=== PATIENT | male | born 1955 | race Caucasian/White ===

== ENCOUNTER 2016-09-18 18:24 | Observation (INO) ==
--- NOTE | 2016-09-18 18:28 | Emergency Department Note ---
Disposition Clinical Impression: Atrial fibrillation with RVR, Diabetes mellitus, Obesity, Renal insufficiency Disposition: Admitted As Inpatient Referrals: NO,PCP [Non-Partnered Physician] - General Adult HPI - General Stated complaint: ANASTACIA, A-Fib Time Seen by Provider: 09/18/16 18:28 - History of Present Illness HPI Narrative: 60-year-old male with a history of diabetes reports to the emergency department complaining of a high heart rate. The patient has had a cough and nasal congestion and a sore throat. The patient went to his primary care physician today for upper respiratory symptoms and was noted to have a high heart rate and was sent to the ED. The patient had an episode of atrial fibrillation in the remote past. He is not anticoagulated but he does take baby aspirin daily. The patient denies any chest pain or shortness of breath. No coughing of blood leg swelling or pain or syncope. No abdominal pain vomiting or diarrhea. There is no history of fever. No choking gasping wheezing or stridor. The patient has no history of malignancy DVT or PE. No history of coronary artery disease. The patient does not take medication for arrhythmia. He has not noticed a high heart rate. He has had no trouble walking and talking hearing seeing or speaking no unilateral arm weakness or numbness no slurred speech or confusion. There is no history of fever headache or rash. No acute back pain or urinary symptoms are noted. - Related Data Allergies Allergy/AdvReac Type Severity Reaction Status Date / Time No Known Allergies Allergy Verified 09/18/16 18:40 All systems ED: reviewed and negative except as stated. Past Medical History - Past Medical History Medical history: Reports: diabetes Physical Exam - General Limitations: no limitations General appearance: alert, in no apparent distress - Head Head exam: atraumatic, normocephalic, normal inspection - Eye Eye exam: Present: normal appearance, PERRL, EOMI. Absent: scleral icterus, conjunctival injection, miosis, mydriasis - ENT ENT exam: normal exam, normal oropharynx, mucous membranes moist, TM's normal bilaterally, normal external ear exam - Neck Neck exam: Present: normal inspection, full ROM, trachea midline - Chest Chest inspection: Present: symmetric chest wall rise. Absent: tenderness - Respiratory Respiratory exam: Present: normal lung sounds bilaterally. Absent: respiratory distress - Cardiovascular Cardiovascular exam: Present: tachycardia, irregular rhythm - Abdominal Exam Abdominal exam: Present: soft, Non-Tender, normal bowel sounds. Absent: tenderness, distention, guarding, rebound, rigidity, pulsatile mass - Extremities Exam Extremities exam: Present: normal inspection, full ROM, normal capillary refill. Absent: tenderness, pedal edema, joint swelling, calf tenderness - Expanded Lower Extremity Exam Lower leg exam: Absent: Homans' sign Neurovascular/Tendon exam: Absent: pulse deficit, motor deficit, sensory deficit , tendon deficit, extremity cold to touch, pallor - Back Exam Back exam: Present: normal inspection, full ROM. Absent: tenderness, CVA tenderness (R), CVA tenderness (L), vertebral tenderness - Neurological Exam Neurological exam: Present: alert, oriented X3, CN II-XII intact. Absent: motor sensory deficit - Psychiatric Psychiatric exam: Present: normal affect, normal mood - Skin Skin exam: Present: warm, dry, intact, normal color. Absent: rash, cyanosis, diaphoresis, erythema, pallor, mottled Course Vital Signs Temperature 98.1 F 09/18/16 18:36 Pulse Rate 122 09/18/16 18:36 Respiratory Rate 16 09/18/16 18:36 Blood Pressure 179/135 09/18/16 18:36 O2 Sat by Pulse Oximetry 95 09/18/16 18:36 Temperature 98.1 F 09/18/16 18:36 Pulse Rate 75 09/18/16 19:50 Respiratory Rate 16 09/18/16 19:50 Blood Pressure 160/85 09/18/16 19:50 O2 Sat by Pulse Oximetry 95 09/18/16 19:50 Oxygen Delivery Oxygen Delivery Room Air Medical Decision Making - [facility] Narrative Medical decision making narrative: Patient apparently has A. fib with RVR, he does not usually have atrial fibrillation, his heart rate was somewhat high on arrival up into the 140s, Cardizem was given which reduced his heart rate to under 100. The patient is elderly, diabetic, has an element of dyspnea, is noted to have renal insufficiency, with a history of remote atrial fibrillation and is currently not anticoagulated. It is unclear when his atrial fibrillation has started. Given his presentation with comorbidities and a very unclear time of onset regarding the atrial fibrillation, I felt it would be appropriate to admit the patient to the hospital. DI have discussed the case with the hospitalist on- call. - Lab Data Lab results reviewed: Yes I reviewed the patient's lab results. Result diagrams: 09/18/16 19:06 09/18/16 19:06 Lab Results 09/18/16 09/18/16 09/18/16 Range/Units 19:06 19:06 19:06 WBC 7.0 (4.3-11.1) K/mcL RBC 4.44 (4.19-5.50) M/mcL Hgb 12.2 L (12.9-16.9) g/dL Hct 38.5 (37.5-50.1) % MCV 86.7 (83.0-100.0) fL MCH 27.5 L (28.0-33.3) pg MCHC 31.7 (31.6-35.5) g/dL RDW 14.2 (11.5-14.5) % Plt Count 243 (140-400) K/mcL MPV 11.3 (9.4-12.4) fL Immature Gran % 0.6 (0-4) % Seg Neutrophils % 51.6 % Lymphocytes % 22.5 % Monocytes % 17.3 % Eosinophils % 7.3 % Basophils % 0.7 % Neutrophils # 3.6 (1.6-8.9) K/mcL Lymphocytes # 1.6 (0.6-4.6) K/mcL Monocytes # 1.2 (0.0-1.3) K/mcL Eosinophils # 0.5 (0.0-0.6) K/mcL Basophils # 0.1 (0.0-0.2) K/mcL PT 11.2 (9.4-12.1) Seconds INR 1.0 APTT 32.0 (26.0-36.0) Seconds Sodium 140 (136-145) mEq/L Potassium 4.3 (3.5-4.5) mEq/L Chloride 106 (98-109) mEq/L Carbon Dioxide 24 (19-29) mEq/L BUN 29 H (8-26) mg/dL Creatinine 1.85 H (0.72-1.25) mg/dL Est GFR ( Amer) 46 L (> 60) Est GFR (Non-Af Amer) 38 L (> 60) BUN/Creatinine Ratio 16 (6-26) Glucose 134 H (70-99) mg/dL Calculated Osmolality 298 (280-300) Lactic Acid (0.5-2.2) mmol/L Calcium 9.0 (8.6-10.8) mg/dL Total Bilirubin 0.6 (0.2-1.2) mg/dL Direct Bilirubin 0.2 (0.0-0.5) mg/dL Indirect Bilirubin 0.4 (0.0-1.2) mg/dL AST 26 (5-34) Units/L ALT 25 (0-55) Units/L Alkaline Phosphatase 58 (38-126) Units/L Troponin I (0-0.03) ng/mL C-Reactive Protein 16 H (Less than 5) mg/L B-Natriuretic Peptide (0-100) pg/mL Serum Total Protein 6.8 (6.0-8.3) g/dL Albumin 3.1 L (3.5-5.0) g/dL Globulin 3.7 H (2.4-3.5) g/dL Albumin/Globulin Ratio 0.8 L (1.1-2.2) 09/18/16 09/18/16 09/18/16 Range/Units 19:06 19:16 19:17 WBC (4.3-11.1) K/mcL RBC (4.19-5.50) M/mcL Hgb (12.9-16.9) g/dL Hct (37.5-50.1) % MCV (83.0-100.0) fL MCH (28.0-33.3) pg MCHC (31.6-35.5) g/dL RDW (11.5-14.5) % Plt Count (140-400) K/mcL MPV (9.4-12.4) fL Immature Gran % (0-4) % Seg Neutrophils % % Lymphocytes % % Monocytes % % Eosinophils % % Basophils % % Neutrophils # (1.6-8.9) K/mcL Lymphocytes # (0.6-4.6) K/mcL Monocytes # (0.0-1.3) K/mcL Eosinophils # (0.0-0.6) K/mcL Basophils # (0.0-0.2) K/mcL PT (9.4-12.1) Seconds INR APTT (26.0-36.0) Seconds Sodium (136-145) mEq/L Potassium (3.5-4.5) mEq/L Chloride (98-109) mEq/L Carbon Dioxide (19-29) mEq/L BUN (8-26) mg/dL Creatinine (0.72-1.25) mg/dL Est GFR ( Amer) (> 60) Est GFR (Non-Af Amer) (> 60) BUN/Creatinine Ratio (6-26) Glucose (70-99) mg/dL Calculated Osmolality (280-300) Lactic Acid 0.9 (0.5-2.2) mmol/L Calcium (8.6-10.8) mg/dL Total Bilirubin (0.2-1.2) mg/dL Direct Bilirubin (0.0-0.5) mg/dL Indirect Bilirubin (0.0-1.2) mg/dL AST (5-34) Units/L ALT (0-55) Units/L Alkaline Phosphatase (38-126) Units/L Troponin I 0.03 (0-0.03) ng/mL C-Reactive Protein (Less than 5) mg/L B-Natriuretic Peptide 160 H (0-100) pg/mL Serum Total Protein (6.0-8.3) g/dL Albumin (3.5-5.0) g/dL Globulin (2.4-3.5) g/dL Albumin/Globulin Ratio (1.1-2.2) - Radiology Data Radiology results reviewed: Yes I reviewed the patient's radiology results.
[2016-09-18 19:26] LABS: Basophils # 0.1 K/mcL (0.0-0.2); Basophils % 0.7 %; Eosinophils # 0.5 K/mcL (0.0-0.6); Eosinophils % 7.3 %; Hematocrit 38.5 % (37.5-50.1); Hemoglobin 12.2 g/dL (12.9-16.9); Immature Granulocytes % 0.6 % (0-4); Lymphocytes # 1.6 K/mcL (0.6-4.6); Lymphocytes % 22.5 %; Mean Corpuscular HGB Conc 31.7 g/dL (31.6-35.5); Mean Corpuscular Hemoglobin 27.5 pg (28.0-33.3); Mean Corpuscular Volume 86.7 fL (83.0-100.0); Mean Platelet Volume 11.3 fL (9.4-12.4); Monocytes # 1.2 K/mcL (0.0-1.3); Monocytes % 17.3 %; Neutrophils # 3.6 K/mcL (1.6-8.9); Platelet Count 243 K/mcL (140-400); Red Blood Count 4.44 M/mcL (4.19-5.50); Red Cell Distribution Width 14.2 % (11.5-14.5); Segmented Neutrophils % 51.6 %
[2016-09-18 19:30] LABS: Prothrombin Time 11.2 Seconds (9.4-12.1)
[2016-09-18 19:39] LABS: Albumin 3.1 g/dL (3.5-5.0); Albumin/Globulin Ratio 0.8 (1.1-2.2); Bilirubin,Direct 0.2 mg/dL (0.0-0.5); Bilirubin,Indirect 0.4 mg/dL (0.0-1.2); Bilirubin,Total 0.6 mg/dL (0.2-1.2); Globulin 3.7 g/dL (2.4-3.5); Potassium 4.3 mEq/L (3.5-4.5); Total Protein 6.8 g/dL (6.0-8.3)
[2016-09-18 21:18] LABS: Thyroid Stimulating Hormone 2.61 mcIU/mL (0.350-4.840)
[2016-09-18] MEDS ORDERED: Naloxone 0.4 MG/ML INJ IVP PRN (23:41)
[2016-09-18] MEDS ORDERED: Nitroglycerin 0.4 MG TAB.SUBL SL PRN (23:41)
[2016-09-18] MEDS ORDERED: Acetaminophen 325 MG TABLET PO PRN (23:41)
[2016-09-18] MEDS ORDERED: D5% in Water 1,000 ML IV PRN (23:41)
[2016-09-18] MEDS ORDERED: *HR* Metoprolol 5 MG/5 ML VIAL IVP PRN (23:41)
[2016-09-18] MEDS ORDERED: Nicotine 21 MG PATCH.TD24 TD PRN (23:41)
[2016-09-18] MEDS ORDERED: *HR* Morphine 2 MG/ML SYRINGE IVP PRN (23:41)
[2016-09-18] MEDS ORDERED: *HR* OxyCODONE Immed Rel 5 MG TABLET PO PRN (23:41)
[2016-09-18] MEDS ORDERED: *HR* Promethazine 25 MG/ML VIAL IVP PRN (23:41)
[2016-09-18] MEDS ORDERED: *HR* Dextrose 50 % in Water (Syg) 50 ML SYRINGE IVP PRN (23:41)
[2016-09-18] MEDS ORDERED: Dextrose Gel 15 GM PO PRN ×2 (23:41)
[2016-09-18] MEDS ORDERED: 0.9 % Sodium Chloride 1,000 ML IVC SCH (23:45)
[2016-09-18] MEDS ORDERED: INSULIN GLARGINE 62 UNIT SQ SCH (23:45)
--- NOTE | 2016-09-18 23:49 | Internal Med History&Physical ---
Date of Encounter: 09/18/16 Time of Encounter: 23:48 Assessment and Plan (1) Atrial fibrillation with RVR Current visit: Yes Status: Acute . Internal Medicine - H&P: HPI Admitted From: Emergency Dept Plans for Post Hospital Care: Home History of present illness: Mr. Osborne is a 60 year old male Past Med Surg Social Fam HX - Past Medical History Medical history: diabetes Psychiatric history: no psych history - Social History Smoking Status: Never smoker Smokeless Tobacco Status: Yes Alcohol use: none Drug use: none - Family History Mother Living Status: Hx Family Cardiac Disorders: Yes Hx Family Endocrine Disorder: Yes Brother Hx Family Cardiac Disorders: Yes Internal Medicine - H&P: Meds Albuterol Sulfate [Ventolin Hfa] 2 puff IH Q4H PRN 09/18/16 [History] Allopurinol [Zyloprim 100 MG] 100 mg PO DAILY 09/18/16 [History] Aspirin Enteric Coated [Aspirin EC] 81 mg PO DAILY 09/18/16 [History] Atorvastatin [Lipitor] 40 mg PO HS 09/18/16 [History] Carvedilol [Coreg] 25 mg PO BID 09/18/16 [History] CloNIDine HCl [CloNIDine HCl] 0.1 mg PO TID 09/18/16 [History] Felodipine [Felodipine ER] 10 mg PO DAILY 09/18/16 [History] Furosemide [Lasix] 40 mg PO BID 09/18/16 [History] Hydralazine HCl 50 mg PO TID 09/18/16 [History] Insulin Glargine [Lantus] 62 unit SQ QPM 09/18/16 [History] Lisinopril [Lisinopril] 40 mg PO DAILY 09/18/16 [History] Metformin [Glucophage] 850 mg PO BID 09/18/16 [History] Montelukast [Singulair] 10 mg PO HS 09/18/16 [History] Allergies No Known Allergies Allergy (Verified 09/18/16 18:40) All Systems PM: A 10-system review of systems was performed and is negative for pertinent findings except as documented above in the HPI. - Constitutional Vitals: Temp Pulse Resp BP Pulse Ox 98.0 F 70 18 180/68 96 09/18/16 22:50 09/18/16 22:50 09/18/16 22:50 09/18/16 22:50 09/18/16 22:50 Internal Med - H&P Results - Labs CBC & Chem 7: 09/18/16 19:06 09/18/16 19:06 Labs: Vital Signs Temp Pulse Resp BP Pulse Ox 09/18/16 22:50 98.0 F 70 18 180/68 96 09/18/16 21:12 98.0 F 70 18 189/92 95 09/18/16 20:57 18 158/96 09/18/16 19:50 75 16 160/85 95 09/18/16 19:06 103 20 169/96 94 L 09/18/16 18:36 98.1 F 122 16 179/135 95 Intake and Output 09/18/16 09/18/16 09/18/16 07:59 15:59 23:59 Other: Weight 169.19 kg Patient Weight 09/18/16 23:59 Weight 169.19 kg Short CBC 09/18/16 Range/Units 19:06 WBC 7.0 (4.3-11.1) K/mcL Hgb 12.2 L (12.9-16.9) g/dL Hct 38.5 (37.5-50.1) % Plt Count 243 (140-400) K/mcL Neutrophils # 3.6 (1.6-8.9) K/mcL BMP 09/18/16 Range/Units 19:06 Sodium 140 (136-145) mEq/L Potassium 4.3 (3.5-4.5) mEq/L Chloride 106 (98-109) mEq/L Carbon Dioxide 24 (19-29) mEq/L BUN 29 H (8-26) mg/dL Creatinine 1.85 H (0.72-1.25) mg/dL Glucose 134 H (70-99) mg/dL Calcium 9.0 (8.6-10.8) mg/dL Cardiac Enzymes 09/18/16 Range/Units 19:06 Troponin I 0.03 (0-0.03) ng/mL Liver Function 09/18/16 Range/Units 19:06 Total Bilirubin 0.6 (0.2-1.2) mg/dL Direct Bilirubin 0.2 (0.0-0.5) mg/dL AST 26 (5-34) Units/L ALT 25 (0-55) Units/L Alkaline Phosphatase 58 (38-126) Units/L Albumin 3.1 L (3.5-5.0) g/dL - Impressions Abnormal lab results Hgb 12.2 g/dL (12.9-16.9) L 09/18/16 19:06 MCH 27.5 pg (28.0-33.3) L 09/18/16 19:06 BUN 29 mg/dL (8-26) H 09/18/16 19:06 Creatinine 1.85 mg/dL (0.72-1.25) H 09/18/16 19:06 Est GFR ( Amer) 46 (> 60) L 09/18/16 19:06 Est GFR (Non-Af Amer) 38 (> 60) L 09/18/16 19:06 Glucose 134 mg/dL (70-99) H 09/18/16 19:06 POC Glucose 125 (58-89) H 09/18/16 21:32 C-Reactive Protein 16 mg/L (Less than 5) H 09/18/16 19:06 B-Natriuretic Peptide 160 pg/mL (0-100) H 09/18/16 19:17 Albumin 3.1 g/dL (3.5-5.0) L 09/18/16 19:06 Globulin 3.7 g/dL (2.4-3.5) H 09/18/16 19:06 Albumin/Globulin Ratio 0.8 (1.1-2.2) L 09/18/16 19:06 Laboratory Results WBC 7.0 K/mcL (4.3-11.1) 09/18/16 19:06 RBC 4.44 M/mcL (4.19-5.50) 09/18/16 19:06 Hgb 12.2 g/dL (12.9-16.9) L 09/18/16 19:06 Hct 38.5 % (37.5-50.1) 09/18/16 19: MCV 86.7 fL (83.0-100.0) 09/18/16 19:06 MCH 27.5 pg (28.0-33.3) L 09/18/16 19:06 MCHC 31.7 g/dL (31.6-35.5) 09/18/16 19:06 RDW 14.2 % (11.5-14.5) 09/18/16 19:06 Plt Count 243 K/mcL (140-400) 09/18/16 19:06 MPV 11.3 fL (9.4-12.4) 09/18/16 19:06 Immature Gran % 0.6 % (0-4) 09/18/16 19:06 Seg Neutrophils % 51.6 % 09/18/16 19:06 Lymphocytes % 22.5 % 09/18/16 19:06 Monocytes % 17.3 % 09/18/16 19:06 Eosinophils % 7.3 % 09/18/16 19:06 Basophils % 0.7 % 09/18/16 19:06 Neutrophils # 3.6 K/mcL (1.6-8.9) 09/18/16 19:06 Lymphocytes # 1.6 K/mcL (0.6-4.6) 09/18/16 19:06 Monocytes # 1.2 K/mcL (0.0-1.3) 09/18/16 19:06 Eosinophils # 0.5 K/mcL (0.0-0.6) 09/18/16 19:06 Basophils # 0.1 K/mcL (0.0-0.2) 09/18/16 19:06 PT 11.2 Seconds (9.4-12.1) 09/18/16 19:06 INR 1.0 09/18/16 19:06 APTT 32.0 Seconds (26.0-36.0) 09/18/16 19:06 Sodium 140 mEq/L (136-145) 09/18/16 19:06 Potassium 4.3 mEq/L (3.5-4.5) 09/18/16 19:06 Chloride 106 mEq/L (98-109) 09/18/16 19:06 Carbon Dioxide 24 mEq/L (19-29) 09/18/16 19:06 BUN 29 mg/dL (8-26) H 09/18/16 19:06 Creatinine 1.85 mg/dL (0.72-1.25) H 09/18/16 19:06 Est GFR ( Amer) 46 (> 60) L 09/18/16 19:06 Est GFR (Non-Af Amer) 38 (> 60) L 09/18/16 19:06 BUN/Creatinine Ratio 16 (6-26) 09/18/16 19:06 Glucose 134 mg/dL (70-99) H 09/18/16 19:06 POC Glucose 125 (58-89) H 09/18/16 21:32 Calculated Osmolality 298 (280-300) 09/18/16 19:06 Lactic Acid 0.9 mmol/L (0.5-2.2) 09/18/16 19:16 Calcium 9.0 mg/dL (8.6-10.8) 09/18/16 19:06 Total Bilirubin 0.6 mg/dL (0.2-1.2) 09/18/16 19:06 Direct Bilirubin 0.2 mg/dL (0.0-0.5) 09/18/16 19:06 Indirect Bilirubin 0.4 mg/dL (0.0-1.2) 09/18/16 19:06 AST 26 Units/L (5-34) 09/18/16 19:06 ALT 25 Units/L (0-55) 09/18/16 19:06 Alkaline Phosphatase 58 Units/L (38-126) 09/18/16 19:06 Troponin I 0.03 ng/mL (0-0.03) 09/18/16 19:06 C-Reactive Protein 16 mg/L (Less than 5) H 09/18/16 19:06 B-Natriuretic Peptide 160 pg/mL (0-100) H 09/18/16 19:17 Serum Total Protein 6.8 g/dL (6.0-8.3) 09/18/16 19:06 Albumin 3.1 g/dL (3.5-5.0) L 09/18/16 19:06 Globulin 3.7 g/dL (2.4-3.5) H 09/18/16 19:06 Albumin/Globulin Ratio 0.8 (1.1-2.2) L 09/18/16 19:06 TSH 2.610 mcIU/mL (0.350-4.840) 09/18/16 19:06 Impressions Chest X-Ray 09/18/16 18:36 IMPRESSION: 1. Minimal prominence of the central pulmonary vasculature. 2. Otherwise, no evidence of acute cardiopulmonary abnormality. D/ / Mono Goins MD / Mono Goins MD Interpreting Provider: Mono Goins MD - Attending Attestation My signature below is to certify that this patient is under my care and that I, or nurse practitioner, or a physician's clinic office assistant working with me, has a face-to -face encounter with this patient. Allergies No Known Allergies Allergy (Verified 09/18/16 18:40) Home Medications Medication Instructions Recorded Confirmed Type Albuterol Sulfate [Ventolin Hfa] 2 puff IH Q4H PRN 09/18/16 09/18/16 History Allopurinol [Zyloprim 100 MG] 100 mg PO DAILY 09/18/16 09/18/16 History Aspirin Enteric Coated [Aspirin EC] 81 mg PO DAILY 09/18/16 09/18/16 History Atorvastatin [Lipitor] 40 mg PO HS 09/18/16 09/18/16 History Carvedilol [Coreg] 25 mg PO BID 09/18/16 09/18/16 History CloNIDine HCl [CloNIDine HCl] 0.1 mg PO TID 09/18/16 09/18/16 History Felodipine [Felodipine ER] 10 mg PO DAILY 09/18/16 09/18/16 History Furosemide [Lasix] 40 mg PO BID 09/18/16 09/18/16 History Hydralazine HCl 50 mg PO TID 09/18/16 09/18/16 History Insulin Glargine [Lantus] 62 unit SQ QPM 09/18/16 09/18/16 History Lisinopril [Lisinopril] 40 mg PO DAILY 09/18/16 09/18/16 History Metformin [Glucophage] 850 mg PO BID 09/18/16 09/18/16 History Montelukast [Singulair] 10 mg PO HS 09/18/16 09/18/16 History I & O 09/15/16 09/16/16 09/17/16 09/18/16 23:59 23:59 23:59 23:59 Weight 169.19 kg Medications Allopurinol (Zyloprim) 100 mg PO DAILY ISAMAR Stop: 03/21/17 09:01 Aspirin (Aspirin Ec) 81 mg PO DAILY ISAMAR Stop: 03/21/17 09:01 Atorvastatin Calcium (Lipitor) 40 mg PO HS [facility] Stop: 03/20/17 23:46 Carvedilol (Coreg) 25 mg PO BID [facility] PRN Reason: Protocol Stop: 03/20/17 23:46 Clonidine HCl (Clonidine Hcl) 0.1 mg PO TID ISAMAR Stop: 03/21/17 09:01 Furosemide (Lasix) 40 mg PO BID ISAMAR Stop: 03/21/17 09:01 Hydralazine HCl (Hydralazine) 50 mg PO TID ISAMAR Stop: 03/20/17 23:46 Lisinopril (Zestril) 40 mg PO DAILY [facility] Stop: 03/21/17 09:01 Montelukast Sodium (Singulair) 10 mg PO HS [facility] Stop: 03/20/17 23:46 Non-Formulary Medication (Insulin Glargine [Lantus]) 62 unit SQ QPM [facility] Stop: 03/20/17 23:46 Pharmacy Profile Note (Patient Taking Own Medication) 0 each PO DAILY [facility] Stop: 03/21/17 09:01 Discontinued Medications Diltiazem HCl (Cardizem) 25 mg IVP ONCE ONE Stop: 09/18/16 18:42 Last Admin: 09/18/16 18:59 Dose: 25 mg Orders 09/18/16 18:35 12 lead ECG assessment [RC] NOW Cardiac monitoring [RC] .ONCE Obtain Old EKG [RC] .ONCE Saline lock [RC] .ONCE Supplemental oxygen titration [RC] .ONCE Physician Instructions: Vital Signs Assessment [RC] PROTOCOL ECG 12 lead ECG [ECG] Stat Mode Of Transportation: Portable Reason For Exam: chest pain Exam Performed At:: [facility] 09/18/16 18:36 XR chest 2V [XR] Stat Mode Of Transportation: Stretcher Reason For Exam: A. fib RVR Exam Performed At:: [facility] 09/18/16 18:41 Diltiazem [Cardizem] 25 mg IVP ONCE ONE 09/18/16 19:05 Rapid Flu [Influenza A/B Antigen] [VIR] Stat Comment: DAMIAN Source: Nasopharyngeal Specimen: Send someone from the department to collect Specimen Description: 09/18/16 19:06 Activated Partial Thrombo Time [COAG] Stat Comment: Specimen: Send someone from the department to collect Basic Metabolic Panel Stat C-Reactive Protein Stat Complete Blood Count [HEME] Stat Comment: Specimen: Send someone from the department to collect Hepatic Panel Stat Comment: Specimen: Send someone from the department to collect Prothrombin Time INR [COAG] Stat Comment: Specimen: Send someone from the department to collect Thyroid Stimulating Hormone Stat Troponin I Stat Comment: Specimen: Send someone from the department to collect 09/18/16 19:16 Lactic Acid ([facility] Only) Stat Comment: Specimen: Send someone from the department to collect 09/18/16 19:17 BNP [B-Type Natriuretic Peptide] Stat Comment: Specimen: Send someone from the department to collect 09/18/16 20:[address] Stat Comment: Reason for Visit: A. fib RVR 09/18/16 20:32 12 lead ECG assessment [RC] NOW EKG [ECG 12 lead ECG] [ECG] Stat Mode Of Transportation: Portable Reason For Exam: AF, Yes #2 Order Doctor: Matt Hernández Exam Performed At:: [facility] 09/18/16 21:32 POC Glucometer Test [POC] Routine 09/18/16 23:41 Cardiac monitoring [RC] .ONCE Continuous pulse oximetry [RC] .ONCE Comment: Glucose, blood poc measurement [RC] ACHS Glucose, blood poc measurement [RC] ACHS Hypoglycemia Treatment Orders [RC] .once Notify provider [RC] once Physician Instructions: Oxygen via nasal cannula Nasal Cannula 2 lpm Comment: Peripheral IV [RC] CONT Vital Signs Assessment [RC] Q4H Consult to Vessel Slag Worker [CONS] Routine Comment: Consult to Nurse Navigator [CONS] Routine Comment: @ 100 MLS/HR [prn Hypoglycemia] D5% in Water [Dextrose 5%] 1,000 ml IV CONT Acetaminophen [Tylenol] 650 mg PO Q6HR PRN Dextrose 50 % in Water (Syg) [Dextrose 50% (Syg)] 25 ml IVP AD PRN Dextrose Gel [Gluctose] 15 gm PO ONCE PRN Dextrose Gel [Gluctose] 30 gm PO ONCE PRN Docusate [Colace] 100 mg PO BID PRN Glucagon, Human Recombinant [GlucaGen] 1 mg IM ONCE PRN Metoprolol [Lopressor] 5 mg IVP Q6HR PRN Morphine [Morphine Sulfate] 2 mg IVP Q4HR PRN Naloxone [Narcan] 0.4 mg IVP Q2MIN PRN Nicotine Patch [Nicoderm] 21 mg TD DAILY PRN Nitroglycerin 0.4 mg SL Q5MIN PRN OxyCODONE Immed Rel [Roxicodone] 5 mg PO Q6HR PRN Promethazine [Phenergan] 12.5 mg IVP Q6HR PRN Resuscitation Status: Active [RES] Routine Resuscitation Status: Full Code Comment: EV echocardiogram Routine Mode Of Transportation: Portable Reason For Exam: ACS Exam Performed At:: [facility] 09/18/16 23:42 Placement to Observation Routine Physician Instructions: Reason for Visit: Difficulty breathing. Palpitations. Is VTE Prophylaxis Indicated?: Yes RT has an order or consult [RC] NOW 09/18/16 23:43 Bed rest w/bathroom privileges [RC] .PRN Cardiac Monitoring Med/Surg [RC] .CONT Telemetry Reason: ACS/CP Continuous pulse oximetry [RC] CONT Comment: Measure intake and output [RC] QSHIFT Measure weight [RC] DAILY Oxygen via nasal cannula Nasal Cannula 2 lpm Comment: Titrate O2 to main O2 sat greater than: 92% 09/18/16 23:45 Troponin I Q6H Specimen: Send someone from the department to collect Comment: 0.9 % Sodium Chloride 1,000 ml IVC 50 mls/hr Atorvastatin [Lipitor] 40 mg PO HS Carvedilol [Coreg] 25 mg PO BID Hydralazine HCl [Hydralazine HCl] 50 mg PO TID How will this medication be supplied?: Pharmacy to Subsitute Insulin Glargine [Lantus] 62 unit SQ QPM How will this medication be supplied?: Pharmacy to Subsitute Insulin LISPRO [HumaLOG] See Protocol SQ HS Montelukast [Singulair] 10 mg PO HS 09/18/16 23:46 12 lead ECG assessment [RC] NOW 09/18/16 Breakfast Diabetic Diet Diet Modifications: 09/19/16 04:00 Activated Partial Thrombo Time [COAG] AM 0400 Specimen: Send someone from the department to collect Comment: B-Type Natriuretic Peptide AM 0400 Specimen: Send someone from the department to collect Comment: Complete Blood Count w/o Diff [HEME] AM 0400 Specimen: Send someone from the department to collect Comment: Comprehensive Metabolic Panel AM 0400 Specimen: Send someone from the department to collect Comment: Hgb A1C AM 0400 Specimen: Send someone from the department to collect Comment: Lipid Panel AM 0400 Specimen: Send someone from the department to collect Comment: Magnesium AM 0400 Specimen: Send someone from the department to collect Comment: Phosphorous AM 0400 Specimen: Send someone from the department to collect Comment: Prothrombin Time INR [COAG] AM 0400 Specimen: Send someone from the department to collect Comment: Thyroid Stimulating Hormone AM 0400 Specimen: Send someone from the department to collect Comment: Urinalysis reflex Microscopic [URIN] AM 0400 Specimen: Send someone from the department to collect Comment: 09/19/16 05:45 Troponin I Q6H Specimen: Send someone from the department to collect Comment: 09/19/16 07:00 ECG 12 lead ECG [ECG] Routine Mode Of Transportation: Portable Reason For Exam: Myocardial Infarction Exam Performed At:: [facility] 09/19/16 07:30 Insulin LISPRO [HumaLOG] See Protocol SQ TIDAC 09/19/16 09:00 Allopurinol [Zyloprim] 100 mg PO DAILY Aspirin Enteric Coated [Aspirin EC] 81 mg PO DAILY CloNIDine HCl 0.1 mg PO TID Felodipine [Felodipine ER] 10 mg PO DAILY How will this medication be supplied?: Pharmacy to Subsitute Furosemide [Lasix] 40 mg PO BID Lisinopril [Lisinopril] 40 mg PO DAILY How will this medication be supplied?: Pharmacy to Subsitute 09/19/16 11:45 Troponin I Q6H Specimen: Send someone from the department to collect Comment: Patient Problems Atrial fibrillation with RVR (Acute) Diabetes mellitus (Acute) Obesity (Acute) Renal insufficiency (Acute) Vital Signs Temp Pulse Resp BP Pulse Ox 09/18/16 22:50 98.0 F 70 18 180/68 96 09/18/16 21:12 98.0 F 70 18 189/92 95 09/18/16 20:57 18 158/96 09/18/16 19:50 75 16 160/85 95 09/18/16 19:06 103 20 169/96 94 L 09/18/16 18:36 98.1 F 122 16 179/135 95 Laboratory Results 09/18/16 09/18/16 09/18/16 Range/Units 19:06 19:06 19:06 WBC 7.0 (4.3-11.1) K/mcL RBC 4.44 (4.19-5.50) M/mcL Hgb 12.2 L (12.9-16.9) g/dL Hct 38.5 (37.5-50.1) % MCV 86.7 (83.0-100.0) fL MCH 27.5 L (28.0-33.3) pg MCHC 31.7 (31.6-35.5) g/dL RDW 14.2 (11.5-14.5) % Plt Count 243 (140-400) K/mcL MPV 11.3 (9.4-12.4) fL Immature Gran % 0.6 (0-4) % Seg Neutrophils % 51.6 % Lymphocytes % 22.5 % Monocytes % 17.3 % Eosinophils % 7.3 % Basophils % 0.7 % Neutrophils # 3.6 (1.6-8.9) K/mcL Lymphocytes # 1.6 (0.6-4.6) K/mcL Monocytes # 1.2 (0.0-1.3) K/mcL Eosinophils # 0.5 (0.0-0.6) K/mcL Basophils # 0.1 (0.0-0.2) K/mcL PT 11.2 (9.4-12.1) Seconds INR 1.0 APTT 32.0 (26.0-36.0) Seconds Sodium 140 (136-145) mEq/L Potassium 4.3 (3.5-4.5) mEq/L Chloride 106 (98-109) mEq/L Carbon Dioxide 24 (19-29) mEq/L BUN 29 H (8-26) mg/dL Creatinine 1.85 H (0.72-1.25) mg/dL Est GFR ( Amer) 46 L (> 60) Est GFR (Non-Af Amer) 38 L (> 60) BUN/Creatinine Ratio 16 (6-26) Glucose 134 H (70-99) mg/dL POC Glucose (58-89) Calculated Osmolality 298 (280-300) Lactic Acid (0.5-2.2) mmol/L Calcium 9.0 (8.6-10.8) mg/dL Total Bilirubin 0.6 (0.2-1.2) mg/dL Direct Bilirubin 0.2 (0.0-0.5) mg/dL Indirect Bilirubin 0.4 (0.0-1.2) mg/dL AST 26 (5-34) Units/L ALT 25 (0-55) Units/L Alkaline Phosphatase 58 (38-126) Units/L Troponin I (0-0.03) ng/mL C-Reactive Protein 16 H (Less than 5) mg/L B-Natriuretic Peptide (0-100) pg/mL Serum Total Protein 6.8 (6.0-8.3) g/dL Albumin 3.1 L (3.5-5.0) g/dL Globulin 3.7 H (2.4-3.5) g/dL Albumin/Globulin Ratio 0.8 L (1.1-2.2) TSH 2.610 (0.350-4.840) mcIU/mL 09/18/16 09/18/16 09/18/16 Range/Units 19:06 19:16 19:17 WBC (4.3-11.1) K/mcL RBC (4.19-5.50) M/mcL Hgb (12.9-16.9) g/dL Hct (37.5-50.1) % MCV (83.0-100.0) fL MCH (28.0-33.3) pg MCHC (31.6-35.5) g/dL RDW (11.5-14.5) % Plt Count (140-400) K/mcL MPV (9.4-12.4) fL Immature Gran % (0-4) % Seg Neutrophils % % Lymphocytes % % Monocytes % % Eosinophils % % Basophils % % Neutrophils # (1.6-8.9) K/mcL Lymphocytes # (0.6-4.6) K/mcL Monocytes # (0.0-1.3) K/mcL Eosinophils # (0.0-0.6) K/mcL Basophils # (0.0-0.2) K/mcL PT (9.4-12.1) Seconds INR APTT (26.0-36.0) Seconds Sodium (136-145) mEq/L Potassium (3.5-4.5) mEq/L Chloride (98-109) mEq/L Carbon Dioxide (19-29) mEq/L BUN (8-26) mg/dL Creatinine (0.72-1.25) mg/dL Est GFR ( Amer) (> 60) Est GFR (Non-Af Amer) (> 60) BUN/Creatinine Ratio (6-26) Glucose (70-99) mg/dL POC Glucose (58-89) Calculated Osmolality (280-300) Lactic Acid 0.9 (0.5-2.2) mmol/L Calcium (8.6-10.8) mg/dL Total Bilirubin (0.2-1.2) mg/dL Direct Bilirubin (0.0-0.5) mg/dL Indirect Bilirubin (0.0-1.2) mg/dL AST (5-34) Units/L ALT (0-55) Units/L Alkaline Phosphatase (38-126) Units/L Troponin I 0.03 (0-0.03) ng/mL C-Reactive Protein (Less than 5) mg/L B-Natriuretic Peptide 160 H (0-100) pg/mL Serum Total Protein (6.0-8.3) g/dL Albumin (3.5-5.0) g/dL Globulin (2.4-3.5) g/dL Albumin/Globulin Ratio (1.1-2.2) TSH (0.350-4.840) mcIU/mL 09/18/ Range/Units 21:32 WBC (4.3-11.1) K/mcL RBC (4.19-5.50) M/mcL Hgb (12.9-16.9) g/dL Hct (37.5-50.1) % MCV (83.0-100.0) fL MCH (28.0-33.3) pg MCHC (31.6-35.5) g/dL RDW (11.5-14.5) % Plt Count (140-400) K/mcL MPV (9.4-12.4) fL Immature Gran % (0-4) % Seg Neutrophils % % Lymphocytes % % Monocytes % % Eosinophils % % Basophils % % Neutrophils # (1.6-8.9) K/mcL Lymphocytes # (0.6-4.6) K/mcL Monocytes # (0.0-1.3) K/mcL Eosinophils # (0.0-0.6) K/mcL Basophils # (0.0-0.2) K/mcL PT (9.4-12.1) Seconds INR APTT (26.0-36.0) Seconds Sodium (136-145) mEq/L Potassium (3.5-4.5) mEq/L Chloride (98-109) mEq/L Carbon Dioxide (19-29) mEq/L BUN (8-26) mg/dL Creatinine (0.72-1.25) mg/dL Est GFR ( Amer) (> 60) Est GFR (Non-Af Amer) (> 60) BUN/Creatinine Ratio (6-26) Glucose (70-99) mg/dL POC Glucose 125 H (58-89) Calculated Osmolality (280-300) Lactic Acid (0.5-2.2) mmol/L Calcium (8.6-10.8) mg/dL Total Bilirubin (0.2-1.2) mg/dL Direct Bilirubin (0.0-0.5) mg/dL Indirect Bilirubin (0.0-1.2) mg/dL AST (5-34) Units/L ALT (0-55) Units/L Alkaline Phosphatase (38-126) Units/L Troponin I (0-0.03) ng/mL C-Reactive Protein (Less than 5) mg/L B-Natriuretic Peptide (0-100) pg/mL Serum Total Protein (6.0-8.3) g/dL Albumin (3.5-5.0) g/dL Globulin (2.4-3.5) g/dL Albumin/Globulin Ratio (1.1-2.2) TSH (0.350-4.840) mcIU/mL Assessments/Treatments 12 lead ECG assessment Start: 09/18/16 18: 35 Freq: NOW Status: Complete Document 09/18/16 18:47 [id number] (Rec: 09/18/16 18:52 [id number]) EKG Time EKG Completed 18:40 EKG performed by Ayaan PIERCE EKG shown to and signed by Dr. Hernández 12 lead ECG assessment Start: 09/18/16 20: 32 Freq: NOW Status: Active Document 09/18/16 20:32 KJC (Rec: 09/18/16 22:14 [id number]) Cardiac monitoring Start: 09/18/16 18: 35 Freq: .ONCE Status: Complete Document 09/18/16 18:47 [id number] (Rec: 09/18/16 18:52 [id number]) Cardiac Monitoring Heart Rate 118 Monitoring Method Telemetry Rhythm Atrial Fibrillation Monitor Number 32 ED Discharge Assessment Start: 09/18/16 18: 40 Freq: Status: Active Document 09/18/16 20:57 [id number] (Rec: 09/18/16 20:58 [id number]) ED Discharge Assessment ED Discharge Disposition Admitted ED Condition on Discharge Improved Med Rec/Patient Pharmacy Completed? Yes Admitted to 3B Bed assigned 54 Transported by maintenance mechanic technician Transported with monitor IV Report given to Nurse Care transferred to (name/credentials) Patricia RN Information relayed patient's care treatments medications given condition recent/anticipated changes Clinical Documentation Summary Provided Yes Discharge Comment Pt in no acute distress on admission to inpatient unit IV Line Removal Patient Tolerance Sterile Dressing Applied Pain Scale 0 Pain Scale Used Standard (1-10) Blood Pressure (mm Hg) 158/96 Heart rate 79 Respiratory Rate (breaths/min) 18 Oxygen Delivery Room Air Oxygen Saturation 97 Critical Care Minutes 0 ED Shortness of Breath Assessment Start: 09/18/16 18: 40 Freq: Status: Complete Document 09/18/16 18:47 [id number] (Rec: 09/18/16 18:52 [id number]) Shortness of Breath Sepsis Infection Criteria Present suspected infection Sepsis SIRS Criteria HR > 90 bpm Sepsis Screen No Definite Risk Sepsis Action Taken no action required Symptoms/Complaint Shortness of Breath Onset x 3 weeks Duration Intermittent Severity Moderate Context History/simular sympoms Known History Diabetes Improves With Rest Worsens With Exertion Associated Symptoms Cough Treatment Prior to Arrival None Chest Pain Intensity (out of 10) 0 Respiratory Depth Normal Effort Normal for Patient Spontaneous Non-Labored Pattern Irregular Anterior Bilateral Breath Sounds Diminished Cough Description Voluntary Non-Productive Frequency Intermittent Level Of Consciousness Awake Alert Appropriate Follows Commands Patient Orientation Person Place Time Name Age Date of Day of Month Day of Week Month Year Time of Day Patient Behavior Appropriate Cooperative Ability to Follow Directions Excellent Impaired Cognition No Skin Temperature Warm Skin Moisture Dry Skin Turgor Elastic Capillary Refill < 3 Seconds Fall Precautions Acute Start: 09/18/16 21: 15 Freq: Q12H Status: Active Document 09/18/16 21:30 MRB (Rec: 09/18/16 21:45 MRB [id number]) [facility] Fall Risk Assessment Tool Age less than60 years age (0 points) Fall History No falls within last 6 months (0 points) Elimination, Bowel, and Urine N/A (0 pts) Medications: Includes [employer]DITIONER/opiates, On 1 high fall risk drug (3 antivulsants, ant-hypertensives, points) diuretics, hypnotics, Patient Care Equipment: Any equipment None present (0 points) that tethers patient (e.g. IV infusions, chest tube, indwelling Mobility N/A (0 points) Cognition N/A (0 points) Total Fall Risk Score 3 Fall Risk Category Low Risk (0-5) Fall Risk Interventions Low Risk Interventions Bed in lowest position Top side rails up x 2 Secure brake on bed Use properly fitting non-skid footwear Call light and frequently needed objects within reach Encourage patients/families to call for assistance when needed Fall education including risk assessment, injury risk and routine/ Inspect environment for safety and communication risk Supervise and assist with toileting/ADLs as needed Family History-Meaningful Use Start: 09/18/16 21: 15 Freq: .Once Status: Active Document 09/18/16 21:30 MRB (Rec: 09/18/16 21:45 [facility] [id number]) Family History-Meaningful Use Brother Hx Family Cardiac Disorders Yes Mother Living Status Hx Family Cardiac Disorders Yes Hx Family Endocrine Disorder Yes IV-Invasive Line Management Start: 09/18/16 21: 15 Freq: Q8H Status: Active Document 09/18/16 21:30 MRB (Rec: 09/18/16 21:45 [facility] [id number]) IV/Invasive Line Assessment Left Antecubital Date of Insertion 09/18/16 Time of Insertion 18:52 Reason for Line Insertion/Rationale for Provide Access for IV Insertion Medication(s) Provide Access for Emergency Gauge (gauge) 18 IV Catheter Type Peripheral IV Site Observation Patent Dressing Applied Window Dressing Dry/Intact Med Rec Tech Start: 09/18/16 20: 56 Freq: Status: Complete Document 09/18/16 20:56 EJD (Rec: 09/18/16 20:56 EJD [id number]) Pharmacy Med Rec Tech Home Medicatons Reconciled? Yes Was this to catch up from previous day No Does patient take 10 or more medications Yes ? Does patient request medication No education Do home meds include Coumadin, Xarelto, No Pradaxa, Eliquis Added Patient Preferred Pharmacy Yes Verified Allergies Yes Would Patient Like to use [facility] No Patient Pharmacy Observation Admission Assessment Start: 09/18/16 21: 15 Freq: .once Status: Active Document 09/18/16 21:30 MRB (Rec: 09/18/16 21:45 MRB [id number]) General Questions Date of Arrival on Unit 09/18/16 Time of Arrival on Unit 21:15 Admitted From Emergency Dept Chief Complaint cold symptoms Onset of Chief Complaint 09/04/16 History Provided By Patient Orientation To Call Light Bed Phone TV Bathroom Smoking Policy Visiting Hours Procedures ID Bracelet On Emergency Contact Name Ileana De Relationship to Patient son Emergency Contact [phone] applied ID band Patient Health Portal Patient was provided information on Yes accessing patient portal Patient Requests Portal Enrollment No Reason No Portal Enrollment Patient Declines Advance Directives Advance Directives No Advance Directives Information Provided Yes Patient Rights Copy of Rights Given and Verbalizes Yes Understanding Tobacco Free [place]: Copy of [facility] Yes Statement Given and Patient Verbalizes Understanding Communication Ability Primary Language Azerbaijani Preferred Language Azerbaijani Ability to Follow Directions Good Communication Tools None Learning Preferences Discussion Hearing Ability Normal Visual Assistive Devices Glasses Pain Assessment Do You Have Any Ongoing (Chronic) Pain No Problems Educated on Pain Scale Yes Past Medical History Medical history diabetes Psychiatric history no psych history Smoking Status Never smoker Smokeless Tobacco Status Yes Alcohol use none Drug use none Occupational status employed Current living situation With Family Activity level Independent ambulation Recent Out of Country Travel Within the No Last 8 Weeks Exposure or Possible Exposure to Illness No During Travel Functional Assessment Eating (Feeding) Ability Independent Bathing Ability Independent Upper Body Dressing Ability Independent Lower Body Dressing Ability Independent Ambulation Ability Independent Toileting Ability Independent Bladder Continent Bowel Continent Psychosocial Over Age 75 and Lives Alone or Over Age No 80 Potential Need for Follow-up Care (ECF, No Home Health, ECT) Developmentally Disabled or History of No 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 Need or No Terminal Implications Responsible for Care of Others No Financial Concerns No Suspected Abuse or Neglect No Suicidal or Homicidal Ideation No Social Service Consult Needed No Obtain Old EKG Start: 09/18/16 18: 35 Freq: .ONCE Status: Complete Document 09/18/16 18:47 [id number] (Rec: 09/18/16 18:52 [id number]) Oxygen administration Start: 09/18/16 21: 15 Freq: Q12H Status: Active Document 09/18/16 21:30 MRB (Rec: 09/18/16 21:45 MRB [id number]) Oxygen Oxygen S/U/Change No Patient Belongings Start: 09/18/16 21: 15 Freq: .ONCE Status: Active Document 09/18/16 21:30 MRB (Rec: 09/18/16 21:45 MRB [id number]) Patient Belongings Belongings With Patient on Admission Yes At Bedside Patient Belongings Baseball Cap Pants Shirt Shoes Patient Rounding Start: 09/18/16 18: 40 Freq: Q30M Status: Active Document 09/18/16 19:06 [id number] (Rec: 09/18/16 19:07 [id number]) Patient Rounding Safety Call Light Within Reach Bed Position Low Bed Brake On Side Rails Up X2 Are the Floors Free From Trip Hazards? Yes Is the Room Free From Clutter? Yes Rounding Completed? Yes Patient Rounding Updated patient/family on Plan of Care Checked for Patient Positioning Checked Patient Pain Level Patient Awake Patient Verbalizes Pain/Symptoms No Improvement Document 09/18/16 19:50 [id number] (Rec: 09/18/16 19:51 [id number]) Patient Rounding Safety Call Light Within Reach Bed Position Low Bed Brake On Side Rails Up X2 Are the Floors Free From Trip Hazards? Yes Is the Room Free From Clutter? Yes Rounding Completed? Yes Patient Rounding Updated patient/family on Plan of Care Checked for Patient Positioning Checked Patient Pain Level Patient Awake Patient Rounding Start: 09/18/16 21: 15 Freq: Q1H Status: Active Document 09/18/16 21:30 MRB (Rec: 09/18/16 21:45 B [id number]) Hourly Rounding Hourly Rounding Checked for Patient Positioning Patient Personal Items Placed Within Reach Checked Patient Pain Level Hourly Rounding Completed Yes Patient Awake Is family present? Yes Safety Call Light Within Reach Bed Position Low Phone Within Reach Bed Brake On Side Rails Up X2 Are the Floors Free From Trip Hazards? Yes Is the Room Free From Clutter? Yes Turn and Postion Bedrest No Turn Q 2HR No Patient Position Sitting on Side of Bed Document 09/18/16 22:23 KJC (Rec: 09/18/16 22:23 [id number]) Hourly Rounding Hourly Rounding Checked for Patient Positioning Patient Personal Items Placed Within Reach Checked Patient Pain Level Hourly Rounding Completed Yes Patient Awake Is family present? Yes Safety Call Light Within Reach Bed Position Low Phone Within Reach Bed Brake On Side Rails Up X2 Are the Floors Free From Trip Hazards? Yes Is the Room Free From Clutter? 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 Date of Insertion 09/18/16 Time of Insertion 18:52 Reason for IV Insertion Provide Access for IV Medication(s) Provide Access for Emergency IV Catheter Type Peripheral IV Gauge (gauge) 18 Site Observation Patent Dressing Applied Window Dressing Dry/Intact Patient Tolerance Tolerated Well Sepsis Screening Start: 09/18/16 21: 15 Freq: Q8H Status: Active Document 09/18/16 21:30 MRB (Rec: 09/18/16 21:45 [id number] Sepsis Screening Sepsis Infection Criteria Present none Sepsis SIRS Criteria none Sepsis Screen No Definite Risk Sepsis Action Taken no action required Skin Risk Assessment Scale Start: 09/18/16 21: 15 Freq: Q12H Status: Active Document 09/18/16 21:30 MRB (Rec: 09/18/16 21:45 [id number]) Skin Risk Assessment Scale Moisture Risk Rarely Moist Sensory Perception No Impairment Activity Risk Walks Frequently Mobility Risk No Limitations Nutrition Risk Adequate Friction & Shear Risk No Apparent Problem Skin Risk Total Score (points) 22 System Review Start: 09/18/16 21: 15 Freq: Q8H Status: Active Document 09/18/16 22:14 KJC (Rec: 09/18/16 22:[address] [id number] Pain Assessment Pain Present Reports No Pain Neurological Assessment Eye Opening Spontaneous Motor Obeys Commands Verbal Oriented Coma Scale Total 15 Neurologic Status Alert Patient Orientation Person Place Time Arousable To Name Speech Pattern Normal rate Normal rhythm Normal tone Appropriate Clear Coherent Patient Behavior Appropriate Cooperative Mood Description Calm Relaxed Painter Sign Maintenance Strength Equal Push/Pull Equal Numbness/Tingling Yes: ble Facial Symmetry Symmetrical Cardiovascular Assessment Signs and Symptoms None Heart Sounds S1 & S2 Pulse Rhythm Irregular Right Radial 2+ Left Radial 2+ Right Dorsalis Pedis 1+ Left Dorsalis Pedis 1+ Right Ankle Type Non-Pitting Has Confirmed Diagnosis of DVT, PE or No VTE Mechanical Prophylaxis No Respiratory Assessment Respiratory Symptoms Productive Cough Effort Normal for Patient Spontaneous Non-Labored All Lung Ruano Diminished Expiratory Wheezing Oxygen Delivery Method Room Air Cough Description Voluntary Productive Sputum Amount Small Color Yellow Consistency Thick Respiratory Comment: Sputum reported by pt, not observed by RN Gastrointestinal Assessment Abdomen Description Soft Non-Tender Round 3 or more loose stools, in less than 24 No hours Nausea/Vomiting Presence None All Four Quadrants Active Genitourinary Assessment Genitourinary Symptoms None Bladder Pattern Normal Comment: Did not observe urine at this time. Integumentary Assessment Fingernail Condition Clubbed Nail Bed Appearance Pale Temperature Warm Moisture Dry Turgor Normal Color Normal All Pressure Points Assessed Yes Evidence of Incision/Wounds/Breakdown No Mucous membranes moist, pink and intact Yes Integumentary Comment: Partial upper dentures Musculoskeletal Assessment Musculoskeletal Symptoms None Teaching Record Start: 09/18/16 21: 15 Freq: Q12H Status: Active Document 09/18/16 21:30 MRB (Rec: 09/18/16 21:45 MRB [id number]) Teaching Record: General Education Topics Medications Hospital Environment Diet Response Verbalize understanding Methods Discussion Recipient Patient Triage Start: 09/18/16 18: 36 Freq: Status: Active Document 09/18/16 18:36 [id number] (Rec: 09/18/16 18:40 [id number]) Triage Chief Complaint triage ED Shortness of Breath/Dyspnea Patient Stated Complaint SOB ADAMS 2 Onset (ago) week(s) Description of Symptoms Pt states SOB x 3 weeks on exertion. States he made an appt with his PCP and discovered he had afib yet again and was sent here to ED. Pt states he had afib x 3 years ago and went back to normal sinus rhythm on his own .. Pt denies any complaints at this time. Denies SOB, CP, Palpititations or any further complaints. Pt appears in no distress. States with exertion becomes very SOB. General Appearance alert in no apparent distress Work Related Injury? No Mode of arrival wheelchair Source patient family Limitations no limitations Ebola Risk: Travel/Contact With Anyone No From Affected Area/s Temperature (97.6 F-99.6 F) 98.1 F Temperature Source Oral Pulse Rate (beats/min) 122 Respiratory Rate (breaths/min) 16 Blood Pressure (mm Hg) 179/135 O2 Sat by Pulse Oximetry (95-100 %) 95 Oxygen Delivery Room Air Height 1.85 m Weight 169.19 kg Weight Measurement Method Stated by Patient Pain Scale 0 Pain Scale Used Standard (1-10) Medical history atrial fibrillation diabetes hypertension Male surgical history orthopedic, other Psychiatric history no psych history Smoking Status Never smoker Smokeless Tobacco Status Yes Alcohol Use none Drug Use none Patient resides with/at Spouse Safety Concerns Feels Safe At This Time Do you currently feel hopless, have No thoughts of self harm, or thoughts of harming others History of fall in last 14 days? No Coma Scale Eye Opening Spontaneous Coma Scale Motor Response Obeys Commands Coma Scale Verbal Response Oriented Coma Scale Total 15 Vital Signs Assessment Start: 09/18/16 18: 35 Freq: PROTOCOL Status: Active Document 09/18/16 19:06 [id number] (Rec: 09/18/16 19:07 [id number]) ED Vital Signs Pain Reported No Pain Reported Blood Pressure (mm Hg) 169/96 Source Automatic Cuff Pulse Rate (beats/min) 103 Rhythm Irregular Respiratory Rate (breaths/min) 20 Depth Normal Effort Normal for Patient Spontaneous Non-Labored Pattern Regular Pulse Oximetry (95-100 %) 94 Oxygen Delivery Room Air Document 09/18/16 19:50 [id number] (Rec: 09/18/16 19:51 [id number]) ED Vital Signs Pain Reported No Pain Reported Blood Pressure (mm Hg) 160/85 Source Automatic Cuff Pulse Rate (beats/min) 75 Respiratory Rate (breaths/min) 16 Depth Normal Effort Normal for Patient Spontaneous Non-Labored Pattern Regular Pulse Oximetry (95-100 %) 95 Oxygen Delivery Room Air Document 09/18/16 21:12 [id number] (Rec: 09/18/16 21:18 [id number]) Vital Signs with MEWS Temperature (97.6 F-99.6 F) 98.0 F Temperature Source Oral Pulse Rate (beats/min) 70 Respiratory Rate (breaths/min) 18 Pulse Oximetry (95-100 %) 95 Oxygen Delivery Room Air Blood Pressure (mm Hg) 189/92 Blood Pressure Location Left Arm Source Automatic Cuff Position Supine Neuro Status *recalled from last Alert documentation MEWS Score 1 Vital Signs Assessment Start: 09/18/16 21: 15 Freq: Q4H Status: Active Document 09/18/16 22:50 [id number] (Rec: 09/18/16 22:51 [id number]) Vital Signs with MEWS Temperature (97.6 F-99.6 F) 98.0 F Temperature Source Oral Pulse Rate (beats/min) 70 Respiratory Rate (breaths/min) 18 Pulse Oximetry (95-100 %) 96 Oxygen Delivery Room Air Blood Pressure (mm Hg) 180/68 Blood Pressure Location Left Arm Source Automatic Cuff Position Supine Neuro Status *recalled from last Alert documentation MEWS Score 1 Wound Assessment Start: 09/18/16 21: 15 Freq: Q8H Status: Active Document 09/18/16 21:30 MRB (Rec: 09/18/16 21:45 MRB [id number]) Drains Tube/Drain Discontinued No Discharge Information ED Provider: Matt Hernández Status: Departed Time Seen by Provider: 09/18/16 18:28 Condition: Triaged At: 09/18/16 18:36 Emergency Discharge Date/Time: 09/18/16 21:04 Emergency Discharge Disposition: Admitted As Inpatient Clinical Impression Atrial fibrillation with RVR Diabetes mellitus Obesity Renal insufficiency Emergency Discharge Comment: Admit Intervention Last Done ED Shortness of Breath Assessment 09/18/16 18:47 Query Result Sepsis Infection Criteria Present suspected infection Sepsis SIRS Criteria HR > 90 bpm Sepsis Screen No Definite Risk Sepsis Action Taken no action required Shortness Of Breath Symptoms/Complaint Shortness of Breath Shortness Of Breath Onset x 3 weeks Shortness Of Breath Duration Intermittent Shortness Of Breath Severity Moderate Shortness Of Breath Context History/simular sympoms Shortness Of Breath Known History Diabetes Shortness Of Breath Improves With Rest Shortness Of Breath Worsens With Exertion Shortness Of Breath Associated Symptoms Cough Shortness Of Breath Treatments Prior to None Arrival Chest Pain Intensity 0 Respiratory Depth Normal Respiratory Effort Normal for Patient Spontaneous Non-Labored Respiratory Pattern Irregular Anterior Bilateral -Breath Sounds Diminished Cough Description Voluntary Non-Productive Cough Frequency Intermittent Level Of Consciousness Awake Alert Appropriate Follows Commands Patient Orientation Person Place Time Name Age Date of Day of Month Day of Week Month Year Time of Day Patient Behavior Appropriate Cooperative Ability to Follow Directions Excellent Impaired Cognition No Skin Temperature Warm Skin Moisture Dry Skin Turgor Elastic Capillary Refill < 3 Seconds ED Discharge Assessment 09/18/16 20:57 Query Result ED Discharge Disposition Admitted ED Condition on Discharge Improved Med Rec/Patient Phamracy completed? Yes ED Admit to 3B Bed assigned 54 Transported by maintenance mechanic technician Transported with monitor IV Report given to Nurse Care transferred to Patricia MTZ Information relayed patient's care treatments medications given condition recent/anticipated change Clinical Documentation Summary Provided Yes ED Discharge Comment Pt in no acute distress on admission to inpatient unit IV Line Removal Patient Tolerance Sterile Dressing Applied Severity scale (1-10) 0 Pain Scale Used Standard (1-10) Blood Pressure 158/96 Heart rate 79 Respiratory Rate 18 Oxygen Delivery Room Air Pulse Oximetry Reading 97 Critical Care Minutes 0 Observation Discharge Date/Time: Observation Discharge Disposition: Observation Discharge Comment: Instructions: Stand-Alone Forms: ED Satisfaction Letter Prescriptions: Visit Report - Forms: - Referrals: Radiology Results Chest X-Ray 09/18/16 18:36
[2016-09-18] MEDS ORDERED: *HR* Enoxaparin 80 MG/0.8 ML SYRINGE SQ STA (23:50)
[2016-09-19] MEDS: hydrALAZINE 25 MG TABLET PO SCH ×4 (00:58→21:52)
[2016-09-19] MEDS: Insulin LISPRO 300 UNITS/3 ML VIAL SQ SCH ×5 (00:59→21:53)
[2016-09-19 04:51] LABS: INR 1.1; Prothrombin Time 11.9 Seconds (9.4-12.1)
[2016-09-19 04:52] LABS: Activated Partial Thrombo Time 29.8 Seconds (26.0-36.0)
[2016-09-19 05:47] LABS: Hemoglobin 11.2 g/dL (12.9-16.9); Mean Corpuscular HGB Conc 31.1 g/dL (31.6-35.5); Mean Corpuscular Hemoglobin 27.7 pg (28.0-33.3); Mean Corpuscular Volume 88.9 fL (83.0-100.0); Mean Platelet Volume 11.8 fL (9.4-12.4); Platelet Count 227 K/mcL (140-400); Red Blood Count 4.05 M/mcL (4.19-5.50); Red Cell Distribution Width 14.2 % (11.5-14.5)
[2016-09-19 05:57] LABS: Albumin 2.7 g/dL (3.5-5.0); Albumin/Globulin Ratio 0.8 (1.1-2.2); Bilirubin,Total 0.6 mg/dL (0.2-1.2); Calcium 8.2 mg/dL (8.6-10.8); Globulin 3.2 g/dL (2.4-3.5); Magnesium 1.3 mg/dL (1.6-2.6); Phosphorous 3.7 mg/dL (2.3-4.7); Potassium 4.2 mEq/L (3.5-4.5); Total Protein 5.9 g/dL (6.0-8.3)
[2016-09-19 06:09] LABS: Thyroid Stimulating Hormone 2.781 mcIU/mL (0.350-4.840)
[2016-09-19 06:19] LABS: Hemoglobin A1C 6.8 %
[2016-09-19] MEDS ORDERED: Magnesium Sulfate 2 GM in D5% in Water 100 ML IVPB ONE (08:00)
[2016-09-19] MEDS: (Felodipine [Felodipine Er] 10 MG) PO SCH (08:03)
[2016-09-19] MEDS: cloNIDine HCl 0.1 MG TABLET PO SCH ×3 (08:03→21:52)
[2016-09-19] MEDS: Furosemide 40 MG TABLET PO SCH (08:03)
[2016-09-19] MEDS: Lisinopril 20 MG TABLET PO SCH (08:03)
[2016-09-19] MEDS: Aspirin Enteric Coated 81 MG Tablet PO SCH (08:03)
--- NOTE | 2016-09-19 08:08 | Internal Med History&Physical ---
Date of Encounter: 09/19/16 Time of Encounter: 23:30 Assessment and Plan (1) Atrial fibrillation with RVR Status: Acute . (2) SIRS (systemic inflammatory response syndrome) Status: Acute . (3) Acute exacerbation of chronic obstructive pulmonary disease (COPD) Status: Acute . (4) Type 2 diabetes mellitus Status: Chronic . 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 (6) Morbid obesity with BMI of 45.0-49.9, adult Status: Chronic . (7) Hypertensive urgency Status: Acute . (8) Acute kidney injury superimposed on CKD Status: Acute . (9) Elevated brain natriuretic peptide (BNP) level Status: Acute . (10) Acute diastolic CHF (congestive heart failure), NYHA class 2 Status: Acute . (11) Acute respiratory failure with hypoxia Status: Acute . (12) Paroxysmal a-fib Status: Chronic . (13) Abnormal resting ECG findings Status: Acute . Internal Medicine - H&P: HPI Chief complaint: Difficulty breathing. Admitted From: Emergency Dept Plans for Post Hospital Care: Home History of present illness: Mr. Osborne is a 60 year old male patient is admitted with complaints of difficulty in breathing with associated findings of atrial fibrillation with variable rate. 3 day history of a cough with feeling of chest congestion or shortness of those present at rest but aggravated with activity. 2. Subjective feeling of high heart rate with this. His primary care physician to evaluate the upper respiratory symptoms and was noted to be in atrial fibrillation. He has experienced this in his remote past. He has not been anticoagulated. He does take a daily baby aspirin. He denied any events beyond his upper or lower respiratory complaints prior to this presentation of symptoms. Her weight was 122 in the ED. This responded to intravenous Cardizem administration. Initial laboratory demonstrated mild hypochromic anemia, AK I/CK D stage III , mild hypoalbuminemia, mild hyperglycemia. Troponin 0.03 with BNP 160. Lactic acid 0.9. EKG demonstrated no acute ischemic changes. Pattern however was suggestive of COPD decreased voltage in frontal and precordial leads. Systemic inflammatory response syndrome criteria met at time of admission. Workup and treatments will progress comprehensively. Past Med Surg Social Fam HX - Past Medical History Source: old records reviewed Medical history: arthritis, asthma, atrial fibrillation, diabetes, hyperlipidemia, hypertension, osteoporosis (Charcot foot.), renal disease (CKD. Proteinuria/DM nephropathy), other (gout;hyperuricemia.) Psychiatric history: no psych history - Past Surgical History Surgical History: non-contributory, other - Social History Smoking Status: Never smoker Smokeless Tobacco Status: Yes Alcohol use: none Drug use: none Occupational status: employed Current living situation: With Family Activity Level: Independent ambulation, Mostly sedentary Recent Out of Country Travel Within the Last 8 Weeks: No Exposure or Possible Exposure to Illness During Travel: No - Family History Mother Living Status: Hx Family Cardiac Disorders: Yes Hx Family Endocrine Disorder: Yes Brother Hx Family Cardiac Disorders: Yes Internal Medicine - H&P: Meds Albuterol Sulfate [Ventolin Hfa] 2 puff IH Q4H PRN 09/18/16 [History] Allopurinol [Zyloprim 100 MG] 100 mg PO DAILY 09/18/16 [History] Aspirin Enteric Coated [Aspirin EC] 81 mg PO DAILY 09/18/16 [History] Atorvastatin [Lipitor] 40 mg PO HS 09/18/16 [History] Carvedilol [Coreg] 25 mg PO BID 09/18/16 [History] CloNIDine HCl 0.1 mg PO TID 09/18/16 [History] Felodipine [Felodipine ER] 10 mg PO DAILY 09/18/16 [History] Furosemide [Lasix] 40 mg PO BID 09/18/16 [History] Hydralazine HCl 50 mg PO TID 09/18/16 [History] Insulin Glargine [Lantus] 62 unit SQ QPM 09/18/16 [History] Lisinopril 40 mg PO DAILY 09/18/16 [History] Montelukast [Singulair] 10 mg PO HS 09/18/16 [History] Apixaban [Eliquis] 2.5 mg PO BID #60 tablet 09/19/16 [Rx] Apixaban [Eliquis] 2.5 mg PO BID tablet 09/21/16 [Rx] Azithromycin [Zithromax] 500 mg PO DAILY #2 tablet 09/21/16 [Rx] Diltiazem CD (24hr) [Cardizem CD] 120 mg PO DAILY #30 cap.er.24h 09/21/16 [Rx] Docusate [Colace] 100 mg PO BID PRN #60 capsule 09/21/16 [Rx] Metformin [Glucophage] 500 mg PO BID #60 tab 09/21/16 [Rx] Allergies No Known Allergies Allergy (Verified 09/18/16 18:40) All Systems PM: A 10-system review of systems was performed and is negative for pertinent findings except as documented above in the HPI. - Constitutional Constitutional: as per HPI, malaise, weakness, no chills, no fever(s), no night sweats - EENT Eyes: as per HPI, no change in vision, no discharge, no pain, no photophobia Ears: no ear discharge, no ear pain, no tinnitus Nose, mouth and throat: as per HPI, nasal congestion, post-nasal drip, sinus pressure, no dysphagia, no nasal discharge, no neck pain, no sore throat - Cardiovascular Cardiovascular ROS IM: as per HPI, dyspnea, irregular heart rhythm, lightheadedness, palpitations, other, no chest pain, no diaphoresis, no syncope - Respiratory Respiratory: as per HPI, cough, dyspnea, dyspnea on exertion, wheezing, chest congestion, no hemoptysis, no excessive phlegm production - Gastrointestinal Gastrointestinal: as per HPI, no abdominal pain, no diarrhea, no hematemesis, no hematochezia, no melena, no nausea, no vomiting - Genitourinary Genitourinary ROS male: as per HPI - Musculoskeletal Musculoskeletal ROS IM: as per HPI, no numbness, no tingling - Integumentary Integumentary IM: as per HPI, no rash, no unusual bruising - Neurological Neurological ROS: as per HPI, no confusion, no convulsions, no focal weakness, no numbness, no tingling, no tremor(s) - Psychiatric Psychiatric: as per HPI - Endocrine Endocrine IM: as per HPI - Hematologic/Lymphatic Hematologic/Lymphatic: as per HPI, no easy bruising - Allergic/Immunologic Allergic/Immunologic: as per HPI - Constitutional Vitals: Temp Pulse Resp BP Pulse Ox 97.8 F 71 18 179/91 94 L 09/19/16 07:34 09/19/16 07:34 09/19/16 07:34 09/19/16 07:34 09/19/16 07:34 General appearance: Present: cooperative, mild distress, A&O X 3, morbidly obese , answers questions appropriately - Head Head exam: Present: atraumatic, normocephalic - Eye Eye exam: Present: EOMI, PERRL, conjuntiva pink, sclera anicteric Pupils: Present: normal accommodation, PERRL - ENT ENT exam: Present: mucous membranes moist, normal oropharynx - Neck Neck exam general surgery: Present: full ROM, supple, trachea midline. Absent: lymphadenopathy - Respiratory Respiratory exam: Present: accessory muscle use, chest wall tenderness, decreased breath sounds, rales, wheezes. Absent: rhonchi - Cardiovascular Cardiovascular exam: Present: irregular rhythm, +S1, +S2, tachycardia. Absent: diastolic murmur, gallop, rubs, systolic murmur - GI/Abdominal GI/Abdominal exam: Present: normal bowel sounds, soft, no peritoneal signs. Absent: distended, tenderness - Extremities Exam Extremities exam: Present: full ROM, warm, radial pulses palpable and symetrical. Absent: calf tenderness, cyanotic, pedal edema - Neurological Exam Neurological exam: Present: alert, altered, CN II-XII intact, oriented X3, no focal deficits. Absent: pronater drift, facial droop, speech deficit - Psychiatric Psychiatric exam: Present: normal affect, normal mood - Skin Skin exam: Present: dry, intact, warm Internal Med - H&P Results - Labs CBC & Chem 7: 09/21/16 04:25 09/21/16 04:25 Labs: Short CBC 09/19/16 Range/Units 01:05 WBC 6.4 (4.3-11.1) K/mcL Hgb 11.2 L (12.9-16.9) g/dL Hct 36.0 L (37.5-50.1) % Plt Count 227 (140-400) K/mcL BMP 09/19/16 01:05 Sodium 138 Potassium 4.2 Chloride 104 Carbon Dioxide 27 BUN 29 H Creatinine 1.98 H Glucose 144 H Calcium 8.2 L Cardiac Enzymes 09/19/16 09/19/16 Range/Units 01:05 05:08 Troponin I 0.02 0.02 (0-0.03) ng/mL Liver Function 09/19/16 Range/Units 01:05 Total Bilirubin 0.6 (0.2-1.2) mg/dL AST 24 (5-34) Units/L ALT 21 (0-55) Units/L Alkaline Phosphatase 51 (38-126) Units/L Albumin 2.7 L (3.5-5.0) g/dL Vital Signs Temp Pulse Resp BP Pulse Ox 09/19/16 07:34 97.8 F 71 18 179/91 94 L 09/18/16 22:50 98.0 F 70 18 180/68 96 09/18/16 21:12 98.0 F 70 18 189/92 95 09/18/16 20:57 18 158/96 09/18/16 19:50 75 16 160/85 95 09/18/16 19:06 103 20 169/96 94 L 09/18/16 18:36 98.1 F 122 16 179/135 95 Intake and Output 09/18/16 09/19/16 09/19/16 23:59 07:59 15:59 Other: Weight 169.19 kg Blood Glucose* 164 Allergies Allergy/AdvReac Type Severity Reaction Status Date / Time No Known Allergies Allergy Verified 09/18/16 18:40 - Impressions Abnormal lab results RBC 4.05 M/mcL (4.19-5.50) L 09/19/16 01:05 Hgb 11.2 g/dL (12.9-16.9) L 09/19/16 01:05 Hct 36.0 % (37.5-50.1) L 09/19/16 01:05 MCH 27.7 pg (28.0-33.3) L 09/19/16 01:05 MCHC 31.1 g/dL (31.6-35.5) L 09/19/16 01:05 BUN 29 mg/dL (8-26) H 09/19/16 01:05 Creatinine 1.98 mg/dL (0.72-1.25) H 09/19/16 01:05 Est GFR ( Amer) 42 (> 60) L 09/19/16 01:05 Est GFR (Non-Af Amer) 35 (> 60) L 09/19/16 01:05 Glucose 144 mg/dL (70-99) H 09/19/16 01:05 POC Glucose 164 (58-89) H 09/19/16 07:34 Hemoglobin A1c 6.8 % (-5.6) H 09/19/16 01:05 Calcium 8.2 mg/dL (8.6-10.8) L 09/19/16 01:05 Magnesium 1.3 mg/dL (1.6-2.6) L 09/19/16 01:05 C-Reactive Protein 16 mg/L (Less than 5) H 09/18/16 19:06 B-Natriuretic Peptide 236 pg/mL (0-100) H 09/19/16 03:41 Serum Total Protein 5.9 g/dL (6.0-8.3) L 09/19/16 01:05 Albumin 2.7 g/dL (3.5-5.0) L 09/19/16 01:05 Albumin/Globulin Ratio 0.8 (1.1-2.2) L 09/19/16 01:05 HDL Cholesterol 27 mg/dL (40-59) L 09/19/16 01:05 Cholesterol/HDL Ratio 5.0 (0-4.9) H 09/19/16 01:05 Laboratory Results WBC 6.4 K/mcL (4.3-11.1) 09/19/16 01:05 RBC 4.05 M/mcL (4.19-5.50) L 09/19/16 01:05 Hgb 11.2 g/dL (12.9-16.9) L 09/19/16 01:05 Hct 36.0 % (37.5-50.1) L 09/19/16 01:05 MCV 88.9 fL (83.0-100.0) 09/19/16 01:05 MCH 27.7 pg (28.0-33.3) L 09/19/16 01:05 MCHC 31.1 g/dL (31.6-35.5) L 09/19/16 01:05 RDW 14.2 % (11.5-14.5) 09/19/16 01:05 Plt Count 227 K/mcL (140-400) 09/19/16 01:05 MPV 11.8 fL (9.4-12.4) 09/19/16 01:05 Immature Gran % 0.6 % (0-4) 09/18/16 19:06 Seg Neutrophils % 51.6 % 09/18/16 19:06 Lymphocytes % 22.5 % 09/18/16 19:06 Monocytes % 17.3 % 09/18/16 19:06 Eosinophils % 7.3 % 09/18/16 19:06 Basophils % 0.7 % 09/18/16 19:06 Neutrophils # 3.6 K/mcL (1.6-8.9) 09/18/16 19:06 Lymphocytes # 1.6 K/mcL (0.6-4.6) 09/18/16 19:06 Monocytes # 1.2 K/mcL (0.0-1.3) 09/18/16 19:06 Eosinophils # 0.5 K/mcL (0.0-0.6) 09/18/16 19:06 Basophils # 0.1 K/mcL (0.0-0.2) 09/18/16 19:06 PT 11.9 Seconds (9.4-12.1) 09/19/16 01:05 INR 1.1 09/19/16 01:05 APTT 29.8 Seconds (26.0-36.0) 09/19/16 01:05 Sodium 138 mEq/L (136-145) 09/19/16 01:05 Potassium 4.2 mEq/L (3.5-4.5) 09/19/16 01:05 Chloride 104 mEq/L (98-109) 09/19/16 01:05 Carbon Dioxide 27 mEq/L (19-29) 09/19/16 01:05 BUN 29 mg/dL (8-26) H 09/19/16 01:05 Creatinine 1.98 mg/dL (0.72-1.25) H 09/19/16 01:05 Est GFR ( Amer) 42 (> 60) L 09/19/16 01:05 Est GFR (Non-Af Amer) 35 (> 60) L 09/19/16 01:05 BUN/Creatinine Ratio 15 (6-26) 09/19/16 01:05 Glucose 144 mg/dL (70-99) H 09/19/16 01:05 POC Glucose 164 (58-89) H 09/19/16 07:34 Est Mean Plasma Glucose 148 mg/dl 09/19/16 01:05 Hemoglobin A1c 6.8 % (-5.6) H 09/19/16 01:05 Calculated Osmolality 294 (280-300) 09/19/16 01:05 Lactic Acid 0.9 mmol/L (0.5-2.2) 09/18/16 19:16 Calcium 8.2 mg/dL (8.6-10.8) L 09/19/16 01:05 Phosphorus 3.7 mg/dL (2.3-4.7) 09/19/16 01:05 Magnesium 1.3 mg/dL (1.6-2.6) L 09/19/16 01:05 Total Bilirubin 0.6 mg/dL (0.2-1.2) 09/19/16 01:05 Direct Bilirubin 0.2 mg/dL (0.0-0.5) 09/18/16 19:06 Indirect Bilirubin 0.4 mg/dL (0.0-1.2) 09/18/16 19:06 AST 24 Units/L (5-34) 09/19/16 01:05 ALT 21 Units/L (0-55) 09/19/16 01:05 Alkaline Phosphatase 51 Units/L (38-126) 09/19/16 01:05 Troponin I 0.02 ng/mL (0-0.03) 09/19/16 05:08 C-Reactive Protein 16 mg/L (Less than 5) H 09/18/16 19:06 B-Natriuretic Peptide 236 pg/mL (0-100) H 09/19/16 03:41 Serum Total Protein 5.9 g/dL (6.0-8.3) L 09/19/16 01:05 Albumin 2.7 g/dL (3.5-5.0) L 09/19/16 01:05 Globulin 3.2 g/dL (2.4-3.5) 09/19/16 01:05 Albumin/Globulin Ratio 0.8 (1.1-2.2) L 09/19/16 01:05 Triglycerides 129 mg/dL (< 150) 09/19/16 01:05 Cholesterol 136 mg/dL (< 200) 09/19/16 01:05 LDL Cholesterol, Calc 83 mg/dL (0-99) 09/19/16 01:05 VLDL Cholesterol, Calc 26 mg/dL (< 31) 09/19/16 01:05 HDL Cholesterol 27 mg/dL (40-59) L 09/19/16 01:05 Cholesterol/HDL Ratio 5.0 (0-4.9) H 09/19/16 01:05 TSH 2.781 mcIU/mL (0.350-4.840) 09/19/16 01:05 Impressions Chest X-Ray 09/18/16 18:36 IMPRESSION: 1. Minimal prominence of the central pulmonary vasculature. 2. Otherwise, no evidence of acute cardiopulmonary abnormality. D/ / Mono Goins MD / Mono Goins MD Interpreting Provider: Mono Goins MD - Attending Attestation My signature below is to certify that this patient is under my care and that I, or nurse practitioner, or a physician's assistant county engineer working with me, has a face-to -face encounter with this patient. Allergies No Known Allergies Allergy (Verified 09/18/16 18:40) Home Medications Medication Instructions Recorded Confirmed Type Albuterol Sulfate [Ventolin Hfa] 2 puff IH Q4H PRN 09/18/16 09/18/16 History Allopurinol [Zyloprim 100 MG] 100 mg PO DAILY 09/18/16 09/18/16 History Aspirin Enteric Coated [Aspirin EC] 81 mg PO DAILY 09/18/16 09/18/16 History Atorvastatin [Lipitor] 40 mg PO HS 09/18/16 09/18/16 History Carvedilol [Coreg] 25 mg PO BID 09/18/16 09/18/16 History CloNIDine HCl [CloNIDine HCl] 0.1 mg PO TID 09/18/16 09/18/16 History Felodipine [Felodipine ER] 10 mg PO DAILY 09/18/16 09/18/16 History Furosemide [Lasix] 40 mg PO BID 09/18/16 09/18/16 History Hydralazine HCl 50 mg PO TID 09/18/16 09/18/16 History Insulin Glargine [Lantus] 62 unit SQ QPM 09/18/16 09/18/16 History Lisinopril [Lisinopril] 40 mg PO DAILY 09/18/16 09/18/16 History Metformin [Glucophage] 850 mg PO BID 09/18/16 09/18/16 History Montelukast [Singulair] 10 mg PO HS 09/18/16 09/18/16 History I & O 09/16/16 09/17/16 09/18/16 09/19/16 23:59 23:59 23:59 23:59 Weight 169.19 kg Other: Blood Glucose* 164 Medications Acetaminophen (Tylenol) 650 mg PO Q6HR PRN PRN Reason: Mild Pain (1-3) Stop: 03/20/17 23:42 Allopurinol (Zyloprim) 100 mg PO DAILY [facility] Stop: 03/21/17 09:01 Last Admin: 09/19/16 08:03 Dose: 100 mg Aspirin (Aspirin Ec) 81 mg PO DAILY [facility] Stop: 03/21/17 09:01 Last Admin: 09/19/16 08:03 Dose: 81 mg Atorvastatin Calcium (Lipitor) 40 mg PO HS [facility] Stop: 03/20/17 23:46 Last Admin: 09/19/16 00:59 Dose: 40 mg Carvedilol (Coreg) 50 mg PO BID [facility] PRN Reason: Protocol Stop: 03/21/17 08:10 Clonidine HCl (Clonidine Hcl) 0.1 mg PO TID [facility] Stop: 03/21/17 09:01 Last Admin: 09/19/16 08:03 Dose: 0.1 mg Dextrose/Water (Dextrose 50% (Syg)) 25 ml IVP AD PRN PRN Reason: Hypoglycemia Stop: 03/20/17 23:42 Docusate Sodium (Colace) 100 mg PO BID PRN PRN Reason: Constipation Stop: 03/20/17 23:42 Furosemide (Lasix) 40 mg PO BID [facility] Stop: 03/21/17 09:01 Last Admin: 09/19/16 08:03 Dose: 40 mg Glucagon (Glucagen) 1 mg IM ONCE PRN PRN Reason: Hypoglycemia Stop: 03/20/17 23:42 Glucose (Gluctose) 15 gm PO ONCE PRN PRN Reason: Hypoglycemia Stop: 03/20/17 23:42 Glucose (Gluctose) 30 gm PO ONCE PRN PRN Reason: Hypoglycemia Stop: 03/20/17 23:42 Hydralazine HCl (Hydralazine) 50 mg PO TID [facility] Stop: 03/20/17 23:46 Last Admin: 09/19/16 08:03 Dose: 50 mg Sodium Chloride (0.9 % Sodium Chloride) 1,000 mls @ 50 mls/hr IVC .Q20H [facility] Stop: 03/20/17 23:46 Last Admin: 09/19/16 00:58 Dose: 50 mls/hr Dextrose (Dextrose 5%) 1,000 mls @ 100 mls/hr IV CONT PRN PRN Reason: HYPOGLYCEMIA Stop: 03/20/17 23:42 Magnesium Sulfate 2 gm/ (Dextrose) 104 mls @ 104 mls/hr IVPB ONCE ONE Stop: 09/19/16 08:59 Insulin Detemir (Levemir) 62 unit SQ QPM [facility] Stop: 03/21/17 18:01 Insulin Human Lispro (Humalog) 0 units SQ HS [facility] PRN Reason: Protocol Stop: 03/20/17 23:46 Last Admin: 09/19/16 00:59 Dose: Insulin Human Lispro (Humalog) 0 units SQ TIDAC [facility] PRN Reason: Protocol Stop: 03/21/17 07:31 Lisinopril (Zestril) 40 mg PO DAILY [facility] Stop: 03/21/17 09:01 Last Admin: 09/19/16 08:03 Dose: 40 mg Metoprolol Tartrate (Lopressor) 5 mg IVP Q6HR PRN PRN Reason: SEE COMMENTS Stop: 03/20/17 23:42 Montelukast Sodium (Singulair) 10 mg PO HS [facility] Stop: 03/20/17 23:46 Last Admin: 09/19/16 00:58 Dose: 10 mg Morphine Sulfate (Morphine Sulfate) 2 mg IVP Q4HR PRN PRN Reason: Severe Pain (7-10) Stop: 03/20/17 23:42 Naloxone HCl (Narcan) 0.4 mg IVP Q2MIN PRN PRN Reason: Opioid Reversal Stop: 03/20/17 23:42 Nicotine (Nicoderm) 21 mg TD DAILY PRN; Protocol PRN Reason: Nicotine Cravings Stop: 03/20/17 23:46 Nitroglycerin (Nitroglycerin) 0.4 mg SL Q5MIN PRN PRN Reason: Chest Pain Stop: 03/20/17 23:42 Oxycodone HCl (Roxicodone) 5 mg PO Q6HR PRN PRN Reason: Moderate Pain (4-6) Stop: 03/20/17 23:42 Pharmacy Profile Note (Patient Taking Own Medication) 0 each PO DAILY [facility] Stop: 03/21/17 09:01 Last Admin: 09/19/16 08:03 Dose: Not Given Non-Admin Reason: Home Med Not Available Promethazine HCl (Phenergan) 12.5 mg IVP Q6HR PRN PRN Reason: Nausea And Vomiting Stop: 03/20/17 23:42 Discontinued Medications Carvedilol (Coreg) 25 mg PO BID [facility] PRN Reason: Protocol Stop: 03/20/17 23:46 Last Admin: 09/19/16 08:03 Dose: 25 mg Diltiazem HCl (Cardizem) 25 mg IVP ONCE ONE Stop: 09/18/16 18:42 Last Admin: 09/18/16 18:59 Dose: 25 mg Enoxaparin Sodium (Lovenox) 160 mg 1 mg/kg (170 mg) SQ NOW STA PRN Reason: Protocol Stop: 09/18/16 23:51 Last Admin: 09/19/16 00:59 Dose: 160 mg Non-Formulary Medication (Insulin Glargine [Lantus]) 62 unit SQ QPM [facility] Stop: 03/20/17 23:46 Last Admin: 09/19/16 01:42 Dose: Orders 09/18/16 18:35 12 lead ECG assessment [RC] NOW Cardiac monitoring [RC] .ONCE Obtain Old EKG [RC] .ONCE Saline lock [RC] .ONCE Supplemental oxygen titration [RC] .ONCE Physician Instructions: Vital Signs Assessment [RC] PROTOCOL ECG 12 lead ECG [ECG] Stat Mode Of Transportation: Portable Reason For Exam: chest pain Exam Performed At:: [facility] 09/18/16 18:36 XR chest 2V [XR] Stat Mode Of Transportation: Stretcher Reason For Exam: A. fib RVR Exam Performed At:: [facility] 09/18/16 18:41 Diltiazem [Cardizem] 25 mg IVP ONCE ONE 09/18/16 19:05 Rapid Flu [Influenza A/B Antigen] [VIR] Stat Comment: DAMIAN Source: Nasopharyngeal Specimen: Send someone from the department to collect Specimen Description: 09/18/16 19:06 Activated Partial Thrombo Time [COAG] Stat Comment: Specimen: Send someone from the department to collect Basic Metabolic Panel Stat C-Reactive Protein Stat Complete Blood Count [HEME] Stat Comment: Specimen: Send someone from the department to collect Hepatic Panel Stat Comment: Specimen: Send someone from the department to collect Prothrombin Time INR [COAG] Stat Comment: Specimen: Send someone from the department to collect Thyroid Stimulating Hormone Stat Troponin I Stat Comment: Specimen: Send someone from the department to collect 09/18/16 19:16 Lactic Acid ([facility] Only) Stat Comment: Specimen: Send someone from the department to collect 09/18/16 19:17 BNP [B-Type Natriuretic Peptide] Stat Comment: Specimen: Send someone from the department to collect 09/18/16 20:[address] Stat Comment: Reason for Visit: A. fib RVR 09/18/16 20:32 12 lead ECG assessment [RC] NOW EKG [ECG 12 lead ECG] [ECG] Stat Mode Of Transportation: Portable Reason For Exam: AF, Yes #2 Order Doctor: Matt Hernández Exam Performed At:: [facility] 09/18/16 21:32 POC Glucometer Test [POC] Routine 09/18/16 23:41 Cardiac monitoring [RC] .ONCE Continuous pulse oximetry [RC] .ONCE Comment: Glucose, blood poc measurement [RC] ACHS Glucose, blood poc measurement [RC] ACHS Hypoglycemia Treatment Orders [RC] .once Notify provider [RC] once Physician Instructions: Oxygen via nasal cannula Nasal Cannula 2 lpm Comment: Peripheral IV [RC] CONT Vital Signs Assessment [RC] Q4H Consult to Hyperbaric Welder Diver [CONS] Routine Comment: Consult to Nurse Navigator [CONS] Routine Comment: Acetaminophen [Tylenol] 650 mg PO Q6HR PRN D5% in Water [Dextrose 5%] 1,000 ml IV CONT Dextrose 50 % in Water (Syg) [Dextrose 50% (Syg)] 25 ml IVP AD PRN Dextrose Gel [Gluctose] 15 gm PO ONCE PRN Dextrose Gel [Gluctose] 30 gm PO ONCE PRN Docusate [Colace] 100 mg PO BID PRN Glucagon, Human Recombinant [GlucaGen] 1 mg IM ONCE PRN Metoprolol [Lopressor] 5 mg IVP Q6HR PRN Morphine [Morphine Sulfate] 2 mg IVP Q4HR PRN Naloxone [Narcan] 0.4 mg IVP Q2MIN PRN Nicotine Patch [Nicoderm] 21 mg TD DAILY PRN Nitroglycerin 0.4 mg SL Q5MIN PRN OxyCODONE Immed Rel [Roxicodone] 5 mg PO Q6HR PRN Promethazine [Phenergan] 12.5 mg IVP Q6HR PRN Resuscitation Status: Active [RES] Routine Comment: Resuscitation Status: Full Code EV echocardiogram Routine Mode Of Transportation: Portable Reason For Exam: ACS Exam Performed At:: [facility] 09/18/16 23:42 Placement to Observation Routine Physician Instructions: Reason for Visit: Difficulty breathing. Palpitations. Is VTE Prophylaxis Indicated?: Yes RT has an order or consult [RC] NOW 09/18/16 23:43 Bed rest w/bathroom privileges [RC] .PRN Cardiac Monitoring Med/Surg [RC] .CONT Telemetry Reason: ACS/CP Continuous pulse oximetry [RC] CONT Comment: Measure intake and output [RC] QSHIFT Measure weight [RC] DAILY Oxygen via nasal cannula Nasal Cannula 2 lpm Comment: Titrate O2 to main O2 sat greater than: 92% 09/18/16 23:45 Troponin I Q6H Comment: Specimen: Send someone from the department to collect 0.9 % Sodium Chloride 1,000 ml IVC 50 mls/hr Atorvastatin [Lipitor] 40 mg PO HS Carvedilol [Coreg] 25 mg PO BID HydrALAZINE 50 mg PO TID How will this medication be supplied?: Pharmacy to Subsitute Insulin Glargine [Lantus] 62 unit SQ QPM How will this medication be supplied?: Pharmacy to Subsitute Insulin LISPRO [HumaLOG] See Protocol SQ HS Montelukast [Singulair] 10 mg PO HS 09/18/16 23:46 12 lead ECG assessment [RC] NOW 09/18/16 23:50 Enoxaparin [Lovenox] 160 mg SQ NOW STA Lovenox Clinical Warning Displayed: Yes 09/18/16 Breakfast Diabetic Diet Diet Modifications: 09/19/16 01:05 Activated Partial Thrombo Time [COAG] AM 0400 Comment: Specimen: Send someone from the department to collect Complete Blood Count w/o Diff [HEME] AM 0400 Comment: Specimen: Send someone from the department to collect Comprehensive Metabolic Panel AM 0400 Comment: Specimen: Send someone from the department to collect Hgb A1C AM 0400 Comment: Specimen: Send someone from the department to collect Lipid Panel AM 0400 Comment: Specimen: Send someone from the department to collect Magnesium AM 0400 Comment: Specimen: Send someone from the department to collect Phosphorous AM 0400 Comment: Specimen: Send someone from the department to collect Prothrombin Time INR [COAG] AM 0400 Comment: Specimen: Send someone from the department to collect Thyroid Stimulating Hormone AM 0400 Comment: Specimen: Send someone from the department to collect 09/19/16 03:41 B-Type Natriuretic Peptide AM 0400 Comment: Specimen: Send someone from the department to collect 09/19/16 04:00 Urinalysis reflex Microscopic [URIN] AM 0400 Comment: Specimen: Send someone from the department to collect 09/19/16 05:08 Troponin I Q6H Comment: Specimen: Send someone from the department to collect 09/19/16 07:00 ECG 12 lead ECG [ECG] Routine Mode Of Transportation: Portable Reason For Exam: Myocardial Infarction Exam Performed At:: [facility] 09/19/16 07:30 Insulin LISPRO [HumaLOG] See Protocol SQ TIDAC 09/19/16 07:34 POC Glucometer Test [POC] Routine 09/19/16 08:00 Ionized Calcium Routine Specimen: Send someone from the department to collect Comment: Magnesium Sulfate 2 gm D5% in Water [Dextrose 5%] 100 ml IVPB ONCE 09/19/16 08:03 Creatinine,Urine [UCHEM] Stat Comment: Specimen: Pre-Collection Label UA [Urinalysis Dipstick Only] [URIN] Stat Comment: Specimen: Pre-Collection Label Urea Nitrogen,Urine [UCHEM] Stat Comment: Specimen: Pre-Collection Label 09/19/16 08:04 Retroperitoneal Ultrasound - Complete [US retroperitoneal comp] [US] Stat Comment: Mode Of Transportation: Wheelchair Reason For Exam: YAEL Order Doctor: Adalid Rockwell Exam Performed At:: [facility] Uric Acid Stat Comment: Specimen: Send someone from the department to collect 09/19/16 08:06 Consult to Case Management [CONS] Routine Comment: SCOTTY Boland coverage 09/19/16 08:09 Carvedilol [Coreg] 50 mg PO BID 09/19/16 09:00 Allopurinol [Zyloprim] 100 mg PO DAILY Aspirin Enteric Coated [Aspirin EC] 81 mg PO DAILY CloNIDine HCl 0.1 mg PO TID Furosemide [Lasix] 40 mg PO BID Lisinopril [Zestril] 40 mg PO DAILY How will this medication be supplied?: Pharmacy to Subsitute Patient Taking Own Medication 0 each PO DAILY How will this medication be supplied?: Pharmacy to Subsitute 09/19/16 11:00 Troponin I Q6H Comment: Specimen: Send someone from the department to collect 09/19/16 18:00 Insulin DETEMIR [Levemir] 62 unit SQ QPM Patient Problems (Last Updated 09/19/16 @ 08:11 by Valentin Silva MD) Atrial fibrillation with RVR (Acute) Diabetes mellitus (Acute) Obesity (Acute) Renal insufficiency (Acute) Acute diastolic CHF (congestive heart failure), NYHA class 2 (Acute) Acute exacerbation of chronic obstructive pulmonary disease (COPD) (Acute) Acute kidney injury superimposed on CKD (Acute) Acute respiratory failure with hypoxia (Acute) Elevated brain natriuretic peptide (BNP) level (Acute) Hypertensive urgency (Acute) SIRS (systemic inflammatory response syndrome) (Acute) URI with cough and congestion (Acute) Morbid obesity with BMI of 45.0-49.9, adult (Chronic) Type 2 diabetes mellitus (Chronic) Vital Signs Temp Pulse Resp BP Pulse Ox 09/19/16 07:34 97.8 F 71 18 179/91 94 L 09/18/16 22:50 98.0 F 70 18 180/68 96 09/18/16 21:12 98.0 F 70 18 189/92 95 09/18/16 20:57 18 158/96 09/18/16 19:50 75 16 160/85 95 09/18/16 19:06 103 20 169/96 94 L 09/18/16 18:36 98.1 F 122 16 179/135 95 Laboratory Results 09/18/16 09/18/16 09/18/16 Range/Units 19:06 19:06 19:06 WBC 7.0 (4.3-11.1) K/mcL RBC 4.44 (4.19-5.50) M/mcL Hgb 12.2 L (12.9-16.9) g/dL Hct 38.5 (37.5-50.1) % MCV 86.7 (83.0-100.0) fL MCH 27.5 L (28.0-33.3) pg MCHC 31.7 (31.6-35.5) g/dL RDW 14.2 (11.5-14.5) % Plt Count 243 (140-400) K/mcL MPV 11.3 (9.4-12.4) fL Immature Gran % 0.6 (0-4) % Seg Neutrophils % 51.6 % Lymphocytes % 22.5 % Monocytes % 17.3 % Eosinophils % 7.3 % Basophils % 0.7 % Neutrophils # 3.6 (1.6-8.9) K/mcL Lymphocytes # 1.6 (0.6-4.6) K/mcL Monocytes # 1.2 (0.0-1.3) K/mcL Eosinophils # 0.5 (0.0-0.6) K/mcL Basophils # 0.1 (0.0-0.2) K/mcL PT 11.2 (9.4-12.1) Seconds INR 1.0 APTT 32.0 (26.0-36.0) Seconds Sodium 140 (136-145) mEq/L Potassium 4.3 (3.5-4.5) mEq/L Chloride 106 (98-109) mEq/L Carbon Dioxide 24 (19-29) mEq/L BUN 29 H (8-26) mg/dL Creatinine 1.85 H (0.72-1.25) mg/dL Est GFR ( Amer) 46 L (> 60) Est GFR (Non-Af Amer) 38 L (> 60) BUN/Creatinine Ratio 16 (6-26) Glucose 134 H (70-99) mg/dL POC Glucose (58-89) Est Mean Plasma Glucose mg/dl Hemoglobin A1c ( - 5.6) % Calculated Osmolality 298 (280-300) Lactic Acid (0.5-2.2) mmol/L Calcium 9.0 (8.6-10.8) mg/dL Phosphorus (2.3-4.7) mg/dL Magnesium (1.6-2.6) mg/dL Total Bilirubin 0.6 (0.2-1.2) mg/dL Direct Bilirubin 0.2 (0.0-0.5) mg/dL Indirect Bilirubin 0.4 (0.0-1.2) mg/dL AST 26 (5-34) Units/L ALT 25 (0-55) Units/L Alkaline Phosphatase 58 (38-126) Units/L Troponin I (0-0.03) ng/mL C-Reactive Protein 16 H (Less than 5) mg/L B-Natriuretic Peptide (0-100) pg/mL Serum Total Protein 6.8 (6.0-8.3) g/dL Albumin 3.1 L (3.5-5.0) g/dL Globulin 3.7 H (2.4-3.5) g/dL Albumin/Globulin Ratio 0.8 L (1.1-2.2) Triglycerides (< 150) mg/dL Cholesterol (< 200) mg/dL LDL Cholesterol, Calc (0-99) mg/dL VLDL Cholesterol, Calc (< 31) mg/dL HDL Cholesterol (40-59) mg/dL Cholesterol/HDL Ratio (0-4.9) TSH 2.610 (0.350-4.840) mcIU/mL 09/18/16 09/18/16 09/18/16 Range/Units 19:06 19:16 19:17 WBC (4.3-11.1) K/mcL RBC (4.19-5.50) M/mcL Hgb (12.9-16.9) g/dL Hct (37.5-50.1) % MCV (83.0-100.0) fL MCH (28.0-33.3) pg MCHC (31.6-35.5) g/dL RDW (11.5-14.5) % Plt Count (140-400) K/mcL MPV (9.4-12.4) fL Immature Gran % (0-4) % Seg Neutrophils % % Lymphocytes % % Monocytes % % Eosinophils % % Basophils % % Neutrophils # (1.6-8.9) K/mcL Lymphocytes # (0.6-4.6) K/mcL Monocytes # (0.0-1.3) K/mcL Eosinophils # (0.0-0.6) K/mcL Basophils # (0.0-0.2) K/mcL PT (9.4-12.1) Seconds INR APTT (26.0-36.0) Seconds Sodium (136-145) mEq/L Potassium (3.5-4.5) mEq/L Chloride (98-109) mEq/L Carbon Dioxide (19-29) mEq/L BUN (8-26) mg/dL Creatinine (0.72-1.25) mg/dL Est GFR ( Amer) (> 60) Est GFR (Non-Af Amer) (> 60) BUN/Creatinine Ratio (6-26) Glucose (70-99) mg/dL POC Glucose (58-89) Est Mean Plasma Glucose mg/dl Hemoglobin A1c ( - 5.6) % Calculated Osmolality (280-300) Lactic Acid 0.9 (0.5-2.2) mmol/L Calcium (8.6-10.8) mg/dL Phosphorus (2.3-4.7) mg/dL Magnesium (1.6-2.6) mg/dL Total Bilirubin (0.2-1.2) mg/dL Direct Bilirubin (0.0-0.5) mg/dL Indirect Bilirubin (0.0-1.2) mg/dL AST (5-34) Units/L ALT (0-55) Units/L Alkaline Phosphatase (38-126) Units/L Troponin I 0.03 (0-0.03) ng/mL C-Reactive Protein (Less than 5) mg/L B-Natriuretic Peptide 160 H (0-100) pg/mL Serum Total Protein (6.0-8.3) g/dL Albumin (3.5-5.0) g/dL Globulin (2.4-3.5) g/dL Albumin/Globulin Ratio (1.1-2.2) Triglycerides (< 150) mg/dL Cholesterol (< 200) mg/dL LDL Cholesterol, Calc (0-99) mg/dL VLDL Cholesterol, Calc (< 31) mg/dL HDL Cholesterol (40-59) mg/dL Cholesterol/HDL Ratio (0-4.9) TSH (0.350-4.840) mcIU/mL 09/18/16 09/19/16 09/19/16 Range/Units 21:32 01:05 01:05 WBC 6.4 (4.3-11.1) K/mcL RBC 4.05 L (4.19-5.50) M/mcL Hgb 11.2 L (12.9-16.9) g/dL Hct 36.0 L (37.5-50.1) % MCV 88.9 (83.0-100.0) fL MCH 27.7 L (28.0-33.3) pg MCHC 31.1 L (31.6-35.5) g/dL RDW 14.2 (11.5-14.5) % Plt Count 227 (140-400) K/mcL MPV 11.8 (9.4-12.4) fL Immature Gran % (0-4) % Seg Neutrophils % % Lymphocytes % % Monocytes % % Eosinophils % % Basophils % % Neutrophils # (1.6-8.9) K/mcL Lymphocytes # (0.6-4.6) K/mcL Monocytes # (0.0-1.3) K/mcL Eosinophils # (0.0-0.6) K/mcL Basophils # (0.0-0.2) K/mcL PT (9.4-12.1) Seconds INR APTT (26.0-36.0) Seconds Sodium (136-145) mEq/L Potassium (3.5-4.5) mEq/L Chloride (98-109) mEq/L Carbon Dioxide (19-29) mEq/L BUN (8-26) mg/dL Creatinine (0.72-1.25) mg/dL Est GFR ( Amer) (> 60) Est GFR (Non-Af Amer) (> 60) BUN/Creatinine Ratio (6-26) Glucose (70-99) mg/dL POC Glucose 125 H (58-89) Est Mean Plasma Glucose mg/dl Hemoglobin A1c ( - 5.6) % Calculated Osmolality (280-300) Lactic Acid (0.5-2.2) mmol/L Calcium (8.6-10.8) mg/dL Phosphorus (2.3-4.7) mg/dL Magnesium (1.6-2.6) mg/dL Total Bilirubin (0.2-1.2) mg/dL Direct Bilirubin (0.0-0.5) mg/dL Indirect Bilirubin (0.0-1.2) mg/dL AST (5-34) Units/L ALT (0-55) Units/L Alkaline Phosphatase (38-126) Units/L Troponin I 0.02 (0-0.03) ng/mL C-Reactive Protein (Less than 5) mg/L B-Natriuretic Peptide (0-100) pg/mL Serum Total Protein (6.0-8.3) g/dL Albumin (3.5-5.0) g/dL Globulin (2.4-3.5) g/dL Albumin/Globulin Ratio (1.1-2.2) Triglycerides (< 150) mg/dL Cholesterol (< 200) mg/dL LDL Cholesterol, Calc (0-99) mg/dL VLDL Cholesterol, Calc (< 31) mg/dL HDL Cholesterol (40-59) mg/dL Cholesterol/HDL Ratio (0-4.9) TSH (0.350-4.840) mcIU/mL 09/19/16 09/19/16 09/19/16 Range/Units 01:05 01:05 01:05 WBC (4.3-11.1) K/mcL RBC (4.19-5.50) M/mcL Hgb (12.9-16.9) g/dL Hct (37.5-50.1) % MCV (83.0-100.0) fL MCH (28.0-33.3) pg MCHC (31.6-35.5) g/dL RDW (11.5-14.5) % Plt Count (140-400) K/mcL MPV (9.4-12.4) fL Immature Gran % (0-4) % Seg Neutrophils % % Lymphocytes % % Monocytes % % Eosinophils % % Basophils % % Neutrophils # (1.6-8.9) K/mcL Lymphocytes # (0.6-4.6) K/mcL Monocytes # (0.0-1.3) K/mcL Eosinophils # (0.0-0.6) K/mcL Basophils # (0.0-0.2) K/mcL PT 11.9 (9.4-12.1) Seconds INR 1.1 APTT 29.8 (26.0-36.0) Seconds Sodium 138 (136-145) mEq/L Potassium 4.2 (3.5-4.5) mEq/L Chloride 104 (98-109) mEq/L Carbon Dioxide 27 (19-29) mEq/L BUN 29 H (8-26) mg/dL Creatinine 1.98 H (0.72-1.25) mg/dL Est GFR ( Amer) 42 L (> 60) Est GFR (Non-Af Amer) 35 L (> 60) BUN/Creatinine Ratio 15 (6-26) Glucose 144 H (70-99) mg/dL POC Glucose (58-89) Est Mean Plasma Glucose 148 mg/dl Hemoglobin A1c 6.8 H ( - 5.6) % Calculated Osmolality 294 (280-300) Lactic Acid (0.5-2.2) mmol/L Calcium 8.2 L (8.6-10.8) mg/dL Phosphorus 3.7 (2.3-4.7) mg/dL Magnesium 1.3 L (1.6-2.6) mg/dL Total Bilirubin 0.6 (0.2-1.2) mg/dL Direct Bilirubin (0.0-0.5) mg/dL Indirect Bilirubin (0.0-1.2) mg/dL AST 24 (5-34) Units/L ALT 21 (0-55) Units/L Alkaline Phosphatase 51 (38-126) Units/L Troponin I (0-0.03) ng/mL C-Reactive Protein (Less than 5) mg/L B-Natriuretic Peptide (0-100) pg/mL Serum Total Protein 5.9 L (6.0-8.3) g/dL Albumin 2.7 L (3.5-5.0) g/dL Globulin 3.2 (2.4-3.5) g/dL Albumin/Globulin Ratio 0.8 L (1.1-2.2) Triglycerides 129 (< 150) mg/dL Cholesterol 136 (< 200) mg/dL LDL Cholesterol, Calc 83 (0-99) mg/dL VLDL Cholesterol, Calc 26 (< 31) mg/dL HDL Cholesterol 27 L (40-59) mg/dL Cholesterol/HDL Ratio 5.0 H (0-4.9) TSH 2.781 (0.350-4.840) mcIU/mL 09/19/16 09/19/16 09/19/16 Range/Units 03:41 05:08 07:34 WBC (4.3-11.1) K/mcL RBC (4.19-5.50) M/mcL Hgb (12.9-16.9) g/dL Hct (37.5-50.1) % MCV (83.0-100.0) fL MCH (28.0-33.3) pg MCHC (31.6-35.5) g/dL RDW (11.5-14.5) % Plt Count (140-400) K/mcL MPV (9.4-12.4) fL Immature Gran % (0-4) % Seg Neutrophils % % Lymphocytes % % Monocytes % % Eosinophils % % Basophils % % Neutrophils # (1.6-8.9) K/mcL Lymphocytes # (0.6-4.6) K/mcL Monocytes # (0.0-1.3) K/mcL Eosinophils # (0.0-0.6) K/mcL Basophils # (0.0-0.2) K/mcL PT (9.4-12.1) Seconds INR APTT (26.0-36.0) Seconds Sodium (136-145) mEq/L Potassium (3.5-4.5) mEq/L Chloride (98-109) mEq/L Carbon Dioxide (19-29) mEq/L BUN (8-26) mg/dL Creatinine (0.72-1.25) mg/dL Est GFR ( Amer) (> 60) Est GFR (Non-Af Amer) (> 60) BUN/Creatinine Ratio (6-26) Glucose (70-99) mg/dL POC Glucose 164 H (58-89) Est Mean Plasma Glucose mg/dl Hemoglobin A1c ( - 5.6) % Calculated Osmolality (280-300) Lactic Acid (0.5-2.2) mmol/L Calcium (8.6-10.8) mg/dL Phosphorus (2.3-4.7) mg/dL Magnesium (1.6-2.6) mg/dL Total Bilirubin (0.2-1.2) mg/dL Direct Bilirubin (0.0-0.5) mg/dL Indirect Bilirubin (0.0-1.2) mg/dL AST (5-34) Units/L ALT (0-55) Units/L Alkaline Phosphatase (38-126) Units/L Troponin I 0.02 (0-0.03) ng/mL C-Reactive Protein (Less than 5) mg/L B-Natriuretic Peptide 236 H (0-100) pg/mL Serum Total Protein (6.0-8.3) g/dL Albumin (3.5-5.0) g/dL Globulin (2.4-3.5) g/dL Albumin/Globulin Ratio (1.1-2.2) Triglycerides (< 150) mg/dL Cholesterol (< 200) mg/dL LDL Cholesterol, Calc (0-99) mg/dL VLDL Cholesterol, Calc (< 31) mg/dL HDL Cholesterol (40-59) mg/dL Cholesterol/HDL Ratio (0-4.9) TSH (0.350-4.840) mcIU/mL Assessments/Treatments 12 lead ECG assessment Start: 09/18/16 18: 35 Freq: NOW Status: Complete Document 09/18/16 18:47 [id number] (Rec: 09/18/16 18:52 [id number]) EKG Time EKG Completed 18:40 EKG performed by Ayaan PIERCE EKG shown to and signed by Dr. Hernández 12 lead ECG assessment Start: 09/18/16 20: 32 Freq: NOW Status: Active Document 09/18/16 20:32 KJC (Rec: 09/18/16 22:14 KJC [id number]) 12 lead ECG assessment Start: 09/18/16 23: 46 Freq: NOW Status: Active Document 09/18/16 23:46 KJC (Rec: 09/19/16 01:49 KJC [id number]) Cardiac Monitoring Med/Surg Start: 09/18/16 23: 43 Freq: .CONT Status: Active Document 09/19/16 00:35 KJC (Rec: 09/19/16 00:35 KJC [id number]) Alarms/Limits Heart Rate 71 EKG Method Telemetry Rhythm Sinus Rhythm PA Interval 0.23 QRS Interval 0.08 QT Interval 0.31 Document 09/19/16 07:43 [id number] (Rec: 09/19/16 07:45 [id number]) Cardiac Monitoring Monitor Number [id number] Strip placed in Chart Yes History Reviewed Yes Memory Cleared No Alarms/Limits Heart Rate 76 EKG Method Telemetry Rhythm Sinus Rhythm PA Interval 0.24 QRS Interval 0.09 QT Interval 0.36 Cardiac monitoring Start: 09/18/16 18: 35 Freq: .ONCE Status: Complete Document 09/18/16 18:47 [id number] (Rec: 09/18/16 18:52 [id number]) Cardiac Monitoring Heart Rate 118 Monitoring Method Telemetry Rhythm Atrial Fibrillation Monitor Number 32 ED Discharge Assessment Start: 09/18/16 18: 40 Freq: Status: Active Document 09/18/16 20:57 [id number] (Rec: 09/18/16 20:58 [id number]) ED Discharge Assessment ED Discharge Disposition Admitted ED Condition on Discharge Improved Med Rec/Patient Pharmacy Completed? Yes Admitted to 3B Bed assigned 54 Transported by restoration technician Transported with monitor IV Report given to Nurse Care transferred to (name/credentials) Patricia RN Information relayed patient's care treatments medications given condition recent/anticipated changes Clinical Documentation Summary Provided Yes Discharge Comment Pt in no acute distress on admission to inpatient unit IV Line Removal Patient Tolerance Sterile Dressing Applied Pain Scale 0 Pain Scale Used Standard (1-10) Blood Pressure 158/96 Heart rate 79 Respiratory Rate 18 Oxygen Delivery Room Air Oxygen Saturation 97 Critical Care Minutes 0 ED Shortness of Breath Assessment Start: 09/18/16 18: 40 Freq: Status: Complete Document 09/18/16 18:47 [id number] (Rec: 09/18/16 18:52 [id number]) Shortness of Breath Sepsis Infection Criteria Present suspected infection Sepsis SIRS Criteria HR > 90 bpm Sepsis Screen No Definite Risk Sepsis Action Taken no action required Symptoms/Complaint Shortness of Breath Onset x 3 weeks Duration Intermittent Severity Moderate Context History/simular sympoms Known History Diabetes Improves With Rest Worsens With Exertion Associated Symptoms Cough Treatment Prior to Arrival None Chest Pain Intensity (out of 10) 0 Respiratory Depth Normal Effort Normal for Patient Spontaneous Non-Labored Pattern Irregular Anterior Bilateral Breath Sounds Diminished Cough Description Voluntary Non-Productive Frequency Intermittent Level Of Consciousness Awake Alert Appropriate Follows Commands Patient Orientation Person Place Time Name Age Date of Day of Month Day of Week Month Year Time of Day Patient Behavior Appropriate Cooperative Ability to Follow Directions Excellent Impaired Cognition No Skin Temperature Warm Skin Moisture Dry Skin Turgor Elastic Capillary Refill < 3 Seconds Fall Precautions Acute Start: 09/18/16 21: 15 Freq: Q12H Status: Active Document 09/18/16 21:30 MRB (Rec: 09/18/16 21:45 MRB [id number]) [facility] Fall Risk Assessment Tool Age less than60 years age (0 points) Fall History No falls within last 6 months (0 points) Elimination, Bowel, and Urine N/A (0 pts) 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 IV infusions, chest tube, indwelling Mobility N/A (0 points) Cognition N/A (0 points) Total Fall Risk Score 3 Fall Risk Category Low Risk (0-5) Fall Risk Interventions Low Risk Interventions Bed in lowest position Top side rails up x 2 Secure brake on bed Use properly fitting non-skid footwear Call light and frequently needed objects within reach Encourage patients/families to call for assistance when needed Fall education including risk assessment, injury risk and routine/ Inspect environment for safety and communication risk Supervise and assist with toileting/ADLs as needed Document 09/19/16 07:15 [id number] (Rec: 09/19/16 07:37 [id number]) [facility] Fall Risk Assessment Tool Age less than60 years age (0 points) Fall History No falls within last 6 months (0 points) Elimination, Bowel, and Urine N/A (0 pts) 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 IV infusions, chest tube, indwelling Mobility N/A (0 points) Cognition N/A (0 points) Total Fall Risk Score 3 Fall Risk Category Low Risk (0-5) Fall Risk Interventions Low Risk Interventions Bed in lowest position Top side rails up x 2 Secure brake on bed Use properly fitting non-skid footwear Call light and frequently needed objects within reach Encourage patients/families to call for assistance when needed Fall education including risk assessment, injury risk and routine/ Inspect environment for safety and communication risk Supervise and assist with toileting/ADLs as needed Family History-Meaningful Use Start: 09/18/16 21: 15 Freq: .Once Status: Active Document 09/18/16 21:30 MRB (Rec: 09/18/16 21:45 MRB [id number]) Family History-Meaningful Use Brother Hx Family Cardiac Disorders Yes Mother Living Status Hx Family Cardiac Disorders Yes Hx Family Endocrine Disorder Yes Glucose, blood point of care measurement Start: 09/18/16 23: 41 Freq: ACHS Status: Active Document 09/19/16 07:34 ARM (Rec: 09/19/16 07:35 ARM [id number]) Blood Glucose Assessment Blood Glucose* 164 Hypoglycemia Symptoms None Hyperglycemia Symptoms None Action Taken RN notified IV-Invasive Line Management Start: 09/18/16 21: 15 Freq: Q8H Status: Active Document 09/18/16 21:30 MRB (Rec: 09/18/16 21:45 MRB [id number]) IV/Invasive Line Assessment Left Antecubital Date of Insertion 09/18/16 Time of Insertion 18:52 Reason for Line Insertion/Rationale for Provide Access for IV Insertion Medication(s) Provide Access for Emergency Gauge (gauge) 18 IV Catheter Type Peripheral IV Site Observation Patent Dressing Applied Window Dressing Dry/Intact Document 09/19/16 04:00 KJC (Rec: 09/19/16 05:46 KJC [id number]) IV/Invasive Line Assessment Left Antecubital Reason for Line Insertion/Rationale for Provide Access for IV Insertion Medication(s) Provide Access for Emergency Gauge (gauge) 18 IV Catheter Type Peripheral IV Site Observation Patent Dressing Applied Window Dressing Dry/Intact Document 09/19/16 07:15 [id number] (Rec: 09/19/16 07:37 [id number]) IV/Invasive Line Assessment Left Antecubital Date of Insertion 09/18/16 Reason for Line Insertion/Rationale for Provide Access for IV Insertion Medication(s) Provide Access for Emergency Gauge (gauge) 18 IV Catheter Type Peripheral IV Site Observation Patent Dressing Applied Window Dressing Dry/Intact Line Care Saline Flush Med Rec Tech Start: 09/18/16 20: 56 Freq: Status: Complete Document 09/18/16 20:56 EJD (Rec: 09/18/16 20:56 EJD [id number]) Pharmacy Med Rec Tech Home Medicatons Reconciled? Yes Was this to catch up from previous day No Does patient take 10 or more medications Yes ? Does patient request medication No education Do home meds include Coumadin, Xarelto, No Pradaxa, Eliquis Added Patient Preferred Pharmacy Yes Verified Allergies Yes Would Patient Like to use [facility] No Patient Pharmacy Notify provider Start: 09/18/16 23: 41 Freq: once Status: Active Document 09/19/16 00:34 KJC (Rec: 09/19/16 00:35 KJC [id number]) Observation Admission Assessment Start: 09/18/16 21: 15 Freq: .once Status: Active Document 09/18/16 21:30 MRB (Rec: 09/18/16 21:45 MRB [id number]) General Questions Date of Arrival on Unit 09/18/16 Time of Arrival on Unit 21:15 Admitted From Emergency Dept Chief Complaint cold symptoms Onset of Chief Complaint 09/04/16 History Provided By Patient Orientation To Call Light Bed Phone TV Bathroom Smoking Policy Visiting Hours Procedures ID Bracelet On Emergency Contact Name Ileana De Relationship to Patient son Emergency Contact [phone] applied ID band Patient Health Portal Patient was provided information on Yes accessing patient portal Patient Requests Portal Enrollment No Reason No Portal Enrollment Patient Declines Advance Directives Advance Directives No Advance Directives Information Provided Yes Patient Rights Copy of Rights Given and Verbalizes Yes Understanding Tobacco Free [place]: Copy of [facility] Yes Statement Given and Patient Verbalizes Understanding Communication Ability Primary Language Hungarian Preferred Language Hungarian Ability to Follow Directions Good Communication Tools None Learning Preferences Discussion Hearing Ability Normal Visual Assistive Devices Glasses Pain Assessment Do You Have Any Ongoing (Chronic) Pain No Problems Educated on Pain Scale Yes Past Medical History Medical history diabetes Psychiatric history no psych history Smoking Status Never smoker Smokeless Tobacco Status Yes Alcohol use none Drug use none Occupational status employed Current living situation With Family Activity level Independent ambulation Recent Out of Country Travel Within the No Last 8 Weeks Exposure or Possible Exposure to Illness No During Travel Functional Assessment Eating (Feeding) Ability Independent Bathing Ability Independent Upper Body Dressing Ability Independent Lower Body Dressing Ability Independent Ambulation Ability Independent Toileting Ability Independent Bladder Continent Bowel Continent Psychosocial Over Age 75 and Lives Alone or Over Age No 80 Potential Need for Follow-up Care (ECF, No Home Health, ECT) Developmentally Disabled or History of No Mental Health Problems Diagnosis with Senior Living Need or No Terminal Implications Responsible for Care of Others No Financial Concerns No Suspected Abuse or Neglect No Suicidal or Homicidal Ideation No Social Service Consult Needed No Obtain Old EKG Start: 09/18/16 18: 35 Freq: .ONCE Status: Complete Document 09/18/16 18:47 [id number] (Rec: 09/18/16 18:52 [id number]) Oxygen administration Start: 09/18/16 21: 15 Freq: Q12H Status: Active Document 09/18/16 21:30 MRB (Rec: 09/18/16 21:45 MRB [id number]) Oxygen Oxygen S/U/Change No Document 09/19/16 07:15 [id number] (Rec: 09/19/16 07:37 [id number]) Oxygen Oxygen Delivery Method Room Air Patient Belongings Start: 09/18/16 21: 15 Freq: .ONCE Status: Active Document 09/18/16 21:30 MRB (Rec: 09/18/16 21:45 MRB [id number]) Patient Belongings Belongings With Patient on Admission Yes At Bedside Patient Belongings Baseball Cap Pants Shirt Shoes Patient Rounding Start: 09/18/16 18: 40 Freq: Q30M Status: Active Document 09/18/16 19:06 [id number] (Rec: 09/18/16 19:07 [id number]) Patient Rounding Safety Call Light Within Reach Bed Position Low Bed Brake On Side Rails Up X2 Are the Floors Free From Trip Hazards? Yes Is the Room Free From Clutter? Yes Rounding Completed? Yes Patient Rounding Updated patient/family on Plan of Care Checked for Patient Positioning Checked Patient Pain Level Patient Awake Patient Verbalizes Pain/Symptoms No Improvement Document 09/18/16 19:50 [id number] (Rec: 09/18/16 19:51 [id number]) Patient Rounding Safety Call Light Within Reach Bed Position Low Bed Brake On Side Rails Up X2 Are the Floors Free From Trip Hazards? Yes Is the Room Free From Clutter? Yes Rounding Completed? Yes Patient Rounding Updated patient/family on Plan of Care Checked for Patient Positioning Checked Patient Pain Level Patient Awake Patient Rounding Start: 09/18/16 21: 15 Freq: Q1H Status: Active Document 09/18/16 21:30 MRB (Rec: 09/18/16 21:45 MRB [id number]) Hourly Rounding Hourly Rounding Checked for Patient Positioning Patient Personal Items Placed Within Reach Checked Patient Pain Level Hourly Rounding Completed Yes Patient Awake Is family present? Yes Safety Call Light Within Reach Bed Position Low Phone Within Reach Bed Brake On Side Rails Up X2 Are the Floors Free From Trip Hazards? Yes Is the Room Free From Clutter? Yes Turn and Postion Bedrest No Turn Q 2HR No Patient Position Sitting on Side of Bed Document 09/18/16 22:23 KJC (Rec: 09/18/16 22:23 [id number]) Hourly Rounding Hourly Rounding Checked for Patient Positioning Patient Personal Items Placed Within Reach Checked Patient Pain Level Hourly Rounding Completed Yes Patient Awake Is family present? Yes Safety Call Light Within Reach Bed Position Low Phone Within Reach Bed Brake On Side Rails Up X2 Are the Floors Free From Trip Hazards? Yes Is the Room Free From Clutter? Yes Turn and Postion Bedrest No Turn Q 2HR No Patient Position Sitting on Side of Bed Document 09/19/16 00:34 KJC (Rec: 09/19/16 00:35 KJC [id number]) Hourly Rounding Hourly Rounding Checked for Patient Positioning Patient Personal Items Placed Within Reach Hourly Rounding Completed Yes Patient Resting With Eyes Closed Is family present? Yes Safety Call Light Within Reach Bed Position Low Phone Within Reach Bed Brake On Side Rails Up X2 Are the Floors Free From Trip Hazards? Yes Is the Room Free From Clutter? Yes Turn and Postion Bedrest No Turn Q 2HR No Document 09/19/16 01:34 KJC (Rec: 09/19/16 01:34 [id number]) Hourly Rounding Hourly Rounding Checked for Patient Positioning Patient Personal Items Placed Within Reach Hourly Rounding Completed Yes Patient Resting With Eyes Closed Is family present? Yes Safety Call Light Within Reach Bed Position Low Phone Within Reach Bed Brake On Side Rails Up X2 Are the Floors Free From Trip Hazards? Yes Is the Room Free From Clutter? Yes Turn and Postion Bedrest No Turn Q 2HR No Document 09/19/16 05:44 KJC (Rec: 09/19/16 05:44 [id number]) Hourly Rounding Hourly Rounding Checked for Patient Positioning Patient Personal Items Placed Within Reach Hourly Rounding Completed Yes Patient Resting With Eyes Closed Is family present? Yes Safety Call Light Within Reach Bed Position Low Phone Within Reach Bed Brake On Side Rails Up X2 Are the Floors Free From Trip Hazards? Yes Is the Room Free From Clutter? Yes Turn and Postion Bedrest No Turn Q 2HR No Document 09/19/16 06:29 ARM (Rec: 09/19/16 06:29 ARM [id number]) Hourly Rounding Hourly Rounding Checked for Patient Positioning Patient Personal Items Placed Within Reach Hourly Rounding Completed Yes Patient Resting With Eyes Closed Is family present? Yes Safety Call Light Within Reach Bed Position Low Phone Within Reach Bed Brake On Side Rails Up X2 Are the Floors Free From Trip Hazards? Yes Is the Room Free From Clutter? Yes Document 09/19/16 07:15 [id number] (Rec: 09/19/16 07:37 [id number]) Hourly Rounding Hourly Rounding Checked for Patient Positioning Patient Personal Items Placed Within Reach Hourly Rounding Completed Yes Patient Awake Is family present? No Equipment in Use Specialty Bed Safety Call Light Within Reach Bed Position Low Fall Precautions Phone Within Reach Side Rails Up X2 Are the Floors Free From Trip Hazards? Yes Is the Room Free From Clutter? Yes Turn and Postion Bedrest No Turn Q 2HR No Patient Position Sitting up in Bed Document 09/19/16 07:34 ARM (Rec: 09/19/16 07:35 ARM [id number]) Hourly Rounding Hourly Rounding Checked for Patient Positioning Patient Personal Items Placed Within Reach Hourly Rounding Completed Yes Patient Resting With Eyes Closed Is family present? Yes Comment patient wanting to discharge him Safety Call Light Within Reach Bed Position Low Phone Within Reach Bed Brake On Side Rails Up X2 Are the Floors Free From Trip Hazards? Yes Is the Room Free From Clutter? Yes Peripheral venous cannula mgmt/flush Start: 09/18/16 23: 41 Freq: CONT Status: Active Document 09/19/16 00:34 KJC (Rec: 09/19/16 00:35 KJC [id number]) RT Continuous Pulse Oximetry Start: 09/18/16 18: 40 Freq: Status: Complete Document 09/18/16 18:47 [id number] (Rec: 09/18/16 18:52 [id number]) RT Continuous Pulse Oximetry Start: 09/18/16 23: 43 Freq: CONT Status: Active Document 09/19/16 00:34 KJC (Rec: 09/19/16 00:35 KJC [id number]) Pulse Oximetry Oxygen Delivery Method Room Air RT has an order or consult Start: 09/18/16 23: 42 Freq: NOW Status: Active Document 09/19/16 00:34 KJC (Rec: 09/19/16 00:35 KJC [id number]) Saline lock insertion/management Start: 09/18/16 18: 35 Freq: .ONCE Status: Complete Document 09/18/16 18:47 [id number] (Rec: 09/18/16 18:52 [id number]) IV Insertion/Site Assessment IV Attempt 1 Successful Successful Blood drawn and sent to Lab No Left Antecubital IV Established 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 No Date of Insertion 09/18/16 Time of Insertion 18:52 Reason for IV Insertion Provide Access for IV Medication(s) Provide Access for Emergency IV Catheter Type Peripheral IV Gauge (gauge) 18 Site Observation Patent Dressing Applied Window Dressing Dry/Intact Patient Tolerance Tolerated Well Sepsis Screening Start: 09/18/16 21: 15 Freq: Q8H Status: Active Document 09/18/16 21:30 MRB (Rec: 09/18/16 21:45 MRB [id number]) Sepsis Screening Sepsis Infection Criteria Present none Sepsis SIRS Criteria none Sepsis Screen No Definite Risk Sepsis Action Taken no action required Document 09/19/16 04:00 KJC (Rec: 09/19/16 05:46 KJC [id number]) Sepsis Screening Sepsis Infection Criteria Present none Sepsis SIRS Criteria none Sepsis Screen No Definite Risk Sepsis Action Taken no action required Skin Risk Assessment Scale Start: 09/18/16 21: 15 Freq: Q12H Status: Active Document 09/18/16 21:30 MRB (Rec: 09/18/16 21:45 MRB [id number]) Skin Risk Assessment Scale Moisture Risk Rarely Moist Sensory Perception No Impairment Activity Risk Walks Frequently Mobility Risk No Limitations Nutrition Risk Adequate Friction & Shear Risk No Apparent Problem Skin Risk Total Score (points) 22 Document 09/19/16 07:15 [id number] (Rec: 09/19/16 07:37 [id number]) Skin Risk Assessment Scale Moisture Risk Occasionally Moist Sensory Perception Slightly Limited Activity Risk Walks Occasionally Mobility Risk Slightly Limited Nutrition Risk Adequate Friction & Shear Risk No Apparent Problem Skin Risk Total Score (points) 18 System Review Start: 09/18/16 21: 15 Freq: Q8H Status: Active Document 09/18/16 22:14 KJC (Rec: 09/18/16 22:22 [facility] [id number]) Pain Assessment Pain Present Reports No Pain Neurological Assessment Eye Opening Spontaneous Motor Obeys Commands Verbal Oriented Coma Scale Total 15 Neurologic Status Alert Patient Orientation Person Place Time Arousable To Name Speech Pattern Normal rate Normal rhythm Normal tone Appropriate Clear Coherent Patient Behavior Appropriate Cooperative Mood Description Calm Relaxed Medical Scientific Officer Strength Equal Push/Pull Equal Numbness/Tingling Yes: ble Facial Symmetry Symmetrical Cardiovascular Assessment Signs and Symptoms None Heart Sounds S1 & S2 Pulse Rhythm Irregular Right Radial 2+ Left Radial 2+ Right Dorsalis Pedis 1+ Left Dorsalis Pedis 1+ Right Ankle Type Non-Pitting Has Confirmed Diagnosis of DVT, PE or No VTE Mechanical Prophylaxis No Respiratory Assessment Respiratory Symptoms Productive Cough Effort Normal for Patient Spontaneous Non-Labored All Lung Ruano Diminished Expiratory Wheezing Oxygen Delivery Method Room Air Cough Description Voluntary Productive Sputum Amount Small Color Yellow Consistency Thick Respiratory Comment: Sputum reported by pt, not observed by RN Gastrointestinal Assessment Abdomen Description Soft Non-Tender Round 3 or more loose stools, in less than 24 No hours Nausea/Vomiting Presence None All Four Quadrants Active Genitourinary Assessment Genitourinary Symptoms None Bladder Pattern Normal Comment: Did not observe urine at this time. Integumentary Assessment Fingernail Condition Clubbed Nail Bed Appearance Pale Temperature Warm Moisture Dry Turgor Normal Color Normal All Pressure Points Assessed Yes Evidence of Incision/Wounds/Breakdown No Mucous membranes moist, pink and intact Yes Integumentary Comment: Partial upper dentures Musculoskeletal Assessment Musculoskeletal Symptoms None Document 09/19/16 01:00 [facility] (Rec: 09/19/16 05:47 [facility] [id number]) Pain Assessment Pain Present Reports No Pain Neurological Assessment Eye Opening Spontaneous Motor Obeys Commands Verbal Oriented Coma Scale Total 15 Neurologic Status Alert Patient Orientation Person Place Time Arousable To Name Speech Pattern Normal rate Normal rhythm Normal tone Appropriate Clear Coherent Patient Behavior Appropriate Cooperative Mood Description Calm Relaxed Medical Scientific Officer Strength Equal Push/Pull Equal Numbness/Tingling Yes: ble Facial Symmetry Symmetrical Cardiovascular Assessment Signs and Symptoms None Heart Sounds S1 & S2 Pulse Rhythm Irregular Capillary Refill < 3 Seconds Right Radial 2+ Left Radial 2+ Right Dorsalis Pedis 1+ Left Dorsalis Pedis 1+ Right Ankle Type Non-Pitting Has Confirmed Diagnosis of DVT, PE or No VTE Mechanical Prophylaxis No Cardiac Monitoring Heart Rate 71 Monitoring Method Telemetry Rhythm Sinus Rhythm PA Interval 0.23 QRS Interval 0.08 QT Interval 0.31 Monitor Number 32 Respiratory Assessment Respiratory Symptoms Productive Cough Effort Normal for Patient Spontaneous Non-Labored Depth Normal Respiratory Pattern Regular All Lung Ruano Diminished Expiratory Wheezing Oxygen Delivery Method Room Air Cough Description Voluntary Productive Cough Frequency Intermittent Sputum Amount Small Color Yellow Consistency Thick Respiratory Comment: Sputum reported by pt, not observed by RN Gastrointestinal Assessment Abdomen Description Soft Non-Tender Round 3 or more loose stools, in less than 24 No hours Nausea/Vomiting Presence None All Four Quadrants Active Genitourinary Assessment Genitourinary Symptoms None Bladder Pattern Normal Comment: Did not observe urine at this time. Integumentary Assessment Fingernail Condition Clubbed Nail Bed Appearance Pale Temperature Warm Moisture Dry Turgor Normal Color Normal All Pressure Points Assessed Yes Evidence of Incision/Wounds/Breakdown No Mucous membranes moist, pink and intact Yes Integumentary Comment: Partial upper dentures Musculoskeletal Assessment Musculoskeletal Symptoms None Teaching Record Start: 09/18/16 21: 15 Freq: Q12H Status: Active Document 09/18/16 21:30 MRB (Rec: 09/18/16 21:45 MRB [id number]) Teaching Record: General Education Topics Medications Hospital Environment Diet Response Verbalize understanding Methods Discussion Recipient Patient Triage Start: 09/18/16 18: 36 Freq: Status: Active Document 09/18/16 18:36 [id number] (Rec: 09/18/16 18:40 [id number]) Triage Chief Complaint triage ED Shortness of Breath/Dyspnea Patient Stated Complaint SOB ADAMS 2 Onset (ago) week(s) Description of Symptoms Pt states SOB x 3 weeks on exertion. States he made an appt with his PCP and discovered he had afib yet again and was sent here to ED. Pt states he had afib x 3 years ago and went back to normal sinus rhythm on his own .. Pt denies any complaints at this time. Denies SOB, CP, Palpititations or any further complaints. Pt appears in no distress. States with exertion becomes very SOB. General Appearance alert in no apparent distress Work Related Injury? No Mode of arrival wheelchair Source patient family Limitations no limitations Ebola Risk: Travel/Contact With Anyone No From Affected Area/s Temperature (97.6 F-99.6 F) 98.1 F Temperature Source Oral Pulse Rate 122 Respiratory Rate 16 Blood Pressure 179/135 O2 Sat by Pulse Oximetry (95-100) 95 Oxygen Delivery Room Air Height 1.85 m Weight 169.19 kg Weight Measurement Method Stated by Patient Pain Scale 0 Pain Scale Used Standard (1-10) Medical history atrial fibrillation diabetes hypertension Male surgical history orthopedic, other Psychiatric history no psych history Smoking Status Never smoker Smokeless Tobacco Status Yes Alcohol Use none Drug Use none Patient resides with/at Spouse Safety Concerns Feels Safe At This Time Do you currently feel hopless, have No thoughts of self harm, or thoughts of harming others History of fall in last 14 days? No Coma Scale Eye Opening Spontaneous Coma Scale Motor Response Obeys Commands Coma Scale Verbal Response Oriented Coma Scale Total 15 Vital Signs Assessment Start: 09/18/16 18: 35 Freq: PROTOCOL Status: Active Document 09/18/16 19:06 [id number] (Rec: 09/18/16 19:07 [id number]) ED Vital Signs Pain Reported No Pain Reported Blood Pressure 169/96 Source Automatic Cuff Pulse Rate 103 Rhythm Irregular Respiratory Rate 20 Depth Normal Effort Normal for Patient Spontaneous Non-Labored Pattern Regular Pulse Oximetry (95-100) 94 L Oxygen Delivery Room Air Document 09/18/16 19:50 [id number] (Rec: 09/18/16 19:51 [id number]) ED Vital Signs Pain Reported No Pain Reported Blood Pressure 160/85 Source Automatic Cuff Pulse Rate 75 Respiratory Rate 16 Depth Normal Effort Normal for Patient Spontaneous Non-Labored Pattern Regular Pulse Oximetry (95-100) 95 Oxygen Delivery Room Air Document 09/18/16 21:12 [id number] (Rec: 09/18/16 21:18 [id number]) Vital Signs with MEWS Temperature (97.6 F-99.6 F) 98.0 F Temperature Source Oral Pulse Rate 70 Respiratory Rate 18 Pulse Oximetry (95-100) 95 Oxygen Delivery Room Air Blood Pressure 189/92 Blood Pressure Location Left Arm Source Automatic Cuff Position Supine Neuro Status *recalled from last Alert documentation MEWS Score 1 Vital Signs Assessment Start: 09/18/16 21: 15 Freq: Q4H Status: Active Document 09/18/16 22:50 [id number] (Rec: 09/18/16 22:51 [id number]) Vital Signs with MEWS Temperature (97.6 F-99.6 F) 98.0 F Temperature Source Oral Pulse Rate 70 Respiratory Rate 18 Pulse Oximetry (95-100) 96 Oxygen Delivery Room Air Blood Pressure 180/68 Blood Pressure Location Left Arm Source Automatic Cuff Position Supine Neuro Status *recalled from last Alert documentation MEWS Score 1 Vital Signs Assessment Start: 09/18/16 23: 41 Freq: Q4H Status: Active Document 09/19/16 07:34 ARM (Rec: 09/19/16 07:35 ARM [id number]) Vital Signs with MEWS Temperature (97.6 F-99.6 F) 97.8 F Temperature Source Oral Pulse Rate 71 Respiratory Rate 18 Pulse Oximetry (95-100) 94 L Oxygen Delivery Room Air Blood Pressure 179/91 Blood Pressure Location Left Arm Source Automatic Cuff Position HOB Elevated Neuro Status *recalled from last Alert documentation MEWS Score 1 Discharge Information ED Provider: Matt Hernández Status: Departed Time Seen by Provider: 09/18/16 18:28 Condition: Triaged At: 09/18/16 18:36 Emergency Discharge Date/Time: 09/18/16 21:04 Emergency Discharge Disposition: Admitted As Inpatient Clinical Impression Atrial fibrillation with RVR Diabetes mellitus Obesity Renal insufficiency Emergency Discharge Comment: Admit Intervention Last Done ED Shortness of Breath Assessment 09/18/16 18:47 Query Result Sepsis Infection Criteria Present suspected infection Sepsis SIRS Criteria HR > 90 bpm Sepsis Screen No Definite Risk Sepsis Action Taken no action required Shortness Of Breath Symptoms/Complaint Shortness of Breath Shortness Of Breath Onset x 3 weeks Shortness Of Breath Duration Intermittent Shortness Of Breath Severity Moderate Shortness Of Breath Context History/simular sympoms Shortness Of Breath Known History Diabetes Shortness Of Breath Improves With Rest Shortness Of Breath Worsens With Exertion Shortness Of Breath Associated Symptoms Cough Shortness Of Breath Treatments Prior to None Arrival Chest Pain Intensity 0 Respiratory Depth Normal Respiratory Effort Normal for Patient Spontaneous Non-Labored Respiratory Pattern Irregular Anterior Bilateral -Breath Sounds Diminished Cough Description Voluntary Non-Productive Cough Frequency Intermittent Level Of Consciousness Awake Alert Appropriate Follows Commands Patient Orientation Person Place Time Name Age Date of Day of Month Day of Week Month Year Time of Day Patient Behavior Appropriate Cooperative Ability to Follow Directions Excellent Impaired Cognition No Skin Temperature Warm Skin Moisture Dry Skin Turgor Elastic Capillary Refill < 3 Seconds ED Discharge Assessment 09/18/16 20:57 Query Result ED Discharge Disposition Admitted ED Condition on Discharge Improved Med Rec/Patient Phamracy completed? Yes ED Admit to 3B Bed assigned 54 Transported by restoration technician Transported with monitor IV Report given to Nurse Care transferred to Patricia RN Information relayed patient's care treatments medications given condition recent/anticipated change Clinical Documentation Summary Provided Yes ED Discharge Comment Pt in no acute distress on admission to inpatient unit IV Line Removal Patient Tolerance Sterile Dressing Applied Severity scale (1-10) 0 Pain Scale Used Standard (1-10) Blood Pressure 158/96 Heart rate 79 Respiratory Rate 18 Oxygen Delivery Room Air Pulse Oximetry Reading 97 Critical Care Minutes 0 Observation Discharge Date/Time: Observation Discharge Disposition: Observation Discharge Comment: Instructions: Stand-Alone Forms: ED Satisfaction Letter Prescriptions: Visit Report - Forms: - Referrals: Radiology Results Chest X-Ray 09/18/16 18:36
[2016-09-19] MEDS ORDERED: Albuterol 2.5 MG/3 ML NEBULIZER IH PRN (08:28)
[2016-09-19] MEDS ORDERED: Benzonatate 100 MG CAPSULE PO PRN (08:31)
--- NOTE | 2016-09-19 08:56 | Internal Med Progress Note ---
Date of Encounter: 09/19/16 Time of Encounter: 08:56 - Assessment and plan (1) CHF (congestive heart failure) Current Visit: Yes Status: Acute Assessment and plan: Follow ECHO Hold Lasix for now due to YAEL on CKD with possible pre-renal component BNP is only slightly elevated EKG is Afib wirh RVR Troponin is negative Mild CHFE is possibly due to the Afib with RVR Continue home meds Follow ECHO Qualifiers: Congestive heart failure type: diastolic Congestive heart failure chronicity: acute on chronic Qualified Code(s): I50.33 - Acute on chronic diastolic (congestive) heart failure (2) Acute exacerbation of chronic obstructive pulmonary disease (COPD) Current Visit: Yes Status: Acute Assessment and plan: Continue duonebs Continue Cef/Azithro Follow respiratory panel work up Will de-escalate anibiotics prn COntinue O2 supplement prn (3) Acute kidney injury superimposed on CKD Current Visit: Yes Status: Acute Assessment and plan: Baseline unknown But proteinuria and FeUrea suggests patient may have CKD at baseline Follow renal USS Attempt to contact PCP for baseline Cr (4) Acute respiratory failure with hypoxia Current Visit: Yes Status: Acute Assessment and plan: seems to have resolved patient was not requiring oxygen at my time of eval he does not use oxygen at home Continue to monitor (5) Atrial fibrillation with RVR Current Visit: Yes Status: Acute Assessment and plan: His HR has improved with Cardiezem IV push patient meets criteria for anticoagulation Follow ECHO Discussion with patient indicates he prefers NOAs patient already received 160mg Lovenox stat on admission at 2350pm Will start on Xarelto after confirmation by [employer]IVER Continue Coreg 5 bid Add diltiazem 30 q8hr HTN is uncontrolled, continue to titrate meds to achieve control Continue telemetry (6) Hypertensive urgency Current Visit: Yes Status: Acute Assessment and plan: As above (7) Type 2 diabetes mellitus Current Visit: Yes Status: Chronic Assessment and plan: Controlled A1C 6.8 Possibly complicated by CKD ADA diet Monitor FS Sliding scale ACHS for now Qualifiers: Diabetes mellitus complication status: with unspecified complications Diabetes mellitus snf insulin use: unspecified 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 Qualified Code(s): E11.8 - Type 2 diabetes mellitus with unspecified complications (8) Morbid obesity with BMI of 45.0-49.9, adult Current Visit: Yes Status: Chronic - Subjective Interval history: 55 Y/O M with PMH of Paroxysmal Afib not on anticoagulation, Morbid Obesity, DM , COPD, CHFpEF admitted to observation for acute hypoxic respiratory failure secondary to afib with RVR, probable YAEL, CHF exacerbation and COPDE He had respiratory symptoms as well and was started on empiric antibiotics for suspected pneumonia patient is seen at bedside, dressed up and ready to go home He reports that he feels significantly better and denies new complains Work up so far revealed mild normocytic anemia, coagulation panel is WNL, Chem with BUN/Cr 29/1.98, baseline unknown, UA with proteinuria, A1C 6.8, LFT WBL, troponin negative X2, Elevated uric acid, FeUra is 37.4%, with intrinsic renal disease , TSH is WNL CXR with mild prominence of pulmonary vasculature and no other abnormality - Constitutional Vitals: Temp Pulse Resp BP Pulse Ox 97.8 F 71 18 179/91 94 L 09/19/16 07:34 09/19/16 07:34 09/19/16 07:34 09/19/16 07:34 09/19/16 07:34 General appearance: Present: cooperative, A&O X 3, morbidly obese, pleasant, no acute distress, answers questions appropriately - Head Head exam: Present: atraumatic, normocephalic - Eye Eye exam: Present: PERRL, conjuntiva pink, sclera anicteric Pupils: Present: PERRL - Neck Neck exam general surgery: Present: supple, trachea midline. Absent: lymphadenopathy - Respiratory Respiratory exam: Present: CTAB. Absent: accessory muscle use, rales, rhonchi, wheezes - Cardiovascular Cardiovascular exam: Present: RRR, +S1, +S2. Absent: diastolic murmur, gallop, rubs, systolic murmur - GI/Abdominal GI/Abdominal exam: Present: normal bowel sounds, soft, no peritoneal signs. Absent: distended, tenderness - Extremities Exam Extremities exam: Present: warm, radial pulses palpable and symetrical. Absent : calf tenderness, cyanotic, pedal edema - Neurological Exam Neurological exam: Present: CN II-XII intact, oriented X3, no focal deficits. Absent: pronater drift, facial droop, speech deficit - Skin Skin exam: Present: dry, intact Internal Medicine: Result - Labs CBC & Chem 7: 09/19/16 01:05 09/19/16 01:05 Labs: Short CBC 09/19/16 Range/Units 01:05 WBC 6.4 (4.3-11.1) K/mcL Hgb 11.2 L (12.9-16.9) g/dL Hct 36.0 L (37.5-50.1) % Plt Count 227 (140-400) K/mcL BMP 09/19/16 01:05 Sodium 138 Potassium 4.2 Chloride 104 Carbon Dioxide 27 BUN 29 H Creatinine 1.98 H Glucose 144 H Calcium 8.2 L Cardiac Enzymes 09/19/16 09/19/16 Range/Units 01:05 05:08 Troponin I 0.02 0.02 (0-0.03) ng/mL Liver Function 09/19/16 Range/Units 01:05 Total Bilirubin 0.6 (0.2-1.2) mg/dL AST 24 (5-34) Units/L ALT 21 (0-55) Units/L Alkaline Phosphatase 51 (38-126) Units/L Albumin 2.7 L (3.5-5.0) g/dL - ABG Interpretation ABG results: PT/INR, D-dimer PT 11.9 Seconds (9.4-12.1) 09/19/16 01:05 Consult Discharge Plan - Plan Referrals: Natalio Amaya MD [Primary Care Provider] -
[2016-09-19] MEDS ORDERED: Azithromycin 500 MG in D5% in Water 250 ML IVPB SCH (09:00)
[2016-09-19 09:03] LABS: VBG HCO3 27.2 mEq/L (21-27); VBG PH 7.37 pH Units (7.32-7.42)
[2016-09-19] MEDS: Ipratropium/Albuterol Neb 3 ML IH SCH ×3 (10:03→22:41)
[2016-09-19 11:00] LABS: Bilirubin,Urine Negative (Negative); Blood,Urine Negative (Negative); Clarity,Urine Clear (Clear); Color,Urine Yellow (Yellow); Glucose,Urine (UA) Normal (Normal); Ketones,Urine Negative (Negative); Leukocyte Esterase,Urine Negative (Negative); Nitrite,Urine Negative (Negative); PH,Urine 6.5 pH Units (5.0-8.0); Protein,Urine >=300 mg/dL (Neg-Trace); Specific Gravity,Urine 1.015 (1.010-1.025); Urobilinogen,Urine Normal (Normal)
[2016-09-19 12:19] LABS: Creatinine,Urine 38 mg/dL
[2016-09-19 12:43] LABS: Adenovirus Not Detected (Not Detect); Bordetella Pertussis Not Detected (Not Detect); Chlamydophila pneumoniae Not Detected (Not Detect); Coronavirus 229E ***DETECTED*** (Not Detect); Coronavirus HKU1 Not Detected (Not Detect); Coronavirus NL63 Not Detected (Not Detect); Coronavirus OC43 Not Detected (Not Detect); Human Metapneumovirus Not Detected (Not Detect); Human Rhinovirus/Enterovirus Not Detected (Not Detect); Influenza A Subtype 2009 H1 Not Detected (Not Detect); Influenza A Untypeable Not Detected (Not Detect); Influenza B Not Detected (Not Detect); Mycoplasma pneumoniae Not Detected (Not Detect); Parainfluenza Virus 1 Not Detected (Not Detect); Parainfluenza Virus 2 Not Detected (Not Detect); Parainfluenza Virus 3 Not Detected (Not Detect); Parainfluenza Virus 4 Not Detected (Not Detect); Respiratory Syncytial Virus Not Detected (Not Detect)
--- NOTE | 2016-09-19 13:03 | Electrocardiograph Report ---
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
--- NOTE | 2016-09-19 14:17 | Electrocardiograph Report ---
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
--- NOTE | 2016-09-19 15:09 | ECHO - Doppler Report ---
Echocardiogram Name: Minh Osborne Date of Study: 09/19/2016 Date: 1955 Ht: 73.0 in Medical Record#: [id number] Age: 60 Wt: 373.0 lb Gender: Male BSA: 2.8 Order #: [id number] Location: [facility] Room #: 3B54 Reading Physician: Emma Lawson DO Silverware Supervisor: Abdirashid Benz RN Ordering Physician: Valentin Silva MD Primary Physician: Natalio Amaya MD Indications: Acute Coronary Syndrome Impressions: LVEF 55%. Normal left ventricular size and systolic function. Mild concentric hypertrophy of the left ventricle. There is evidence of moderate diastolic dysfunction of the left ventricle. Normal right ventricular size and function. Mild mitral regurgitation. Mild pulmonic regurgitation. No pulmonary hypertension. Left Ventricular Wall Motion: Rest Echo Findings All wall segments showed normal motion. Findings: Study Quality * Technically adequate exam. ECG Findings * Normal sinus rhythm. Left Ventricle * LVEF 55%. * Moderate left ventricular diastolic dysfunction. * Mild concentric left ventricular hypertrophy. Left Atrium * Normal left atrial size. Aortic Valve * No aortic regurgitation. * Aortic valve not well visualized. * No aortic stenosis. Mitral Valve * Normal mitral valve structure. * No mitral stenosis. * Mild mitral regurgitation. Tricuspid Valve * No tricuspid regurgitation. * Estimated RA pressure is 3 mmHg. * Estimated RVSP is 10 mmHg. * No pulmonary hypertension. * Normal tricuspid valve structure. Pulmonic Valve * Pulmonic valve is not well visualized. * No pulmonic stenosis. * Mild pulmonic regurgitation. Pulmonary Artery * Normal visualized portions of the main pulmonary artery. Right Ventricle * Normal right ventricular structure and function. Right Atrium * Normal right atrial size. Interatrial Septum * No evidence of PFO by color Doppler. Pericardium * There is no pericardial effusion present. IVC * Normal IVC dimensions and inspiratory collapse. Aorta * Normally sized aortic root. History Hypertension Diabetes Hypercholesteremia Family History of CAD 12/20/2012 a Previous Echo was performed. Measurements: BP: 184/ 94 2D Normal Values IVSd: 1.30 cm 0.6 - 1.0 cm LVIDd: 5.40 cm 3.7 - 5.6 cm LVPWd: 1.30 cm 0.6 - 1.1 cm LVIDs: 3.40 cm 1.5 - 3.6 cm LA: 4.70 cm 2.0 - 4.0cm %FS: 37.00 cm >25 % LVOT Diam: 2.00 cm LA volume: 79 Mitral Valve Peak E:1.43 m/sec Peak A:1.02 m/sec E/A Ratio:1.4 Peak E' Lat Cb:8.68 cm/s Peak E' Med Cb:7.21 cm/s E/E' Lat Ratio:16.5 E/E' Med Ratio:19.8 Tricuspid Valve TV Regurg Peak Grad: 7.00mmHg TV Regurg Peak Cb: 1.30m/sec Updated by Emma Lawson on 09/19/2016 3:02:47 PM electronically signed on 09/19/2016 3:03:29 PM with status of Final Wall Motion Mark: 1=Normal, 2=Hypokinesis, 3=Akinesis, 4=Dyskinesis, 5=Aneurysmal, 6=Hyperkinetic, X=Not Visualized (Blank)=Missing
[2016-09-19] MEDS: Insulin DETEMIR 100 UNIT/ML X5UNITS SQ SCH (17:56)
[2016-09-19] MEDS ORDERED: *HR* Heparin 5,000 UNIT/ML VIAL SQ SCH (18:00)
[2016-09-20 03:37] LABS: Protein/Creatinine Ratio,Urine 1.93 mg/mg (0-0.20)
[2016-09-20] MEDS: Ipratropium/Albuterol Neb 3 ML IH SCH ×2 (03:59→10:11)
[2016-09-20 05:14] LABS: Basophils # 0.1 K/mcL (0.0-0.2); Basophils % 0.7 %; Eosinophils # 0.5 K/mcL (0.0-0.6); Eosinophils % 7.6 %; Hemoglobin 11.8 g/dL (12.9-16.9); Immature Granulocytes % 0.3 % (0-4); Lymphocytes # 1.9 K/mcL (0.6-4.6); Lymphocytes % 27.3 %; Mean Corpuscular HGB Conc 31.9 g/dL (31.6-35.5); Mean Corpuscular Hemoglobin 27.9 pg (28.0-33.3); Mean Corpuscular Volume 87.5 fL (83.0-100.0); Mean Platelet Volume 11.6 fL (9.4-12.4); Monocytes # 0.9 K/mcL (0.0-1.3); Monocytes % 13.2 %; Neutrophils # 3.5 K/mcL (1.6-8.9); Platelet Count 240 K/mcL (140-400); Red Blood Count 4.23 M/mcL (4.19-5.50); Red Cell Distribution Width 14.2 % (11.5-14.5); Segmented Neutrophils % 50.9 %
[2016-09-20 05:30] LABS: Calcium 8.6 mg/dL (8.6-10.8)
[2016-09-20] MEDS ORDERED: Ringers Solution, Lactated 500 ML IVC ONE (07:49)
[2016-09-20] MEDS: Insulin LISPRO 300 UNITS/3 ML VIAL SQ SCH ×4 (07:52→23:59)
[2016-09-20] MEDS: hydrALAZINE 25 MG TABLET PO SCH ×3 (08:01→21:07)
[2016-09-20] MEDS: Azithromycin 250 MG TABLET PO SCH (08:01)
[2016-09-20] MEDS: Aspirin Enteric Coated 81 MG Tablet PO SCH (08:01)
[2016-09-20] MEDS: Lisinopril 20 MG TABLET PO SCH (08:01)
[2016-09-20] MEDS: cloNIDine HCl 0.1 MG TABLET PO SCH ×3 (08:02→21:07)
[2016-09-20] MEDS: APIXABAN 5 MG TABLET PO SCH ×2 (08:02→21:07)
[2016-09-20] MEDS: (Felodipine [Felodipine Er] 10 MG) PO SCH (08:13)
[2016-09-20] MEDS ORDERED: Ipratropium/Albuterol Neb 3 ML IH PRN (10:18)
--- NOTE | 2016-09-20 10:42 | Internal Med Progress Note ---
Date of Encounter: 09/20/16 Time of Encounter: 09:30 - Assessment and plan (1) CHF (congestive heart failure) Current Visit: Yes Status: Acute Assessment and plan: ECHO report noted-LVEF 55%, Normal LV size and function, Mild LVH, moderate LVDD , normal RV size and function, mild MR, Mild DE, No Pulm HTN, no WMA Will resume lasix at home dose prior to discharge BNP is only slightly elevated EKG is Afib with RVR Troponin is negative Mild CHFE is possibly due to the Afib with RVR Continue home meds Qualifiers: Congestive heart failure type: diastolic Congestive heart failure chronicity: acute on chronic Qualified Code(s): I50.33 - Acute on chronic diastolic (congestive) heart failure (2) Acute exacerbation of chronic obstructive pulmonary disease (COPD) Current Visit: Yes Status: Acute Assessment and plan: Resp panel unremarkable save for Coronavirus, Sputum culture negative D/C Ceftriaxone, Continue po azithromycin (3) Acute kidney injury superimposed on CKD Current Visit: Yes Status: Acute Assessment and plan: ECW review shows he has a history of CKD,-Patient denies knowledge of this, his PCP is Dr. Amaya His Creatinine /GFR in December and January 2013 were 1.66, GFR 43, and 1.57 GR 46 respectively, evidence that he had at least Stage III CKD at that time. I will consult renal for out-patient follow up for this patient Creatinine is improving to baseline Renal USS noted, no obstructive uropathy (4) Acute respiratory failure with hypoxia Current Visit: Yes Status: Resolved Assessment and plan: seems to have resolved saturating 95-96% on room air (5) Atrial fibrillation with RVR Current Visit: Yes Status: Acute Assessment and plan: His HR has improved with Cardiezem IV push patient meets criteria for anticoagulation ECHO noted Continue Coreg and diltiazem Insurance needs pre-authorization for [employer], paperwork will be completed Continue other management (6) Hypertensive urgency Current Visit: Yes Status: Acute Assessment and plan: As above (7) Type 2 diabetes mellitus Current Visit: Yes Status: Chronic Assessment and plan: Controlled A1C 6.8 Possibly complicated by CKD ADA diet Monitor FS Sliding scale ACHS for now Qualifiers: Diabetes mellitus complication status: with unspecified complications Diabetes mellitus assistant terminal manager insulin use: unspecified assistant terminal manager insulin use status Qualified Code(s): E11.8 - Type 2 diabetes mellitus with unspecified complications (8) Morbid obesity with BMI of 45.0-49.9, adult Current Visit: Yes Status: Chronic Assessment and plan: Lifestyle changes encouraged - Subjective Interval history: 55 Y/O M with PMH of Paroxysmal Afib not on anticoagulation, Morbid Obesity, DM , COPD, CHFpEF admitted to observation for acute hypoxic respiratory failure secondary to afib with RVR, probable YAEL, CHF exacerbation and COPDE He had respiratory symptoms as well and was started on empiric antibiotics for suspected pneumonia Work up on admission revealed mild normocytic anemia, coagulation panel is WNL, Chem with BUN/Cr 29/1.98, baseline unknown, UA with proteinuria, A1C 6.8, LFT WBL, troponin negative X2, Elevated uric acid, FeUra is 37.4%, with intrinsic renal disease , TSH is WNL CXR with mild prominence of pulmonary vasculature and no other abnormality he is seen at bedside, with no new complains His UO has improved, and his YAEL improved slightly today ECW review shows he has a history of CKD,-Patient denies knowledge of this, his PCP is Dr. mAaya His Creatinine /GFR in December and January 2013 were 1.66, GFR 43, and 1.57 GR 46 respectively, evidence that he had at least Stage III CKD at that time. I will consult renal for out-patient follow up for this patient I anticipate an early discharge tomorrow if his creatinine remains stable or is close to baseline. - Constitutional Vitals: Temp Pulse Resp BP Pulse Ox 98.1 F 80 17 137/76 94 L 09/20/16 09:41 09/20/16 09:41 09/20/16 09:41 09/20/16 09:41 09/20/16 09:41 General appearance: Present: cooperative, A&O X 3, morbidly obese, pleasant, no acute distress, answers questions appropriately - Head Head exam: Present: atraumatic, normocephalic - Eye Eye exam: Present: PERRL, conjuntiva pink, sclera anicteric - Neck Neck exam general surgery: Present: supple, trachea midline. Absent: lymphadenopathy - Respiratory Respiratory exam: Present: CTAB. Absent: accessory muscle use, rales, rhonchi, wheezes - Cardiovascular Cardiovascular exam: Present: RRR, +S1, +S2. Absent: diastolic murmur, gallop, rubs, systolic murmur - GI/Abdominal GI/Abdominal exam: Present: normal bowel sounds, soft, no peritoneal signs. Absent: distended, tenderness - Extremities Exam Extremities exam: Present: pedal edema (Trace edema), warm, radial pulses palpable and symetrical. Absent: calf tenderness, cyanotic - Neurological Exam Neurological exam: Present: CN II-XII intact, oriented X3, no focal deficits. Absent: pronater drift, facial droop, speech deficit - Skin Skin exam: Present: dry, intact Internal Medicine: Result - Labs CBC & Chem 7: 09/20/16 04:16 09/20/16 04:16 Labs: Short CBC 09/20/16 Range/Units 04:16 WBC 6.9 (4.3-11.1) K/mcL Hgb 11.8 L (12.9-16.9) g/dL Hct 37.0 L (37.5-50.1) % Plt Count 240 (140-400) K/mcL Neutrophils # 3.5 (1.6-8.9) K/mcL BMP 09/20/16 04:16 Sodium 138 Potassium 4.0 Chloride 104 Carbon Dioxide 25 BUN 28 H Creatinine 1.76 H Glucose 105 H Calcium 8.6 Cardiac Enzymes 09/19/16 Range/Units 12:18 Troponin I 0.02 (0-0.03) ng/mL Urine 09/19/16 Range/Units 10:30 Urine Color Yellow (Yellow) Urine Clarity Clear (Clear) Urine pH 6.5 (5.0-8.0) pH Units Ur Specific [place] 1.015 (1.010-1.025) Urine Protein >=300 H (Neg-Trace) mg/dL Urine Glucose (UA) Normal (Normal) mg/dL - ABG Interpretation ABG results: PT/INR, D-dimer PT 11.9 Seconds (9.4-12.1) 09/19/16 01:05 - Impressions Impressions Retroperitoneum Ultrasound 09/19/16 16:00 IMPRESSION: No hydronephrosis is identified. Simple right renal cyst is noted. D/ / Arthur Warner MD / Arthur Warner MD Interpreting Provider: Arthur Warner MD - VTE Documentation of Mechanical Device: Graduated compression elastic hosiery Consult Discharge Plan - Plan Referrals: Natalio Amaya MD [Primary Care Provider] - Prescriptions: Apixaban [Eliquis] 2.5 mg PO BID #60 tablet
--- NOTE | 2016-09-20 16:44 | Electrocardiograph Report ---
[place] [id number] Test Date: 2016-09-20 Pat Name: Minh Osborne Department: 113 Room: 3B54 Gender: M Electrical Assistant: : 1955 Requested By: Valentin Silva Order Number: [id number] Reading MD: Carmen Bunch Measurements Intervals [place] Rate: 64 P: 11 MI: 169 QRS: -39 QRSD: 101 T: 7 QT: 385 QTc: 394 Interpretive Statements SINUS RHYTHM MARKED LEFT AXIS DEVIATION PATTERN CONSISTENT WITH PULMONARY DISEASE Electronically Signed On 09-20-2016 16:42:48 EDT by Carmen Bunch
[2016-09-20] MEDS: Insulin DETEMIR 100 UNIT/ML X5UNITS SQ SCH (17:14)
[2016-09-21 05:01] LABS: Basophils % 0.5 %; Eosinophils # 0.4 K/mcL (0.0-0.6); Eosinophils % 7.2 %; Hematocrit 36.1 % (37.5-50.1); Immature Granulocytes % 0.3 % (0-4); Lymphocytes # 1.8 K/mcL (0.6-4.6); Lymphocytes % 28.5 %; Mean Corpuscular HGB Conc 30.5 g/dL (31.6-35.5); Mean Corpuscular Hemoglobin 26.9 pg (28.0-33.3); Mean Corpuscular Volume 88.3 fL (83.0-100.0); Mean Platelet Volume 11.3 fL (9.4-12.4); Monocytes # 0.7 K/mcL (0.0-1.3); Monocytes % 11.9 %; Neutrophils # 3.2 K/mcL (1.6-8.9); Platelet Count 208 K/mcL (140-400); Red Blood Count 4.09 M/mcL (4.19-5.50); Red Cell Distribution Width 14.1 % (11.5-14.5); Segmented Neutrophils % 51.6 %
[2016-09-21 05:19] LABS: Calcium 8.2 mg/dL (8.6-10.8); Potassium 3.9 mEq/L (3.5-4.5)
[2016-09-21] MEDS ORDERED: Diltiazem CD (24hr) 120 MG CAPSULE PO SCH (09:00)
--- NOTE | 2016-09-21 09:27 | Discharge Summary ---
Date of Encounter: 09/21/16 Time of Encounter: 09:27 - Discharge Diagnosis (1) CHF (congestive heart failure) Priority: Primary Status: Acute Qualifiers: Congestive heart failure type: diastolic Congestive heart failure chronicity: acute on chronic Qualified Code(s): I50.33 - Acute on chronic diastolic (congestive) heart failure (2) Acute exacerbation of chronic obstructive pulmonary disease (COPD) Priority: Primary Status: Acute (3) Acute kidney injury superimposed on CKD Priority: Primary Status: Resolved (4) Acute respiratory failure with hypoxia Priority: Primary Status: Resolved (5) Atrial fibrillation with RVR Priority: Primary Status: Acute (6) Hypertensive urgency Priority: Primary Status: Acute (7) Type 2 diabetes mellitus Priority: Secondary Status: Chronic Qualifiers: Diabetes mellitus complication status: with unspecified complications Diabetes mellitus terminologist insulin use: unspecified care home insulin use status Qualified Code(s): E11.8 - Type 2 diabetes mellitus with unspecified complications (8) Morbid obesity with BMI of 45.0-49.9, adult Priority: Secondary Status: Chronic - Discharge Medications Prescriptions: Apixaban [Eliquis] 2.5 mg PO BID #60 tablet Azithromycin [Zithromax] 500 mg PO DAILY #2 tablet Diltiazem CD (24hr) [Cardizem CD] 120 mg PO DAILY #30 cap.er.24h Docusate [Colace] 100 mg PO BID PRN #60 capsule PRN Reason: Constipation Home Medications: Albuterol Sulfate [Ventolin Hfa] 2 puff IH Q4H PRN 09/18/16 [History] Allopurinol [Zyloprim 100 MG] 100 mg PO DAILY 09/18/16 [History] Aspirin Enteric Coated [Aspirin EC] 81 mg PO DAILY 09/18/16 [History] Atorvastatin [Lipitor] 40 mg PO HS 09/18/16 [History] Carvedilol [Coreg] 25 mg PO BID 09/18/16 [History] CloNIDine HCl 0.1 mg PO TID 09/18/16 [History] Felodipine [Felodipine ER] 10 mg PO DAILY 09/18/16 [History] Furosemide [Lasix] 40 mg PO BID 09/18/16 [History] Hydralazine HCl 50 mg PO TID 09/18/16 [History] Insulin Glargine [Lantus] 62 unit SQ QPM 09/18/16 [History] Lisinopril 40 mg PO DAILY 09/18/16 [History] Metformin [Glucophage] 850 mg PO BID 09/18/16 [History] Montelukast [Singulair] 10 mg PO HS 09/18/16 [History] Apixaban [Eliquis] 2.5 mg PO BID #60 tablet 09/19/16 [Rx] Apixaban [Eliquis] 2.5 mg PO BID tablet 09/21/16 [Rx] Azithromycin [Zithromax] 500 mg PO DAILY #2 tablet 09/21/16 [Rx] Diltiazem CD (24hr) [Cardizem CD] 120 mg PO DAILY #30 cap.er.24h 09/21/16 [Rx] Docusate [Colace] 100 mg PO BID PRN #60 capsule 09/21/16 [Rx] Allergies/Adverse Reactions: Allergies No Known Allergies Allergy (Verified 09/18/16 18:40) Procedures/tests Complete & Pending: Procedures Performed prior 72 hours Category Date Time Status Retroperitoneal Ultrasound - Complete [US Exams 09/19/16 16:00 Completed retroperitoneal comp] [US] Stat ECG 12 lead ECG [ECG] Routine Y 09/19/16 07:00 Completed EV echocardiogram Routine Y 09/19/16 23:41 Completed Date of admission: 09/18/16 20:46 Primary care physician: Natlaio Amaya MD Consults: 09/18/16 23:41 Consult to [place] [CONS] Routine Comment: Consult to Nurse Navigator [CONS] Routine Comment: 09/19/16 08:06 Consult to Case Management [CONS] Routine Comment: SCOTTY Kya coverage 09/19/16 11:50 Consult to [employer] [CONS] Routine Reason for SW Consult: possible medication prior auth 09/20/16 12:12 Consult to Nephrology [CONS] Routine Consulting Provider: Kidney Nicky/ANABEL/RAKESH/KEI Reason for Consult: Patient with CKD III, wants to etablish relationship with nephrology in-patient Call Completed: No Discharging clinician: Adalid Rockwell Anticipated date of discharge: 09/21/16 - Patient Status Disposition: Home, Self-Care Condition: Good - Discharge Instructions Instructions: Heart Failure (DC), Atrial Fibrillation (DC), Diabetes Mellitus Type 2 in Adults (DC), Chronic Obstructive Pulmonary Disease (DC), Chronic Hypertension (DC) Follow Up With: Natalio Amaya MD [Primary Care Provider] - 09/27/16 9:00 am Forms: ED Satisfaction Letter - Diet and Activity Activity: resume usual activities as tolerated Diet: diabetic diet, low fat, low cholesterol, low salt diet Interval History: see below Hospital course: Mr. Osborne is a 60 year old male with PMH of Paroxysmal Afib not on anticoagulation, Morbid Obesity, DM, COPD, CHFpEF admitted to observation for acute hypoxic respiratory failure secondary to afib with RVR, probable YAEL, CHF exacerbation and COPDE He had respiratory symptoms as well and was started on empiric antibiotics for suspected pneumonia Work up on admission revealed mild normocytic anemia, coagulation panel is WNL, Chem with BUN/Cr 29/1.98, baseline unknown, UA with proteinuria, A1C 6.8, LFT WBL, troponin negative X2, Elevated uric acid, FeUra is 37.4%, with intrinsic renal disease , TSH is WNL CXR with mild prominence of pulmonary vasculature and no other abnormality ECHO report noted-LVEF 55%, Normal LV size and function, Mild LVH, moderate LVDD , normal RV size and function, mild MR, Mild [place], No Pulm HTN, no WMA BNP is only slightly elevated EKG is Afib with RVR. Renal USS noted, no obstructive uropathy Troponin is negative ECW review shows he has a history of CKD,-Patient denies knowledge of this, his PCP is Dr. Amaya. His Creatinine /GFR in December and January 2013 were 1.66, GFR 43, and 1.57 GR 46 respectively, evidence that he had at least Stage III CKD at that time. A1C 6.8 Seen at bedside today, ambulatory, denies new complains CHFpEF: Mild exacrbation with IV diuresis, possibly secondary to Afib. Continue lasix at home at half dose. Follow up renal function with PCP BP and HR hs been controlled and his creatinine is almost back to baseline. Cardizem was added to his home regimen for Afib, well tolerated. He has been started on Eliquis for anticoagulation as well, pre-authorization was done online, patient may receive drug coupon for first fill prior to discharge Renal team was consulted due to patient's history of CKD III, patient will follow up with them as outpatient Sputum culture and respiratory panel was negative, patient will be discharged on po Azithromycin for bronchitis, he is a non-smoker but his smokes. DM is well controlled, continue metformin , due to CKD,will decrease t 500mg bid, Follow up with PCP for A1C and monitoring of dm Other chronic conditions are stable - Time Spent with Patient Total time spent providing and/or coordinating discharge services: Less than 30 minutes - Constitutional Vitals: Temp Pulse Resp BP Pulse Ox 97.5 F L 63 16 183/91 94 L 09/21/16 07:26 09/21/16 07:26 09/21/16 07:26 09/21/16 07:26 09/21/16 07:26 General appearance: Present: cooperative, A&O X 3, morbidly obese, pleasant, no acute distress, answers questions appropriately - Head Head exam: Present: atraumatic, normocephalic - Eye Eye exam: Present: PERRL, conjuntiva pink, sclera anicteric Pupils: Present: PERRL - Neck Neck exam general surgery: Present: supple, trachea midline. Absent: lymphadenopathy - Respiratory Respiratory exam: Present: CTAB. Absent: accessory muscle use, rales, rhonchi, wheezes - Cardiovascular Cardiovascular exam: Present: RRR, +S1, +S2. Absent: diastolic murmur, gallop, rubs, systolic murmur - GI/Abdominal GI/Abdominal exam: Present: normal bowel sounds, soft, no peritoneal signs. Absent: distended, tenderness - Extremities Exam Extremities exam: Present: pedal edema (bilateral dependent pedal edema), warm, radial pulses palpable and symetrical. Absent: calf tenderness, cyanotic - Neurological Exam Neurological exam: Present: alert, CN II-XII intact, normal gait, oriented X3, no focal deficits. Absent: pronater drift, facial droop, speech deficit - Skin Skin exam: Present: dry, intact - VTE Documentation of Mechanical Device: Graduated compression elastic hosiery
[2016-09-21] MEDS: Insulin LISPRO 300 UNITS/3 ML VIAL SQ SCH (09:30)
[2016-09-21] MEDS: Furosemide 40 MG TABLET PO SCH (09:36)
[2016-09-21] MEDS: cloNIDine HCl 0.1 MG TABLET PO SCH (09:36)
[2016-09-21] MEDS: hydrALAZINE 25 MG TABLET PO SCH (09:36)
[2016-09-21] MEDS: Aspirin Enteric Coated 81 MG Tablet PO SCH (09:36)
[2016-09-21] MEDS: APIXABAN 5 MG TABLET PO SCH (09:36)
[2016-09-21] MEDS: Azithromycin 250 MG TABLET PO SCH (09:36)
[2016-09-21] MEDS: Lisinopril 20 MG TABLET PO SCH (09:36)
[2016-09-21] MEDS: (Felodipine [Felodipine Er] 10 MG) PO SCH (09:37)
[2016-09-21 11:35] VITALS: BP 161/82
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
--- NOTE | 2016-10-19 01:21 | Internal Med History&Physical ---
Date of Encounter: 09/18/16 (Late entry:10/19/16) Time of Encounter: 23:30 (03:00) Assessment and Plan (1) Atrial fibrillation with RVR Status: Acute . (2) SIRS (systemic inflammatory response syndrome) Status: Acute . (3) Acute exacerbation of chronic obstructive pulmonary disease (COPD) Status: Acute . (4) Type 2 diabetes mellitus Status: Chronic . 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 (6) Morbid obesity with BMI of 45.0-49.9, adult Status: Chronic . (7) Hypertensive urgency Status: Acute . (8) Acute kidney injury superimposed on CKD Status: Acute . (9) Elevated brain natriuretic peptide (BNP) level Status: Acute . (10) Acute diastolic CHF (congestive heart failure), NYHA class 2 Status: Acute . (11) Acute respiratory failure with hypoxia Status: Acute . (12) Paroxysmal a-fib Status: Chronic . (13) Abnormal resting ECG findings Status: Acute . Internal Medicine - H&P: HPI Chief complaint: Difficulty breathing. Admitted From: Emergency Dept Plans for Post Hospital Care: Home History of present illness: Mr. Osborne is a 61 year old male with significant medical problems including paroxysmal atrial fibrillation (not currently on chronic anticoagulation) diabetes mellitus, hypertension, dyslipidemia, osteo-arthritis, osteoporosis ( Charcot foot deformity) diabetic nephropathy with proteinuria/CK D stage III, gouty arthropathy/hyperuricemia, morbid obesity with generalized deconditioning , nonsmoker. The patient was admitted to [facility] via the emergency department when he presented with complaints of difficulty in breathing with associated findings of atrial fibrillation with variable rate. History of a cough and feeling of chest congestion and shortness of breath at rest but it aggravated with activity. Objective sensation/feelings of increased heart rate experienced and previous episodes. Primary care physician evaluated the patient upper respiratory symptoms and during examination noted that the patient to be in atrial fibrillation. He has experienced episodes of acute atrial fibrillation with irregular rates in his remote past. Has not been anticoagulated. He does take a daily baby aspirin. He denied any events beyond this upper or lower respiratory complaints prior to this presentation of symptoms. Rate on telemetry/ECG in the ED was 122 irregularly irregular. Patient responded to intravenous Cardizem administration. Initial laboratories demonstrated mild hypochromic anemia YAEL/CKD stage III, mild hypoalbuminemia, mild hyperglycemia. Troponin 0.03 with BNP 160. Lactic acid 0.9. EKG demonstrated no acute ischemic changes. Pattern however was suggestive of COPD with decreased voltage in frontal and precordial leads. Systemic inflammatory response syndrome criteria met at time of admission. The patient is at risk for acute clinical decline and morbidity. Workup and treatment will progress comprehensively. The patient was visited and interviewed and examined. Cumulative laboratory and radiographic database was reviewed and considered. Consultative opinions will be sought as clinical circumstances justify. Initial consultative opinion has been requested of cardiology. Plan of care has been discussed. Questions addressed. Hospital course will be dependent upon clinical findings, treatment response and potential consultative interventions. Given the patient's presenting concerns, past medical history, clinical findings and symptoms, he is admitted at this time and close evaluation and disposition. Orders were written as per the computerized physician ordering system. Condition is serious. Prognosis is guarded. CODE STATUS is full. Past Med Surg Social Fam HX - Past Medical History Source: old records reviewed Medical history: arthritis, asthma, atrial fibrillation, coronary artery disease , CVA, diabetes, hyperlipidemia, hypertension, myocardial infarction, osteoporosis (Charcot foot.), renal disease (CKD. Proteinuria/DM nephropathy), other (gout;hyperuricemia.) Psychiatric history: no psych history - Past Surgical History Surgical History: non-contributory, other - Social History Smoking Status: Never smoker Smokeless Tobacco Status: Yes Alcohol use: none Drug use: none - Family History Mother Living Status: Hx Family Cardiac Disorders: Yes Hx Family Endocrine Disorder: Yes Brother Hx Family Cardiac Disorders: Yes Internal Medicine - H&P: Meds Albuterol Sulfate [Ventolin Hfa] 2 puff IH Q4H PRN 09/18/16 [History] Allopurinol [Zyloprim 100 MG] 100 mg PO DAILY 09/18/16 [History] Aspirin Enteric Coated [Aspirin EC] 81 mg PO DAILY 09/18/16 [History] Atorvastatin [Lipitor] 40 mg PO HS 09/18/16 [History] Carvedilol [Coreg] 25 mg PO BID 09/18/16 [History] CloNIDine HCl 0.1 mg PO TID 09/18/16 [History] Felodipine [Felodipine ER] 10 mg PO DAILY 09/18/16 [History] Furosemide [Lasix] 40 mg PO BID 09/18/16 [History] Hydralazine HCl 50 mg PO TID 09/18/16 [History] Insulin Glargine [Lantus] 62 unit SQ QPM 09/18/16 [History] Lisinopril 40 mg PO DAILY 09/18/16 [History] Montelukast [Singulair] 10 mg PO HS 09/18/16 [History] Apixaban [Eliquis] 2.5 mg PO BID #60 tablet 09/19/16 [Rx] Apixaban [Eliquis] 2.5 mg PO BID tablet 09/21/16 [Rx] Azithromycin [Zithromax] 500 mg PO DAILY #2 tablet 09/21/16 [Rx] Diltiazem CD (24hr) [Cardizem CD] 120 mg PO DAILY #30 cap.er.24h 09/21/16 [Rx] Docusate [Colace] 100 mg PO BID PRN #60 capsule 09/21/16 [Rx] Metformin [Glucophage] 500 mg PO BID #60 tab 09/21/16 [Rx] Allergies No Known Allergies Allergy (Verified 09/18/16 18:40) All Systems PM: A 10-system review of systems was performed and is negative for pertinent findings except as documented above in the HPI. - Constitutional Constitutional: as per HPI, chills, fatigue, fever(s), malaise, other, no night sweats, no weight gain - EENT Eyes: as per HPI, no change in vision, no discharge, no pain, no photophobia Ears: as per HPI, no ear discharge, no ear pain, no tinnitus Nose, mouth and throat: as per HPI, nasal congestion, other, no dysphagia, no nasal discharge, no neck pain, no sore throat - Cardiovascular Cardiovascular ROS IM: as per HPI, dyspnea, dyspnea on exertion, no chest pain, no diaphoresis, no lightheadedness, no palpitations, no syncope - Respiratory Respiratory: as per HPI, cough, dyspnea, dyspnea on exertion, chest congestion, excessive phlegm production, change in phlegm color, other, no hemoptysis, no wheezing - Gastrointestinal Gastrointestinal: no abdominal pain, no diarrhea, no hematemesis, no hematochezia, no melena, no nausea, no vomiting - Genitourinary Genitourinary ROS male: as per HPI - Musculoskeletal Musculoskeletal ROS IM: as per HPI, no numbness, no tingling - Integumentary Integumentary IM: as per HPI, no rash, no unusual bruising - Neurological Neurological ROS: as per HPI, other, no confusion, no convulsions, no focal weakness, no numbness, no tingling, no tremor(s) - Psychiatric Psychiatric: as per HPI - Endocrine Endocrine IM: as per HPI - Hematologic/Lymphatic Hematologic/Lymphatic: as per HPI, no easy bruising - Allergic/Immunologic Allergic/Immunologic: as per HPI - Constitutional Vitals: Temp Pulse Resp BP Pulse Ox 97.7 F 65 16 161/82 93 L 09/21/16 11:34 09/21/16 11:34 09/21/16 11:34 09/21/16 11:34 09/21/16 11:34 General appearance: Present: cooperative, mild distress, A&O X 3, morbidly obese , answers questions appropriately - Head Head exam: Present: atraumatic, normal inspection, normocephalic - Eye Eye exam: Present: EOMI, PERRL, conjuntiva pink, sclera anicteric Pupils: Present: normal accommodation, PERRL - ENT ENT exam: Present: mucous membranes moist, normal oropharynx - Neck Neck exam general surgery: Present: full ROM, supple, trachea midline. Absent: lymphadenopathy - Respiratory Respiratory exam: Present: chest wall tenderness, decreased breath sounds, prolonged expiratory phase, rhonchi, tachypnea. Absent: accessory muscle use, CTAB, rales, stridor, wheezes - Cardiovascular Cardiovascular exam: Present: distant heart sounds, irregular rhythm, +S1, +S2, tachycardia. Absent: diastolic murmur, gallop, rubs, systolic murmur - GI/Abdominal GI/Abdominal exam: Present: normal bowel sounds, soft, no peritoneal signs. Absent: distended, tenderness - Extremities Exam Extremities exam: Present: full ROM, warm, radial pulses palpable and symetrical. Absent: calf tenderness, cyanotic, pedal edema - Neurological Exam Neurological exam: Present: alert, CN II-XII intact, oriented X3, no focal deficits. Absent: pronater drift, facial droop, speech deficit - Psychiatric Psychiatric exam: Present: normal affect, normal mood - Skin Skin exam: Present: dry, intact, warm. Absent: petechiae, rash, urticaria, vesicles Internal Med - H&P Results - Labs CBC & Chem 7: 09/21/16 04:25 09/21/16 04:25 - ABG Interpretation ABG results: 09/19/16 08:46 VBG pH 7.37 VBG pCO2 47 VBG pO2 66 H VBG HCO3 27.2 H - Impressions ITS Impressions Retroperitoneum Ultrasound 09/19/16 16:00 IMPRESSION: No hydronephrosis is identified. Simple right renal cyst is noted. D/ / Arthur Warner MD / Arthur Warner MD Interpreting Provider: Arthur Warner MD - VTE Documentation of Mechanical Device: Graduated compression elastic hosiery
== END 2016-09-21 12:19 | disposition home or self-care (01) ==
LOC: EMEROO 18:24 → 3BNU 18:24 → SUATTDRO 20:46 → 3BNU 21:04
PROVIDERS: ADMIT Internal Medicine; ATTEND Internal Medicine

== ENCOUNTER 2018-12-02 17:45 | Inpatient (IN) ==
[2018-12-02] MEDS ORDERED: Aspirin 325 MG TABLET PO ONE (18:05)
[2018-12-02] MEDS ORDERED: 0.9 % Sodium Chloride 1,000 ML IVC ONE (18:05)
[2018-12-02 18:31] LABS: Basophils % 0.3 %; Hematocrit 28.7 % (37.5-50.1); Hemoglobin 9.2 g/dL (12.9-16.9); Immature Granulocytes % 1.2 % (0-4); Mean Corpuscular HGB Conc 32.1 g/dL (31.6-35.5); Mean Corpuscular Hemoglobin 26.6 pg (28.0-33.3); Mean Corpuscular Volume 82.9 fL (83.0-100.0); Mean Platelet Volume 11.1 fL (9.4-12.4); Monocytes # 1.8 K/mcL (0.0-1.3); Monocytes % 12.5 %; Neutrophils # 11.2 K/mcL (1.6-8.9); Platelet Count 217 K/mcL (140-400); Red Blood Count 3.46 M/mcL (4.19-5.50); Red Cell Distribution Width 14.7 % (11.5-14.5); White Blood Count 14.1 K/mcL (4.3-11.1)
[2018-12-02 18:38] LABS: INR 1.5; Prothrombin Time 16.5 Seconds (9.4-12.1)
[2018-12-02 18:52] LABS: Calcium 8.6 mg/dL (8.6-10.3); Potassium 4.8 mEq/L (3.5-5.1)
[2018-12-02 19:01] LABS: Troponin I 0.04 ng/mL (< 0.04)
[2018-12-02 19:09] LABS: Thyroid Stimulating Hormone 1.225 mcIU/mL (0.340-5.600)
[2018-12-02] MEDS ORDERED: *HR* Heparin 5,000 UNIT/ML VIAL IVP PRN ×2 (19:53)
[2018-12-02] MEDS ORDERED: *HR* Heparin 5,000 UNIT/ML VIAL IVP ONE (19:53)
[2018-12-02 19:56] LABS: Bilirubin,Urine Negative (Negative); Blood,Urine Negative (Negative); Clarity,Urine Cloudy (Clear); Color,Urine Yellow (Yellow); Glucose,Urine (UA) Normal (Normal); Ketones,Urine Trace mg/dL (Negative); Leukocyte Esterase,Urine Negative (Negative); Nitrite,Urine Negative (Negative); PH,Urine 5.5 pH Units (5.0-8.0); Protein,Urine >=300 mg/dL (Neg-Trace); Specific Gravity,Urine 1.024 (1.010-1.025); Urobilinogen,Urine Normal (Normal)
[2018-12-02 20:01] LABS: Bacteria,Urine None Seen per hpf (None-Few); Hyaline Casts,Urine None Seen per lpf (None-Few); RBC,Urine 0-3 per hpf (0-3); Squamous Epithelial Cell,Urine Many per lpf (None-Few)
--- NOTE | 2018-12-02 20:01 | Emergency Department Note ---
Disposition Clinical Impression: Atrial fibrillation with RVR Anemia Qualifiers: Anemia type: unspecified type Qualified Code(s): D64.9 - Anemia, unspecified Acute renal failure (ARF) Qualifiers: Acute renal failure type: unspecified Qualified Code(s): N17.9 - Acute kidney failure, unspecified Disposition: Admitted As Inpatient Condition: Serious Time of Disposition: 19:30 General Adult HPI - General Chief complaint: ED Arrhythmia/Palpitations Stated complaint: rapid heart rate Time Seen by Provider: 12/02/18 17:46 Source: patient, EMS Limitations: no limitations Nursing Notes Reviewed: Yes Vital Signs Reviewed: Yes - History of Present Illness HPI Narrative: 63-year-old male presents emergency Department with concerns of rapid heart rate, weakness, fatigue. Patient states he is had worsening symptoms of the past 3-4 days. Patient has a history of atrial fibrillation the past however he is not currently on anticoagulation. Patient denies nausea, vomiting, diarrhea. He denies hematochezia or melena. No other changes in medications. Patient has a rapid heart rate 160s during the initial evaluation. He states he has had swelling of the bilateral lower extremities with past 3-4 days. He denies previous history of DVT or PE. No previous history of GI bleeding. Denies fever, chills, nausea, vomiting. Pain Scale: 0 - Related Data Home Medications Medication Instructions Recorded Confirmed Albuterol Sulfate [Ventolin Hfa] 2 puff IH Q4H PRN 09/18/16 12/02/18 Allopurinol [Zyloprim 100 MG] 100 mg PO DAILY 09/18/16 12/02/18 Aspirin Enteric Coated [Aspirin EC] 81 mg PO DAILY 09/18/16 12/02/18 Atorvastatin [Lipitor] 40 mg PO HS 09/18/16 12/02/18 Carvedilol [Coreg] 25 mg PO BID 09/18/16 12/02/18 Felodipine [Felodipine ER] 5 mg PO DAILY 09/18/16 12/02/18 Furosemide [Lasix] 40 mg PO DAILY 09/18/16 12/02/18 Montelukast [Singulair] 10 mg PO HS 09/18/16 12/02/18 Beclomethasone Dipropionate [QVAR 1 puff IH BID 12/02/18 12/02/18 80 mcg REDIHALER] Diltiazem CD (24hr) [Cardizem CD] 180 mg PO DAILY 12/02/18 12/02/18 Docusate [Colace] 100 mg PO DAILY 12/02/18 12/02/18 Insulin Glargine,Hum.rec.anlog 10 unit SQ DAILY 12/02/18 12/02/18 [Basaglar Kwikpen U-100] Previous Rx's Medication Instructions Recorded metFORMIN [Glucophage] 500 mg PO BID #60 tab 09/21/16 Allergies Allergy/AdvReac Type Severity Reaction Status Date / Time No Known Allergies Allergy Verified 09/18/16 18:40 All systems ED: reviewed and negative except as stated. Review of Systems: As Per HPI Past Medical History - Past Medical History Attestation: Yes The following information was validated with the patient. Source: patient Medical history: Reports: arthritis, asthma, atrial fibrillation, coronary artery disease, CVA, diabetes, hyperlipidemia, hypertension, myocardial infarction, osteoporosis, renal disease, other Surgical history: Reports: non-contributory, other Psychiatric history: Reports: no psych history - Social History Smoking Status: Never smoker Smokeless Tobacco Status: Yes Alcohol use: Reports: none Drug use: Reports: none Physical Exam General: Alert and in no acute distress Skin: Warm, dry, intact. Pale Head: Normocephalic and atraumatic Neck: Supple, trachea midline and no tenderness Cardiovascular: Irregularly irregular tachycardic rhythm and Respiratory: CTAB, no wheezing, cough, or respiratory distress Musculoskeletal: Normal strength, no tenderness, swelling or deformity GI: Soft, nontender, nondistended. Bowel sounds present Neuro: A&O to person, place, time and situation. No focal deficits noted on exam Psychiatric: cooperative and appropriate mood and affect. Rectal exam performed with female nurse present shows soft green stool that was guaiac-negative. - General Limitations: no limitations General appearance: alert, in no apparent distress Course Vital Signs Temperature 98.9 F 12/02/18 17:52 Pulse Rate 143 12/02/18 17:52 Respiratory Rate 20 12/02/18 17:52 Blood Pressure 133/81 12/02/18 17:52 O2 Sat by Pulse Oximetry 95 12/02/18 17:52 Temperature 99.7 F H 12/02/18 21:32 Pulse Rate 95 12/02/18 21:32 Respiratory Rate 17 12/02/18 21:32 Blood Pressure 153/77 12/02/18 21:32 O2 Sat by Pulse Oximetry 96 12/02/18 21:32 Oxygen Delivery Oxygen Delivery Room Air Medical Decision Making - MDM Narrative Medical decision making narrative: Rectal exam was negative for occult blood. Patient was given diltiazem in the emergency department with improvement of his heart rate. Bili admitted to hospitalist for further care and evaluation. Heparin started in the emergency department. - Medical Records Medical records reviewed: Yes I reviewed the patient's medical records. - Lab Data Lab results reviewed: Yes I reviewed the patient's lab results. Result diagrams: 12/02/18 18:19 12/02/18 18:19 Lab Results 12/02/18 12/02/18 12/02/18 Range/Units 18:19 18:19 18:19 WBC 14.1 H (4.3-11.1) K/mcL RBC 3.46 L (4.19-5.50) M/mcL Hgb 9.2 L (12.9-16.9) g/dL Hct 28.7 L (37.5-50.1) % MCV 82.9 L (83.0-100.0) fL MCH 26.6 L (28.0-33.3) pg MCHC 32.1 (31.6-35.5) g/dL RDW 14.7 H (11.5-14.5) % Plt Count 217 (140-400) K/mcL MPV 11.1 (9.4-12.4) fL Immature Gran % 1.2 (0-4) % Seg Neutrophils % 79.0 % Lymphocytes % 7.0 % Monocytes % 12.5 % Eosinophils % 0.0 % Basophils % 0.3 % Neutrophils # 11.2 H (1.6-8.9) K/mcL Lymphocytes # 1.0 (0.6-4.6) K/mcL Monocytes # 1.8 H (0.0-1.3) K/mcL Eosinophils # 0.0 (0.0-0.6) K/mcL Basophils # 0.0 (0.0-0.2) K/mcL PT 16.5 H (9.4-12.1) Seconds INR 1.5 APTT 34.0 (26.0-36.0) Seconds Heparin Anti-Xa, Unfract 0.01 L (0.30-0.70) IU/mL Sodium 133 L (136-145) mEq/L Potassium 4.8 (3.5-5.1) mEq/L Chloride 100 (98-107) mEq/L Carbon Dioxide 24 (23-29) mEq/L BUN 37 H (8-23) mg/dL Creatinine 2.49 H (0.70-1.30) mg/dL Est GFR ( Amer) 32 L (> 60) Est GFR (Non-Af Amer) 26 L (> 60) BUN/Creatinine Ratio 15 (6-26) Glucose 251 H (70-105) mg/dL Calculated Osmolality 293 (280-300) Calcium 8.6 (8.6-10.3) mg/dL Total Bilirubin 1.3 H (0.3-1.0) mg/dL Direct Bilirubin 0.5 H (0.0-0.2) mg/dL Indirect Bilirubin 0.8 (0.0-1.2) mg/dL AST 15 (13-39) Units/L ALT 16 (7-52) Units/L Alkaline Phosphatase 50 (34-104) Units/L Troponin I 0.04 H* (< 0.04) ng/mL Serum Total Protein 6.5 (6.4-8.9) g/dL Albumin 3.3 L (3.5-5.7) g/dL Globulin 3.2 (2.4-3.5) g/dL Albumin/Globulin Ratio 1.0 L (1.1-2.2) TSH 1.225 (0.340-5.600) mcIU/mL Urine Color (Yellow) Urine Clarity (Clear) Urine pH (5.0-8.0) pH Units Ur Specific [place] (1.010-1.025) Urine Protein (Neg-Trace) mg/dL Urine Glucose (UA) (Normal) mg/dL Urine Ketones (Negative) mg/dL Urine Blood (Negative) Urine Nitrite (Negative) Urine Bilirubin (Negative) Urine Urobilinogen (Normal) mg/dL Ur Leukocyte Esterase (Negative) Urine Microscopic RBC (0-3) per hpf Urine Microscopic WBC (0-3) per hpf Ur Squamous Epith Cells (None-Few) per lpf Urine Bacteria (None-Few) per hpf Hyaline Casts (None-Few) per lpf Ur Culture Indicated? (NO) Stool Occult Bld Scrn (Negative) 12/02/18 12/02/18 Range/Units 19:20 19:42 WBC (4.3-11.1) K/mcL RBC (4.19-5.50) M/mcL Hgb (12.9-16.9) g/dL Hct (37.5-50.1) % MCV (83.0-100.0) fL MCH (28.0-33.3) pg MCHC (31.6-35.5) g/dL RDW (11.5-14.5) % Plt Count (140-400) K/mcL MPV (9.4-12.4) fL Immature Gran % (0-4) % Seg Neutrophils % % Lymphocytes % % Monocytes % % Eosinophils % % Basophils % % Neutrophils # (1.6-8.9) K/mcL Lymphocytes # (0.6-4.6) K/mcL Monocytes # (0.0-1.3) K/mcL Eosinophils # (0.0-0.6) K/mcL Basophils # (0.0-0.2) K/mcL PT (9.4-12.1) Seconds INR APTT (26.0-36.0) Seconds Heparin Anti-Xa, Unfract (0.30-0.70) IU/mL Sodium (136-145) mEq/L Potassium (3.5-5.1) mEq/L Chloride (98-107) mEq/L Carbon Dioxide (23-29) mEq/L BUN (8-23) mg/dL Creatinine (0.70-1.30) mg/dL Est GFR ( Amer) (> 60) Est GFR (Non-Af Amer) (> 60) BUN/Creatinine Ratio (6-26) Glucose (70-105) mg/dL Calculated Osmolality (280-300) Calcium (8.6-10.3) mg/dL Total Bilirubin (0.3-1.0) mg/dL Direct Bilirubin (0.0-0.2) mg/dL Indirect Bilirubin (0.0-1.2) mg/dL AST (13-39) Units/L ALT (7-52) Units/L Alkaline Phosphatase (34-104) Units/L Troponin I (< 0.04) ng/mL Serum Total Protein (6.4-8.9) g/dL Albumin (3.5-5.7) g/dL Globulin (2.4-3.5) g/dL Albumin/Globulin Ratio (1.1-2.2) TSH (0.340-5.600) mcIU/mL Urine Color Yellow (Yellow) Urine Clarity Cloudy A (Clear) Urine pH 5.5 (5.0-8.0) pH Units Ur Specific [place] 1.024 (1.010-1.025) Urine Protein >=300 H (Neg-Trace) mg/dL Urine Glucose (UA) Normal (Normal) mg/dL Urine Ketones Trace H (Negative) mg/dL Urine Blood Negative (Negative) Urine Nitrite Negative (Negative) Urine Bilirubin Negative (Negative) Urine Urobilinogen Normal (Normal) mg/dL Ur Leukocyte Esterase Negative (Negative) Urine Microscopic RBC 0-3 (0-3) per hpf Urine Microscopic WBC 3-5 H (0-3) per hpf Ur Squamous Epith Cells Many H (None-Few) per lpf Urine Bacteria None Seen (None-Few) per hpf Hyaline Casts None Seen (None-Few) per lpf Ur Culture Indicated? NO (NO) Stool Occult Bld Scrn Negative (Negative) - Radiology Data Radiology results reviewed: Yes I reviewed the patient's radiology results. - EKG Data EKG #1 EKG attestation: Yes I reviewed and interpreted this EKG. EKG results narrative: Atrial fibrillation with a rate of 143 without evidence of STEMI.
[2018-12-02 20:07] LABS: Albumin 3.3 g/dL (3.5-5.7); Bilirubin,Direct 0.5 mg/dL (0.0-0.2); Bilirubin,Indirect 0.8 mg/dL (0.0-1.2); Bilirubin,Total 1.3 mg/dL (0.3-1.0); Globulin 3.2 g/dL (2.4-3.5); Total Protein 6.5 g/dL (6.4-8.9)
[2018-12-02 20:14] LABS: Heparin anti-factor XA UFH 0.01 IU/mL (0.30-0.70)
[2018-12-02] MEDS ORDERED: *HR* Metoprolol 5 MG/5 ML VIAL IVP ONE (20:26)
[2018-12-02] MEDS: Heparin 25,000 UNIT/250 ML D5W 25,000 UNIT/250 ML IV.SOLN IVC SCH (20:43)
[2018-12-02] MEDS ORDERED: Dextrose Gel 15 GM/37.5 ML TUBE PO PRN ×2 (21:28)
[2018-12-02] MEDS ORDERED: traMADol 50 MG TABLET PO PRN (21:28)
[2018-12-02] MEDS ORDERED: Naloxone 0.4 MG/ML INJ IVP PRN (21:28)
[2018-12-02] MEDS ORDERED: *HR* Dextrose 50 % in Water (Syg) 50 ML SYRINGE IVP PRN (21:28)
[2018-12-02] MEDS ORDERED: D5% in Water 1,000 ML IVC PRN (21:28)
[2018-12-02] MEDS ORDERED: Perflutren Lipid Microsphere 1.3 ML in 0.9 % Sodium Chloride 8.7 ML IVP ONE (22:15)
[2018-12-02] MEDS: Insulin LISPRO 300 UNITS/3 ML VIAL SQ SCH (22:22)
--- NOTE | 2018-12-02 23:22 | Internal Med History&Physical ---
Date of Encounter: 12/02/18 Time of Encounter: 20:10 Internal Medicine - H&P: HPI Chief complaint: fast heart rate Admitted From: Emergency Dept Plans for Post Hospital Care: Home History of present illness: Mr. Osborne is a 63 year old male who presents with complaints of racing heartbeat, palpitations, weakness, and fatigue. He was seeing his PCP today who noted heart rate up to 180s. He was referred to the ER. In the ER, patient was treated for atrial fibrillation with rapid ventricular response and continues to be mildly tachycardic. He has history of paroxysmal atrial fibrillation, but he does not take any chronic anticoagulation. He was admitted to the hospitalist service for ongoing treatment of his atrial fibrillation. Upon my assessment of the patient, he denies any chest pain, shortness of juliocesar th, diaphoresis, syncope, or near-syncope. He feels weak and tired. He does have mild palpitations. He denies any prior history of heart disease other than the paroxysmal atrial fibrillation. He had been on Eliquis in the past but he's been off this medication for quite some time. He denies any prior DVT or PE. Past Med Surg Social Fam HX - Past Medical History Attestation: Yes The following information was validated with the patient. Source: patient, old records reviewed Medical history: arthritis, asthma, atrial fibrillation, coronary artery disease, diabetes, hyperlipidemia, hypertension, myocardial infarction, osteoporosis, renal disease, other Psychiatric history: no psych history - Past Surgical History Surgical History: no surgical history, other (local wound care to feet for old foot ulcers) - Social History Smoking Status: Never smoker Smokeless Tobacco Status: Yes Alcohol use: none Drug use: none Current living situation: Home - Independent Activity Level: Independent ambulation Recent Out of Country Travel Within the Last 8 Weeks: No - Family History Mother Living Status: Hx Family Cardiac Disorders: Yes Hx Family Endocrine Disorder: Yes Brother Hx Family Cardiac Disorders: Yes Internal Medicine - H&P: Meds Albuterol Sulfate [Ventolin Hfa] 2 puff IH Q4H PRN 09/18/16 [History] Allopurinol [Zyloprim 100 MG] 100 mg PO DAILY 09/18/16 [History] Aspirin Enteric Coated [Aspirin EC] 81 mg PO DAILY 09/18/16 [History] Atorvastatin [Lipitor] 40 mg PO HS 09/18/16 [History] Carvedilol [Coreg] 25 mg PO BID 09/18/16 [History] Felodipine [Felodipine ER] 5 mg PO DAILY 09/18/16 [History] Furosemide [Lasix] 40 mg PO DAILY 09/18/16 [History] Montelukast [Singulair] 10 mg PO HS 09/18/16 [History] metFORMIN [Glucophage] 500 mg PO BID #60 tab 09/21/16 [Rx] Beclomethasone Dipropionate [QVAR 80 mcg REDIHALER] 1 puff IH BID 12/02/18 [History] Diltiazem CD (24hr) [Cardizem CD] 180 mg PO DAILY 12/02/18 [History] Docusate [Colace] 100 mg PO DAILY 12/02/18 [History] Insulin Glargine,Hum.rec.anlog [Basaglar Kwikpen U-100] 10 unit SQ DAILY 12/02/18 [History] Allergy/AdvReac Type Severity Reaction Status Date / Time No Known Allergies Allergy Verified 09/18/16 18:40 - Constitutional Constitutional: fatigue, weakness, no chills, no fever(s), no night sweats - EENT Eyes: no blurry vision, no change in vision Ears: no ear pain, no tinnitus Nose, mouth and throat: no nasal congestion, no sinus pressure, no sore throat - Cardiovascular Cardiovascular ROS IM: irregular heart rhythm, palpitations, no chest pain, no dyspnea, no dyspnea on exertion, no lightheadedness, no orthopnea, no paroxysmal nocturnal dyspnea, no syncope - Respiratory Respiratory: no cough, no dyspnea, no hemoptysis, no dyspnea on exertion, no chest congestion - Gastrointestinal Gastrointestinal: nausea, no abdominal pain, no diarrhea, no hematemesis, no hematochezia, no melena, no vomiting - Genitourinary Genitourinary ROS male: no difficulty urinating, no dysuria, no flank pain, no hematuria - Musculoskeletal Musculoskeletal ROS IM: arthralgias, no back pain - Integumentary Integumentary IM: erythema (sunburn on legs), no rash, no jaundice - Neurological Neurological ROS: no dizziness, no focal weakness, no frequent falls, no headache(s) - Psychiatric Psychiatric: no anxiety, no depression - Endocrine Endocrine IM: no cold intolerance, no heat intolerance, no polydipsia, no polyphagia, no polyuria - Allergic/Immunologic Allergic/Immunologic: no GI upset with certain foods - Constitutional Vitals: Temp Pulse Resp BP Pulse Ox 99.7 F H 95 17 153/77 96 12/02/18 21:32 12/02/18 21:32 12/02/18 21:32 12/02/18 21:32 12/02/18 21:32 General appearance: Present: cooperative, A&O X 3, pleasant, no acute distress, answers questions appropriately Exam: see below - Head Head exam: Present: atraumatic, normal inspection - Eye Eye exam: Present: EOMI, PERRL. Absent: scleral icterus Pupils: Present: normal accommodation - ENT ENT exam: Present: mucous membranes dry, normal exam, normal oropharynx - Neck Neck exam general surgery: Present: full ROM, supple, trachea midline. Absent: tenderness, nuchal rigidity, thyromegaly - Respiratory Respiratory exam: Present: CTAB. Absent: chest wall tenderness, rales, respiratory distress, rhonchi, wheezes - Cardiovascular Cardiovascular exam: Present: distant heart sounds, irregular rhythm, +S1, +S2, tachycardia (HR 110's). Absent: diastolic murmur, rubs, systolic murmur - GI/Abdominal GI/Abdominal exam: Present: normal bowel sounds, soft. Absent: guarding, hepatomegaly, mass, rebound, splenomegaly, tenderness - Extremities Exam Extremities exam: Present: full ROM, normal capillary refill, pedal edema (1- 2+), warm, radial pulses palpable and symmetrical. Absent: calf tenderness - Back Exam Back exam: Absent: CVA tenderness (L), CVA tenderness (R) - Neurological Exam Neurological exam: Present: alert, CN II-XII intact, oriented X3, no focal deficits, strengths equal and symetr throughout Additional comments: decreased sensation in feet -- chronic/neuropathy - Psychiatric Psychiatric exam: Present: normal affect, normal mood - Skin Skin exam: Present: dry, erythema (pretibial sunburn bilaterally), warm Internal Med - H&P Results - Labs CBC & Chem 7: 12/02/18 18:19 12/02/18 18:19 Labs: Short CBC 12/02/18 Range/Units 18:19 WBC 14.1 H (4.3-11.1) K/mcL Hgb 9.2 L (12.9-16.9) g/dL Hct 28.7 L (37.5-50.1) % Plt Count 217 (140-400) K/mcL Neutrophils # 11.2 H (1.6-8.9) K/mcL BMP 12/02/18 18:19 Sodium 133 L Potassium 4.8 Chloride 100 Carbon Dioxide 24 BUN 37 H Creatinine 2.49 H Glucose 251 H Calcium 8.6 Cardiac Enzymes 12/02/18 Range/Units 18:19 Troponin I 0.04 H* (< 0.04) ng/mL Liver Function 12/02/18 Range/Units 18:19 Total Bilirubin 1.3 H (0.3-1.0) mg/dL Direct Bilirubin 0.5 H (0.0-0.2) mg/dL AST 15 (13-39) Units/L ALT 16 (7-52) Units/L Alkaline Phosphatase 50 (34-104) Units/L Albumin 3.3 L (3.5-5.7) g/dL Urine 12/02/18 Range/Units 19:42 Urine Color Yellow (Yellow) Urine Clarity Cloudy A (Clear) Urine pH 5.5 (5.0-8.0) pH Units Ur Specific [place] 1.024 (1.010-1.025) Urine Protein >=300 H (Neg-Trace) mg/dL Urine Glucose (UA) Normal (Normal) mg/dL - EKG Data -: EKG Interpreted by Myself - EKG Data Prior EKG available for review: no EKG comments: 12/02/18 23:27 atrial fib/RVR - Impressions ITS Impressions Chest X-Ray 12/02/18 18:05 IMPRESSION: No acute cardiopulmonary process. D/ / Hi Jay MD / Hi Jay MD Interpreting Provider: Hi Jay MD - Diagnostic Studies Chest x-ray Status: image reviewed by me (negative) - Assessment and Plan (1) Atrial fibrillation with RVR Current Visit: Yes Status: Acute Assessment and plan: 1. Cardizem gtt initiated in ER -- titrate and wean as noted in parameters. 2. Patient has not take his home meds the last 2 days due to some nausea and vomiting. 3. Resume home meds as appropriate and wean Cardizem gtt for heart rate control. 4. Monitor on telemetry and correct electrolytes as necessary. 5. Trend troponins. 6. Order ECHO. Last ECHO report reviewed from 2017. 7. Heparin gtt for anti-coagulation; need to discuss with cardiology and patient and transition to oral anti-coagulation upon discharge. (2) IDDM (insulin dependent diabetes mellitus) Current Visit: Yes Status: Chronic Assessment and plan: 1. Hold Metformin. 2. Schedule basal SQ insulin and order SSI. 3. Monitor glucose and adjust as necessary. (3) Acute on chronic kidney failure Current Visit: Yes Status: Acute Assessment and plan: 1. Monitor renal function. 2. Order renal ultrasound. 3. Consult nephrology. Qualifiers: Acute renal failure type: unspecified Chronic kidney disease stage: stage 3 (moderate) Qualified Code(s): N17.9 - Acute kidney failure, unspecified; N18.3 - Chronic kidney disease, stage 3 (moderate) (4) Hypertension Current Visit: Yes Status: Chronic Assessment and plan: 1. On Cardizem drip. 2. Resume home meds as appropriate and wean off Cardizem drip as above. 3. Monitor BP and adjust as necessary. Qualifiers: Hypertension type: essential hypertension Qualified Code(s): I10 - Essential (primary) hypertension (5) DVT prophylaxis Current Visit: Yes Status: Acute Assessment and plan: 1. Heparin gtt as above.
[2018-12-03 05:15] LABS: Basophils % 0.2 %; Eosinophils % 0.1 %; Hematocrit 28.6 % (37.5-50.1); Hemoglobin 8.9 g/dL (12.9-16.9); Immature Granulocytes % 1.5 % (0-4); Lymphocytes # 1.7 K/mcL (0.6-4.6); Mean Corpuscular HGB Conc 31.1 g/dL (31.6-35.5); Mean Corpuscular Volume 83.6 fL (83.0-100.0); Mean Platelet Volume 11.5 fL (9.4-12.4); Monocytes # 1.1 K/mcL (0.0-1.3); Monocytes % 7.3 %; Neutrophils # 12.4 K/mcL (1.6-8.9); Platelet Count 233 K/mcL (140-400); Red Blood Count 3.42 M/mcL (4.19-5.50); Red Cell Distribution Width 14.6 % (11.5-14.5); Segmented Neutrophils % 79.9 %; White Blood Count 15.6 K/mcL (4.3-11.1)
[2018-12-03 05:35] LABS: Albumin 3.2 g/dL (3.5-5.7); Bilirubin,Total 1.1 mg/dL (0.3-1.0); Calcium 8.3 mg/dL (8.6-10.3); Chol/HDL Ratio 3.5 (0-4.9); Globulin 3.2 g/dL (2.4-3.5); Magnesium 1.2 mg/dL (1.6-2.6); Potassium 4.9 mEq/L (3.5-5.1); Total Protein 6.4 g/dL (6.4-8.9)
[2018-12-03] MEDS ORDERED: Furosemide 40 MG TABLET PO SCH (06:30)
[2018-12-03] MEDS: MOMETASONE FUROATE 100 mcg Inhaler IH SCH ×2 (07:24→22:26)
[2018-12-03] MEDS: Aspirin Enteric Coated 81 MG Tablet PO SCH (08:31)
[2018-12-03] MEDS: Insulin LISPRO 300 UNITS/3 ML VIAL SQ SCH ×4 (08:32→21:57)
[2018-12-03] MEDS: Insulin DETEMIR 100 UNIT/ML X5UNITS SQ SCH (08:32)
--- NOTE | 2018-12-03 08:56 | Internal Med Progress Note ---
Hospitalist Progress Note - Encounter Date of Encounter: 12/03/18 Time of Encounter: 08:55 - Subjective Interval History: Patient seen and examined this morning at bedside. No acute overnight events. Patient denies any chest pain difficulty breathing abdominal pain nausea vomiting or diarrhea. Had the sunburn on both lower extremity. Mentions lower extremity swelling has worsened after sunburn. - Exam Vitals: Temp Pulse Resp BP Pulse Ox 97.9 F 89 20 148/94 91 12/03/18 07:49 12/03/18 07:49 12/03/18 07:49 12/03/18 07:49 12/03/18 07:49 Exam: Exam General: In no acute distress. morbid obesity Respiratory exam: CTAB. no accessory muscle use, rales, rhonchi, wheezes Cardiovascular exam: RRR, +S1, +S2. no murmur, gallop, rubs. GI/Abdominal exam: Non-tender, Non-distended, normal bowel sounds, soft, no peritoneal signs. Extremities exam: 2+ pedal edema, no calf tenderness Neurological exam: CN II-XII intact, AO X3, no focal deficits. Skin exam: mild redness on b/l LE. Rt leg wound on sole without redness or discharge or pain. - Assessment and Plan (1) Atrial fibrillation with RVR Current Visit: Yes Status: Acute (2) Hypertension Current Visit: Yes Status: Chronic (3) IDDM (insulin dependent diabetes mellitus) Current Visit: Yes Status: Chronic (4) Acute on chronic kidney failure Current Visit: Yes Status: Acute (5) DVT prophylaxis Current Visit: Yes Status: Acute - Summary of Assessment and Plan Summary of Assessment and Plan: Assessment Acute Afib with RVR YAEL on CKD DVT prophylaxis Leukocytosis Leg wound elevated troponin Chronic CAD Afib HTN HLD CKD 3 DM Plan - rate controlled with cardizem drip. Started on PO cardize, and coreg. drip b eing titrated down and then to be stopped. On heparin drip. Will need AC on dc. Las low Hb. Hb to be monitored on heparin. recommended outpatient sress test. - Has fever. Possible cellulitis however did mention having sun bun which is possible as no warmth or pain noted and demarcated borders. However does have Rt foot wound with possiblity of osteomyelitis. Blood cultures collect by cardio. UA and CXR unremarkable. Obtain Prolactin, Lactic acid. Will start clindamycin and zosyn for GP an GN negative coverage. Will do wound culture. Wound grew enterobacer and staph aureus in jun 2018. Will consult wound care. Obatin CT Foot to evaluate for osteomyelitis - YAEL on CKD possible from CHF. did get 1 L bolus. Did get lasix this morning. Hold for now. Does have b/l pedal edema. Obtain urine sodium, creat and ureat. pending renal US. nephrology consulted. - c/s SSI and accuchecks. - Time Spent with Patient Total time spent is greater than 50% in coordination of care (as documented) at patient's floor/unit and/or counseling patient: Internal Medicine: Result - Labs CBC & Chem 7: 12/03/18 04:39 12/03/18 04:39 Labs: Short CBC 12/02/18 12/03/18 Range/Units 18:19 04:39 WBC 14.1 H 15.6 H (4.3-11.1) K/mcL Hgb 9.2 L 8.9 L (12.9-16.9) g/dL Hct 28.7 L 28.6 L (37.5-50.1) % Plt Count 217 233 (140-400) K/mcL Neutrophils # 11.2 H 12.4 H (1.6-8.9) K/mcL BMP 12/02/18 12/03/18 18:19 04:39 Sodium 133 L 132 L Potassium 4.8 4.9 Chloride 100 100 Carbon Dioxide 24 21 L BUN 37 H 39 H Creatinine 2.49 H 2.53 H Glucose 251 H 246 H Calcium 8.6 8.3 L Cardiac Enzymes 12/02/18 12/03/18 12/03/18 Range/Units 18:19 04:39 07:53 Troponin I 0.04 H* 0.04 H* 0.04 H* (< 0.04) ng/mL Liver Function 12/02/18 12/03/18 Range/Units 18:19 04:39 Total Bilirubin 1.3 H 1.1 H (0.3-1.0) mg/dL Direct Bilirubin 0.5 H (0.0-0.2) mg/dL AST 15 15 (13-39) Units/L ALT 16 16 (7-52) Units/L Alkaline Phosphatase 50 52 (34-104) Units/L Albumin 3.3 L 3.2 L (3.5-5.7) g/dL Urine 12/02/18 Range/Units 19:42 Urine Color Yellow (Yellow) Urine Clarity Cloudy A (Clear) Urine pH 5.5 (5.0-8.0) pH Units Ur Specific [place] 1.024 (1.010-1.025) Urine Protein >=300 H (Neg-Trace) mg/dL Urine Glucose (UA) Normal (Normal) mg/dL - ABG Interpretation ABG results: PT/INR, D-dimer PT 16.5 Seconds (9.4-12.1) H 12/02/18 18:19 - Impressions Impressions Chest X-Ray 12/02/18 18:05 IMPRESSION: No acute cardiopulmonary process. D/ / Hi Jay MD / Hi Jay MD Interpreting Provider: Hi Jay MD Echocardiogram 12/02/18 21:28 Impressions: LVEF 60%. Mild concentric left ventricular hypertrophy. Indeterminate diastolic function. Normal right ventricular structure and function. Mild mitral regurgitation. No evidence of pulmonary hypertension. Left Ventricular Wall Motion: Rest Echo Findings All wall segments showed normal motion. Findings: Study Quality * Technically sub-optimal due to body habitus. ECG Findings * Atrial fibrillation with BBB. * Sinus rhythm Left Ventricle * LVEF 60%. * Normal LV chamber size. * Mild concentric left ventricular hypertrophy. * Indeterminate diastolic function. * Definity echo contrast was used. * There is no LV thrombus. Right Ventricle * Normal right ventricular structure and function. Left Atrium * Normal left atrial size. Right Atrium * Normal right atrial size. Aortic Valve * Aortic valve not well visualized. * No aortic regurgitation. * No aortic stenosis. Mitral Valve * Normal mitral valve structure. * Mild mitral regurgitation. * No mitral stenosis. Tricuspid Valve * Normal tricuspid valve structure. * Trace tricuspid regurgitation. * No tricuspid stenosis. * No evidence of pulmonary hypertension. Pulmonic Valve * Trace pulmonic regurgitation. Aorta * Normally sized aortic root. Pericardium * The pericardium appears normal. IVC * The IVC is dilated. Pulmonary Artery * Pulmonary artery not well visualized. Consult Discharge Plan - Plan Referrals: Natalio Amaya MD [Primary Care Provider] - _ (2) Hypertension Qualifiers: Hypertension type: essential hypertension Qualified Code(s): I10 - Essential (primary) hypertension (4) Acute on chronic kidney failure Qualifiers: Acute renal failure type: unspecified Chronic kidney disease stage: stage 3 (moderate) Qualified Code(s): N17.9 - Acute kidney failure, unspecified; N18.3 - Chronic kidney disease, stage 3 (moderate)
[2018-12-03] MEDS ORDERED: Diltiazem CD (24hr) 180 MG CAPSULE PO SCH (09:00)
--- NOTE | 2018-12-03 09:22 | Electrocardiograph Report ---
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
[2018-12-03] MEDS: Heparin 25,000 UNIT/250 ML D5W 25,000 UNIT/250 ML IV.SOLN IVC SCH (09:46)
--- NOTE | 2018-12-03 10:29 | Cardiology Consult Note ---
Date of Encounter: 12/03/18 Time of Encounter: 10:28 Assessment and Plan (1) Atrial fibrillation with RVR Current Visit: Yes Status: Acute Documented hx of PAF. Sent to ED by PCP for A-Fib RVR HR 180s. Reports palpitations, weakness, and fatigue. He states he was on Eliquis in the past, but unsure why he stopped taking it. TTE 12/02/18: LVEF 60%. Mild cLVH. Indeterminate diastolic function. Normal RV structure and function. Mild MR. No evidence of phtn. Currently on cardizem gtt at 12.5mg/hr, on PO Cardizem CD 180mg daily and Coreg 25mg BID. Will transition off gtt and increase PO Cardizem CD to 360mg daily. 12 hr tele AVG HR 96. [id number] 2 (HTN, DM). High CVA risk. On heparin gtt. Would recommend fdc AC. HGB this AM 8.9, was 9.2 on admission and 11.3 06/2018. Will monitor H&H another 24 hours on heparin gtt to see if pt can tolerate AC. (2) Acute on chronic kidney failure Current Visit: Yes Status: Acute Creatinine 2.53. Historically baseline creatinine was 1.76-1.98. Management per primary team. Consider nephrology consult if no improvement. Qualifiers: Acute renal failure type: unspecified Chronic kidney disease stage: stage 3 (moderate) Qualified Code(s): N17.9 - Acute kidney failure, unspecified; N18.3 - Chronic kidney disease, stage 3 (moderate) (3) Elevated troponin Current Visit: Yes Status: Acute Troponin 0.04 x 2 in setting of A-Fib RVR, YAEL on CKD, Leukocytosis. Demand ischemia, nondiagnostic for ACS. Denies chest pain. Consider outpt stress test given A-Fib and CAD risk factors. Discussion w patient/family: The assessment and plan as outlined above was discussed with the patient and/or family members who expressed understanding and agreement. All questions were answered. Thank you for involving us in the care of your patient. Please call with any questions. I will discuss all the above with Dr. Maloney and make changes as necessary. History of Present Illness Consult date: 12/03/18 Consult reason: A-Fib RVR Chief complaint: palpitations, weakness History of present illness: Mr. Osborne is a 63 year old male with PMH HTN, DM, PAF who presents with complaints of palpitations, weakness, and fatigue. He was seeing his PCP yesterd jimmy who noted heart rate up to 180s. He was referred to the ER. In the ER, patient was in A-Fib RVR. He reports PAF hx, states he was on Eliquis in the past, but unsure why he stopped taking it. Troponins 0.04 x 2. Cardiology consulted for further recs. He denies chest pain or dyspnea. Reports worsening BLE edema that he associates with sunburn. CV testing: TTE 12/02/18: LVEF 60%. Mild cLVH. Indeterminate diastolic function. Normal RV structure and function. Mild MR. No evidence of phtn. Past Med Surg Social Fam HX - Past Medical History Medical history: arthritis, asthma, atrial fibrillation, coronary artery disease, diabetes, hyperlipidemia, hypertension, myocardial infarction, osteoporosis, renal disease, other Psychiatric history: no psych history - Past Surgical History Surgical History: no surgical history, other (local wound care to feet for old f oot ulcers) - Social History Smoking Status: Never smoker Smokeless Tobacco Status: Yes Alcohol use: none Drug use: none - Family History Mother Living Status: Hx Family Cardiac Disorders: Yes Hx Family Endocrine Disorder: Yes Brother Hx Family Cardiac Disorders: Yes Medications and Allergies Albuterol Sulfate [Ventolin Hfa] 2 puff IH Q4H PRN 09/18/16 [History] Allopurinol [Zyloprim 100 MG] 100 mg PO DAILY 09/18/16 [History] Aspirin Enteric Coated [Aspirin EC] 81 mg PO DAILY 09/18/16 [History] Atorvastatin [Lipitor] 40 mg PO HS 09/18/16 [History] Carvedilol [Coreg] 25 mg PO BID 09/18/16 [History] Felodipine [Felodipine ER] 5 mg PO DAILY 09/18/16 [History] Furosemide [Lasix] 40 mg PO DAILY 09/18/16 [History] Montelukast [Singulair] 10 mg PO HS 09/18/16 [History] metFORMIN [Glucophage] 500 mg PO BID #60 tab 09/21/16 [Rx] Beclomethasone Dipropionate [QVAR 80 mcg REDIHALER] 1 puff IH BID 12/02/18 [History] Diltiazem CD (24hr) [Cardizem CD] 180 mg PO DAILY 12/02/18 [History] Docusate [Colace] 100 mg PO DAILY 12/02/18 [History] Insulin Glargine,Hum.rec.anlog [Basaglar Germánikpen U-100] 10 unit SQ DAILY 12/02/18 [History] Allergy/AdvReac Type Severity Reaction Status Date / Time No Known Allergies Allergy Verified 09/18/16 18:40 All Systems Review: The remainder of the systems were reviewed and are negative - Constitutional Constitutional: fatigue, weakness - Cardiovascular Cardiovascular: as per HPI, leg edema, palpitations, rapid heart rate Physical Examination Vital Signs, Last 4 Hours Temp Pulse Resp BP Pulse Ox 12/03/18 07:49 97.9 F 89 20 148/94 91 12/03/18 07:24 16 97 Vital Signs Temp Pulse Resp BP Pulse Ox 12/03/18 07:49 97.9 F 89 20 148/94 91 12/03/18 07:24 16 97 12/03/18 05:03 100.2 F H 93 18 147/78 95 12/03/18 01:37 99.4 F 86 18 151/82 93 12/02/18 21:32 99.7 F H 95 17 153/77 96 12/02/18 21:12 18 128/80 12/02/18 20:30 105 136/71 97 12/02/18 19:13 119 140/75 98 12/02/18 18:16 143 118/84 99 12/02/18 17:52 98.9 F 143 20 133/81 95 Intake and Output 12/02/18 12/03/18 12/03/18 23:59 07:59 15:59 Intake Total 1016.7 / 1016.7 186.5 / 650.0 463.5 / 650.0 Balance 1016.7 / 1016.7 186.5 / 650.0 463.5 / 650.0 Intake: IV Fluids 1016.7 / 1016.7 186.5 / 290.0 103.5 / 290.0 0.9 % Sodium Chloride 1,000 ML 1000 / 1000 @ 999 mls/hr IVC .Q1H1M ONE Rx# :[id number] Cardizem 50 MG In 0.9 % Sodium 16.7 / 16.7 0 / 40 40 / 40 Chloride 40 ML @ 5 MG/HR 5 mls/ hr IVC .Q10H ISAMAR Rx#:[id number] Heparin 25,000 UNIT/250 ML D5W 186.5 / 250.0 63.5 / 250.0 25,000 unit In 250 ml @ 14 UNIT /KG/HR 20.683 mls/hr IVC . Q12H6M ISAMAR Rx#:[id number] Oral 360 / 360 Other: Meal Breakfast Percent of Meal Consumed 30% # Voids 1 Weight 146.4 kg Blood Glucose* 226 235 General: Conversant, No Apparent Distress HEENT: Atraumatic, Normocephaly, Mucus Membranes Moist Neck: Normal carotid pulses Cardiac: Other (irregularly irregular) Lungs: Normal Breath Sounds, No Wheeze, Rales, Rhonchi Neuro: Alert and responsive, No focal deficits noted Abdomen: Soft, Non-Tender Skin: No rashes noted on visualized skin Musculoskeletal: No Chest Wall Tenderness Extremities: Other (significant BLE edema/redness noted) Results 12/03/18 04:39 12/03/18 04:39 Lab Results 12/02/18 12/02/18 12/02/18 18:19 18:19 18:19 WBC 14.1 H Hgb 9.2 L Hct 28.7 L Plt Count 217 INR 1.5 APTT 34.0 Sodium 133 L Potassium 4.8 Chloride 100 Carbon Dioxide 24 BUN 37 H Creatinine 2.49 H Glucose 251 H Calcium 8.6 Magnesium Total Bilirubin 1.3 H AST 15 ALT 16 Alkaline Phosphatase 50 Troponin I 0.04 H* TSH 1.225 12/03/18 12/03/18 12/03/18 04:39 04:39 04:39 WBC 15.6 H Hgb 8.9 L Hct 28.6 L Plt Count 233 INR APTT Sodium 132 L Potassium 4.9 Chloride 100 Carbon Dioxide 21 L BUN 39 H Creatinine 2.53 H Glucose 246 H Calcium 8.3 L Magnesium 1.2 L Total Bilirubin 1.1 H AST 15 ALT 16 Alkaline Phosphatase 52 Troponin I 0.04 H* TSH 12/03/18 07:53 WBC Hgb Hct Plt Count INR APTT Sodium Potassium Chloride Carbon Dioxide BUN Creatinine Glucose Calcium Magnesium Total Bilirubin AST ALT Alkaline Phosphatase Troponin I 0.04 H* TSH Short CBC 12/03/18 12/02/18 Range/Units 04:39 18:19 WBC 15.6 H 14.1 H (4.3-11.1) K/mcL Hgb 8.9 L 9.2 L (12.9-16.9) g/dL Hct 28.6 L 28.7 L (37.5-50.1) % Plt Count 233 217 (140-400) K/mcL Neutrophils # 12.4 H 11.2 H (1.6-8.9) K/mcL BMP 12/03/18 12/02/18 Range/Units 04:39 18:19 Sodium 132 L 133 L (136-145) mEq/L Potassium 4.9 4.8 (3.5-5.1) mEq/L Chloride 100 100 (98-107) mEq/L Carbon Dioxide 21 L 24 (23-29) mEq/L BUN 39 H 37 H (8-23) mg/dL Creatinine 2.53 H 2.49 H (0.70-1.30) mg/dL Glucose 246 H 251 H (70-105) mg/dL Calcium 8.3 L 8.6 (8.6-10.3) mg/dL Cardiac Enzymes 12/03/18 12/03/18 12/02/18 Range/Units 07:53 04:39 18:19 Troponin I 0.04 H* 0.04 H* 0.04 H* (< 0.04) ng/mL Liver Function 12/03/18 12/02/18 Range/Units 04:39 18:19 Total Bilirubin 1.1 H 1.3 H (0.3-1.0) mg/dL Direct Bilirubin 0.5 H (0.0-0.2) mg/dL AST 15 15 (13-39) Units/L ALT 16 16 (7-52) Units/L Alkaline Phosphatase 52 50 (34-104) Units/L Albumin 3.2 L 3.3 L (3.5-5.7) g/dL Urine 12/02/18 Range/Units 19:42 Urine Color Yellow (Yellow) Urine Clarity Cloudy A (Clear) Urine pH 5.5 (5.0-8.0) pH Units Ur Specific [place] 1.024 (1.010-1.025) Urine Protein >=300 H (Neg-Trace) mg/dL Urine Glucose (UA) Normal (Normal) mg/dL Impressions Chest X-Ray 12/02/18 18:05 IMPRESSION: No acute cardiopulmonary process. D/ / Hi Jay MD / Hi Jay MD Interpreting Provider: Hi Jay MD Echocardiogram 12/02/18 21:28 Impressions: LVEF 60%. Mild concentric left ventricular hypertrophy. Indeterminate diastolic function. Normal right ventricular structure and function. Mild mitral regurgitation. No evidence of pulmonary hypertension. Left Ventricular Wall Motion: Rest Echo Findings All wall segments showed normal motion. Findings: Study Quality * Technically sub-optimal due to body habitus. ECG Findings * Atrial fibrillation with BBB. * Sinus rhythm Left Ventricle * LVEF 60%. * Normal LV chamber size. * Mild concentric left ventricular hypertrophy. * Indeterminate diastolic function. * Definity echo contrast was used. * There is no LV thrombus. Right Ventricle * Normal right ventricular structure and function. Left Atrium * Normal left atrial size. Right Atrium * Normal right atrial size. Aortic Valve * Aortic valve not well visualized. * No aortic regurgitation. * No aortic stenosis. Mitral Valve * Normal mitral valve structure. * Mild mitral regurgitation. * No mitral stenosis. Tricuspid Valve * Normal tricuspid valve structure. * Trace tricuspid regurgitation. * No tricuspid stenosis. * No evidence of pulmonary hypertension. Pulmonic Valve * Trace pulmonic regurgitation. Aorta * Normally sized aortic root. Pericardium * The pericardium appears normal. IVC * The IVC is dilated. Pulmonary Artery * Pulmonary artery not well visualized. Active Medications Acetaminophen (Tylenol) 650 mg PO Q6HR PRN PRN Reason: Mild Pain/Fever Stop: 06/03/19 21:29 Albuterol Sulfate (Albuterol Inhaler) 2 puff IH Q4H PRN PRN Reason: Shortness Of Breath Stop: 06/03/19 21:38 Allopurinol (Zyloprim) 100 mg PO DAILY [facility] Stop: 06/04/19 09:01 Last Admin: 12/03/18 08:31 Dose: 100 mg Documented by: Aspirin (Aspirin Ec) 81 mg PO DAILY [facility] Stop: 06/04/19 09:01 Last Admin: 12/03/18 08:31 Dose: 81 mg Documented by: Atorvastatin Calcium (Lipitor) 40 mg PO HS [facility] Stop: 06/04/19 21:01 Carvedilol (Coreg) 25 mg PO BIDWM [facility]; Protocol Stop: 06/04/19 08:01 Last Admin: 12/03/18 08:31 Dose: 25 mg Documented by: Dextrose/Water (Dextrose 50% (Syg)) 25 ml IVP AD PRN PRN Reason: Hypoglycemia Stop: 06/03/19 21:29 Diltiazem HCl (Cardizem Cd) 180 mg PO DAILY [facility] Stop: 06/04/19 09:01 Last Admin: 12/03/18 08:31 Dose: 180 mg Documented by: Docusate Sodium (Colace) 100 mg PO DAILY [facility]; Protocol Stop: 06/04/19 09:01 Last Admin: 12/03/18 08:31 Dose: 100 mg Documented by: Furosemide (Lasix) 40 mg PO 0630 [facility] Stop: 06/04/19 06:31 Last Admin: 12/03/18 05:38 Dose: 40 mg Documented by: Glucagon (Glucagen) 1 mg IM ONCE PRN PRN Reason: Hypoglycemia Stop: 06/03/19 21:29 Glucose (Gluctose) 15 gm PO ONCE PRN PRN Reason: Hypoglycemia Stop: 06/03/19 21:29 Glucose (Gluctose) 30 gm PO ONCE PRN PRN Reason: Hypoglycemia Stop: 06/03/19 21:29 Heparin Sodium (Porcine) (Heparin) 9,000 unit IVP Q6HR PRN PRN Reason: SEE COMMENTS Stop: 06/03/19 19:54 Heparin Sodium (Porcine) (Heparin) 4,500 unit IVP Q6H PRN PRN Reason: SEE COMMENTS Stop: 06/03/19 19:54 Diltiazem HCl 50 mg/ Sodium (Chloride) 50 mls @ 5 mls/hr IVC .Q10H ISAMAR Stop: 06/03/19 18:16 Last Infusion: 12/03/18 10:23 Dose: 7.5 mg/hr, 7.5 mls/hr Documented by: Heparin Sodium/Dextrose (Heparin 25,000 Unit/250 Ml D5w) 25,000 unit in 250 mls @ 20.683 mls/hr IVC .Q12H6M [facility]AMAR; Protocol Stop: 06/03/19 20:01 Last Admin: 12/03/18 09:46 Dose: 14.01 unit/kg/hr, 20.7 mls/hr Documented by: Dextrose (Dextrose 5%) 1,000 mls @ 100 mls/hr IVC .Q10H PRN PRN Reason: HYPOGLYCEMIA Stop: 06/03/19 21:29 Insulin Detemir (Levemir) 10 unit SQ DAILY [facility] Stop: 06/04/19 09:01 Last Admin: 12/03/18 08:32 Dose: 10 unit Documented by: Insulin Human Lispro (Humalog) 0 units SQ HS [facility]; Protocol Stop: 06/03/19 21:46 Last Admin: 12/02/18 22:22 Dose: 3 units Documented by: Insulin Human Lispro (Humalog) 0 units SQ TIDAC [facility]; Protocol Stop: 06/04/19 07:31 Last Admin: 12/03/18 08:32 Dose: 8 units Documented by: Mometasone Furoate (Asmanex Hfa) 1 puff IH BIDR [facility] Stop: 06/04/19 10:01 Last Admin: 12/03/18 07:24 Dose: 1 puff Documented by: Montelukast Sodium (Singulair) 10 mg PO HS [facility] Stop: 06/04/19 21:01 Naloxone HCl (Narcan) 0.4 mg IVP Q2MPRN PRN PRN Reason: SEE COMMENTS Stop: 06/03/19 21:29 Tramadol HCl (Ultram) 50 mg PO Q6HR PRN PRN Reason: Moderate Pain Stop: 06/03/19 21:29 - Imaging and Cardiology Echo: report reviewed - EKG Interpretation EKG results cardiology: other (12 hr tele AVG HR 96, A-Fib) Consult Discharge Plan - Plan Referrals: Natalio Amaya MD [Primary Care Provider] -
[2018-12-03] MEDS ORDERED: Diltiazem CD (24hr) 180 MG CAPSULE PO ONE (11:49)
--- NOTE | 2018-12-03 12:29 | Electrocardiograph Report ---
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
[2018-12-03] MEDS: Acetaminophen 325 MG TABLET PO PRN (12:46)
--- NOTE | 2018-12-03 16:48 | Nephrology Consult Note ---
<Surendra Tang - Last Filed: 12/03/18 17:37> Date of Encounter: 12/03/18 Time of Encounter: 14:30 Assessment and Plan (1) Acute on chronic kidney failure Current Visit: Yes Status: Acute YAEL on CKD stage III in the setting of diuretic use and sepsis. Patient says that he has been able to produce urine. Retroperitoneal u/s shows no evidence of obstruction or hydronephrosis. Baseline GFR of 40 with a GFR of 26 on presentation. Baseline creatinine of 1.76 with a creatinine of 2.49 on presentation. Current creatinine slightly increased to 2.53. Patient not of IVF due to LE edema. - Continue to hold diuretics. - Avoid nephrotoxins. - Urine sodium, creatinine, eosinophil, and CPK labs ordered. - Diabetic and renal diet. - Strict I's and O's. - Daily weight measurements. Qualifiers: Acute renal failure type: unspecified Chronic kidney disease stage: stage 3 (moderate) Qualified Code(s): N17.9 - Acute kidney failure, unspecified; N18.3 - Chronic kidney disease, stage 3 (moderate) (2) CKD (chronic kidney disease), stage III Current Visit: No Status: Chronic (3) Atrial fibrillation with RVR Current Visit: Yes Status: Acute Rate controlled with cardizem drip. Started on PO cardizem, and coreg. drip being titrated down and then to be stopped. On heparin drip. - Management per primary team. (4) Diabetes mellitus Current Visit: No Status: Acute On basal insulin and SS. Qualifiers: Diabetes mellitus type: type 2 Diabetes mellitus nursing home insulin use: with nursing home use Chronic kidney disease stage: stage 3 (moderate) Qualifie d Code(s): E11.22 - Type 2 diabetes mellitus with diabetic chronic kidney disease (5) Wound of right lower extremity Current Visit: Yes Status: Acute Possible cellulitis however did mention having sun bun which is possible as no warmth or pain noted and demarcated borders. However does have Rt foot wound with possiblity of osteomyelitis. Blood cultures collect by cardio. UA and CXR unremarkable. Obtain Prolactin, Lactic acid. On clindamycin and zosyn for GP an GN negative coverage. Obtained wound culture. Wound grew enterobacer and staph aureus in jun 2018. Wound care consulted. Obatin CT Foot to evaluate for osteomyelitis. - Blood culture pending. - Wound culture pending. - Procalcitonin elevated. - No CT scan evidence of abscess or osteomyelitis involving the right foot at this time. - Management per primary team. Qualifiers: Encounter type: initial encounter Qualified Code(s): S81.801A - Unspecified open wound, right lower leg, initial encounter (9) Hypertension Current Visit: Yes Status: Chronic BP controlled. On carvedilol. - Management per primary team. Qualifiers: Hypertension type: essential hypertension Qualified Code(s): I10 - Essential (primary) hypertension History of Present Illness - Reason for Consult Consult date: 12/03/18 Acute Kidney Injury, Chronic Kidney Disease - History of Present Illness Patient is a 63 YO M with a PMH of atrial fibrillation, CAD, T2DM, HTN, CO and stage III CKD that presented for tachycardia and palpitations on 12/02/18. Patient was at his PCP's office, where it was found that he was tachycardic in the 180s. He was then brought into the ER where he was diagnosed with H or fibrillation with rapid ventricular rate. Of note patient is not on any chronic anticoagulation at home. During his hospital course, patient was noted to have a wound of the RLE concerning for cellulitis/osteomyelitis. He was started on vancomycin and zosyn. In addition, patient started developing worsening renal function. He normally takes 40 mg of lasix daily for peripheral edema, however this was held once his renal function started declining. Patient follows n ephrology in the outpatient with Dr. Prado. When seen today, patient denied any chest pain or SOB. He admitted to swelling in his LE, which has been worse than baseline. He denies any cough. Denies any abdominal pain. Denies nausea or vomiting. Denies diarrhea. Past Med Surg Social Fam HX - Past Medical History Medical history: arthritis, asthma, atrial fibrillation, coronary artery disease, diabetes, hyperlipidemia, hypertension, myocardial infarction, osteoporosis, renal disease, other Psychiatric history: no psych history - Past Surgical History Surgical History: no surgical history, other (local wound care to feet for old foot ulcers) - Social History Smoking Status: Never smoker Smokeless Tobacco Status: Yes Alcohol use: none Drug use: none - Family History Mother Living Status: Hx Family Cardiac Disorders: Yes Hx Family Endocrine Disorder: Yes Brother Hx Family Cardiac Disorders: Yes Medications and Allergies Albuterol Sulfate [Ventolin Hfa] 2 puff IH Q4H PRN 09/18/16 [History] Allopurinol [Zyloprim 100 MG] 100 mg PO DAILY 09/18/16 [History] Aspirin Enteric Coated [Aspirin EC] 81 mg PO DAILY 09/18/16 [History] Atorvastatin [Lipitor] 40 mg PO HS 09/18/16 [History] Carvedilol [Coreg] 25 mg PO BID 09/18/16 [History] Felodipine [Felodipine ER] 5 mg PO DAILY 09/18/16 [History] Furosemide [Lasix] 40 mg PO DAILY PRN 09/18/16 [History] Montelukast [Singulair] 10 mg PO HS PRN 09/18/16 [History] Beclomethasone Dipropionate [QVAR 80 mcg REDIHALER] 1 puff IH BID 12/02/18 [History] Docusate [Colace] 100 mg PO DAILY PRN 12/02/18 [History] Insulin Glargine,Hum.rec.anlog [Basaglar Kwikpen U-100] 10 unit SQ DAILY 12/02/18 [History] Cetirizine HCl [24Hour Allergy] 10 mg PO DAILY 12/03/18 [History] Diltiazem HCl [Diltiazem ER] 180 mg PO DAILY 12/03/18 [History] Liraglutide [Victoza 2-Jerson] 1.2 mg SQ DAILY 12/03/18 [History] Lisinopril [Zestril] 20 mg PO DAILY 12/03/18 [History] Metformin HCl 850 mg PO BID 12/03/18 [History] ceFAZolin [Ancef] 2,000 mg IV Q8H 35 Days #210 vial 12/09/18 [Rx] Allergy/AdvReac Type Severity Reaction Status Date / Time No Known Allergies Allergy Verified 12/03/18 23:20 Review of Systems Constitutional: no fever(s) Cardiovascular: leg edema, no chest pain, no dyspnea, no palpitations Respiratory: no cough, no dyspnea Gastrointestinal: no abdominal pain, no change in bowel habits, no loose stools, no nausea, no vomiting Exam - Vital Signs Vital signs: Initial Vital Signs Temp Pulse Resp BP Pulse Ox 98.9 F 143 20 133/81 95 12/02/18 17:52 12/02/18 17:52 12/02/18 17:52 12/02/18 17:52 12/02/18 17:52 Vital Signs - Last 8 Hours Temp Pulse Resp BP 12/03/18 14:20 100.8 F H 12/03/18 12:48 102.7 F H 12/03/18 11:23 84 17 115/70 Intake and Output 12/03/18 12/03/18 12/03/18 07:59 15:59 23:59 Intake Total 186.5 / 1030.0 843.5 / 1030.0 Balance 186.5 / 1030.0 843.5 / 1030.0 Intake: IV Fluids 186.5 / 310.0 123.5 / 310.0 Cardizem 50 MG In 0.9 % Sodium 0 / 50 50 / 50 Chloride 40 ML @ 5 MG/HR 5 mls/ hr IVC .Q10H ISAMAR Rx#:[id number] Heparin 25,000 UNIT/250 ML D5W 186.5 / 260.0 73.5 / 260.0 25,000 unit In 250 ml @ 14 UNIT /KG/HR 20.683 mls/hr IVC . Q12H6M ISAMAR Rx#:[id number] Oral 720 / 720 Other: Meal Lunch Percent of Meal Consumed 10% # Voids 1 Blood Glucose* 235 248 - General Appearance General appearance: appears started age, obese Neck: no JVD Respiratory: clear Cardiology: no murmurs, no rub, regular rate, irregular rhythm, normal S1, normal S2 Gastrointestinal: normoactive bowel sounds, no tenderness, no guarding, no organomegaly, no masses Neurologic: alert and oriented x3, strength 5/5 Musculoskeletal: erythema (Tibial region b/l), no cyanosis, no clubbing Psychiatric: mood/affect appropriate, cooperative Results - Lab Results 12/03/18 04:39 12/03/18 04:39 Most recent lab results 12/03/18 04:39 Calcium 8.3 L Magnesium 1.2 L Consult Discharge Plan - Plan Instructions: Heart Failure (DC), Atrial Fibrillation (DC), Acute Respiratory Distress Syndrome (DC), Acute Kidney Injury (DC), Cellulitis (DC), Diabetes Mellitus Type 2 in Adults (DC), Chronic Obstructive Pulmonary Disease (DC), Sepsis (DC), Chronic Hypertension (DC), Hypertensive Crisis (DC), Anemia (GEN) Referrals: Natalio Amaya MD [Primary Care Provider] - Shayna Dean CNP [Advanced Practice Nurse] - 12/24/18 3:00 pm Prescriptions: ceFAZolin [Ancef] 2,000 mg IV Q8H 35 Days #210 vial <Nata Ricci - Last Filed: 12/10/18 21:37> Date of Encounter: 12/03/18 Assessment and Plan (1) Atrial fibrillation with RVR Current Visit: Yes Status: Resolved (2) Proteinuria Current Visit: No Status: Chronic Qualifiers: Proteinuria type: persistent Qualified Code(s): R80.1 - Persistent proteinuria, unspecified (3) CKD (chronic kidney disease), stage III Current Visit: No Status: Chronic (4) Anemia Current Visit: Yes Status: Acute Qualifiers: Anemia type: unspecified type Qualified Code(s): D64.9 - Anemia, unspecified (5) Acute on chronic kidney failure Current Visit: Yes Status: Resolved Qualifiers: Acute renal failure type: unspecified Chronic kidney disease stage: stage 3 (moderate) Qualified Code(s): N17.9 - Acute kidney failure, unspecified; N18.3 - Chronic kidney disease, stage 3 (moderate) (6) Hyponatremia Current Visit: Yes Status: Acute (7) Osteomyelitis of right foot Current Visit: Yes Status: Acute Qualifiers: Osteomyelitis type: subacute Qualified Code(s): M86.271 - Subacute osteomyelitis, right ankle and foot (8) Hyperkalemia Current Visit: Yes Status: Acute Exam - Vital Signs Vital signs: Initial Vital Signs Temp Pulse Resp BP Pulse Ox 98.9 F 143 20 133/81 95 12/02/18 17:52 12/02/18 17:52 12/02/18 17:52 12/02/18 17:52 12/02/18 17:52 Vital Signs - Last 8 Hours Temp Pulse Resp BP Pulse Ox 12/10/18 19:54 14 90 12/10/18 17:01 98.6 F 94 16 156/95 90 Intake and Output 12/10/18 12/10/18 12/10/18 07:59 15:59 23:59 Intake Total 100 / 685 465 / 685 120 / 685 Output Total 300 / 625 325 / 625 Balance -200 / 60 465 / 60 -205 / 60 Intake: IV Fluids 100 / 325 225 / 325 0.9 % Sodium Chloride 500 ML @ 125 / 125 150 mls/hr IVC .Q3H20M ONE Rx#: [id number] Ancef 2,000 MG In 0.9 % Sodium 100 / 200 100 / 200 Chloride 100 ML @ 200 mls/hr IVPB Q8HR ISAMAR Rx#:[id number] Oral 0 / 360 240 / 360 120 / 360 Output: Urine 300 / 625 325 / 625 Wound Drainage 0 / 0 Right Foot 0 / 0 Other: Meal Lunch Dinner Percent of Meal Consumed 100% 40% Weight 143.9 kg 143.789 kg Blood Glucose* 228 323 Patient Weight 12/10/18 23:59 Weight 143.789 kg Results - Lab Results 12/10/18 00:58 12/10/18 00:58 - Attending Attestation I examined this patient and my medical decision-making was reviewed with the Resident Physician. I agree with the documented findings, disposition and treatment plan as described except to the extent set forth below. In brief: 63 y o male with PMH of DM, HTN, CAD, Afib and stage [address] Prado outpatient admitted after being found with palpitation with HR in the 180 at pcp's office and was diagnosed with Afib with RVR. Stay complicated with RLE cellulitis/osteomyelitis treated with vanco/zosyn and ultimately developing YAEL with GFR down to 26 from 40 while on diuretics. On exam: NAD, lungs CTA bilat, heart S1S2, irregular, abd soft NT Ext: +LE edema b ilat, RLE with erythema. Will initiate YAEL workup. Agree with holding diuretics and other potential nephrotoxins. Careful use of vanco in this setting needed. Po fluids encouraged.
[2018-12-03] MEDS: Piperacillin/Tazobactam 3.375 GM in 0.9 % Sodium Chloride Mini Bag 100 ML IVPB SCH (17:16)
[2018-12-03] MEDS: Clindamycin 600 MG/50 ML 600 MG/50 ML IV.SOLN IVPB SCH (17:22)
[2018-12-04] MEDS: Piperacillin/Tazobactam 3.375 GM in 0.9 % Sodium Chloride Mini Bag 100 ML IVPB SCH ×2 (01:09→08:54)
[2018-12-04] MEDS: Heparin 25,000 UNIT/250 ML D5W 25,000 UNIT/250 ML IV.SOLN IVC SCH (01:10)
[2018-12-04] MEDS: Clindamycin 600 MG/50 ML 600 MG/50 ML IV.SOLN IVPB SCH ×2 (01:10→08:54)
[2018-12-04 01:31] LABS: Enterococcus by PCR Not Detected (Not Detect); Staphylococcus by PCR DETECTED (Not Detect); mecA Methicillin-Resist Gene Not Detected (Not Detect)
[2018-12-04 01:32] LABS: Acinetobacter baumannii by PCR Not Detected (Not Detect); Candida albicans by PCR Not Detected (Not Detect); Candida glabrata by PCR Not Detected (Not Detect); Candida krusei by PCR Not Detected (Not Detect); Candida parapsilosis by PCR Not Detected (Not Detect); Candida tropicalis by PCR Not Detected (Not Detect); Enterobacter cloacae Cmplx PCR Not Detected (Not Detect); Enterobacteriaceae by PCR Not Detected (Not Detect); Escherichia coli by PCR Not Detected (Not Detect); Klebsiella oxytoca by PCR Not Detected (Not Detect); Klebsiella pneumoniae by PCR Not Detected (Not Detect); Proteus by PCR Not Detected (Not Detect); Pseudomonas aeruginosa by PCR Not Detected (Not Detect); Serratia marcescens by PCR Not Detected (Not Detect); Staphylococcus aureus by PCR DETECTED (Not Detect); Streptococcus agalactiae(B)PCR Not Detected (Not Detect); Streptococcus by PCR Not Detected (Not Detect); Streptococcus pneumoniae PCR Not Detected (Not Detect); Streptococcus pyogenes (A) PCR Not Detected (Not Detect)
[2018-12-04] MEDS ORDERED: 0.9 % Sodium Chloride 500 ML IVC ONE (02:18)
[2018-12-04] MEDS ORDERED: 0.9 % Sodium Chloride 500 ML ONE (02:20)
[2018-12-04 03:26] LABS: Basophils % 0.2 %; Hematocrit 24.3 % (37.5-50.1); Hemoglobin 7.4 g/dL (12.9-16.9); Immature Granulocytes % 1.3 % (0-4); Lymphocytes # 1.5 K/mcL (0.6-4.6); Lymphocytes % 9.4 %; Mean Corpuscular HGB Conc 30.5 g/dL (31.6-35.5); Mean Corpuscular Hemoglobin 25.6 pg (28.0-33.3); Mean Corpuscular Volume 84.1 fL (83.0-100.0); Mean Platelet Volume 11.3 fL (9.4-12.4); Monocytes # 1.7 K/mcL (0.0-1.3); Neutrophils # 12.2 K/mcL (1.6-8.9); Nucleated Red Blood Cells 0.1 /100 WBC (0); Platelet Count 227 K/mcL (140-400); Red Blood Count 2.89 M/mcL (4.19-5.50); Red Cell Distribution Width 14.7 % (11.5-14.5); Segmented Neutrophils % 78.1 %; White Blood Count 15.6 K/mcL (4.3-11.1)
[2018-12-04 03:44] LABS: BUN/Creatinine Ratio 12 (6-26); Blood Urea Nitrogen 53 mg/dL (8-23); Calcium 8.3 mg/dL (8.6-10.3); Carbon Dioxide 20 mEq/L (23-29); Chloride 96 mEq/L (98-107); Glucose 264 mg/dL (70-105); Osmolality,Calculated 288 (280-300); Potassium 5.2 mEq/L (3.5-5.1); Sodium 127 mEq/L (136-145); eGFR For African Americans 17 (> 60); eGFR For Non-African Americans 14 (> 60)
--- NOTE | 2018-12-04 06:25 | Event Note ---
Date of Encounter: 12/04/18 Time of Encounter: 06:00 Patients hemoglobin dropped form 9.2 on admission to 7.4 this morning. Patient has been running hypotensive through the evening even after a 500ml bolus, patient has become pale, reports dizziness and weakness. Stool hemocult ordered repeat H&H ordered 2 units RBC ordered and on hold pending new H&H Concerns for acute blood loss anemia NPO
[2018-12-04] MEDS: MOMETASONE FUROATE 100 mcg Inhaler IH SCH ×2 (07:43→22:11)
[2018-12-04 07:51] LABS: Hematocrit 24.9 % (37.5-50.1); Hemoglobin 7.8 g/dL (12.9-16.9)
[2018-12-04] MEDS: Aspirin Enteric Coated 81 MG Tablet PO SCH (08:52)
[2018-12-04] MEDS: Insulin LISPRO 300 UNITS/3 ML VIAL SQ SCH ×4 (08:54→22:31)
[2018-12-04] MEDS ORDERED: Diltiazem CD (24hr) 180 MG CAPSULE PO SCH (09:00)
[2018-12-04] MEDS ORDERED: *HR* Propofol 200 MG/20 ML VIAL IVP ONE (09:19)
[2018-12-04] MEDS ORDERED: Lidocaine -MPF 2% 2 ML VIAL ONE (09:19)
[2018-12-04] MEDS ORDERED: *HR* PHENYLEPHRINE 1,000 MCG/10 ML SYRINGE IVP ONE (09:19)
--- NOTE | 2018-12-04 09:48 | Anesthesia Evaluation PreOp ---
Date of Encounter: 12/04/18 Time of Encounter: 09:45 - Past History Planned Operation: EGD Cardiac History: CA, HTN, Hyperlipidemia, Arrhythmia (hx PAF, came in with AF with RVR), Other (CAD) Pulmonary History: Asthma [employer]UCATION [employer]OR History: Denies Any Significant HX Other Medical History: Renal (hx of renal ds, nonspecific), Diabetes Type II, Other (obese) Anesthesia History: Past Anesthesia (denies PSH) Alcohol Use: none Drug use: none Medications and Allergies Albuterol Sulfate [Ventolin Hfa] 2 puff IH Q4H PRN 09/18/16 [History] Allopurinol [Zyloprim 100 MG] 100 mg PO DAILY 09/18/16 [History] Aspirin Enteric Coated [Aspirin EC] 81 mg PO DAILY 09/18/16 [History] Atorvastatin [Lipitor] 40 mg PO HS 09/18/16 [History] Carvedilol [Coreg] 25 mg PO BID 09/18/16 [History] Felodipine [Felodipine ER] 5 mg PO DAILY 09/18/16 [History] Furosemide [Lasix] 40 mg PO DAILY PRN 09/18/16 [History] Montelukast [Singulair] 10 mg PO HS PRN 09/18/16 [History] Beclomethasone Dipropionate [QVAR 80 mcg REDIHALER] 1 puff IH BID 12/02/18 [History] Docusate [Colace] 100 mg PO DAILY PRN 12/02/18 [History] Insulin Glargine,Hum.rec.anlog [Basaglar Kwikpen U-100] 10 unit SQ DAILY 12/02/18 [History] Cetirizine HCl [24Hour Allergy] 10 mg PO DAILY 12/03/18 [History] Diltiazem HCl [Diltiazem ER] 180 mg PO DAILY 12/03/18 [History] Liraglutide [Victoza 2-Jerson] 1.2 mg SQ DAILY 12/03/18 [History] Lisinopril [Zestril] 20 mg PO DAILY 12/03/18 [History] Metformin HCl 850 mg PO BID 12/03/18 [History] Allergy/AdvReac Type Severity Reaction Status Date / Time No Known Allergies Allergy Verified 12/03/18 23:20 - Meds/Allergy Pre-op Review Medications Reviewed: Yes Allergies Reviewed: Yes Beta Blockers on Current Med List: Yes (Coreg) If Beta Blockers taken, Date/Time (Last Dose taken): 5-30 @ 1728 Anesthesia Results - Labs 12/04/18 07:11 12/04/18 03:07 - Imaging EKG: report reviewed (ATRIAL FIBRILLATION PATTERN CONSISTENT WITH PULMONARY DISEASE LEFT ANTERIOR FASCICULAR BLOCK) Additional studies: Echo: EF 60% Anesthesia Exam Selected Entries 12/04/18 07:55 Temperature 98.4 F Pulse Rate 76 Respiratory Rate 18 Blood Pressure 93/60 O2 Sat by Pulse Oximetry 95 Oxygen Delivery Method Room Air Weight: 147kg BMI 43 - HEENT Pupil (Motor): EOMI Mallampati: III Teeth: Missing Denture Type: Upper: Partial Oral Opening: Greater than 3 - [employer]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
--- NOTE | 2018-12-04 10:29 | Anesthesia Evaluation Post Op ---
Date of Encounter: 12/04/18 Time of Encounter: 10:28 - Vital Signs Vital Signs: 80/43, HR 76, SpO2 98%, RR 16 - Lungs Lungs: Clear Ascult./Percussion - Airway Airway: Non-obstructed - Cardiovascular Irregular Rate, Baseline Rhythm - Mental Status Mental Status: Alert & Oriented, Answers Appropriately - Pain Pain Scale: 0 Pain Scale used: Numeric (1 - 10) - Nausea Vomiting Nausea Vomiting: Not Present - Hydration Hydration: NPO, Has not voided - Discharge PostOp Status: Transfer Patient to floor
--- NOTE | 2018-12-04 10:31 | Internal Med Progress Note ---
Hospitalist Progress Note - Encounter Date of Encounter: 12/04/18 Time of Encounter: 10:31 - Subjective Interval History: Patient seen and examined this morning at bedside. Overnight events noted. Patient denies any chest pain or difficulty breathing. Denies any fevers chills nausea vomiting or diarrhea. Afebrile overnight. His heart rate did reach to 50s at some point in night and blood pressure was low. Patient had about 500 mL of bolus as he appeared pale and had drop in his hemoglobin. - Exam Vitals: Temp Pulse Resp BP Pulse Ox 98.4 F 82 18 95/54 96 12/04/18 07:55 12/04/18 10:09 12/04/18 10:09 12/04/18 10:09 12/04/18 10:09 Exam: Exam General: In no acute distress. morbid obesity. Slightly pale in appearance Respiratory exam: no accessory muscle use. crackles at base Cardiovascular exam: RRR, +S1, +S2. no murmur, gallop, rubs. GI/Abdominal exam: Non-tender, Non-distended, normal bowel sounds, soft, no peritoneal signs. Extremities exam: 2+ pedal edema, no calf tenderness Neurological exam: CN II-XII intact, AO X3, no focal deficits. Skin exam: mild redness on b/l LE on rodriguez with clear demarcation. Rt leg wound on sole without redness or discharge or pain. Lt foot with mild rednness and warmth. 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 Likely from sepsis however got 180 mg of cardizem 2 doses after drip was stopped. Also Hb drop to 7.4 on heparin drip. - Stop heparin drip. Will consult GI to evaluate for UGI bleed given negative stool occult. Will transfuse if BP remains low. - MRI with osteomyelitis and Blood culture with GPC. Will repeat Blood culture. Will consult podiatry and ID. UA and CXR unremarkable. normal Lactic acid. c/w clindamycin and zosyn for now. May switch to vancomycin if patient is started on dialysis. f/u wound culture. Wound grew enterobacer and staph aureus in jun 2018. - YAEL on CKD. Fid get 1 L bolus and 500 overnight. Signs of fluid overload, hyponatremia and hypokalemia. lasix stopped yesterday. Renal US unremarkable. Will insert bullock. nephrology consulted. may need dialysis. - Keep NPO. will give levemir only 10 units. Monitor q6h. - Time Spent with Patient Total time spent is greater than 50% in coordination of care (as documented) at patient's floor/unit and/or counseling patient: Internal Medicine: Result - Labs CBC & Chem 7: 12/04/18 07:11 12/04/18 03:07 Labs: Short CBC 12/04/18 12/04/18 Range/Units 03:07 07:11 WBC 15.6 H (4.3-11.1) K/mcL Hgb 7.4 L D 7.8 L (12.9-16.9) g/dL Hct 24.3 L 24.9 L (37.5-50.1) % Plt Count 227 (140-400) K/mcL Neutrophils # 12.2 H (1.6-8.9) K/mcL BMP 12/04/18 03:07 Sodium 127 L Potassium 5.2 H Chloride 96 L Carbon Dioxide 20 L BUN 53 H Creatinine 4.38 H Glucose 264 H Calcium 8.3 L - ABG Interpretation ABG results: PT/INR, D-dimer PT 16.5 Seconds (9.4-12.1) H 12/02/18 18:19 - Impressions Impressions Retroperitoneum Ultrasound 12/02/18 22:45 IMPRESSION: 1. Unremarkable ultrasound of the kidneys. No hydronephrosis. 2. The urinary bladder was not filled during the exam, but otherwise appears unremarkable. D/ / Anton Lam MD / Anton Lam MD Interpreting Provider: Anton Lam MD Foot CT 12/03/18 13:29 IMPRESSION: 1. Soft tissue ulcer seen plantar to the right cuboid with surrounding cellulitis. 2. No CT scan evidence of abscess or osteomyelitis involving the right foot at this time. MRI is more sensitive and specific for detection of abscess and osteomyelitis if clinically warranted. 3. Neuropathic disease with partial right midfoot collapse as described above. D/ / Matt Loera MD / Matt Loera MD Interpreting Provider: Matt Loera MD Foot MRI 12/03/18 17:05 IMPRESSION: 1. Ulceration along the plantar foot at the level of the cuboid with very mild marrow signal changes along the plantar most aspect of the cuboid adjacent to the ulceration which are most suggestive of very early changes of osteomyelitis. 2. Findings consistent with neuropathic midfoot. 3. Diffuse subcutaneous edema. Correlate for cellulitis. No organized drainable subcutaneous collection identified. D/ / Luke Barron MD / Luke Barron MD Interpreting Provider: Luke Barron MD Consult Discharge Plan - Plan Referrals: Natalio Amaya MD [Primary Care Provider] - (2) Hypertension Qualifiers: Qualified Code(s): I10 - Essential (primary) hypertension (4) Acute on chronic kidney failure Qualifiers: Qualified Code(s): N17.9 - Acute kidney failure, unspecified; N18.3 - Chronic kidney disease, stage 3 (moderate)
--- NOTE | 2018-12-04 11:39 | Cardiology Progress Note ---
Date of Encounter: 12/04/18 Time of Encounter: 11:37 Assessment and Plan (1) Atrial fibrillation with RVR Current Visit: Yes Status: Acute Documented hx of PAF. Sent to ED by PCP for A-Fib RVR HR 180s. Reports palpitations, weakness, and fatigue. Since yesterday, found to have positive blood cultures for staph. Suspect RVR secondary to infectious cause. He states he was on Eliquis in the past, but unsure why he stopped taking it. TTE 12/02/18: LVEF 60%. Mild cLVH. Indeterminate diastolic function. Normal RV structure and function. Mild MR. No evidence of phtn. Home meds included Cardizem CD 180mg daily and Coreg 25mg BID. Yesterday, increased PO Cardizem CD to 360mg daily and titrated off gtt . 12 hr tele AVG HR 76. Pt became hypotensive overnight--BP 80s-90s systolic. AV albert blockers currently on hold. Still rate controlled. Will monitor closely and add back slowly once BP will tolerate. [id number] 2 (HTN, DM). High CVA risk. Trialed on heparin gtt. HGB dropped to 7.4 this AM. Heparin gtt stopped. GI was consulted, plan for scopes today. Currently not a candidate for AC. Would recommend 81mg ASA daily if okay with GI. Continue to follwo. (2) Acute on chronic kidney failure Current Visit: Yes Status: Acute Creatinine 2.53 yesterday, 4.38 today. Nephrology following. Qualifiers: Acute renal failure type: unspecified Chronic kidney disease stage: stage 3 (moderate) Qualified Code(s): N17.9 - Acute kidney failure, unspecified; N18.3 - Chronic kidney disease, stage 3 (moderate) (3) Elevated troponin Current Visit: Yes Status: Acute Troponin 0.04 x 2 in setting of A-Fib RVR, YAEL on CKD, Bacteremia. Demand ischemia, nondiagnostic for ACS. Denies chest pain. Consider outpt stress test given A-Fib and CAD risk factors. Discussion w patient/family: The assessment and plan as outlined above was discussed with the patient and/or family members who expressed understanding and agreement. All questions were answered. Thank you for involving us in the care of your patient. Please call with any questions. I will discuss all the above with Dr. Maloney and make changes as necessary. Subjective Principal diagnosis: A-Fib RVR Interval history: No acute complaints this AM. HGB dropped to 7.4 this AM. Bacteremic, cultures positive for staph. Hypotensive overnight and now with YAEL--creatinine 4.38. Objective Vital Signs, Last 4 Hours Temp Pulse Resp BP Pulse Ox 12/04/18 11:05 82 16 91/62 98 12/04/18 10:09 82 18 95/54 96 12/04/18 07:55 98.4 F 76 18 93/60 95 12/04/18 07:43 16 97 Vital Signs Temp Pulse Resp BP Pulse Ox 12/04/18 11:05 82 16 91/62 98 12/04/18 10:09 82 18 95/54 96 12/04/18 07:55 98.4 F 76 18 93/60 95 12/04/18 07:43 16 97 12/04/18 04:31 99.0 F 66 16 97/57 96 12/04/18 00:39 98.0 F 67 22 80/54 95 12/03/18 22:27 18 94 12/03/18 20:58 94 12/03/18 20:23 99.2 F 68 20 90/46 94 12/03/18 16:55 65 20 112/72 95 12/03/18 14:20 100.8 F H 12/03/18 12:48 102.7 F H Intake and Output 12/03/18 12/04/18 12/04/18 23:59 07:59 15:59 Intake Total 870 / 1900.0 210 / 332.2 122.2 / 332.2 Balance 870 / 1900.0 210 / 332.2 122.2 / 332.2 Intake: IV Fluids 390 / 700.0 210 / 332.2 122.2 / 332.2 Heparin 25,000 UNIT/250 ML D5W 240 / 500.0 60 / 182.2 122.2 / 182.2 25,000 unit In 250 ml @ 14 UNIT /KG/HR 20.683 mls/hr IVC . Q12H6M [facility] Rx#:[id number] Cleocin Premix 600 MG/50 ML 600 50 / 50 50 / 50 mg In 50 ml @ 50 mls/hr IVPB Q8HR [facility] Rx#:[id number] Zosyn 3.375 GM In 0.9 % Sodium 100 / 100 100 / 100 Chloride (Mini-Bag +) 100 ML @ 25 mls/hr IVPB Q8HR [facility] Rx#: [id number] Oral 480 / 1200 0 / 0 Other: Meal Dinner Percent of Meal Consumed 10% # Voids 0 0 Weight 147.1 kg Blood Glucose* 209 255 Patient Weight 12/04/18 23:59 Weight 147.1 kg General: Conversant, No Apparent Distress HEENT: Atraumatic, Normocephaly, Mucus Membranes Moist Neck: No JVD, Normal carotid pulses Cardiac: Other (irregularly irregular) Lungs: Normal Breath Sounds, No Wheeze, Rales, Rhonchi Neuro: Alert and responsive, No focal deficits noted Abdomen: Soft, Non-Tender Skin: No rashes noted on visualized skin Musculoskeletal: No Chest Wall Tenderness Extremities: Other (BLE edema noted) Results 12/04/18 07:11 12/04/18 03:07 Lab Results 12/04/18 12/04/18 12/04/18 03:07 03:07 07:11 WBC 15.6 H Hgb 7.4 L D 7.8 L Hct 24.3 L 24.9 L Plt Count 227 Sodium 127 L Potassium 5.2 H Chloride 96 L Carbon Dioxide 20 L BUN 53 H Creatinine 4.38 H Glucose 264 H Calcium 8.3 L Short CBC 12/04/18 12/04/18 Range/Units 07:11 03:07 WBC 15.6 H (4.3-11.1) K/mcL Hgb 7.8 L 7.4 L D (12.9-16.9) g/dL Hct 24.9 L 24.3 L (37.5-50.1) % Plt Count 227 (140-400) K/mcL Neutrophils # 12.2 H (1.6-8.9) K/mcL BMP 12/04/18 Range/Units 03:07 Sodium 127 L (136-145) mEq/L Potassium 5.2 H (3.5-5.1) mEq/L Chloride 96 L (98-107) mEq/L Carbon Dioxide 20 L (23-29) mEq/L BUN 53 H (8-23) mg/dL Creatinine 4.38 H (0.70-1.30) mg/dL Glucose 264 H (70-105) mg/dL Calcium 8.3 L (8.6-10.3) mg/dL Impressions Retroperitoneum Ultrasound 12/02/18 22:45 IMPRESSION: 1. Unremarkable ultrasound of the kidneys. No hydronephrosis. 2. The urinary bladder was not filled during the exam, but otherwise appears unremarkable. D/ / Anton Lam MD / Anton Lam MD Interpreting Provider: Anton Lam MD Foot CT 12/03/18 13:29 IMPRESSION: 1. Soft tissue ulcer seen plantar to the right cuboid with surrounding cellulitis. 2. No CT scan evidence of abscess or osteomyelitis involving the right foot at this time. MRI is more sensitive and specific for detection of abscess and osteomyelitis if clinically warranted. 3. Neuropathic disease with partial right midfoot collapse as described above. D/ / Matt Loera MD / Matt Loera MD Interpreting Provider: Matt Loera MD Foot MRI 12/03/18 17:05 IMPRESSION: 1. Ulceration along the plantar foot at the level of the cuboid with very mild marrow signal changes along the plantar most aspect of the cuboid adjacent to the ulceration which are most suggestive of very early changes of osteomyelitis. 2. Findings consistent with neuropathic midfoot. 3. Diffuse subcutaneous edema. Correlate for cellulitis. No organized drainable subcutaneous collection identified. D/ / Luke Barron MD / Luke Barron MD Interpreting Provider: Luke Barron MD Active Medications Acetaminophen (Tylenol) 650 mg PO Q6HR PRN PRN Reason: Mild Pain/Fever Stop: 06/03/19 21:29 Last Admin: 12/03/18 12:46 Dose: 650 mg Documented by: Albuterol Sulfate (Albuterol Inhaler) 2 puff IH Q4H PRN PRN Reason: Shortness Of Breath Stop: 06/03/19 21:38 Allopurinol (Zyloprim) 100 mg PO DAILY [facility] Stop: 06/04/19 09:01 Last Admin: 12/04/18 08:54 Dose: 100 mg Documented by: Aspirin (Aspirin Ec) 81 mg PO DAILY [facility] Stop: 06/04/19 09:01 Last Admin: 12/04/18 08:52 Dose: Not Given Documented by: Atorvastatin Calcium (Lipitor) 40 mg PO HS [facility] Stop: 06/04/19 21:01 Last Admin: 12/03/18 21:57 Dose: 40 mg Documented by: Carvedilol (Coreg) 25 mg PO BIDWM [facility]; Protocol Stop: 06/04/19 08:01 Last Admin: 12/04/18 08:51 Dose: Not Given Documented by: Dextrose/Water (Dextrose 50% (Syg)) 25 ml IVP AD PRN PRN Reason: Hypoglycemia Stop: 06/03/19 21:29 Diltiazem HCl (Cardizem Cd) 360 mg PO DAILY [facility] Stop: 06/05/19 09:01 Last Admin: 12/04/18 08:52 Dose: Not Given Documented by: Docusate Sodium (Colace) 100 mg PO DAILY [facility]; Protocol Stop: 06/04/19 09:01 Last Admin: 12/04/18 08:35 Dose: Not Given Documented by: Glucagon (Glucagen) 1 mg IM ONCE PRN PRN Reason: Hypoglycemia Stop: 06/03/19 21:29 Glucose (Gluctose) 15 gm PO ONCE PRN PRN Reason: Hypoglycemia Stop: 06/03/19 21:29 Glucose (Gluctose) 30 gm PO ONCE PRN PRN Reason: Hypoglycemia Stop: 06/03/19 21:29 Dextrose (Dextrose 5%) 1,000 mls @ 100 mls/hr IVC .Q10H PRN PRN Reason: HYPOGLYCEMIA Stop: 06/03/19 21:29 Clindamycin Phosphate/Dextrose (Cleocin Premix 600 Mg/50 Ml) 600 mg in 50 mls @ 50 mls/hr IVPB Q8HR [facility] Stop: 06/04/19 16:01 Last Admin: 12/04/18 08:54 Dose: 50 mls/hr Documented by: Piperacillin Sod/Tazobactam (Sod 3.375 gm/ Sodium Chloride) 100 mls @ 25 mls/hr IVPB Q12H [facility] Stop: 06/05/19 21:01 Insulin Detemir (Levemir) 10 unit SQ DAILY [facility] Stop: 06/04/19 09:01 Last Admin: 12/03/18 08:32 Dose: 10 unit Documented by: Insulin Human Lispro (Humalog) 0 units SQ HS [facility]; Protocol Stop: 06/03/19 21:46 Last Admin: 12/03/18 21:57 Dose: 2 units Documented by: Insulin Human Lispro (Humalog) 0 units SQ TIDAC [facility]; Protocol Stop: 06/04/19 07:31 Last Admin: 12/04/18 08:54 Dose: Not Given Documented by: Mometasone Furoate (Asmanex Hfa) 1 puff IH BIDR [facility] Stop: 06/04/19 10:01 Last Admin: 12/04/18 07:43 Dose: 1 puff Documented by: Montelukast Sodium (Singulair) 10 mg PO HS [facility] Stop: 06/04/19 21:01 Last Admin: 12/03/18 21:57 Dose: 10 mg Documented by: Naloxone HCl (Narcan) 0.4 mg IVP Q2MPRN PRN PRN Reason: SEE COMMENTS Stop: 06/03/19 21:29 Tramadol HCl (Ultram) 50 mg PO Q6HR PRN PRN Reason: Moderate Pain Stop: 06/03/19 21:29 - Imaging and Cardiology Echo: report reviewed - EKG Interpretation EKG results cardiology: other (12 hr tele AVG HR 67, A-Fib) Consult Discharge Plan - Plan Referrals: Natalio Amaya MD [Primary Care Provider] -
[2018-12-04 11:44] LABS: C-Reactive Protein > 300 mg/L (Less than 10)
[2018-12-04] MEDS ORDERED: 0.9 % Sodium Chloride 250 ML IVC PRN (11:46)
[2018-12-04] MEDS ORDERED: Albumin 25% 25gram/100mL 25 GM/100 ML IV.SOLN IVPB PRN (11:46)
[2018-12-04] MEDS ORDERED: 0.9 % Sodium Chloride 1,000 ML PRIME SCH (12:00)
--- NOTE | 2018-12-04 12:09 | Gastroenterology Consult Note ---
<Monae Muñoz - Last Filed: 12/04/18 12:04> Date of Encounter: 12/04/18 Time of Encounter: 10:00 - Assessment and plan (1) Anemia Current Visit: Yes Status: Acute Assessment and plan: Will proceed with EGd today, will need colonoscopy once SIRS resolves, can be done as an outpatient if no active bleeding. Monitor H&H, transfuse as needed. Qualifiers: Anemia type: unspecified type Qualified Code(s): D64.9 - Anemia, unspecified (2) Atrial fibrillation with RVR Current Visit: Yes Status: Acute Assessment and plan: HR currently controlled. Heparin on hold for anemia. (3) SIRS (systemic inflammatory response syndrome) Current Visit: No Status: Acute Assessment and plan: Cultures are pending, influenza swab negative. Pt has been started on antibiotics and iVF. - Time Spent With Patient Total time spent is greater than 50% in coordination of care (as documented) at patient's floor/unit and/or counseling patient: GI History of Present Illness - Data of Consult Patient: new to practice Consult date: 12/04/18 Requesting Physician: Daniel Jay MD - Consult Narrative Reason for consult: anemia History of present illness: Mr. Osborne is a 63 year old male who presents with complaints of racing heartbeat, palpitations, weakness, and fatigue. He was seeing his PCP today who noted heart rate up to 180s. He was referred to the ER. In the ER, patient was treated for atrial fibrillation with rapid ventricular response and continues to be mildly tachycardic. He has history of paroxysmal atrial fibrillation, but he does not take any chronic anticoagulation. He denies any chest pain, shortness of breath, diaphoresis, syncope, or near-syncope. He feels weak and tired. He does have mild palpitations. He denies any prior history of heart disease other than the paroxysmal atrial fibrillation. He had been on Eliquis in the past but he's been off this medication for quite some time. He denies any prior DVT or PE. Pt denies any diarrhea, melena or hematochezia. He reports nausea and vomiting for the past few days every time he tried to eat anything. His son states he had nausea and vomiting last week, felt better for a couple days then started vomiting again. His is currently in ICU with influenza and pneumonia per the son's reports. Pt was started on heparin and his Hgb dropped from 9.2 yesterday to 7.4 this morning. procedures: denies nsaids: none anticoagulants: denies Past Med Surg Social Fam HX - Past Medical History Medical history: arthritis, asthma, atrial fibrillation, coronary artery disease, diabetes, hyperlipidemia, hypertension, myocardial infarction, osteoporosis, renal disease, other Psychiatric history: no psych history - Past Surgical History Surgical History: no surgical history, other (local wound care to feet for old foot ulcers) - Social History Smoking Status: Never smoker Smokeless Tobacco Status: Yes Alcohol use: none Drug use: none - Family History Mother Living Status: Hx Family Cardiac Disorders: Yes Hx Family Endocrine Disorder: Yes Brother Hx Family Cardiac Disorders: Yes Review of Systems: GI: as per [place] [facility]: fever and chills EYES: denies yellow discoloration ENT: denies pain with swallowing or difficulty swallowing CARDIO: see HPI RESP: Shortness of breath with exertion : denies change in color of urine NEURO: weakness HEME: Denies any bruising MS: denies joint pain, joint swelling or back pain. DERM: denies rash or itching PSYCH: Denies history of anxiety or depression - Constitutional Vitals: Temp Pulse Resp BP Pulse Ox 98.4 F 82 16 91/62 98 12/04/18 07:55 12/04/18 11:05 12/04/18 11:05 12/04/18 11:05 12/04/18 11:05 Exam: CONSTITUTIONAL:alert, no acute distress.HEAD:normocephalic.EYES:no jaundice.NECK:no obvious swelling.HEART:irregular rate and rhythm, no murmurs.LUNGS:bilateral poor air entry.ABDOMEN:non distended, soft, non tender, no masses palpable, no organomegaly.RECTAL EXAM:Deferred.EXTR EMITIES:no clubbing, cyanosis, 2+ BLE edema and redness noted to bilateral lower legs consistent with pts reports of sunburnSKIN:no stigmata of chronic liver disease.NEUROLOGIC:no obvious focal defect. Results - Labs CBC & Chem 7: 12/04/18 07:11 12/04/18 03:07 Labs: Last Result 12/04/18 12/04/18 03:07 07:02 Calcium 8.3 L C-Reactive Protein > 300 H Stool Occult Blood Negative Entire Visit 12/03/18 12/04/18 12/04/18 11:24 03:07 07:11 Hgb 7.4 L D 7.8 L Hct 24.3 L 24.9 L E. coli (PCR) Not Detected - ABG ABG results: PT/INR, D-dimer PT 16.5 Seconds (9.4-12.1) H 12/02/18 18:19 - Impressions Impressions Retroperitoneum Ultrasound 12/02/18 22:45 IMPRESSION: 1. Unremarkable ultrasound of the kidneys. No hydronephrosis. 2. The urinary bladder was not filled during the exam, but otherwise appears unremarkable. D/ / Anton Lam MD / Anton Lam MD Interpreting Provider: Anton Lam MD Foot CT 12/03/18 13:29 IMPRESSION: 1. Soft tissue ulcer seen plantar to the right cuboid with surrounding cellulitis. 2. No CT scan evidence of abscess or osteomyelitis involving the right foot at this time. MRI is more sensitive and specific for detection of abscess and osteomyelitis if clinically warranted. 3. Neuropathic disease with partial right midfoot collapse as described above. D/ / Matt Loera MD / Matt Loera MD Interpreting Provider: Matt Loera MD Foot MRI 12/03/18 17:05 IMPRESSION: 1. Ulceration along the plantar foot at the level of the cuboid with very mild marrow signal changes along the plantar most aspect of the cuboid adjacent to the ulceration which are most suggestive of very early changes of osteomyelitis. 2. Findings consistent with neuropathic midfoot. 3. Diffuse subcutaneous edema. Correlate for cellulitis. No organized drainable subcutaneous collection identified. D/ / Luke Barron MD / Luke Barron MD Interpreting Provider: Luke Barron MD Consult Discharge Plan - Plan Referrals: Natalio Amaya MD [Primary Care Provider] - <Ananth Adkins - Last Filed: 12/04/18 14:12> Date of Encounter: 12/04/18 - Time Spent With Patient Total time spent is greater than 50% in coordination of care (as documented) at patient's floor/unit and/or counseling patient: GI History of Present Illness - Data of Consult Requesting Physician: Daniel Jay MD - Consult Narrative History of present illness: Mr. Osborne is a 63 year old male - Constitutional Vitals: Temp Pulse Resp BP Pulse Ox 98.2 F 87 16 95/66 96 12/04/18 12:00 12/04/18 12:00 12/04/18 12:00 12/04/18 12:00 12/04/18 12:00 Results - Labs CBC & Chem 7: 12/04/18 07:11 12/04/18 03:07 Labs: Last Result 12/04/18 12/04/18 12/04/18 03:07 07:02 07:11 ESR >= 130 H Calcium 8.3 L C-Reactive Protein > 300 H Stool Occult Blood Negative Entire Visit 12/04/18 12/04/18 03:07 07:11 Hgb 7.4 L D 7.8 L Hct 24.3 L 24.9 L - ABG ABG results: PT/INR, D-dimer PT 16.5 Seconds (9.4-12.1) H 12/02/18 18:19 - Impressions Impressions Retroperitoneum Ultrasound 12/02/18 22:45 IMPRESSION: 1. Unremarkable ultrasound of the kidneys. No hydronephrosis. 2. The urinary bladder was not filled during the exam, but otherwise appears unremarkable. D/ / Anton Lam MD / Anton Lam MD Interpreting Provider: Anton Lam MD Foot CT 12/03/18 13:29 IMPRESSION: 1. Soft tissue ulcer seen plantar to the right cuboid with surrounding cellulitis. 2. No CT scan evidence of abscess or osteomyelitis involving the right foot at this time. MRI is more sensitive and specific for detection of abscess and osteomyelitis if clinically warranted. 3. Neuropathic disease with partial right midfoot collapse as described above. D/ / Matt Loera MD / Matt Loera MD Interpreting Provider: Matt Loera MD Foot MRI 12/03/18 17:05 IMPRESSION: 1. Ulceration along the plantar foot at the level of the cuboid with very mild marrow signal changes along the plantar most aspect of the cuboid adjacent to the ulceration which are most suggestive of very early changes of osteomyelitis. 2. Findings consistent with neuropathic midfoot. 3. Diffuse subcutaneous edema. Correlate for cellulitis. No organized drainable subcutaneous collection identified. D/ / Luke Barron MD / Luke Barron MD Interpreting Provider: Luke Barron MD - Attending Attestation I have personally performed a face to face evaluation on this patient. I have reviewed and agree with the care plan. History and Exam by me shows: Patient seen denies any blood in the stool on examination: Abdomen is benign. Assessment: Patient with multiple medical problem now with hypertension and drop in hemoglobin with concern for a GI bleed. Recommendation: EGD today
--- NOTE | 2018-12-04 12:23 | Podiatry Consult Note ---
Date of Encounter: 12/04/18 Time of Encounter: 11:00 Assessment and Plan (1) Chronic midfoot ulcer with fat layer exposed Current visit: Yes Status: Acute Snow stage II chronic diabetic foot ulceration of the right midfoot PLAN: Assessed at bedside Wound appears benign in appearance with minimal surrounding edema, erythema or warmth however due to clinical signs of sepsis with a WBC 15.6 and temp 99.0 as well as hypotension and tachycardia and the fact that we are unable to locate any other sources of infection we will perform debridement and biopsy of the right foot wound. Last wound cultures were obtained 07/06/19 and isolated Enterobacter aerogenes and SA and was treated with bactrim. MRI indicates possible early osteomyelitis of the right cuboid bone We will plan for formal I&D this evening at 5pm with with debridement of devitalized tissue and bone biopsy. DIscussed with patient and consent obtained. Wound flushed with saline Painted with betadine Dry 4x4 and kerlix bulk dressing applied Change if saturated Also discussed surgical plan with and regarding surgical procedure- patient is scheduled for line placement and initiation of HD this afternoon- there is need to take patient for debridement this afternoon which will conflict with HD which is scheduled. Johan ok to hold dialysis until AM and continue with I&D this afternoon. MAC will be used. Reports patient is stable and able to have surgery prior to dialysis. Discussed plan with SMITH Taylor who is nurse of patient. States patient will also receive blood this afternoon prior to surgery. Recommend ID consult Foot CT 12/03/18 13:29 IMPRESSION: 1. Soft tissue ulcer seen plantar to the right cuboid with surrounding cellulitis. 2. No CT scan evidence of abscess or osteomyelitis involving the right foot at this time. MRI is more sensitive and specific for detection of abscess and osteomyelitis if clinically warranted. 3. Neuropathic disease with partial right midfoot collapse as described above. D/ / Matt Loera MD / Matt Loera MD Interpreting Provider: Matt Loera MD Foot MRI 12/03/18 17:05 IMPRESSION: 1. Ulceration along the plantar foot at the level of the cuboid with very mild marrow signal changes along the plantar most aspect of the cuboid adjacent to the ulceration which are most suggestive of very early changes of osteomyelitis. 2. Findings consistent with neuropathic midfoot. 3. Diffuse subcutaneous edema. Correlate for cellulitis. No organized drainable subcutaneous collection identified. D/ / Luke Barron MD / Luke Barron MD Interpreting Provider: Luke Barron MD (2) Cellulitis Current visit: Yes Status: Acute Noted edema, erythema and warmth of the dorsal aspect of the left foot concerning for cellulitis Inspected entire foot and LLE, unable to locate any ulcerations, abrasions or open area Will obtain xray imagining at this time to further examine Qualifiers: Site of cellulitis: extremity Site of cellulitis of extremity: lower extremity Laterality: left Qualified Code(s): L03.116 - Cellulitis of left lower limb (3) Type 2 diabetes mellitus Current visit: No Status: Chronic Tight glucose control to promote healing and prevent further complications 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 Osborne is a 63 year old male with PMH of diabetes mellitus with neuropathy, CKD stage III, arthritis, asthma, atrial fibrillation, coronary artery disease, hyperlipidemia, hypertension, myocardial infarction, osteoporosis. Patient was brought to [place] ED with complaints of racing heartbeat, palpitations, weakness, and fatigue. Patient was admitted for evaluation. Patient stated that he started to feel ill early last week having 2 days of vomiting but then states he felt better and figured he had a virus. patient states he continued to feel worse every day and decided to come to the ED. Podiatry has been consulted regarding a left foot ulceration with concerns of osteomyelitis and sepsis resulting from wound. This is a chronic non healing ulceration which has been ongoing since 06/23. On initial presentation wound isolated enterobacter aerogenes and SA and was treated with bactrim. Patient was last seen in clinic on 11/27 and wound was benign in appearance and without clinical signs of infection. Patient denies any pain at this time. patient was admitted and started on IV anitbiotics. Stable at this time. Past Med Surg Social Fam HX - Past Medical History Medical history: arthritis, asthma, atrial fibrillation, coronary artery disease, diabetes, hyperlipidemia, hypertension, myocardial infarction, osteoporosis, renal disease, other Psychiatric history: no psych history - Past Surgical History Surgical History: no surgical history, other (local wound care to feet for old foot ulcers) - Social History Smoking Status: Never smoker Smokeless Tobacco Status: Yes Alcohol use: none Drug use: none - Family History Mother Living Status: Hx Family Cardiac Disorders: Yes Hx Family Endocrine Disorder: Yes Brother Hx Family Cardiac Disorders: Yes Medications and Allergies Albuterol Sulfate [Ventolin Hfa] 2 puff IH Q4H PRN 09/18/16 [History] Allopurinol [Zyloprim 100 MG] 100 mg PO DAILY 09/18/16 [History] Aspirin Enteric Coated [Aspirin EC] 81 mg PO DAILY 09/18/16 [History] Atorvastatin [Lipitor] 40 mg PO HS 09/18/16 [History] Carvedilol [Coreg] 25 mg PO BID 09/18/16 [History] Felodipine [Felodipine ER] 5 mg PO DAILY 09/18/16 [History] Furosemide [Lasix] 40 mg PO DAILY PRN 09/18/16 [History] Montelukast [Singulair] 10 mg PO HS PRN 09/18/16 [History] Beclomethasone Dipropionate [QVAR 80 mcg REDIHALER] 1 puff IH BID 12/02/18 [History] Docusate [Colace] 100 mg PO DAILY PRN 12/02/18 [History] Insulin Glargine,Hum.rec.anlog [Basaglar Kwikpen U-100] 10 unit SQ DAILY 12/02/18 [History] Cetirizine HCl [24Hour Allergy] 10 mg PO DAILY 12/03/18 [History] Diltiazem HCl [Diltiazem ER] 180 mg PO DAILY 12/03/18 [History] Liraglutide [Victoza 2-Jerson] 1.2 mg SQ DAILY 12/03/18 [History] Lisinopril [Zestril] 20 mg PO DAILY 12/03/18 [History] Metformin HCl 850 mg PO BID 12/03/18 [History] Allergy/AdvReac Type Severity Reaction Status Date / Time No Known Allergies Allergy Verified 12/03/18 23:20 All Systems Reviewed: The remainder of the systems were reviewed and are negative Physical Exam - Constitutional Vitals: Temp Pulse Resp BP Pulse Ox 98.2 F 87 16 95/66 96 12/04/18 12:00 12/04/18 12:00 12/04/18 12:00 12/04/18 12:00 12/04/18 12:00 Exam: Wound Exam: right plantar midfoot 0.8 cm L x 0.8 cm W x 0.4 cm with a new onset of bullous lesion to the lateral aspect connecting to the wound. 0.4cmx0.2cm L esion has ruptured and no drainage noted within. No probe to bone. No noted tunneling or sinus tracts Debridement: Vascular Pedal Pulses are palpable DP & PT, Skin warm from toes to tibia, There is no pallor on elevation., No rubor on dependency., CFT to all digits,immediate, Patient has edema, 1/4 bilaterally patient wears compression hose to control his edema successfully.. Neurologic: Patient has absent epicritic sensation with SWMF 5.07., There is evidence of loss of protective sensation., The patient does complain of dysethesias and parethesias.. Musculoskeletal: Charcot arthropathy Eichholz class III midfoot right side only. Otherwise he is now adequate range of motion of the ankle subtalar joints bilaterally as well as metatarsal phalangeal joints but restricted by the amount of arthritic process that is present due to age and diabetes. Patient exhibits a grade 4 adult acquired flatfoot deformity secondary to midfoot collapse from the Charcot arthropathy.. Integument: Ulceration plantar right midfoot the cuboid measures 0.8 x 0.8 x 0.4 cm deep no undermining sinus tract or tunneling is cellulitis no lymphangitis odor purulence necrosis or fluctuance. There is a moderate amount of surrounding maceration of wound directly related to moisture held by alleevyn dressing. We appreciate 90% granulation tissue 10% fibrin tissue to wound base Results - Labs Result Diagrams: 12/04/18 07:11 12/04/18 03:07 Labs: Abnormal lab results WBC 15.6 K/mcL (4.3-11.1) H 12/04/18 03:07 RBC 2.89 M/mcL (4.19-5.50) L 12/04/18 03:07 Hgb 7.8 g/dL (12.9-16.9) L 12/04/18 07:11 Hct 24.9 % (37.5-50.1) L 12/04/18 07:11 MCV 82.9 fL (83.0-100.0) L 12/02/18 18:19 MCH 25.6 pg (28.0-33.3) L 12/04/18 03:07 MCHC 30.5 g/dL (31.6-35.5) L 12/04/18 03:07 RDW 14.7 % (11.5-14.5) H 12/04/18 03:07 12.2 K/mcL (1.6-8.9) H 12/04/18 03:07 1.7 K/mcL (0.0-1.3) H 12/04/18 03:07 Nucleated RBCs/100 WBC 0.1 /100 WBC (0) H 12/04/18 03:07 PT 16.5 Seconds (9.4-12.1) H 12/02/18 18:19 Heparin Anti-Xa, Unfract 0.01 IU/mL (0.30-0.70) L 12/02/18 18:19 Sodium 127 mEq/L (136-145) L 12/04/18 03:07 Potassium 5.2 mEq/L (3.5-5.1) H 12/04/18 03:07 Chloride 96 mEq/L (98-107) L 12/04/18 03:07 Carbon Dioxide 20 mEq/L (23-29) L 12/04/18 03:07 BUN 53 mg/dL (8-23) H 12/04/18 03:07 4.38 mg/dL (0.70-1.30) H 12/04/18 03:07 Est GFR ( Amer) 17 (> 60) L 12/04/18 03:07 Est GFR (Non-Af Amer) 14 (> 60) L 12/04/18 03:07 Glucose 264 mg/dL (70-105) H 12/04/18 03:07 POC Glucose 255 mg/dL (70-99) H 12/04/18 08:00 Calcium 8.3 mg/dL (8.6-10.3) L 12/04/18 03:07 Magnesium 1.2 mg/dL (1.6-2.6) L 12/03/18 04:39 1.1 mg/dL (0.3-1.0) H 12/03/18 04:39 0.5 mg/dL (0.0-0.2) H 12/02/18 18:19 0.04 ng/mL (< 0.04) H* 12/03/18 07:53 > 300 mg/L (Less than 10) H 12/04/18 03:07 3.2 g/dL (3.5-5.7) L 12/03/18 04:39 1.0 (1.1-2.2) L 12/03/18 04:39 25 mg/dL (40-59) L 12/03/18 04:39 3.61 ng/mL (0.00-0.15) H 12/03/18 09:02 Cloudy (Clear) A 12/02/18 19:42 >=300 mg/dL (Neg-Trace) H 12/02/18 19:42 Trace mg/dL (Negative) H 12/02/18 19:42 3-5 per hpf (0-3) H 12/02/18 19:42 Ur Squamous Epith Cells Many per lpf (None-Few) H 12/02/18 19:42 Staphylococcus sp PCR DETECTED (Not Detect) A 12/03/18 11:24 Staph aureus (PCR) DETECTED (Not Detect) A 12/03/18 11:24 Crossmatch See Detail 12/04/18 07:11 H & H 12/04/18 12/04/18 Range/Units 03:07 07:11 Hgb 7.4 L D 7.8 L (12.9-16.9) g/dL Hct 24.3 L 24.9 L (37.5-50.1) % All other labs normal. Consult Discharge Plan - Plan Referrals: Natalio Amaya MD [Primary Care Provider] -
[2018-12-04] MEDS ORDERED: 0.9 % Sodium Chloride 250 ML ONE (12:54)
[2018-12-04] MEDS: Insulin DETEMIR 100 UNIT/ML X5UNITS SQ SCH (12:56)
[2018-12-04] MEDS ORDERED: Heparin 1,000 UNITS/500 mL 500 ML ONE (13:33)
--- NOTE | 2018-12-04 13:35 | Nephrology Progress Note ---
Date of Encounter: 12/04/18 Time of Encounter: 08:40 - Assessment and Plan (1) Acute on chronic kidney failure Current Visit: Yes Status: Acute YAEL on CKD stage III in the setting of diuretic use, sepsism and antibiotics. Has not been able to produce urine since yesterday morning. Retroperitoneal u/s shows no evidence of obstruction or hydronephrosis. Baseline GFR of 40 with a GFR of 26 on presentation. Baseline creatinine of 1.76 with a creatinine of 2.49 on presentation. Current creatinine has significantly increased from 2.53 up to 4.38. His GFR has decreased from 26 down to 14. Patient had hypotensive event overnight and in the AM. SBP had dropped to 80's. Was given 500 ml bolus and responded well with SBP in 90's. No hyperkalemia and mild acidosis, however given his rapid rise in creatinine and fluid overload status, we will proceed with a temp dialysis treatment. - Will be starting temp dialysis. - Continue to hold diuretics. - Avoid nephrotoxins. - Diabetic and renal diet. - Strict I's and O's. - Daily weight measurements. Qualifiers: Acute renal failure type: unspecified Chronic kidney disease stage: stage 3 (moderate) Qualified Code(s): N17.9 - Acute kidney failure, unspecified; N18.3 - Chronic kidney disease, stage 3 (moderate) (2) CKD (chronic kidney disease), stage III Current Visit: No Status: Chronic (3) Atrial fibrillation with RVR Current Visit: Yes Status: Acute Coreg and diltiazem on hold due to hypotension. - Management per primary team. (4) Diabetes mellitus Current Visit: No Status: Acute On levemir and SS. - Management per primary. Qualifiers: Diabetes mellitus type: type 2 Diabetes mellitus senior care insulin use: with senior care use Chronic kidney disease stage: stage 3 (moderate) Qualified Code(s): E11.22 - Type 2 diabetes mellitus with diabetic chronic kidney disease; N18.3 - Chronic kidney disease, stage 3 (moderate); Z79.4 - nursing home (current) use of insulin (5) Wound of right lower extremity Current Visit: Yes Status: Acute MRI with osteomyelitis and Blood culture with GPC. Repeat Blood culture pending. Consult podiatry and ID. UA and CXR unremarkable. normal Lactic acid. On clindamycin and zosyn for now. Wound grew enterobacer and staph aureus in jun 2018. - Management per primary. Qualifiers: Encounter type: initial encounter Qualified Code(s): S81.801A - Unspecified open wound, right lower leg, initial encounter (6) Hyponatremia Current Visit: Yes Status: Acute Na of 127 (yesterday at 132). Due to volume overload from bolus NS, 1 U RBC, and edema. - Patient to be undergoing dialysis. - Continue to monitor. (7) Anemia Current Visit: Yes Status: Acute Hgb dropped from 8.9 down to 7.8. Was given 1 U RBC. GI was consulted. Hemeoccult was negative. EGD was negative for bleed. Qualifiers: Anemia type: unspecified type Qualified Code(s): D64.9 - Anemia, unspecified (8) Hypotension Current Visit: Yes Status: Acute Qualifiers: Hypotension type: unspecified hypotension type Qualified Code(s): I95.9 - Hypotension, unspecified Subjective Principal diagnosis: A-Fib RVR Interval history: When seen this morning, patient denied any chest pain or SOB. He denied any nausea or vomiting. Denied abdominal pain. Denied fever. He admits to that he as not urinated since yesterday morning. Admits to decreased appetite. Objective - Vital Signs Vital signs: Vital Signs Temp Pulse Resp BP Pulse Ox 12/04/18 12:00 98.2 F 87 16 95/66 96 12/04/18 11:05 82 16 91/62 98 12/04/18 10:09 82 18 95/54 96 12/04/18 07:55 98.4 F 76 18 93/60 95 12/04/18 07:43 16 97 12/04/18 04:31 99.0 F 66 16 97/57 96 12/04/18 00:39 98.0 F 67 22 80/54 95 12/03/18 22:27 18 94 12/03/18 20:58 94 12/03/18 20:23 99.2 F 68 20 90/46 94 12/03/18 16:55 65 20 112/72 95 12/03/18 14:20 100.8 F H Intake and Output 12/03/18 12/04/18 12/04/18 23:59 07:59 15:59 Intake Total 870 / 1900.0 210 / 332.2 122.2 / 332.2 Balance 870 / 1900.0 210 / 332.2 122.2 / 332.2 Intake: IV Fluids 390 / 700.0 210 / 332.2 122.2 / 332.2 Heparin 25,000 UNIT/250 ML D5W 240 / 500.0 60 / 182.2 122.2 / 182.2 25,000 unit In 250 ml @ 14 UNIT /KG/HR 20.683 mls/hr IVC . Q12H6M ISAMAR Rx#:[id number] Cleocin Premix 600 MG/50 ML 600 50 / 50 50 / 50 mg In 50 ml @ 50 mls/hr IVPB Q8HR ISAMAR Rx#:[id number] Zosyn 3.375 GM In 0.9 % Sodium 100 / 100 100 / 100 Chloride (Mini-Bag +) 100 ML @ 25 mls/hr IVPB Q8HR ISAMAR Rx#: [id number] Oral 480 / 1200 0 / 0 Other: Meal Dinner Percent of Meal Consumed 10% # Voids 0 0 Weight 147.1 kg Blood Glucose* 209 255 263 Patient Weight 12/04/18 23:59 Weight 147.1 kg - General Appearance General appearance: Present: appears started age, obese Neck: Present: no JVD Respiratory: Present: clear Cardiology: Present: no murmurs, no rub, no gallops, edema (+2 pedal edema b/l. Pulses intact and symmetrical. ), regular rate, regular rhythm, normal S1, normal S2 Gastrointestinal: Present: normoactive bowel sounds, no tenderness, no guarding, no masses Integumentary: Present: warm and dry, erythema (Located over lower tibial region b/l. No tenderness to palpation. ) Additional Comments: Skin lesion 0.5 cm sized on RLE tibial region. No signs of active bleeding, pus, or drainage. Neurologic: Present: no focal deficit, alert and oriented x3, strength 5/5 Musculoskeletal: Present: no deformities, no cyanosis, no clubbing Psychiatric: Present: mood/affect appropriate, cooperative - Lab 12/04/18 07:11 12/04/18 03:07 Most recent lab results 12/04/18 03:07 Calcium 8.3 L Consult Discharge Plan - Plan Referrals: Natalio Amaya MD [Primary Care Provider] -
[2018-12-04 14:20] LABS: Hepatitis B Surface Antibody < 3.10 mIU/mL
[2018-12-04 14:31] LABS: Hepatitis B Surface Antigen Nonreactive (Nonreactive)
[2018-12-04] MEDS ORDERED: *HR* Heparin 5,000 UNIT/ML VIAL ONE (15:08)
--- NOTE | 2018-12-04 16:26 | Infectious Disease Consult ---
Infectious Disease-Consult - Encounter Date/Time Date of Encounter: 12/04/18 Time of Encounter: 16:10 - Data of Consult Patient: new to practice Reason for consult: "osteomyelitis, GPC bacteremia" Consult date: 12/04/18 Requesting Physician: Daniel Jay MD Primary Care Provider: Natalio Amaya MD - [facility] HPI: Patient is a 63-year-old gentleman who presented to [place] on 12/02/2018 for palpitations weakness and fatigue. We are consulted on 12/04/2018 for bacteremia with gram-positive cocci, osteomyelitis and antibiotic recommendations. Patient is 61-year-old gentleman with past medical history mentioned below including diabetes mellitus type 2 insulin-dependent for about 20 years. He is currently on 60 units of Lantus. Patient tells me that his A1c is above 6.5. Patient also has history of coronary artery disease but normal in the past, atrial fibrillation, hyperlipidemia hypertension and chronic kidney disease presented to the emergency department with fast heart rate and palpitations fatigue and weakness. On further questioning patient tells me that about a week ago he had fevers and chills that lasted a couple days and then it resolved. Patient denies any URI symptoms no headache no sinus pressure no sore throat. Patient denies any cough or sputum production. No nausea no vomiting no diarrhea no constipation no urinary symptoms. Patient denies any joint effusion or rash. On further questioning patient denies having any hardware in his body. Since admission, patient's MAXIMUM TEMPERATURE 102.7 Fahrenheit, patient has been tachycardic with a heart rate as high as 143, no tachypnea. Presenting labs revealed a WBC of 14.1 with neutrophilic predominance no bands. Initial BUN/creatinine was 37/2.49 and has creeped up to 53/4.38 today. ESR/CRP <130/300. A urinalysis was done and came back negative. Left cultures 2 out of 2 sets positive for gram-positive cocci and PCR picked up staph species staph aureus with negative MecA gene. Patient had an MRI of the right foot which reveals an ulceration along the plantar foot at the level of the cuboid with very mild marrow signal changes along the plantar aspect of the cuboid adjacent to the ulceration suggestive of very early changes of osteomyelitis. Patient was evaluated by podiatry and apparently is going for I&D later today. Patient has been on clindamycin and Zosyn. Currently patient laying in bed. Just came back from interventional radiology. Dialysis catheter placed in the right neck. She is about to start getting hemodialysis. - ROS Review of Systems: 10 point review of systems done, negative other for what is mentioned in history of present illness - Results CBC & Chem 7: 12/04/18 07:11 12/04/18 03:07 - Exam Vitals: Temp Pulse Resp BP Pulse Ox 98.2 F 87 16 95/66 96 12/04/18 12:00 12/04/18 12:00 12/04/18 12:00 12/04/18 12:00 12/04/18 12:00 Exam: GENERAL: Laying in bed, appears comfortable. HEAD: Normocephalic atraumatic EYES: PERRLA, EOMI, no conjunctival hemorrhage, sclera anicteric ENT: Mucous membranes moist, no oral thrush. Poor dentition NECK: Supple. No meningeal signs. No masses. Dialysis catheter right neck LUNGS: Chest expanding symmetrically. Lungs sounds audible both lung padilla. No wheezing, no rhonchi CV: RRR, S1S2, ABDOMEN: Soft, nontender, nondistended. Bowel sounds audible BACK: No CVA tenderness. Normal inspection. No tenderness over the spine EXTREMITY: ild redness on b/l LE on rodriguez with clear demarcation. Rt leg wound on sole without redness or discharge or pain. Lt foot with mild rednness and warmth. SKIN: Normal color. No rash. No endocarditis stigmata NEURO: Awake alert oriented 3. No obvious focal deficit PSYCH: Calm and appropriate. No agitation. Albuterol Sulfate [Ventolin Hfa] 2 puff IH Q4H PRN 09/18/16 [History] Allopurinol [Zyloprim 100 MG] 100 mg PO DAILY 09/18/16 [History] Aspirin Enteric Coated [Aspirin EC] 81 mg PO DAILY 09/18/16 [History] Atorvastatin [Lipitor] 40 mg PO HS 09/18/16 [History] Carvedilol [Coreg] 25 mg PO BID 09/18/16 [History] Felodipine [Felodipine ER] 5 mg PO DAILY 09/18/16 [History] Furosemide [Lasix] 40 mg PO DAILY PRN 09/18/16 [History] Montelukast [Singulair] 10 mg PO HS PRN 09/18/16 [History] Beclomethasone Dipropionate [QVAR 80 mcg REDIHALER] 1 puff IH BID 12/02/18 [History] Docusate [Colace] 100 mg PO DAILY PRN 12/02/18 [History] Insulin Glargine,Hum.rec.anlog [Basaglar Kwikpen U-100] 10 unit SQ DAILY 12/02/18 [History] Cetirizine HCl [24Hour Allergy] 10 mg PO DAILY 12/03/18 [History] Diltiazem HCl [Diltiazem ER] 180 mg PO DAILY 12/03/18 [History] Liraglutide [Victoza 2-Jerson] 1.2 mg SQ DAILY 12/03/18 [History] Lisinopril [Zestril] 20 mg PO DAILY 12/03/18 [History] Metformin HCl 850 mg PO BID 12/03/18 [History] Allergy/AdvReac Type Severity Reaction Status Date / Time No Known Allergies Allergy Verified 12/03/18 23:20 - Assessment and Plan (1) Sepsis Current Visit: Yes Status: Acute Patient with fever and leukocytosis and tachycardia Secondary to MSSA bacteremia and osteomyelitis of the right foot Qualifiers: Sepsis type: sepsis due to unspecified organism Qualified Code(s): A41.9 - Sepsis, unspecified organism SNOMED Code(s): 10301297 (2) MSSA bacteremia Current Visit: Yes Status: Acute 2/2 sets positive 12/03/2018 Source likely right foot infection No endocarditis stigmata on physical exam Patient has no hardware or signs of septic emboli Currently patient is on Zosyn and clindamycin Please see below for recommendation SNOMED Code(s): 976130335 (3) Osteomyelitis of right foot Current Visit: Yes Status: Acute Wound present since late 2017 Previous cultures of the wound 07/06/2018 were positive for pansensitive Enterobacter aerogenes and MSSA Repeat for cultures 12/03/2018 positive for gram-positive cocci final ID and susceptibility pending MRI concerning for osteomyelitis ESR and CRP >130 and 300 respectively on admission Patient going for I&D later today Appreciate podiatry input Please see below for recommendations Qualifiers: Osteomyelitis type: unspecified type Qualified Code(s): M86.9 - Osteomyelitis, unspecified SNOMED Code(s): 1904530005116734 (4) IDDM (insulin dependent diabetes mellitus) Current Visit: Yes Status: Chronic SNOMED Code(s): 66928169 (5) Acute on chronic kidney failure Current Visit: Yes Status: Acute Patient currently on dialysis. 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 Current Visit: Yes Status: Acute podiatry and wound care following SNOMED Code(s): 237043308 (7) Anemia Current Visit: Yes Status: Acute Qualifiers: Anemia type: unspecified type Qualified Code(s): D64.9 - Anemia, unspecified SNOMED Code(s): 801286231 - Recommendations Recommendations: Repeat blood cultures 2 to make sure the Bactrim resolved in about 48 hours Patient will need TTE to rule out endocarditis DC Zosyn DC clindamycin Start cefazolin dose adjust based on the creatinine clearance Start levofloxacin dose adjust based on creatinine clearance Await repeat cultures Monitor labs and for drug toxicity Adequate glucose control Duration of treatment depends on the clinical picture Past Med Surg Social Fam HX - Past Medical History Medical history: arthritis, asthma, atrial fibrillation, coronary artery disease, diabetes, hyperlipidemia, hypertension, myocardial infarction, ost eoporosis, renal disease, other Psychiatric history: no psych history - Past Surgical History Surgical History: no surgical history, other (local wound care to feet for old foot ulcers) - Social History Smoking Status: Never smoker Smokeless Tobacco Status: Yes Alcohol use: none Drug use: none - Family History Mother Living Status: Hx Family Cardiac Disorders: Yes Hx Family Endocrine Disorder: Yes Brother Hx Family Cardiac Disorders: Yes Consult Discharge Plan - Plan Referrals: Natalio Amaya MD [Primary Care Provider] -
[2018-12-04] MEDS ORDERED: ceFAZolin 1,000 MG in Water for inj. (sterile) 20 ML 10 ML IVP SCH (17:00)
[2018-12-04] MEDS ORDERED: Levofloxacin 750 MG/150 ML 750 MG/150 ML BAG IVPB ONE (18:00)
[2018-12-04] MEDS ORDERED: Vancomycin 1,000 MG VIAL ONE (18:21)
--- NOTE | 2018-12-04 18:55 | Anesthesia Progress Note ---
Date of Encounter: 12/04/18 Time of Encounter: 18:56 Anes Supervising Prov Stmt: Pre-Anesthesia Evaluation - Past History Planned Operation: RIGHT FOOT I&D Cardiac History: ID, HTN, Hyperlipidemia, Arrhythmia (hx PAF, came in with AF with RVR), Other (CAD, EF 60%) Pulmonary History: Asthma MUTUEL CLERK History: Denies Any Significant HX Other Medical History: Renal (ARF on CKD, started HD this afternoon), Diabetes Type II, Other (Obesity, BMI 43, Hyponatremia, Anemia - post 1 u PRBC with HD) Anesthesia History: None Alcohol Use: none Drug use: none Medications and Allergies Allergy/AdvReac Type Severity Reaction Status Date / Time No Known Allergies Allergy Verified 12/03/18 23:20 - Meds/Allergy Pre-op Review Medications Reviewed: Yes Allergies Reviewed: Yes Beta Blockers on Current Med List: No - on hold sec hypotension Anesthesia Results - Labs Laboratory Tests 12/04/18 12/04/18 03:07 03:07 Hgb 7.4 L D Sodium 127 L Potassium 5.2 H Creatinine 4.38 H Calcium 8.3 L Anesthesia Exam Vital Signs/O2 Sat/Glucose, Most Recent Temp Pulse Resp BP Pulse Ox 98.8 F 94 18 130/68 96 12/04/18 17:13 12/04/18 17:13 12/04/18 17:13 12/04/18 17:13 12/04/18 12:00 Blood Glucose* 263 Weight: 147kg BMI 43 - HEENT Mallampati: III Teeth: Poor dentition, Missing Denture Type: Upper: Partial Oral Opening: Greater than 3 - Cardiac Rhythm: Irregular - Pulmonary Breath Sounds: bilateral Clear Anesthesia Assess/Plan ASA Score: 3 Anesthetic Plan: MAC Monitoring Plan: Standard Monitors Recovery Plan: PACU (Phase 2 if appropriate)
[2018-12-04] MEDS ORDERED: Propofol 500 MG/50 ML INFUS..BTL ONE (19:06)
--- NOTE | 2018-12-04 19:45 | Orthopedic Operative Note ---
Date of procedure: 12/04/18 Pre-op diagnosis: right foot wound infection, osteomyelitis, exostosis, sepsis, bacteremia Post-op diagnosis: same Procedure: 12/04/18 19:36 1. Incision and drainage below fascia right foot 2. Excision partial tarsal bone cuboid right foot with bone culture Implants: None Complications: None Anesthesia: MAC, local Surgeon: Dany Ceron Was there an accountant assistant present: No Estimated blood loss (cc): 5 Tourniquet Time (Minutes): 0 Specimen: Bone right cuboid to micro Condition: stable Disposition: floor Procedure in Detail: 12/04/18 19:37 INDICATIONS AND CONSENT Minh Osborne is a 63-year-old male who initially presented with a chronic right plantar foot ulcer. He was admitted to the hospital with concern for sepsis and bacteremia with the foot as the suspected source. MRI showed evidence of an ulcer with osseous changes suspicious of osteomyelitis of the cuboid. There was an osseous prominence at the bone plantarly which was contributing the non-he aling ulcer. Given the concern for systemic infection, incision and drainage was warranted. We discussed the above procedures in detail. This included a discussion on the indications, contraindications, and possible complications including but not limited to: infection, non-healing wound, pain, swelling, bleeding, blood clots, heart complications, nerve injury, tendon injury, vascular injury, loss of limb, loss of life, and need for further surgery. We also reviewed the expected post operative course, including a discussion on the partial-weightbearing status after this procedure. He related understanding of our discussion regarding this surgery. All questions were answered to his satisfaction, and a proper written informed consent was obtained, signed, and placed in the chart. No guarantees were given, stated or implied, as to the outcome of this procedure. PROCEDURE IN DETAIL The patient was seen in the pre-operative holding area by Anesthesia, where he was consented for MAC with local nerve block. The patient was then brought back to the operative suite and transferred to the operating room table in the supine position. A sign-in was performed. MAC was then initiated per Anesthesia protocol. A [place] Time-Out was performed, and all parties in the room agreed. The right foot was then scrubbed, prepped, and draped in the normal sterile technique. A total of 5 mL of 1% lidocaine plain and 5 mL of 0.5% Marcaine plain was injected to the right midfoot. A 15 blade and rongeur were used to sharply debride all nonviable soft tissues at the right foot ulcer down to the level of cuboid. No purulence was encountered. The cuboid appeared hard and viable. The plantar exostosis was excised using a rongeur and rasp. A bone culture was taken from the cuboid and sent to micro. Post debridement wound measurement was 2.5 cm x 2.5 cm x 1.5 cm. The wound was then irrigated with 3L of normal saline infused with 1g Vancomycin powder. The wound was then packed with betadine soaked kerlix and dressed with kerlix roll, ABD, and BHARAT wrap. Capillary refill time of the toes on the left foot was also noted to be brisk at this time. A sign out was performed. The patient tolerated anesthesia and the procedure well, and was transferred to PAC-U with vital signs stable and vascular status intact to the right lower extremity. Needle and sponge counts were correct X 2 at the end of the case. Dr. Dany Ceron was present, scrubbed, and participated in all vital aspects of the procedure. After a brief stay in PAC-U, the patient will be admitted back to the floor for continued monitoring. We will plan for repeat incision and drainage as needed or application of wound VAC once bleeding is controlled from the wound bed. Patient will likely need course of IV antibiotics based on culture sensitivities from bone specimen.
[2018-12-04] MEDS ORDERED: Piperacillin/Tazobactam 3.375 GM in 0.9 % Sodium Chloride Mini Bag 100 ML IVPB SCH (21:00)
[2018-12-04] MEDS: Acetaminophen 325 MG TABLET PO PRN (21:13)
[2018-12-05] MEDS ORDERED: traMADol 50 MG TABLET PO PRN (00:18)
[2018-12-05] MEDS ORDERED: 0.9 % Sodium Chloride 250 ML IVC PRN ×2 (00:18→07:22)
[2018-12-05] MEDS ORDERED: Albumin 25% 25gram/100mL 25 GM/100 ML IV.SOLN IVPB PRN (00:18)
[2018-12-05] MEDS ORDERED: Dextrose Gel 15 GM/37.5 ML TUBE PO PRN ×2 (00:18)
[2018-12-05] MEDS ORDERED: Acetaminophen 325 MG TABLET PO PRN (00:18)
[2018-12-05] MEDS ORDERED: 0.9 % Sodium Chloride 1,000 ML PRIME SCH (00:18)
[2018-12-05] MEDS ORDERED: Naloxone 0.4 MG/ML INJ IVP PRN (00:18)
[2018-12-05] MEDS ORDERED: D5% in Water 1,000 ML IVC PRN (00:18)
[2018-12-05] MEDS ORDERED: *HR* Dextrose 50 % in Water (Syg) 50 ML SYRINGE IVP PRN (00:18)
[2018-12-05 05:18] LABS: Basophils % 0.2 %; Eosinophils # 0.1 K/mcL (0.0-0.6); Eosinophils % 0.5 %; Hematocrit 25.1 % (37.5-50.1); Immature Granulocytes % 0.7 % (0-4); Lymphocytes # 1.1 K/mcL (0.6-4.6); Lymphocytes % 8.2 %; Mean Corpuscular HGB Conc 31.9 g/dL (31.6-35.5); Mean Corpuscular Hemoglobin 26.1 pg (28.0-33.3); Mean Corpuscular Volume 81.8 fL (83.0-100.0); Mean Platelet Volume 11.5 fL (9.4-12.4); Monocytes # 1.4 K/mcL (0.0-1.3); Monocytes % 10.5 %; Neutrophils # 10.7 K/mcL (1.6-8.9); Platelet Count 276 K/mcL (140-400); Red Blood Count 3.07 M/mcL (4.19-5.50); Red Cell Distribution Width 14.6 % (11.5-14.5); Segmented Neutrophils % 79.9 %; White Blood Count 13.3 K/mcL (4.3-11.1)
[2018-12-05 05:36] LABS: Albumin 2.8 g/dL (3.5-5.7); Magnesium 1.7 mg/dL (1.6-2.6); Phosphorous 4.9 mg/dL (2.7-4.5)
[2018-12-05 05:38] LABS: Calcium 8.2 mg/dL (8.6-10.3); Potassium 3.7 mEq/L (3.5-5.1)
[2018-12-05 06:56] LABS: Sodium, Urine 40.1 mEq/L
[2018-12-05] MEDS: Insulin LISPRO 300 UNITS/3 ML VIAL SQ SCH ×4 (08:11→20:52)
--- NOTE | 2018-12-05 08:55 | Podiatry Progress Note ---
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 Patient progressing well on POD 1. WBC improved. Hemoglobin stable. Will plan for dressing change tomorrow AM and will determine timeline of wound vac application at that time. Rest and elevation or limb recommended. Heel touch for transfers in surgical shoe recommended. (2) Osteomyelitis of right foot Current Visit: Yes Status: Acute 1. Bone culture sent from OR yesterday from cuboid bone. Will follow up on culture results and patient will likely need IV antibiotics if any growth. Qualifiers: Osteomyelitis type: unspecified type Qualified Code(s): M86.9 - Osteo myelitis, unspecified Subjective Principal diagnosis: s/p right foot I&D Interval history: Patient seen in dialysis today. He is progressing well. He denies pain. Dressing is c/d/i. Bone cultures and repeat blood cultures pending. WBC improved today. Objective - Vital Signs Vital Signs: Vital Signs Temp Pulse Resp BP Pulse Ox 12/05/18 07:58 98.7 F 109 20 134/73 95 12/05/18 04:40 98 F 98 14 96/76 94 12/05/18 00:39 98.7 F 86 12 92/60 91 12/04/18 22:30 100 106/68 12/04/18 22:14 14 94 12/04/18 22:02 98.7 F 111/74 12/04/18 21:05 100.7 F H 96 18 128/74 94 12/04/18 20:05 99.4 F 94 18 128/105 95 12/04/18 18:15 98.8 F 18 149/80 12/04/18 18:00 141/71 12/04/18 17:45 129/82 12/04/18 17:30 123/68 12/04/18 17:15 130/68 12/04/18 17:13 98.8 F 94 18 130/68 12/04/18 17:00 131/78 12/04/18 16:58 98.5 F 89 16 131/78 12/04/18 16:45 137/82 12/04/18 16:43 98.7 F 96 16 137/82 12/04/18 16:30 142/80 12/04/18 16:15 133/77 12/04/18 16:00 98.6 F 18 138/81 12/04/18 12:00 98.2 F 87 16 95/66 96 12/04/18 11:05 82 16 91/62 98 12/04/18 10:09 82 18 95/54 96 Intake and Output 12/04/18 12/05/18 12/05/18 23:59 07:59 15:59 Intake Total 1230 / 1562.2 872 / 872 Output Total 1555 / 1555 200 / 200 Balance -325 / 7.2 672 / 672 Intake: IV Fluids 160 / 492.2 752 / 752 0.9 % Sodium Chloride 500 ML @ 500 / 500 999 mls/hr IVC .Q31M ONE Rx#: [id number] Ancef 1,000 MG In Water for inj . (sterile) 10 ML @ 200 mls/hr IVP DAILY [facility] Rx#:[id number] Cleocin Premix 600 MG/50 ML 600 50 / 50 mg In 50 ml @ 50 mls/hr IVPB Q8HR [facility] Rx#:[id number] Levaquin Premix 750mg/150 mL 150 / 150 750 mg In 150 ml @ 100 mls/hr IVPB ONCE [facility] Rx#:[id number] Magnesium Sulfate 1 GM In 0.9 % 102 / 102 Sodium Chloride 100 ML @ 100 mls/hr IVPB ONCE ONE Rx#: [id number] Zosyn 3.375 GM In 0.9 % Sodium 100 / 100 Chloride (Mini-Bag +) 100 ML @ 25 mls/hr IVPB Q8HR [facility] Rx#: [id number] Oral 120 / 120 120 / 120 Blood Product 350 / 350 Rbcs Leuko Poor As-1 Unit 350 / 350 [id number] Intake, Rinseback and Flushes 600 / 600 Output: Urine 100 / 100 200 / 200 Total Dialysis (HD) Output 1450 / 1450 Estimated Blood Loss 5 / 5 Other: Stool Size Small Stool Consistency soft # Voids 1 # Bowel Movements 1 Weight 146.8 kg Blood Glucose* 206 233 Hemodialysis Net Fluid Removed 1000 (mL) Patient Weight 12/05/18 23:59 Weight 146.8 kg - Exam Exam: Alert, oriented, no acute distress. Vascular: Capillary refill brisk to digits of right foot. Dermatology: Dressing c/d/i right foot. No strikethrough. No streaking erythema. Musculoskeletal: no pain with manual compression of calf. Able to actively move all toes on right. Neuro: Sensations intact to light touch at digits. - Lab Result Diagrams: 12/05/18 04:30 12/05/18 04:30 Labs: Abnormal lab results WBC 13.3 K/mcL (4.3-11.1) H 12/05/18 04:30 RBC 3.07 M/mcL (4.19-5.50) L 12/05/18 04:30 Hgb 8.0 g/dL (12.9-16.9) L 12/05/18 04:30 Hct 25.1 % (37.5-50.1) L 12/05/18 04:30 MCV 81.8 fL (83.0-100.0) L 12/05/18 04:30 MCH 26.1 pg (28.0-33.3) L 12/05/18 04:30 MCHC 30.5 g/dL (31.6-35.5) L 12/04/18 03:07 RDW 14.6 % (11.5-14.5) H 12/05/18 04:30 10.7 K/mcL (1.6-8.9) H 12/05/18 04:30 1.4 K/mcL (0.0-1.3) H 12/05/18 04:30 Nucleated RBCs/100 WBC 0.1 /100 WBC (0) H 12/04/18 03:07 ESR >= 130 mm/hr (0-10) H 12/04/18 07:11 PT 16.5 Seconds (9.4-12.1) H 12/02/18 18:19 Heparin Anti-Xa, Unfract 0.01 IU/mL (0.30-0.70) L 12/02/18 18:19 Sodium 133 mEq/L (136-145) L 12/05/18 04:30 Potassium 5.2 mEq/L (3.5-5.1) H 12/04/18 03:07 Chloride 97 mEq/L (98-107) L 12/05/18 04:30 Carbon Dioxide 20 mEq/L (23-29) L 12/04/18 03:07 BUN 47 mg/dL (8-23) H 12/05/18 04:30 3.30 mg/dL (0.70-1.30) H 12/05/18 04:30 Est GFR ( Amer) 23 (> 60) L 12/05/18 04:30 Est GFR (Non-Af Amer) 19 (> 60) L 12/05/18 04:30 Glucose 194 mg/dL (70-105) H 12/05/18 04:30 POC Glucose 206 mg/dL (70-99) H 12/04/18 21:22 Calcium 8.2 mg/dL (8.6-10.3) L 12/05/18 04:30 Phosphorus 4.9 mg/dL (2.7-4.5) H 12/05/18 04:30 Magnesium 1.2 mg/dL (1.6-2.6) L 12/03/18 04:39 1.1 mg/dL (0.3-1.0) H 12/03/18 04:39 0.5 mg/dL (0.0-0.2) H 12/02/18 18:19 0.04 ng/mL (< 0.04) H* 12/03/18 07:53 > 300 mg/L (Less than 10) H 12/04/18 03:07 2.8 g/dL (3.5-5.7) L 12/05/18 04:30 1.0 (1.1-2.2) L 12/03/18 04:39 25 mg/dL (40-59) L 12/03/18 04:39 3.61 ng/mL (0.00-0.15) H 12/03/18 09:02 Cloudy (Clear) A 12/02/18 19:42 >=300 mg/dL (Neg-Trace) H 12/02/18 19:42 Trace mg/dL (Negative) H 12/02/18 19:42 3-5 per hpf (0-3) H 12/02/18 19:42 Ur Squamous Epith Cells Many per lpf (None-Few) H 12/02/18 19:42 Hep Bs Antibody < 3.10 mIU/mL (10.00-) L 12/04/18 13:32 Staphylococcus sp PCR DETECTED (Not Detect) A 12/03/18 11:24 Staph aureus (PCR) DETECTED (Not Detect) A 12/03/18 11:24 Crossmatch See Detail 12/04/18 07:11 Microbiology, Last 48 Hours 12/03/18 15:23 Wound Culture - Final Right Foot Staphylococcus aureus 12/03/18 11:24 Blood Culture - Preliminary Peripheral Venipuncture Gram Positive Cocci 12/04/18 13:38 Blood Culture - Preliminary Peripheral Venipuncture Culture is incubating and being continuously monitored for growth. Final report to follow. 12/04/18 13:32 Blood Culture - Preliminary Peripheral Venipuncture Culture is incubating and being continuously monitored for growth. Final report to follow. 12/04/18 11:30 Influenza Types A,B Antigen - Final Nasopharyngeal 12/03/18 11:24 Blood Culture - Preliminary Peripheral Venipuncture Gram Positive Cocci Consult Discharge Plan - Plan Referrals: Natalio Amaya MD [Primary Care Provider] -
[2018-12-05] MEDS: MOMETASONE FUROATE 100 mcg Inhaler IH SCH ×2 (10:28→22:18)
--- NOTE | 2018-12-05 10:54 | Internal Med Progress Note ---
Hospitalist Progress Note - Encounter Date of Encounter: 12/05/18 Time of Encounter: 10:54 - Subjective Interval History: Patient seen and examined this morning at bedside after dialysis. Patient feeling much better. Denies any new complaints. Denies any chest pain difficulty breathing abdominal pain nausea vomiting or diarrhea. Has some right leg soreness. - Exam Vitals: Temp Pulse Resp BP Pulse Ox 99.1 F 109 18 135/79 95 12/05/18 08:40 12/05/18 07:58 12/05/18 08:40 12/05/18 10:25 12/05/18 07:58 Exam: Exam General: In no acute distress. morbid obesity. Respiratory exam: no accessory muscle use. crackles at base Cardiovascular exam: tachycardia, +S1, +S2. no murmur, gallop, rubs. GI/Abdominal exam: Non-tender, Non-distended, normal bowel sounds, soft, no peritoneal signs. Extremities exam: 2+ pedal edema, no calf tenderness Neurological exam: CN II-XII intact, AO X3, no focal deficits. Skin exam: mild redness on b/l LE on rodriguez with clear demarcation. Rt leg wound with bandage. 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 - EGD with multiple polyps with no stigmana of bleeding. Colonoscopy as outpatient once sepsis resolves - YAEL on CKD possibly from Tolerated dialysis yesterday. Had another today. Next planned on Friday. Nephrology recommendation appreciated - BP improved but slightly tachycardic. Cardizem resumed. Hb stable after 1 PRBC. Monitor for now. No signs of active bleeding. Monitor for now. Not candidate for AC for Afib for now. - f/u Blood cultures and intraopt cultures. Wound cultures growing MSSA. MecA gene negative on blood cultures. Blood cx 12/03/18 with GPC. repeat 12/04 NGTD. Now on levaquian and cefazolin per ID. Will continue for now. - c/w diabetic diet. c/w levemir 10 units and SSI . Monitor accuchecks. - Time Spent with Patient Total time spent is greater than 50% in coordination of care (as documented) at patient's floor/unit and/or counseling patient: Internal Medicine: Result - Labs CBC & Chem 7: 12/05/18 04:30 12/05/18 04:30 Labs: Short CBC 12/05/18 Range/Units 04:30 WBC 13.3 H (4.3-11.1) K/mcL Hgb 8.0 L (12.9-16.9) g/dL Hct 25.1 L (37.5-50.1) % Plt Count 276 (140-400) K/mcL Neutrophils # 10.7 H (1.6-8.9) K/mcL BMP 12/04/18 12/05/18 03:07 04:30 Sodium 127 L 133 L Potassium 5.2 H 3.7 Chloride 96 L 97 L Carbon Dioxide 20 L 25 BUN 53 H 47 H Creatinine 4.38 H 3.30 H Glucose 264 H 194 H Calcium 8.3 L 8.2 L Liver Function 12/05/18 Range/Units 04:30 Albumin 2.8 L (3.5-5.7) g/dL - ABG Interpretation ABG results: PT/INR, D-dimer PT 16.5 Seconds (9.4-12.1) H 12/02/18 18:19 - Impressions Impressions Guidance Ultrasound 12/04/18 00:00 IMPRESSION: Successful ultrasound guided non-tunneled dialysis catheter placement. Chest x-ray for position pending. D/ / Jake Karimi MD / Jake Karimi MD Interpreting Provider: Jake Karimi MD Insertion Non-Tunneled Catheter 12/04/18 00:00 IMPRESSION: Successful ultrasound guided non-tunneled dialysis catheter placement. Chest x-ray for position pending. D/ / Jake Karimi MD / Jake Karimi MD Interpreting Provider: Jake Karimi MD Foot X-Ray 12/04/18 12:00 IMPRESSION: 1. No acute bony or joint abnormality 2. Soft tissue swelling 3. Osteoarthritic changes D/ / Ralph Carlisle MD / Ralhp Carlisle MD Interpreting Provider: Ralph Carlisle MD Chest X-Ray 12/04/18 15:27 IMPRESSION: Dialysis catheter tip overlies the right atrium, without pneumothorax. Pulmonary vascular congestion. D/ / Jake Karimi MD / Jake Karimi MD Interpreting Provider: Jake Karimi MD Consult Discharge Plan - Plan Referrals: Natalio Amaya MD [Primary Care Provider] - (2) Hypertension Qualifiers: Hypertension type: essential hypertension Qualified Code(s): I10 - Essential (primary) hypertension (4) Acute on chronic kidney failure Qualifiers: Acute renal failure type: unspecified Chronic kidney disease stage: stage 3 (moderate) Qualified Code(s): N17.9 - Acute kidney failure, unspecified; N18.3 - Chronic kidney disease, stage 3 (moderate)
[2018-12-05] MEDS: ceFAZolin 1,000 MG in Water for inj. (sterile) 20 ML 10 ML IVP SCH (12:25)
[2018-12-05] MEDS: Aspirin Enteric Coated 81 MG Tablet PO SCH (12:27)
[2018-12-05] MEDS: Insulin DETEMIR 100 UNIT/ML X5UNITS SQ SCH (12:28)
--- NOTE | 2018-12-05 12:38 | Nephrology Progress Note ---
Date of Encounter: 12/05/18 Time of Encounter: 08:48 - Assessment and Plan (1) Acute on chronic kidney failure Current Visit: Yes Status: Acute He developed worsening renal failure earlier this week while my colleague Dr. Bajwa was on-call, and yesterday when I first met him, he worsened yet again, and so he required initiation of temporary hemodialysis. Despite his relative hypotension, he tolerated that gentle treatment well yesterday. The hyperka lemia improved as well. However he continues to have elevated creatinine, insufficient urine output, hypervolemic volume status with hyponatremia, and I recommend dialysis again today. I have placed his HD orders for 2.5 hours with more fluid removal as tolerated by hemodynamics. I will tentatively plan his next dialysis for Friday. Continue to follow a renal protective strategy as able: Strict I's and O's, avoidance of nephrotoxic agents as able, renal dosing, renal diet that is low in potassium. Thank you. Qualifiers: Acute renal failure type: unspecified Chronic kidney disease stage: stage 3 (moderate) Qualified Code(s): N17.9 - Acute kidney failure, unspecified; N18.3 - Chronic kidney disease, stage 3 (moderate) (2) CKD (chronic kidney disease), stage III Current Visit: No Status: Chronic Baseline CKD stage III, according to the GFR is noted in [employer] (3) Hyponatremia Current Visit: Yes Status: Acute See above (4) Anemia Current Visit: Yes Status: Acute Goal hemoglobin is 10-11. Likely multifactorial. If he requires chronic hemodialysis, then I would recommend EPO. Transfusions as per primary Qualifiers: Anemia type: unspecified type Qualified Code(s): D64.9 - Anemia, unspecified (5) Proteinuria Current Visit: No Status: Chronic History of diabetes, which is presumably the cause of his stage III CKD. I will see my colleague has started a renal workup, but if not then I will place orders for serologies to ensure there is no other potential etiology. Qualifiers: Proteinuria type: persistent Qualified Code(s): R80.1 - Persistent proteinuria, unspecified (6) Hyperkalemia Current Visit: Yes Status: Acute Improved: see above. Continue HD. (7) Atrial fibrillation with RVR Current Visit: Yes Status: Acute As per primary/Cardio (8) Osteomyelitis of right foot Current Visit: Yes Status: Acute Appreciate Podiatry. Qualifiers: Osteomyelitis type: unspecified type Qualified Code(s): M86.9 - Osteomyelitis, unspecified Subjective Principal diagnosis: s/p right foot I&D Interval history: The patient was seen and examined in the dialysis unit earlier today. He did not affirm any problems with dialysis yesterday, and so far has voiced no cramping with dialysis today. He did not affirm chest pain. He had surgery on his foot yesterday. Objective - Vital Signs Vital signs: Vital Signs Temp Pulse Resp BP Pulse Ox 12/05/18 12:23 98.4 F 110 20 122/84 93 12/05/18 11:30 99.8 F H 18 134/75 12/05/18 10:55 121/68 12/05/18 10:40 119/78 12/05/18 10:25 135/79 12/05/18 10:10 121/83 12/05/18 09:55 121/65 12/05/18 09:40 135/76 12/05/18 09:25 128/77 12/05/18 09:10 136/82 12/05/18 08:55 133/76 12/05/18 08:40 99.1 F 18 131/74 12/05/18 07:58 98.7 F 109 20 134/73 95 12/05/18 04:40 98 F 98 14 96/76 94 12/05/18 00:39 98.7 F 86 12 92/60 91 12/04/18 22:30 100 106/68 12/04/18 22:14 14 94 12/04/18 22:02 98.7 F 111/74 12/04/18 21:05 100.7 F H 96 18 128/74 94 12/04/18 20:05 99.4 F 94 18 128/105 95 12/04/18 18:15 98.8 F 18 149/80 12/04/18 18:00 141/71 12/04/18 17:45 129/82 12/04/18 17:30 123/68 12/04/18 17:15 130/68 12/04/18 17:13 98.8 F 94 18 130/68 12/04/18 17:00 131/78 12/04/18 16:58 98.5 F 89 16 131/78 12/04/18 16:45 137/82 12/04/18 16:43 98.7 F 96 16 137/82 12/04/18 16:30 142/80 12/04/18 16:15 133/77 12/04/18 16:00 98.6 F 18 138/81 Intake and Output 12/04/18 12/05/18 12/05/18 23:59 07:59 15:59 Intake Total 1230 / 1562.2 872 / 1712 840 / 1712 Output Total 1555 / 1555 200 / 1300 1100 / 1300 Balance -325 / 7.2 672 / 412 -260 / 412 Intake: IV Fluids 160 / 492.2 752 / 752 0.9 % Sodium Chloride 500 ML @ 500 / 500 999 mls/hr IVC .Q31M ONE Rx#: [id number] Ancef 1,000 MG In Water for inj . (sterile) 10 ML @ 200 mls/hr IVP DAILY [facility] Rx#:[id number] Cleocin Premix 600 MG/50 ML 600 50 / 50 mg In 50 ml @ 50 mls/hr IVPB Q8HR [facility] Rx#:[id number] Levaquin Premix 750mg/150 mL 150 / 150 750 mg In 150 ml @ 100 mls/hr IVPB ONCE ONE Rx#:[id number] Magnesium Sulfate 1 GM In 0.9 % 102 / 102 Sodium Chloride 100 ML @ 100 mls/hr IVPB ONCE ONE Rx#: [id number] Zosyn 3.375 GM In 0.9 % Sodium 100 / 100 Chloride (Mini-Bag +) 100 ML @ 25 mls/hr IVPB Q8HR [facility] Rx#: [id number] Oral 120 / 120 120 / 360 240 / 360 Blood Product 350 / 350 Rbcs Leuko Poor As-1 Unit 350 / 350 [id number] Intake, Rinseback and Flushes 600 / 600 600 / 600 Output: Urine 100 / 100 200 / 200 0 / 200 Total Dialysis (HD) Output 1450 / 1450 1100 / 1100 Estimated Blood Loss 5 / 5 Other: Meal Breakfast Percent of Meal Consumed 95% Stool Size Small Stool Consistency soft # Voids 1 # Bowel Movements 1 Weight 146.8 kg Blood Glucose* 206 233 162 Hemodialysis Net Fluid Removed 1000 500 (mL) Patient Weight 12/05/18 23:59 Weight 146.8 kg - General Appearance General appearance: Present: well-developed, well-nourished, cachectic, fatigue, frail EENT: Present: ATNC, PERRL, mucous membranes moist Neck: Present: no JVD, supple Respiratory: Present: clear (But diminished breath sounds in the bases b ilaterally) Cardiology: Present: edema, irregular rhythm, normal S1, normal S2 Dialysis Vascular Access: Venous Catheter (RIJ temporary HD catheter, and his hernandez was affecting the Tegaderm adhesion) Gastrointestinal: Present: normoactive bowel sounds, no tenderness, no guarding, obese Integumentary: Present: warm and dry Additional Comments: RLE was wrapped and appeared C/D/I Neurologic: Present: no focal deficit, no asterixis, alert and oriented x3 Musculoskeletal: Present: no erythema, no cyanosis Psychiatric: Present: mood/affect appropriate, cooperative - Lab 12/05/18 04:30 12/05/18 04:30 Most recent lab results 12/05/18 12/05/18 12/05/18 04:30 04:30 06:30 Calcium 8.2 L Phosphorus 4.9 H Magnesium 1.7 Urine Creatinine 188 Urine Sodium 40.1 Consult Discharge Plan - Plan Referrals: Natalio Amaya MD [Primary Care Provider] -
--- NOTE | 2018-12-05 12:41 | Cardiology Progress Note ---
Date of Encounter: 12/05/18 Time of Encounter: 12:30 Assessment and Plan Discussion w patient/family: The assessment and plan as outlined above was discussed with the patient and/or family members who expressed understanding and agreement. All questions were answered. Thank you for involving us in the care of your patient. Please call with any questions. 1) Atrial fibrillation with RVRpatient presented with atrial fibrillation with RVR in the setting of bacteremia and sepsis. Due to hypotension likely secondary to anemia his calcium channel merry and beta merry was held. Average heart rate on telemetry is 95 bpm. Noted heart rates in the 120s this morning. TTE 12/02/18: LVEF 60%. Mild cLVH. Indeterminate diastolic function. Normal RV structure and function. Mild MR. No evidence of phtn. Home meds included Cardizem CD 180mg daily and Coreg 25mg BID. Patient initially treated with Cardizem drip and converted to a higher dose of Cardizem. Unfortunately he developed hypotension and all medications were stopped. Blood pressure has improved today. Recommend adding back medications as tolerated. I will add back Cardizem today. In regards to anticoagulation patient was previously on eliqis. This was stopped for unknown reasons. At this time he is not a candidate for anticoagulation secondary to anemia requiring blood transfusion after heparin gtt this admission. GI consulted. 2) YAEL on CKD-patient started on dialysis this admission. Nephrology following. 3) mild troponin elevationtroponin elevated at 0.042. Likely demand ischemia in the setting of sepsis, renal failure, and atrial fibrillation with RVR. TTE completed this admission shows preserved EF. Subjective Principal diagnosis: Atrial fibrillation with RVR Interval history: Mr. Osborne seen in his room after dialysis. He denies chest pain or palpitations. Denies shortness of breath. Complain of weakness. Objective Vital Signs, Last 4 Hours Temp Pulse Resp BP Pulse Ox 12/05/18 12:23 98.4 F 110 20 122/84 93 12/05/18 11:30 99.8 F H 18 134/75 12/05/18 10:55 121/68 12/05/18 10:40 119/78 12/05/18 10:25 135/79 12/05/18 10:10 121/83 12/05/18 09:55 121/65 12/05/18 09:40 135/76 12/05/18 09:25 128/77 12/05/18 09:10 136/82 12/05/18 08:55 133/76 12/05/18 08:40 99.1 F 18 131/74 General: Conversant, No Apparent Distress HEENT: Atraumatic, Normocephaly, Mucus Membranes Moist, Other (Right IJ dialysis catheter intact) Neck: No JVD, Normal carotid pulses Cardiac: Other (Irregular) Lungs: Normal Breath Sounds, No Wheeze, Rales, Rhonchi Neuro: Alert and responsive, No focal deficits noted Abdomen: Soft, Non-Tender Skin: Other (Sunburn noted) Musculoskeletal: No Chest Wall Tenderness Extremities: No Clubbing, No Cyanosis, Normal Pulses, Other (Nonpitting edema in bilateral lower extremities. Sunburn noted.) Results 12/05/18 04:30 12/05/18 04:30 Lab Results 12/05/18 12/05/18 12/05/18 04:30 04:30 04:30 WBC 13.3 H Hgb 8.0 L Hct 25.1 L Plt Count 276 Sodium 133 L Potassium 3.7 Chloride 97 L Carbon Dioxide 25 BUN 47 H Creatinine 3.30 H Glucose 194 H Calcium 8.2 L Magnesium 1.7 - Imaging and Cardiology Cardiac cath: report reviewed Consult Discharge Plan - Plan Referrals: Natalio Amaya MD [Primary Care Provider] -
[2018-12-05] MEDS ORDERED: Diltiazem CD (24hr) 180 MG CAPSULE PO SCH (12:45)
[2018-12-05 14:43] LABS: Complement C3 135 mg/dL (87-200)
--- NOTE | 2018-12-06 08:13 | Podiatry Progress Note ---
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 Patient progressing well on POD 2. WBC improved. He is still bacteremic but will wait for blood culture drawn after surgery before determining if any additional surgery is needed. Hemoglobin stable. Wound irrigated with normal saline and wet to dry dressing applied. Will plan for repeat I&D or wound vac application tomorrow, if needed. Clinically the wound appears stable. Rest and elevation or limb recommended. Heel touch for transfers in surgical shoe recommended. (2) Osteomyelitis of right foot Current Visit: Yes Status: Acute 1. Bone culture sent from OR from cuboid bone. Micro lab mentions preliminary +gram positive cocci. Will follow up on culture results and patient will likely need IV antibiotics based on culture sensitivities. Qualifiers: Osteomyelitis type: subacute Qualified Code(s): M86.271 - Subacute osteomyelitis, right ankle and foot (3) Cellulitis Current Visit: Yes Status: Acute Concern for worsening edema and cellulitis of the left foot. No obvious source of infection. MRI ordered left foot given his bacteremia and will need to rule out any additional sources. Qualifiers: Site of cellulitis: extremity Site of cellulitis of extremity: lower extremity Laterality: left Qualified Code(s): L03.116 - Cellulitis of left lower limb Subjective Principal diagnosis: Atrial fibrillation with RVR Interval history: He is progressing well but has increased redness and swelling of the left foot despite no obvious source of infection. Repeat blood cultures +. He denies pain in either foot. Dressing is c/d/i to the right foot. Bone cultures and repeat blood cultures pending. Objective - Vital Signs Vital Signs: Vital Signs Temp Pulse Resp BP Pulse Ox 12/06/18 07:04 99.1 F 92 16 127/85 97 12/06/18 04:30 99.1 F 98 17 132/84 100 12/06/18 00:05 99.6 F 108 16 134/74 97 12/05/18 22:20 16 94 12/05/18 21:00 96 12/05/18 19:43 98.9 F 112 17 134/88 99 12/05/18 16:01 98.7 F 101 20 128/78 90 12/05/18 12:23 98.4 F 110 20 122/84 93 12/05/18 11:30 99.8 F H 18 134/75 12/05/18 10:55 121/68 12/05/18 10:40 119/78 12/05/18 10:25 135/79 12/05/18 10:10 121/83 12/05/18 09:55 121/65 12/05/18 09:40 135/76 12/05/18 09:25 128/77 12/05/18 09:10 136/82 12/05/18 08:55 133/76 12/05/18 08:40 99.1 F 18 131/74 Intake and Output 12/05/18 12/06/18 12/06/18 23:59 07:59 15:59 Intake Total 240 / 1962 Balance 240 / 662 Intake: Oral 240 / 600 Other: Meal Dinner Percent of Meal Consumed 80% # Voids 1 Weight 143.7 kg Blood Glucose* 206 215 Patient Weight 12/06/18 23:59 Weight 143.7 kg - Exam Exam: Alert, oriented, no acute distress. Vascular: Capillary refill brisk to digits.. Dermatology: Right plantar foot surgical wound with probe to bone. Granular wound margins. No active drainage. No erythema. Dressing c/d/i right foot. No strikethrough. No streaking erythema. Left foot and ankle with edema and erythema. Musculoskeletal: no pain with manual compression of calf. Able to actively move all toes. Neuro: Sensations intact to light touch at digits. - Lab Result Diagrams: 12/05/18 04:30 12/05/18 04:30 Labs: Abnormal lab results WBC 13.3 K/mcL (4.3-11.1) H 12/05/18 04:30 RBC 3.07 M/mcL (4.19-5.50) L 12/05/18 04:30 Hgb 8.0 g/dL (12.9-16.9) L 12/05/18 04:30 Hct 25.1 % (37.5-50.1) L 12/05/18 04:30 MCV 81.8 fL (83.0-100.0) L 12/05/18 04:30 MCH 26.1 pg (28.0-33.3) L 12/05/18 04:30 MCHC 30.5 g/dL (31.6-35.5) L 12/04/18 03:07 RDW 14.6 % (11.5-14.5) H 12/05/18 04:30 10.7 K/mcL (1.6-8.9) H 12/05/18 04:30 1.4 K/mcL (0.0-1.3) H 12/05/18 04:30 Nucleated RBCs/100 WBC 0.1 /100 WBC (0) H 12/04/18 03:07 ESR >= 130 mm/hr (0-10) H 12/04/18 07:11 PT 16.5 Seconds (9.4-12.1) H 12/02/18 18:19 Heparin Anti-Xa, Unfract 0.01 IU/mL (0.30-0.70) L 12/02/18 18:19 Sodium 133 mEq/L (136-145) L 12/05/18 04:30 Potassium 5.2 mEq/L (3.5-5.1) H 12/04/18 03:07 Chloride 97 mEq/L (98-107) L 12/05/18 04:30 Carbon Dioxide 20 mEq/L (23-29) L 12/04/18 03:07 BUN 47 mg/dL (8-23) H 12/05/18 04:30 3.30 mg/dL (0.70-1.30) H 12/05/18 04:30 Est GFR ( Amer) 23 (> 60) L 12/05/18 04:30 Est GFR (Non-Af Amer) 19 (> 60) L 12/05/18 04:30 Glucose 194 mg/dL (70-105) H 12/05/18 04:30 POC Glucose 206 mg/dL (70-99) H 12/05/18 20:51 Calcium 8.2 mg/dL (8.6-10.3) L 12/05/18 04:30 Phosphorus 4.9 mg/dL (2.7-4.5) H 12/05/18 04:30 Magnesium 1.2 mg/dL (1.6-2.6) L 12/03/18 04:39 1.1 mg/dL (0.3-1.0) H 12/03/18 04:39 0.5 mg/dL (0.0-0.2) H 12/02/18 18:19 0.04 ng/mL (< 0.04) H* 12/03/18 07:53 > 300 mg/L (Less than 10) H 12/04/18 03:07 2.8 g/dL (3.5-5.7) L 12/05/18 04:30 1.0 (1.1-2.2) L 12/03/18 04:39 25 mg/dL (40-59) L 12/03/18 04:39 3.61 ng/mL (0.00-0.15) H 12/03/18 09:02 Cloudy (Clear) A 12/02/18 19:42 >=300 mg/dL (Neg-Trace) H 12/02/18 19:42 Trace mg/dL (Negative) H 12/02/18 19:42 3-5 per hpf (0-3) H 12/02/18 19:42 Ur Squamous Epith Cells Many per lpf (None-Few) H 12/02/18 19:42 Hep Bs Antibody < 3.10 mIU/mL (10.00-) L 12/04/18 13:32 Staphylococcus sp PCR DETECTED (Not Detect) A 12/03/18 11:24 Staph aureus (PCR) DETECTED (Not Detect) A 12/03/18 11:24 Crossmatch See Detail 12/04/18 07:11 Microbiology, Last 48 Hours 12/04/18 13:32 Blood Culture - Preliminary Peripheral Venipuncture Gram Positive Cocci 12/05/18 16:26 Blood Culture - Preliminary Peripheral Venipuncture Culture is incubating and being continuously monitored for growth. Final report to follow. 12/05/18 16:26 Blood Culture - Preliminary Peripheral Venipuncture Culture is incubating and being continuously alok tored for growth. Final report to follow. 12/04/18 13:38 Blood Culture - Preliminary Peripheral Venipuncture Gram Positive Cocci 12/03/18 15:23 Wound Culture - Final Right Foot Staphylococcus aureus 12/03/18 11:24 Blood Culture - Preliminary Peripheral Venipuncture Gram Positive Cocci 12/04/18 11:30 Influenza Types A,B Antigen - Final Nasopharyngeal 12/03/18 11:24 Blood Culture - Preliminary Peripheral Venipuncture Gram Positive Cocci Consult Discharge Plan - Plan Referrals: Amaya,Natalio J, MD [Primary Care Provider] -
[2018-12-06] MEDS: MOMETASONE FUROATE 100 mcg Inhaler IH SCH ×2 (08:28→22:18)
[2018-12-06] MEDS: ceFAZolin 1,000 MG in Water for inj. (sterile) 20 ML 10 ML IVP SCH (08:52)
[2018-12-06] MEDS: Insulin LISPRO 300 UNITS/3 ML VIAL SQ SCH ×4 (08:53→20:52)
[2018-12-06] MEDS: Diltiazem CD (24hr) 240 MG CAPSULE PO SCH (08:53)
[2018-12-06] MEDS: Aspirin Enteric Coated 81 MG Tablet PO SCH (08:54)
[2018-12-06] MEDS: Insulin DETEMIR 100 UNIT/ML X5UNITS SQ SCH (08:55)
[2018-12-06 09:13] LABS: Basophils % 0.2 %; Eosinophils # 0.1 K/mcL (0.0-0.6); Eosinophils % 0.3 %; Hematocrit 26.2 % (37.5-50.1); Hemoglobin 8.2 g/dL (12.9-16.9); Immature Granulocytes % 0.8 % (0-4); Lymphocytes % 5.8 %; Mean Corpuscular HGB Conc 31.3 g/dL (31.6-35.5); Mean Corpuscular Hemoglobin 25.6 pg (28.0-33.3); Mean Corpuscular Volume 81.9 fL (83.0-100.0); Monocytes # 1.5 K/mcL (0.0-1.3); Neutrophils # 14.3 K/mcL (1.6-8.9); Platelet Count 333 K/mcL (140-400); Red Cell Distribution Width 14.7 % (11.5-14.5); Segmented Neutrophils % 83.9 %
[2018-12-06 09:29] LABS: Calcium 8.1 mg/dL (8.6-10.3); Potassium 3.8 mEq/L (3.5-5.1)
--- NOTE | 2018-12-06 09:29 | Internal Med Progress Note ---
Hospitalist Progress Note - Encounter Date of Encounter: 12/06/18 Time of Encounter: 09:29 - Subjective Interval History: Patient seen and examined this morning at bedside. No acute overnight events. Patient feeling better. Denies any fevers chills nausea vomiting or diarrhea. Denies any chest pain or difficulty breathing. - Exam Vitals: Temp Pulse Resp BP Pulse Ox 99.1 F 92 16 127/85 97 12/06/18 07:04 12/06/18 07:04 12/06/18 07:04 12/06/18 07:04 12/06/18 07:04 Exam: General: In no acute distress. morbid obesity. Respiratory exam: no accessory muscle use. crackles at base Cardiovascular exam: RRR, +S1, +S2. no murmur, gallop, rubs. GI/Abdominal exam: Non-tender, Non-distended, normal bowel sounds, soft, no peritoneal signs. Extremities exam: 2+ pedal edema, no calf tenderness Neurological exam: CN II-XII intact, AO X3, no focal deficits. Skin exam: mild redness on b/l LE on rodriguez with clear demarcation. Rt leg wound with bandage. Lt leg with redness and swelling on the foot till ankle. 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 - EGD with multiple polyps with no stigmana of bleeding. Colonoscopy as outpatient once sepsis resolves - YAEL on CKD possibly from hemodynamics and sepsis. s/p 2 HD sessions. Nephrology following recommendation appreciated. - BP improved and afib rate controlled on Cardizem. Cardizem increased to 240 per cardiology. Hb stable after 1 PRBC. No signs of active bleeding. Monitor for now. Not candidate for AC for Afib for now given Hb drop after heparin drip. - f/u Blood cultures. intraopt wound cultures growing GPC. 1st blood culture and wound culture with MSSA. MecA gene negative on blood cultures. Blood cx 12/04/18 positive. repeat 12/05 NGTD, will repeat cultures if positive. Now on levaquian and cefazolin per ID. Will continue for now. ECHO with normal valve structures, EF 60%, intermediate DD. Podiatry following. May repeat I&D tomorrow. - c/w diabetic diet. c/w levemir 10 units and SSI . Monitor accuchecks. - Time Spent with Patient Total time spent is greater than 50% in coordination of care (as documented) at patient's floor/unit and/or counseling patient: Internal Medicine: Result - Labs CBC & Chem 7: 12/06/18 08:36 12/06/18 08:36 Labs: Short CBC 12/06/18 Range/Units 08:36 WBC 17.0 H (4.3-11.1) K/mcL Hgb 8.2 L (12.9-16.9) g/dL Hct 26.2 L (37.5-50.1) % Plt Count 333 (140-400) K/mcL Neutrophils # 14.3 H (1.6-8.9) K/mcL - ABG Interpretation ABG results: PT/INR, D-dimer PT 16.5 Seconds (9.4-12.1) H 12/02/18 18:19 Consult Discharge Plan - Plan Referrals: Natalio Amaya MD [Primary Care Provider] - (2) Hypertension Qualifiers: Hypertension type: essential hypertension Qualified Code(s): I10 - Essential (primary) hypertension (4) Acute on chronic kidney failure Qualifiers: Acute renal failure type: unspecified Chronic kidney disease stage: stage 3 (moderate) Qualified Code(s): N17.9 - Acute kidney failure, unspecified; N18.3 - Chronic kidney disease, stage 3 (moderate)
--- NOTE | 2018-12-06 11:05 | Nephrology Progress Note ---
Date of Encounter: 12/06/18 Time of Encounter: 10:15 - Assessment and Plan (1) Acute on chronic kidney failure Current Visit: Yes Status: Acute SCr appears lower today, which may just represent the clearance from HD x2 consecutive days. The labs drawn tomorrow AM will represent how well his residual renal function performs. 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 Discussed with the pt's family including brother and nephew who were present in the room with the pt. Abx as per primary team. Cont to follow a renal protective strategy. Qualifiers: Acute renal failure type: unspecified Chronic kidney disease stage: stage 3 (moderate) Qualified Code(s): N17.9 - Acute kidney failure, unspecified; N18.3 - Chronic kidney disease, stage 3 (moderate) (2) CKD (chronic kidney disease), stage III Current Visit: No Status: Chronic Baseline CKD stage III, according to the GFR is noted in [employer] (3) Hyponatremia Current Visit: Yes Status: Acute Trending better s/p HD (4) Anemia Current Visit: Yes Status: Acute Goal hemoglobin is 10-11. Likely multifactorial. If he requires chronic hemodialysis, then I would recommend EPO. Transfusions as per primary Qualifiers: Anemia type: unspecified type Qualified Code(s): D64.9 - Anemia, unspecified (5) Proteinuria Current Visit: No Status: Chronic History of diabetes, which is presumably the cause of his stage III CKD. Yesterday I ordered an YAEL on CKD serology work up as it had not yet been ordered when the pt was originally consulted by Nephro. Qualifiers: Proteinuria type: persistent Qualified Code(s): R80.1 - Persistent proteinu tom, unspecified (6) Hyperkalemia Current Visit: Yes Status: Acute Improved s/p HD (7) Atrial fibrillation with RVR Current Visit: Yes Status: Acute As per primary/Cardio (8) Osteomyelitis of right foot Current Visit: Yes Status: Acute Foot infection(s) as per primary/Podiatry Qualifiers: Osteomyelitis type: subacute Qualified Code(s): M86.271 - Subacute osteomyelitis, right ankle and foot Subjective Principal diagnosis: Atrial fibrillation with RVR Interval history: The patient was seen and examined in the dialysis unit earlier today. He did not affirm any problems with the second dialysis yesterday. His brother and nephew were present in the room. The pt affirmed fatigue and that his other other may be infected too, he said. He did not affirm CP or N/V/D during my interview/exam. Objective - Vital Signs Vital signs: Vital Signs Temp Pulse Resp BP Pulse Ox 12/06/18 10:51 16 127/85 94 12/06/18 07:04 99.1 F 92 16 127/85 97 12/06/18 04:30 99.1 F 98 17 132/84 100 12/06/18 00:05 99.6 F 108 16 134/74 97 12/05/18 22:20 16 94 12/05/18 21:00 96 12/05/18 19:43 98.9 F 112 17 134/88 99 12/05/18 16:01 98.7 F 101 20 128/78 90 12/05/18 12:23 98.4 F 110 20 122/84 93 12/05/18 11:30 99.8 F H 18 134/75 Intake and Output 12/05/18 12/06/18 12/06/18 23:59 07:59 15:59 Intake Total 240 / 1962 250 / 250 Balance 240 / 662 250 / 250 Intake: IV Fluids Ancef 1,000 MG In Water for inj . (sterile) 10 ML @ 200 mls/hr IVP DAILY [facility] Rx#:[id number] Oral 240 / 600 240 / 240 Other: Meal Dinner Breakfast Percent of Meal Consumed 80% 20% # Voids 1 Weight 143.7 kg Blood Glucose* 206 215 Patient Weight 12/06/18 23:59 Weight 143.7 kg - General Appearance Exam: General appearance: Present: well-developed, well-nourished, obese, fatigue EENT: Present: ATNC, PERRL, mucous membranes moist Neck: Present: no JVD, supple Respiratory: Present: clear (But diminished breath sounds in the bases bilaterally) due to large body habitus Cardiology: Present: edema, irregular rhythm, normal S1, normal S2 Dialysis Vascular Access: Venous Catheter (RIJ temporary HD catheter, and his hernandez was affecting the Tegaderm adhesion) Gastrointestinal: Present: normoactive bowel sounds, no tenderness, no guarding, obese Integumentary: Present: warm and dry Additional Comments: RLE was wrapped and appeared C/D/I Neurologic: Present: no focal deficit, no asterixis, alert and oriented x3 Musculoskeletal: Present: no erythema, no cyanosis Psychiatric: Present: mood/affect appropriate, cooperative - Lab 12/06/18 08:36 12/06/18 08:36 Most recent lab results 12/06/18 08:36 Calcium 8.1 L Consult Discharge Plan - Plan Referrals: Natalio Amaya MD [Primary Care Provider] -
--- NOTE | 2018-12-06 12:47 | Event Note ---
Date of Encounter: 12/06/18 Time of Encounter: 12:45 - Cardiology Event Note HR improved with increase in cardizem. Continue to hold bb. Avg HR 97. On asa only due to anemia. GI eval considered this admit. If okay with GI add back eliquis for AC. Cardiology will sign off and out-pt f/u will be coordinated. C all with changes.
[2018-12-06] MEDS ORDERED: Levofloxacin 500 MG/100 ML 500 MG/100 ML BAG IVPB SCH ×2 (17:00)
[2018-12-06 20:00] LABS: Enterococcus by PCR Not Detected (Not Detect); Staphylococcus aureus by PCR DETECTED (Not Detect); Staphylococcus by PCR DETECTED (Not Detect); Streptococcus agalactiae(B)PCR Not Detected (Not Detect); Streptococcus by PCR Not Detected (Not Detect); mecA Methicillin-Resist Gene Not Detected (Not Detect)
[2018-12-06 20:01] LABS: Acinetobacter baumannii by PCR Not Detected (Not Detect); Candida albicans by PCR Not Detected (Not Detect); Candida glabrata by PCR Not Detected (Not Detect); Candida krusei by PCR Not Detected (Not Detect); Candida parapsilosis by PCR Not Detected (Not Detect); Candida tropicalis by PCR Not Detected (Not Detect); Enterobacter cloacae Cmplx PCR Not Detected (Not Detect); Enterobacteriaceae by PCR Not Detected (Not Detect); Escherichia coli by PCR Not Detected (Not Detect); Klebsiella oxytoca by PCR Not Detected (Not Detect); Klebsiella pneumoniae by PCR Not Detected (Not Detect); Proteus by PCR Not Detected (Not Detect); Pseudomonas aeruginosa by PCR Not Detected (Not Detect); Serratia marcescens by PCR Not Detected (Not Detect); Streptococcus pneumoniae PCR Not Detected (Not Detect); Streptococcus pyogenes (A) PCR Not Detected (Not Detect)
[2018-12-06] MEDS ORDERED: Levofloxacin 750 MG/150 ML 750 MG/150 ML BAG IVPB SCH (21:00)
[2018-12-07 05:42] LABS: Basophils % 0.2 %; Eosinophils # 0.3 K/mcL (0.0-0.6); Eosinophils % 1.8 %; Hemoglobin 8.9 g/dL (12.9-16.9); Immature Granulocytes % 0.9 % (0-4); Lymphocytes # 1.5 K/mcL (0.6-4.6); Lymphocytes % 9.3 %; Mean Corpuscular HGB Conc 30.7 g/dL (31.6-35.5); Mean Corpuscular Hemoglobin 25.5 pg (28.0-33.3); Mean Corpuscular Volume 83.1 fL (83.0-100.0); Mean Platelet Volume 10.4 fL (9.4-12.4); Monocytes # 1.3 K/mcL (0.0-1.3); Neutrophils # 12.7 K/mcL (1.6-8.9); Platelet Count 397 K/mcL (140-400); Red Blood Count 3.49 M/mcL (4.19-5.50); Segmented Neutrophils % 79.8 %; White Blood Count 15.9 K/mcL (4.3-11.1)
[2018-12-07 06:00] LABS: Calcium 8.6 mg/dL (8.6-10.3); Potassium 3.6 mEq/L (3.5-5.1)
[2018-12-07] MEDS: MOMETASONE FUROATE 100 mcg Inhaler IH SCH ×2 (07:25→22:03)
[2018-12-07] MEDS: Aspirin Enteric Coated 81 MG Tablet PO SCH (09:31)
[2018-12-07] MEDS: Diltiazem CD (24hr) 240 MG CAPSULE PO SCH (09:31)
[2018-12-07] MEDS: ceFAZolin 1,000 MG in Water for inj. (sterile) 20 ML 10 ML IVP SCH (09:32)
[2018-12-07] MEDS: Insulin DETEMIR 100 UNIT/ML X5UNITS SQ SCH (09:35)
[2018-12-07] MEDS: Insulin LISPRO 300 UNITS/3 ML VIAL SQ SCH ×4 (09:41→22:19)
--- NOTE | 2018-12-07 10:25 | Event Note ---
Date of Encounter: 12/07/18 Time of Encounter: 08:11 - Nephrology Event Note Nephrology Update He was off the floor when I went to see and examine him earlier today. However, I am reassured that his renal function has improved now two days in a row since his last HD on Friday. I do not recommend HD today (Friday). Please keep the temporary HD catheter in place another 24-48hr while monitoring his renal function, but if it continues to recover then it should be removed. Thank you.
--- NOTE | 2018-12-07 11:05 | Internal Med Progress Note ---
Hospitalist Progress Note - Encounter Date of Encounter: 12/07/18 Time of Encounter: 07:58 - Subjective Interval History: Patient seen and examined this morning at bedside. No acute overnight events. Patient feeling well. Denies any fevers chills nausea vomiting or diarrhea. Denies any abdominal pain or left foot pain. Has mild right foot soreness. - Exam Vitals: Temp Pulse Resp BP Pulse Ox 98.7 F 94 18 144/94 97 12/07/18 03:59 12/07/18 09:45 12/07/18 09:45 12/07/18 09:45 12/07/18 08:20 Exam: General: In no acute distress. morbid obesity. Respiratory exam: no accessory muscle use. crackles at base Cardiovascular exam: RRR, +S1, +S2. no murmur, gallop, rubs. GI/Abdominal exam: Non-tender, Non-distended, normal bowel sounds, soft, no peritoneal signs. Extremities exam: 2+ pedal edema, no calf tenderness Neurological exam: CN II-XII intact, AO X3, no focal deficits. Skin exam: Rt leg wound with bandage. Lt foot with redness, warmth and swelling till ankle. Deneis any pain - Assessment and Plan (1) Atrial fibrillation with RVR Current Visit: Yes Status: Acute (2) Hypertension Current Visit: Yes Status: Chronic (3) IDDM (insulin dependent diabetes mellitus) Current Visit: Yes Status: Chronic (4) Acute on chronic kidney failure Current Visit: Yes Status: Acute (5) DVT prophylaxis Current Visit: Yes Status: Acute - Summary of Assessment and Plan Summary of Assessment and Plan: Assessment Acute Afib with RVR YAEL on CKD elevated troponin osteomyelitis of Rt foot Diabetic ulcer rt foot Lt foot cellulitis neuropathic midfoot rt anemia Sepsis hyperkalemia hyponatremia proteinuria Chronic CAD Afib HTN HLD CKD 3 DM Plan - Blood cultures remain positive. Will repeat cultures today. Wound and blood cultures growing MSSA. c/w Levaquin and cefazolin. MRI of Lt foot was ordered given repeated cultures. ECHO with normal valve structures, EF 60%, intermediate DD. Podiatry and ID following. - s/p EGD 12/04, I&D and partial cuboid excision 12/04, temp dialysis placement 12/04 - EGD with multiple polyps with no stigmana of bleeding. Colonoscopy as outpatient once sepsis resolves - YAEL on CKD possibly from hemodynamics and sepsis. s/p 2 HD sessions. renal function has improved. Not plan for HD today. c/w temp HD access for now. Nephrology following recommendation appreciated. - BP improved and afib rate controlled on Cardizem 240 per. Hb stable after 1 PRBC. No signs of active bleeding. Monitor for now. Not candidate for AC for Afib for now given Hb drop after heparin drip. - c/w diabetic diet. c/w levemir 10 units and SSI . Monitor accuchecks. - Time Spent with Patient Total time spent is greater than 50% in coordination of care (as documented) at patient's floor/unit and/or counseling patient: Internal Medicine: Result - Labs CBC & Chem 7: 12/07/18 05:21 12/07/18 05:21 Labs: Short CBC 12/07/18 Range/Units 05:21 WBC 15.9 H (4.3-11.1) K/mcL Hgb 8.9 L (12.9-16.9) g/dL Hct 29.0 L (37.5-50.1) % Plt Count 397 (140-400) K/mcL Neutrophils # 12.7 H (1.6-8.9) K/mcL BMP 12/07/18 05:21 Sodium 132 L Potassium 3.6 Chloride 96 L Carbon Dioxide 28 BUN 35 H Creatinine 1.86 H Glucose 243 H Calcium 8.6 - ABG Interpretation ABG results: PT/INR, D-dimer PT 16.5 Seconds (9.4-12.1) H 12/02/18 18:19 - Impressions Impressions Ankle MRI 12/07/18 00:00 IMPRESSION: Studies of the left ankle and left foot demonstrate diffuse subcutaneous edema about the ankle and foot, nonspecific but potentially relating to cellulitis. There is a superimposed multiloculated complex fluid collection in the dorsolateral proximal forefoot with differential considerations to include complex synovial/ganglion cyst. Abscess cannot be excluded in the current clinical setting. Degenerative changes to the midfoot as above along with mild fragmentation of the navicular. Superimposed mild patchy bone marrow edema like signal involving multiple bony structures as above. The appearance is most suggestive for Charcot arthropathy. It would be difficult to exclude superimposed osteomyelitis involving one or more of the involved bony structures. Mild tenosynovitis to multiple tendons about the foot/ankle as above. Prior remote injury to the deltoid ligament complex. Chronic plantar fasciitis. Mild tendinosis to the Achilles tendon. Likely denervation changes to intrinsic musculature of the foot and to visualized distal flexor hallucis longus and flexor digitorum longus muscles. D/ / 12/07/2018 09:44:42 Natalio Acharya MD / jenna Interpreting Provider: Natalio Acharya MD Foot MRI 12/07/18 08:14 IMPRESSION: Studies of the left ankle and left foot demonstrate diffuse subcutaneous edema about the ankle and foot, nonspecific but potentially relating to cellulitis. There is a superimposed multiloculated complex fluid collection in the dorsolateral proximal forefoot with differential considerations to include complex synovial/ganglion cyst. Abscess cannot be excluded in the current clinical setting. Degenerative changes to the midfoot as above along with mild fragmentation of the navicular. Superimposed mild patchy bone marrow edema like signal involving multiple bony structures as above. The appearance is most suggestive for Charcot arthropathy. It would be difficult to exclude superimposed osteomyelitis involving one or more of the involved bony structures. Mild tenosynovitis to multiple tendons about the foot/ankle as above. Prior remote injury to the deltoid ligament complex. Chronic plantar fasciitis. Mild tendinosis to the Achilles tendon. Likely denervation changes to intrinsic musculature of the foot and to visualized distal flexor hallucis longus and flexor digitorum longus muscles. D/ / 12/07/2018 09:44:42 Natalio Acharya MD / jenna Interpreting Provider: Natalio Acharya MD Consult Discharge Plan - Plan Referrals: Natalio Amaya MD [Primary Care Provider] - (2) Hypertension Qualifiers: Hypertension type: essential hypertension Qualified Code(s): I10 - Essential (primary) hypertension (4) Acute on chronic kidney failure Qualifiers: Acute renal failure type: unspecified Chronic kidney disease stage: stage 3 (moderate) Qualified Code(s): N17.9 - Acute kidney failure, unspecified; N18.3 - Chronic kidney disease, stage 3 (moderate)
--- NOTE | 2018-12-07 11:25 | Podiatry Progress Note ---
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 Add on case Informed consent obtained, Nature of the procedure, risks versus benefits, potential complications, consequences of surgery, and condition discussed. All questions and concerns addressed. Consent signed and placed in chart. (2) Cellulitis Current Visit: Yes Status: Acute Assessment: Cellulitis vs Charcot arthropathy Left foot rubor, tumor, and calor noted Edema 3/4 CFT <3 seconds No open wound noted Plan: Discussed charcot arthropathy with patient NWB LLE Covered with kerlix and BHARAT bandage No obvious source of left foot edema and cellulitis, evidence of cyst but no obvious abscess, continue IV ATB at this time Imaging: MR/MR foot LT wo con IMPRESSION: Studies of the left ankle and left foot demonstrate diffuse subcutaneous edema about the ankle and foot, nonspecific but potentially relating to cellulitis. There is a superimposed multiloculated complex fluid collection in the dorsolateral proximal forefoot with differential considerations to include complex synovial/ganglion cyst. Abscess cannot be excluded in the current clinical setting. Degenerative changes to the midfoot as above along with mild fragmentation of the navicular. Superimposed mild patchy bone marrow edema like signal involving multiple bony structures as above. The appearance is most suggestive for Charcot arthropathy. It would be difficult to exclude superimposed osteomyelitis involving one or more of the involved bony structures. Mild tenosynovitis to multiple tendons about the foot/ankle as above. Prior remote injury to the deltoid ligament complex. Chronic plantar fasciitis. Mild tendinosis to the Achilles tendon. Likely denervation changes to intrinsic musculature of the foot and to visualized distal flexor hallucis longus and flexor digitorum longus muscles. D/ / 12/07/2018 09:44:42 Natalio Acharya MD / bcarter Qualifiers: Site of cellulitis: extremity Site of cellulitis of extremity: lower extremity Laterality: left Qualified Code(s): L03.116 - Cellulitis of left lower limb Subjective Principal diagnosis: Atrial fibrillation with RVR Interval history: Patient awake in bed. Alert and oriented x 3. Patient tearful, states just found out he needs to make a decision regarding on ventilator support. Son and family at bedside. Discussed with patient need to return to surgery for I&D with wound vac placement. Reviewed lab work with patient. Reviewed MRI results with patient. Verbalized understanding. Agreeable to surgery. Denies any fevers, chills, nausea, vomiting, or diarrhea. Denies and chest pain, calf pain, or shortness of breath. No other questions or concerns at this time Objective - Vital Signs Vital Signs: Vital Signs Temp Pulse Resp BP Pulse Ox 12/07/18 09:45 94 18 144/94 12/07/18 08:20 14 97 12/07/18 03:59 98.7 F 91 12 134/82 95 12/06/18 22:21 14 98 12/06/18 21:11 96 12/06/18 20:33 99.6 F 92 18 144/85 93 12/06/18 15:13 99.1 F 83 16 137/87 97 Intake and Output 12/06/18 12/07/18 12/07/18 23:59 07:59 15:59 Intake Total 240 / 240 Balance 240 / 240 Intake: Oral 240 / 240 Other: Meal Dinner Breakfast Percent of Meal Consumed 0% 50% # Voids 1 Blood Glucose* 218 323 - Exam Exam: Constitiutional: Alert and oriented x 3. Well nourished. No acute distress noted. Tearful Vascular: 1/4 DP/PT bilaterally, CFT <3 sec to all digits bilaterally, warm to warm from tibia to toes bilaterally, no calf pain with squeeze bilaterally, edema noted BLE Neurologic: absent sensation to touch, normal plantar response Dermatologic: right foot snow stage 4 ulceration noted, probes to bone. left foot hot to touch, edema 3/4 noted LLE, 2/4 RLE edema. Musculoskeletal: 4/5 muscle strength and normal tone bilaterally. - Lab Result Diagrams: 12/07/18 05:21 12/07/18 05:21 Labs: Abnormal lab results WBC 15.9 K/mcL (4.3-11.1) H 12/07/18 05:21 RBC 3.49 M/mcL (4.19-5.50) L 12/07/18 05:21 Hgb 8.9 g/dL (12.9-16.9) L 12/07/18 05:21 Hct 29.0 % (37.5-50.1) L 12/07/18 05:21 MCV 81.9 fL (83.0-100.0) L 12/06/18 08:36 MCH 25.5 pg (28.0-33.3) L 12/07/18 05:21 MCHC 30.7 g/dL (31.6-35.5) L 12/07/18 05:21 RDW 15.0 % (11.5-14.5) H 12/07/18 05:21 12.7 K/mcL (1.6-8.9) H 12/07/18 05:21 1.5 K/mcL (0.0-1.3) H 12/06/18 08:36 Nucleated RBCs/100 WBC 0.1 /100 WBC (0) H 12/04/18 03:07 ESR >= 130 mm/hr (0-10) H 12/04/18 07:11 PT 16.5 Seconds (9.4-12.1) H 12/02/18 18:19 Heparin Anti-Xa, Unfract 0.01 IU/mL (0.30-0.70) L 12/02/18 18:19 Sodium 132 mEq/L (136-145) L 12/07/18 05:21 Potassium 5.2 mEq/L (3.5-5.1) H 12/04/18 03:07 Chloride 96 mEq/L (98-107) L 12/07/18 05:21 Carbon Dioxide 20 mEq/L (23-29) L 12/04/18 03:07 BUN 35 mg/dL (8-23) H 12/07/18 05:21 1.86 mg/dL (0.70-1.30) H 12/07/18 05:21 Est GFR ( Amer) 45 (> 60) L 12/07/18 05:21 Est GFR (Non-Af Amer) 37 (> 60) L 12/07/18 05:21 Glucose 243 mg/dL (70-105) H 12/07/18 05:21 POC Glucose 218 mg/dL (70-99) H 12/06/18 20:35 Calcium 8.1 mg/dL (8.6-10.3) L 12/06/18 08:36 Phosphorus 4.9 mg/dL (2.7-4.5) H 12/05/18 04:30 Magnesium 1.2 mg/dL (1.6-2.6) L 12/03/18 04:39 1.1 mg/dL (0.3-1.0) H 12/03/18 04:39 0.5 mg/dL (0.0-0.2) H 12/02/18 18:19 0.04 ng/mL (< 0.04) H* 12/03/18 07:53 > 300 mg/L (Less than 10) H 12/04/18 03:07 2.8 g/dL (3.5-5.7) L 12/05/18 04:30 1.0 (1.1-2.2) L 12/03/18 04:39 25 mg/dL (40-59) L 12/03/18 04:39 3.61 ng/mL (0.00-0.15) H 12/03/18 09:02 Cloudy (Clear) A 12/02/18 19:42 >=300 mg/dL (Neg-Trace) H 12/02/18 19:42 Trace mg/dL (Negative) H 12/02/18 19:42 3-5 per hpf (0-3) H 12/02/18 19:42 Ur Squamous Epith Cells Many per lpf (None-Few) H 12/02/18 19:42 15 IU/mL (Less than 14) H 12/06/18 08:36 Hep Bs Antibody < 3.10 mIU/mL (10.00-) L 12/04/18 13:32 Staphylococcus sp PCR DETECTED (Not Detect) A 12/05/18 16:26 Staph aureus (PCR) DETECTED (Not Detect) A 12/05/18 16:26 Crossmatch See Detail 12/04/18 07:11 Microbiology, Last 48 Hours 12/04/18 19:28 Wound Culture - Final Right Foot Staphylococcus aureus 12/04/18 19:28 Anaerobic Culture - Preliminary Right Foot At this time, no anaerobic growth is present. The culture will be finalized after 5 days of incubation. 12/05/18 16:26 Blood Culture - Preliminary Peripheral Venipuncture Staphylococcus aureus 12/07/18 05:15 Blood Culture - Preliminary Peripheral Venipuncture Culture is incubating and being continuously monitored for growth. Final report to follow. 12/07/18 05:21 Blood Culture - Preliminary Peripheral Venipuncture Culture is incubating and being continuously monitored for growth. Final report to follow. 12/04/18 19:28 Acid Fast Stain - Final Right Foot 12/04/18 13:32 Blood Culture - Final Peripheral Venipuncture Staphylococcus aureus 12/04/18 13:38 Blood Culture - Final Peripheral Venipuncture Staphylococcus aureus 12/03/18 11:24 Blood Culture - Final Peripheral Venipuncture Staphylococcus aureus 12/03/18 11:24 Blood Culture - Final Peripheral Venipuncture Staphylococcus aureus 12/05/18 16:26 Blood Culture - Preliminary Peripheral Venipuncture Culture is incubating and being continuously monitored for growth. Final report to follow. 12/03/18 15:23 Wound Culture - Final Right Foot Staphylococcus aureus Consult Discharge Plan - Plan Referrals: Natalio Amaya MD [Primary Care Provider] -
[2018-12-07 15:03] LABS: Myeloperoxidase Ab 1 AU/mL (0-19); Serine Protease-3 Antibody 0 AU/mL (0-19)
[2018-12-07] MEDS ORDERED: Levofloxacin 750 MG/150 ML 750 MG/150 ML BAG IVPB SCH (18:00)
--- NOTE | 2018-12-07 18:11 | Infectious Disease Progress No ---
ID Progress Note Date of Encounter: 12/07/18 Time of Encounter: 18:10 - Subjective Subjective: Patient seen and examined Vital signs: Afebrile Labs reviewed Cultures noted - Objective CBC & Chem 7: 12/07/18 05:21 12/07/18 05:21 - Exam Vitals: Temp Pulse Resp BP Pulse Ox 98.5 F 87 19 150/82 98 12/07/18 15:57 12/07/18 15:57 12/07/18 15:57 12/07/18 15:57 12/07/18 15:57 Exam: GENERAL: Comfortable. Laying in bed NAD HEENT: BALTAZAR, EOMI LUNGS: Good air sounds bilaterally, no wheezing or rhonchi CV: RRR, S1 S2 ABDOMEN: Soft, nontender, + bowel sounds EXT: Adequate perfusion. No edema NEURO: A&OX3; no focal deficit - Assessment and Plan (1) Sepsis Current Visit: Yes Status: Acute Patient with fever and leukocytosis and tachycardia Secondary to MSSA bacteremia and osteomyelitis of the right foot Qualifiers: Sepsis type: sepsis due to unspecified organism Qualified Code(s): A41.9 - Sepsis, unspecified organism SNOMED Code(s): 68276007 (2) MSSA bacteremia Current Visit: Yes Status: Acute 2/2 sets positive 12/03/2018 Source likely right foot infection No endocarditis stigmata on physical exam Patient has no hardware or signs of septic emboli Currently patient is on Zosyn and clindamycin Please see below for recommendation SNOMED Code(s): 302862784 (3) Osteomyelitis of right foot Current Visit: Yes Status: Acute Wound present since late 2017 Previous cultures of the wound 07/06/2018 were positive for pansensitive Enterobacter aerogenes and MSSA Repeat for cultures 12/03/2018 positive for gram-positive cocci final ID and susceptibility pending MRI concerning for osteomyelitis ESR and CRP >130 and 300 respectively on admission Patient going for I&D later today Appreciate podiatry input Please see below for recommendations Qualifiers: Osteomyelitis type: subacute Qualified Code(s): M86.271 - Subacute osteomyelitis, right ankle and foot SNOMED Code(s): 3530576656959876 (4) IDDM (insulin dependent diabetes mellitus) Current Visit: Yes Status: Chronic SNOMED Code(s): 85740653 (5) Acute on chronic kidney failure Current Visit: Yes Status: Acute Patient currently on dialysis. 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
[2018-12-07] MEDS ORDERED: Lidocaine 1% 20 ML MDV ONE (20:23)
[2018-12-07] MEDS ORDERED: *HR* FentaNYL (PF) 100 MCG/2 ML VIAL ONE (20:28)
[2018-12-07] MEDS ORDERED: *HR* Propofol 200 MG/20 ML VIAL IVP ONE (20:28)
[2018-12-07] MEDS ORDERED: Dexamethasone 4 MG/ML VIAL ONE (20:29)
[2018-12-07] MEDS ORDERED: Lidocaine -MPF 2% 2 ML VIAL ONE (20:29)
[2018-12-07] MEDS ORDERED: Ondansetron 4 MG/2 ML VIAL ONE (20:29)
--- NOTE | 2018-12-07 20:31 | Anesthesia Evaluation PreOp ---
Date of Encounter: 12/07/18 Time of Encounter: 20:33 - Past History Planned Operation: Right foot I&D, wound debridement, wound vac Cardiac History: RI, HTN, Hyperlipidemia, Arrhythmia (a fib) Pulmonary History: Asthma MANAGER OF REGULATORY AFFAIRS History: Denies Any Significant HX Other Medical History: Renal (acute on chronic kidney disease; on dialysis this admission (likely temporarily) with last session Sat), Diabetes Type II, Other (BMI 42) Anesthesia History: No Prior Anesthetic Complications Alcohol Use: none Drug use: none Medications and Allergies Albuterol Sulfate [Ventolin Hfa] 2 puff IH Q4H PRN 09/18/16 [History] Allopurinol [Zyloprim 100 MG] 100 mg PO DAILY 09/18/16 [History] Aspirin Enteric Coated [Aspirin EC] 81 mg PO DAILY 09/18/16 [History] Atorvastatin [Lipitor] 40 mg PO HS 09/18/16 [History] Carvedilol [Coreg] 25 mg PO BID 09/18/16 [History] Felodipine [Felodipine ER] 5 mg PO DAILY 09/18/16 [History] Furosemide [Lasix] 40 mg PO DAILY PRN 09/18/16 [History] Montelukast [Singulair] 10 mg PO HS PRN 09/18/16 [History] Beclomethasone Dipropionate [QVAR 80 mcg REDIHALER] 1 puff IH BID 12/02/18 [History] Docusate [Colace] 100 mg PO DAILY PRN 12/02/18 [History] Insulin Glargine,Hum.rec.anlog [Basaglar Kwikpen U-100] 10 unit SQ DAILY 12/02/18 [History] Cetirizine HCl [24Hour Allergy] 10 mg PO DAILY 12/03/18 [History] Diltiazem HCl [Diltiazem ER] 180 mg PO DAILY 12/03/18 [History] Liraglutide [Victoza 2-Jerson] 1.2 mg SQ DAILY 12/03/18 [History] Lisinopril [Zestril] 20 mg PO DAILY 12/03/18 [History] Metformin HCl 850 mg PO BID 12/03/18 [History] Allergy/AdvReac Type Severity Reaction Status Date / Time No Known Allergies Allergy Verified 12/03/18 23:20 - Meds/Allergy Pre-op Review Medications Reviewed: Yes Allergies Reviewed: Yes Beta Blockers on Current Med List: No Anesthesia Results - Labs 12/07/18 05:21 12/07/18 05:21 - Imaging EKG: report reviewed, image reviewed (ATRIAL FIBRILLATION PATTERN CONSISTENT WITH PULMONARY DISEASE LEFT ANTERIOR FASCICULAR BLOCK) Additional studies: TTE: EV/EV echocardiogram w enhance Impressions: LVEF 60%. Mild concentric left ventricular hypertrophy. Indeterminate diastolic function. Normal right ventricular structure and function. Mild mitral regurgitation. No evidence of pulmonary hypertension. Anesthesia Exam Last Vital Signs Temp 98.5 F 12/07/18 15:57 Pulse 87 12/07/18 15:57 Resp 19 12/07/18 15:57 BP 150/82 12/07/18 15:57 Pulse Ox 98 12/07/18 15:57 Weight: 144 kg NPO (# of Hours): > 8 hrs - HEENT Pupil (Motor): Pupils equal, EOMI Mallampati: III Teeth: Missing, Poor dentition Oral Opening: Greater than 3 - MANAGER OF REGULATORY AFFAIRS LOC: Oriented - Cardiac Rhythm: Irregular Murmur: None - Pulmonary Breath Sounds: bilateral Clear Respiratory Effort: Symmetrical Anesthesia Assess/Plan ASA Score: 3 Level of consciousness: Cooperative Anesthetic Plan: MAC Monitoring Plan: Standard Monitors Recovery Plan: PACU
[2018-12-07] MEDS ORDERED: Vancomycin 1,000 MG VIAL ONE (20:38)
--- NOTE | 2018-12-07 21:33 | Anesthesia Evaluation Post Op ---
Date of Encounter: 12/07/18 Time of Encounter: 21:32 - Vital Signs Vital Signs: See anesthesia record - Lungs Lungs: Clear Ascult./Percussion - Airway Airway: Non-obstructed - Cardiovascular Irregular Rate, Baseline Rhythm - Mental Status Mental Status: Alert & Oriented, Answers Appropriately - Pain Pain Scale: 1 - Nausea Vomiting Nausea Vomiting: Not Present - Hydration Hydration: NPO, Has not voided - Discharge PostOp Status: Transfer Patient to floor
--- NOTE | 2018-12-07 21:38 | Orthopedic Operative Note ---
Date of procedure: 12/07/18 Pre-op diagnosis: right foot wound infection, bacteremia Post-op diagnosis: same Procedure: 12/07/18 21:32 1. Incision and drainage below fascia right foot 2. Application negative pressure wound therapy Implants: None Complications: None Anesthesia: MAC, local Surgeon: Dany Ceron Was there an fleet assistant present: No Estimated blood loss (cc): 5 Tourniquet Time (Minutes): 0 Specimen: None Condition: stable Disposition: floor Procedure in Detail: 12/07/18 21:33 INDICATIONS AND CONSENT Minh Osbonre is a 63-year-old male who initially presented with a chronic right plantar foot ulcer. He was admitted to the hospital with concern for sepsis and bacteremia with the foot as the suspected source. MRI showed evidence of an ulcer with osseous changes suspicious of osteomyelitis of the cuboid. He underwent initial incision and drainage on 12/04/18. Follow up blood cultures also grew gram +cocci. Given the concern for systemic infection, repeat incision and drainage was warranted. We also planned to apply negative pressure wound therapy to assist with wound healing. We discussed the above procedures in detail. This included a discussion on the indications, contraindications, and possible complications including but not limited to: infection, non-healing wound, pain, swelling, bleeding, blood clots, heart complications, nerve injury, tendon injury, vascular injury, loss of limb, loss of life, and need for further surgery. We also reviewed the expected post operative course, including a discussion on the partial-weightbearing status after this procedure. He related understanding of our discussion regarding this surgery. All questions were answered to his satisfaction, and a proper written informed consent was obtained, signed, and placed in the chart. No guarantees were given, stated or implied, as to the outcome of this procedure. PROCEDURE IN DETAIL The patient was seen in the pre-operative holding area by Anesthesia, where he was consented for MAC with local nerve block. The patient was then brought back to the operative suite and remained on the hospital bed in the supine position. A sign-in was performed. MAC was then initiated per Anesthesia protocol. A Winnett Time-Out was performed, and all parties in the room agreed. The right foot was then scrubbed, prepped, and draped in the normal sterile technique. A total of 6 mL of 1% lidocaine plain was injected to the right midfoot. A 15 blade and rongeur were used to sharply debride all nonviable soft tissues at the right foot ulcer down to the level of cuboid. No purulence was encountered. The cuboid appeared hard and viable. Post debridement wound measurement was 3.2 cm x 2.8 cm x 1.5 cm. The wound was then irrigated with 3L of normal saline infused with 1g Vancomycin powder. KCI negative pressure wound therapy was applied with white foam to the bone, covered by black foam and suction at 125mmHg continuous. Capillary refill time of the toes on the left foot was also noted to be brisk at this time. A sign out was performed. The patient tolerated anesthesia and the procedure well, and was transferred to PAC-U with vital signs stable and vascular status intact to the right lower extremity. Needle and sponge counts were correct X 2 at the end of the case. Dr. Dany Ceron was present, scrubbed, and participated in all vital aspects of the procedure. After a brief stay in PAC-U, the patient will be admitted back to the floor for continued monitoring. We will follow up on repeat blood cultures. At this point, I believe non viable and infected soft tissue has been removed.
[2018-12-08 01:02] LABS: APTT (LE Anticoag) 50 sec (32-48); Diluted Russell Viper Venom 42 sec (33-44); LE Coag APTT Mixing 49 sec (32-48); PT (LE-Anticoag) 16.3 sec (12.0-15.5); Thrombin Time 16.2 sec (14.7-19.5)
[2018-12-08] MEDS: MOMETASONE FUROATE 100 mcg Inhaler IH SCH ×2 (07:45→19:54)
[2018-12-08] MEDS: Insulin LISPRO 300 UNITS/3 ML VIAL SQ SCH ×4 (09:10→20:11)
[2018-12-08] MEDS: Insulin DETEMIR 100 UNIT/ML X5UNITS SQ SCH ×2 (09:11→17:58)
[2018-12-08] MEDS: Diltiazem CD (24hr) 240 MG CAPSULE PO SCH (09:11)
[2018-12-08] MEDS: Aspirin Enteric Coated 81 MG Tablet PO SCH (09:11)
--- NOTE | 2018-12-08 10:18 | Podiatry Progress Note ---
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 Ceron 12/07/[address] at 125 mmHG, draining serosanginous drainage Cap refill <3 second Plan: Wound vac change MWF, will change tomorrow Patient is planning on returning home upon d/c, will need social service to set up home care (2) Cellulitis Current Visit: Yes Status: Acute Assessment: Cellulitis vs Charcot arthropathy vs gout Left foot rubor, tumor, and calor noted Edema 2/4 noted to left foot CFT <3 seconds No open wound noted WBC 12.7, improving, no left shift noted Plan: Uric acid ordered CAM walker boot ordered, patient to use when ambulating Covered with BHARAT bandage No obvious source of left foot edema and cellulitis, evidence of cyst but no obvious abscess, continue IV ATB at this time Imaging: MR/MR foot LT wo con IMPRESSION: Studies of the left ankle and left foot demonstrate diffuse subcutaneous edema about the ankle and foot, nonspecific but potentially relating to cellulitis. There is a superimposed multiloculated complex fluid collection in the dorsolateral proximal forefoot with differential considerations to include complex synovial/ganglion cyst. Abscess cannot be excluded in the current clinical setting. Degenerative changes to the midfoot as above along with mild fragmentation of the navicular. Superimposed mild patchy bone marrow edema like signal involving multiple bony structures as above. The appearance is most suggestive for Charcot arthropathy. It would be difficult to exclude superimposed osteomyelitis involving one or more of the involved bony structures. Mild tenosynovitis to multiple tendons about the foot/ankle as above. Prior remote injury to the deltoid ligament complex. Chronic plantar fasciitis. Mild tendinosis to the Achilles tendon. Likely denervation changes to intrinsic musculature of the foot and to visualized distal flexor hallucis longus and flexor digitorum longus muscles. D/ / 12/07/2018 09:44:42 Natalio Acharya MD / juanrtkaron Qualifiers: Site of cellulitis: extremity Site of cellulitis of extremity: lower extremity Laterality: left Qualified Code(s): L03.116 - Cellulitis of left lower limb Subjective Principal diagnosis: Atrial fibrillation with RVR Interval history: Patient awake in bed. Alert and oriented x 3. S/P Incision and drainage below fascia right foot and Application negative pressure wound therapy with Dr. Ceron 12/07/18. Denies any pain. Denies any fevers, chills, nausea, vomiting, or diarrhea. Denies and chest pain, calf pain, or shortness of breath. No other questions or concerns at this time. Objective - Vital Signs Vital Signs: Vital Signs Temp Pulse Resp BP Pulse Ox 12/08/18 07:47 18 98 12/08/18 07:28 98 F 120 18 146/80 98 12/08/18 04:50 98.6 F 92 16 146/84 12/07/18 22:35 95 12/07/18 22:05 14 96 12/07/18 21:46 98.8 F 96 18 147/76 95 12/07/18 15:57 98.5 F 87 19 150/82 98 12/07/18 11:37 98 F 88 19 151/85 Intake and Output 12/07/18 12/08/18 12/08/18 23:59 07:59 15:59 Intake Total 250 / 490 340 / 340 Output Total 5 / 5 300 / 300 Balance 245 / 485 40 / 40 Intake: IV Fluids 250 / 250 100 / 100 Levaquin Premix 750mg/150 mL 150 / 150 750 mg In 150 ml @ 100 mls/hr IVPB Q24H [facility] Rx#:[id number] Ancef 2,000 MG In 0.9 % Sodium 100 / 100 100 / 100 Chloride 100 ML @ 200 mls/hr IVPB Q8HR [facility] Rx#:[id number] Oral 0 / 240 240 / 240 Output: Urine 0 / 0 300 / 300 Estimated Blood Loss 5 / 5 Other: Blood Glucose* 133 250 - Exam Exam: Constitiutional: Alert and oriented x 3. Well nourished. No acute distress not ed. Vascular: 1/4 DP/PT LLE, CFT <3 sec to all digits bilaterally, warm to warm from tibia to toes bilaterally, no calf pain with squeeze bilaterally, edema noted BLE Neurologic: absent sensation to touch, normal plantar response Dermatologic: Wound vac in place RLE, left foot hot to touch, 2/4 BLE edema. Musculoskeletal: 4/5 muscle strength and normal tone bilaterally. - Lab Result Diagrams: 12/08/18 11:31 12/07/18 05:21 Labs: Abnormal lab results WBC 15.9 K/mcL (4.3-11.1) H 12/07/18 05:21 RBC 3.49 M/mcL (4.19-5.50) L 12/07/18 05:21 Hgb 8.9 g/dL (12.9-16.9) L 12/07/18 05:21 Hct 29.0 % (37.5-50.1) L 12/07/18 05:21 MCV 81.9 fL (83.0-100.0) L 12/06/18 08:36 MCH 25.5 pg (28.0-33.3) L 12/07/18 05:21 MCHC 30.7 g/dL (31.6-35.5) L 12/07/18 05:21 RDW 15.0 % (11.5-14.5) H 12/07/18 05:21 12.7 K/mcL (1.6-8.9) H 12/07/18 05:21 1.5 K/mcL (0.0-1.3) H 12/06/18 08:36 Nucleated RBCs/100 WBC 0.1 /100 WBC (0) H 12/04/18 03:07 ESR >= 130 mm/hr (0-10) H 12/04/18 07:11 PT 16.5 Seconds (9.4-12.1) H 12/02/18 18:19 Heparin Anti-Xa, Unfract 0.01 IU/mL (0.30-0.70) L 12/02/18 18:19 Sodium 132 mEq/L (136-145) L 12/07/18 05:21 Potassium 5.2 mEq/L (3.5-5.1) H 12/04/18 03:07 Chloride 96 mEq/L (98-107) L 12/07/18 05:21 Carbon Dioxide 20 mEq/L (23-29) L 12/04/18 03:07 BUN 35 mg/dL (8-23) H 12/07/18 05:21 1.86 mg/dL (0.70-1.30) H 12/07/18 05:21 Est GFR ( Amer) 45 (> 60) L 12/07/18 05:21 Est GFR (Non-Af Amer) 37 (> 60) L 12/07/18 05:21 Glucose 243 mg/dL (70-105) H 12/07/18 05:21 POC Glucose 133 mg/dL (70-99) H 12/07/18 22:17 Calcium 8.1 mg/dL (8.6-10.3) L 12/06/18 08:36 Phosphorus 4.9 mg/dL (2.7-4.5) H 12/05/18 04:30 Magnesium 1.2 mg/dL (1.6-2.6) L 12/03/18 04:39 1.1 mg/dL (0.3-1.0) H 12/03/18 04:39 0.5 mg/dL (0.0-0.2) H 12/02/18 18:19 0.04 ng/mL (< 0.04) H* 12/03/18 07:53 > 300 mg/L (Less than 10) H 12/04/18 03:07 2.8 g/dL (3.5-5.7) L 12/05/18 04:30 1.0 (1.1-2.2) L 12/03/18 04:39 25 mg/dL (40-59) L 12/03/18 04:39 3.61 ng/mL (0.00-0.15) H 12/03/18 09:02 Cloudy (Clear) A 12/02/18 19:42 >=300 mg/dL (Neg-Trace) H 12/02/18 19:42 Trace mg/dL (Negative) H 12/02/18 19:42 3-5 per hpf (0-3) H 12/02/18 19:42 Ur Squamous Epith Cells Many per lpf (None-Few) H 12/02/18 19:42 15 IU/mL (Less than 14) H 12/06/18 08:36 Hep Bs Antibody < 3.10 mIU/mL (10.00-) L 12/04/18 13:32 Staphylococcus sp PCR DETECTED (Not Detect) A 12/05/18 16:26 Staph aureus (PCR) DETECTED (Not Detect) A 12/05/18 16:26 Crossmatch See Detail 12/04/18 07:11 Microbiology, Last 48 Hours 12/05/18 16:26 Blood Culture - Final Peripheral Venipuncture Staphylococcus aureus 12/04/18 19:28 Wound Culture - Final Right Foot Staphylococcus aureus 12/04/18 19:28 Anaerobic Culture - Preliminary Right Foot At this time, no anaerobic growth is present. The culture will be finalized after 5 days of incubation. 12/07/18 05:15 Blood Culture - Preliminary Peripheral Venipuncture Culture is incubating and being continuously monitored for growth. Final report to follow. 12/07/18 05:21 Blood Culture - Preliminary Peripheral Venipuncture Culture is incubating and being continuously monitored for growth. Final report to follow. 12/04/18 19:28 Acid Fast Stain - Final Right Foot 12/04/18 13:32 Blood Culture - Final Peripheral Venipuncture Staphylococcus aureus 12/04/18 13:38 Blood Culture - Final Peripheral Venipuncture Staphylococcus aureus 12/03/18 11:24 Blood Culture - Final Peripheral Venipuncture Staphylococcus aureus 12/03/18 11:24 Blood Culture - Final Peripheral Venipuncture Staphylococcus aureus Consult Discharge Plan - Plan Referrals: Natalio Amaay MD [Primary Care Provider] -
--- NOTE | 2018-12-08 10:45 | Internal Med Progress Note ---
Hospitalist Progress Note - Encounter Date of Encounter: 12/08/18 Time of Encounter: 10:45 - Subjective Interval History: Patient seen and examined this morning at bedside. No acute overnight events. Denies new complaints. Pain is controlled. Denies any chest pain difficulty breathing. Denies any nausea vomiting or diarrhea. - Exam Vitals: Temp Pulse Resp BP Pulse Ox 98 F 120 18 146/80 98 12/08/18 07:28 12/08/18 07:28 12/08/18 07:47 12/08/18 07:28 12/08/18 07:47 Exam: General: In no acute distress. morbid obesity. Respiratory exam: no accessory muscle use. crackles at base Cardiovascular exam: RRR, +S1, +S2. no murmur, gallop, rubs. GI/Abdominal exam: Non-tender, Non-distended, normal bowel sounds, soft, no peritoneal signs. Extremities exam: 1+ pedal edema, no calf tenderness Neurological exam: CN II-XII intact, AO X3, no focal deficits. Skin exam: Rt leg wound with wound vac. Lt foot with redness, warmth and swelling till ankle. Deneis any pain - Assessment and Plan (1) Atrial fibrillation with RVR Current Visit: Yes Status: Acute (2) Hypertension Current Visit: Yes Status: Chronic (3) IDDM (insulin dependent diabetes mellitus) Current Visit: Yes Status: Chronic (4) Acute on chronic kidney failure Current Visit: Yes Status: Acute (5) DVT prophylaxis Current Visit: Yes Status: Acute - Summary of Assessment and Plan Summary of Assessment and Plan: Assessment Acute Afib with RVR YAEL on CKD elevated troponin osteomyelitis of Rt foot Diabetic ulcer rt foot Lt foot cellulitis neuropathic midfoot rt anemia Sepsis hyperkalemia hyponatremia proteinuria Chronic CAD Afib HTN HLD CKD 3 DM Plan - Blood cultures last positive on 12/05/18 growing MSSA. MRI of Lt foot with edema, synovial/ganglion cyst? abscess could not be rule out, ?charcot arthropathy, osteomyelitis not excluded. ECHO with normal valve structures, EF 60%, intermediate DD. Podiatry following. Had I&D and partial cuboid excision 12/04 and repeat I&D and wound vac on 12/07/18 on Rt foot. c/w Levaquin and cefazolin. ID following, await final recommendation. - s/p EGD 12/04, temp dialysis placement 12/04 - EGD with multiple polyps with no stigmana of bleeding. Colonoscopy as outpatient once sepsis resolves. - YAEL on CKD possibly from hemodynamics and sepsis. s/p 2 HD sessions. renal function has improved. pending labs today. If continues to improve HD cath to be removed today. Nephrology following. - BP improved and afib rate controlled on Cardizem 240 per. Hb stable after 1 PRBC. No signs of active bleeding. Monitor for now. Not candidate for AC for Afib for now given Hb drop after heparin drip. Will need colonoscopy before starting as outpatient. - c/w diabetic diet. increase levemir to 15 units and SSI . Monitor accuchecks. - Time Spent with Patient Total time spent is greater than 50% in coordination of care (as documented) at patient's floor/unit and/or counseling patient: Internal Medicine: Result - Labs CBC & Chem 7: 12/07/18 05:21 12/07/18 05:21 - ABG Interpretation ABG results: PT/INR, D-dimer PT 16.5 Seconds (9.4-12.1) H 12/02/18 18:19 Consult Discharge Plan - Plan Referrals: Natalio Amaya MD [Primary Care Provider] - (2) Hypertension Qualifiers: Hypertension type: essential hypertension Qualified Code(s): I10 - Essential (primary) hypertension (4) Acute on chronic kidney failure Qualifiers: Acute renal failure type: unspecified Chronic kidney disease stage: stage 3 (moderate) Qualified Code(s): N17.9 - Acute kidney failure, unspecified; N18.3 - Chronic kidney disease, stage 3 (moderate)
--- NOTE | 2018-12-08 11:01 | Nephrology Progress Note ---
Date of Encounter: 12/08/18 Time of Encounter: 08:50 - Assessment and Plan (1) Acute on chronic kidney failure Current Visit: Yes Status: Acute Still pending renal function and electrolyte labs, and so if his SCr improves, then I'd recommend removal the HD catheter. His labs were ordered for 0400 today. Cont to follow a renal protective strategy as able. Qualifiers: Acute renal failure type: unspecified Chronic kidney disease stage: stage 3 (moderate) Qualified Code(s): N17.9 - Acute kidney failure, unspecified; N18.3 - Chronic kidney disease, stage 3 (moderate) (2) CKD (chronic kidney disease), stage III Current Visit: No Status: Chronic Baseline CKD stage III, according to the GFR is noted in [employer] (3) Hyponatremia Current Visit: Yes Status: Acute Pending labs to assess his PNa. (4) Anemia Current Visit: Yes Status: Acute Qualifiers: Anemia type: unspecified type Qualified Code(s): D64.9 - Anemia, unspecified (5) Proteinuria Current Visit: No Status: Chronic History of diabetes, which is presumably the cause of his stage III CKD. Negative YASMINE and negative Anka. The rheumatoid factor was slightly elevated, which might not be very specific. Thus far, I do not suspect a glomerulonephritis. The subnephrotic proteinuria might be due to ATN, hypertension, diabetes, obesity. Qualifiers: Proteinuria type: persistent Qualified Code(s): R80.1 - Persistent proteinuria, unspecified (6) Hyperkalemia Current Visit: Yes Status: Acute Improved s/p HD (7) Atrial fibrillation with RVR Current Visit: Yes Status: Acute As per primary/Cardio (8) Osteomyelitis of right foot Current Visit: Yes Status: Acute Foot infection(s) as per primary/Podiatry Qualifiers: Osteomyelitis type: subacute Qualified Code(s): M86.271 - Subacute osteomyelitis, right ankle and foot Subjective Principal diagnosis: Atrial fibrillation with RVR Interval history: The patient was seen and examined, and he did not affirm nausea, vomiting, but did report still having a diminished appetite. He was in the operating room again yesterday, he affirmed. Objective - Vital Signs Vital signs: Vital Signs Temp Pulse Resp BP Pulse Ox 12/08/18 07:47 18 98 12/08/18 07:28 98 F 120 18 146/80 98 12/08/18 04:50 98.6 F 92 16 146/84 12/07/18 22:35 95 12/07/18 22:05 14 96 12/07/18 21:46 98.8 F 96 18 147/76 95 12/07/18 15:57 98.5 F 87 19 150/82 98 12/07/18 11:37 98 F 88 19 151/85 Intake and Output 12/07/18 12/08/18 12/08/18 23:59 07:59 15:59 Intake Total 250 / 490 340 / 340 Output Total 5 / 5 300 / 300 Balance 245 / 485 40 / 40 Intake: IV Fluids 250 / 250 100 / 100 Levaquin Premix 750mg/150 mL 150 / 150 750 mg In 150 ml @ 100 mls/hr IVPB Q24H [facility] Rx#:[id number] Ancef 2,000 MG In 0.9 % Sodium 100 / 100 100 / 100 Chloride 100 ML @ 200 mls/hr IVPB Q8HR [facility] Rx#:[id number] Oral 0 / 240 240 / 240 Output: Urine 0 / 0 300 / 300 Estimated Blood Loss 5 / 5 Other: Blood Glucose* 133 250 - General Appearance Exam: General appearance: Present: well-developed, well-nourished, obese, fatigue EENT: Present: ATNC, PERRL, mucous membranes moist Neck: Present: no JVD, supple Respiratory: Present: clear anterior on exam Cardiology: Present: edema, irregular rhythm, normal S1, normal S2 Dialysis Vascular Access: Venous Catheter (RIJ temporary HD catheter, and his hernandez was affecting the Tegaderm adhesion) Gastrointestinal: Present: normoactive bowel sounds, no tenderness, no guarding, obese Integumentary: Present: warm and dry Additional Comments: RLE was wrapped and appeared C/D/I Neurologic: Present: no focal deficit, no asterixis, alert and oriented x3 Musculoskeletal: Present: no erythema, no cyanosis Psychiatric: Present: mood/affect appropriate, cooperative - Lab 12/07/18 05:21 12/07/18 05:21 Consult Discharge Plan - Plan Referrals: Natalio Amaya MD [Primary Care Provider] -
[2018-12-08 12:46] LABS: Basophils % 0.3 %; Eosinophils # 0.4 K/mcL (0.0-0.6); Eosinophils % 2.9 %; Hematocrit 31.3 % (37.5-50.1); Hemoglobin 9.5 g/dL (12.9-16.9); Immature Granulocytes % 1.3 % (0-4); Lymphocytes # 1.5 K/mcL (0.6-4.6); Lymphocytes % 11.9 %; Mean Corpuscular HGB Conc 30.4 g/dL (31.6-35.5); Mean Corpuscular Hemoglobin 25.6 pg (28.0-33.3); Mean Corpuscular Volume 84.4 fL (83.0-100.0); Mean Platelet Volume 10.6 fL (9.4-12.4); Monocytes # 1.2 K/mcL (0.0-1.3); Monocytes % 9.1 %; Neutrophils # 9.5 K/mcL (1.6-8.9); Platelet Count 526 K/mcL (140-400); Red Blood Count 3.71 M/mcL (4.19-5.50); Red Cell Distribution Width 15.2 % (11.5-14.5); Segmented Neutrophils % 74.5 %; White Blood Count 12.7 K/mcL (4.3-11.1)
[2018-12-08 14:09] LABS: Calcium 8.8 mg/dL (8.6-10.3); Potassium 3.8 mEq/L (3.5-5.1); Uric Acid 6.7 mg/dL (2.3-7.6)
--- NOTE | 2018-12-08 14:17 | Infectious Disease Progress No ---
ID Progress Note Date of Encounter: 12/08/18 Time of Encounter: 09:50 - Subjective Subjective: Patient seen and examined. No acute events noted overnight. Postop day 1 from repeat I&D of the right foot with wound VAC application 12/07/[address] Bermudez. Patient states overall he feels okay. Denies fevers, chills, or rigors. Denies chest pain, shortness of breath, or cough. Denies nausea, vomiting, diarrhea, or constipation. Denies abdominal pain or urinary complaints. Denies oral thrush or skin lesions. States his appetite is getting better. Reports minimal pain at the surgical site. Denies oral thrush or skin rashes. - Objective CBC & Chem 7: 12/10/18 00:58 12/10/18 00:58 - Exam Vitals: Temp Pulse Resp BP Pulse Ox 98 F 120 18 146/80 98 12/08/18 07:28 12/08/18 07:28 12/08/18 07:47 12/08/18 07:28 12/08/18 07:47 Exam: Head: Atraumatic, normal inspection, normocephalic. Eye: EOMI, PERRLA, no scleral icterus noted. ENT: Mucous membranes moist. No odontogenic infection noted. Neck: Normal inspection, no meningismus. Respiratory: Clear to auscultation. No rales, respiratory distress, rhonchi, or wheezes noted. Cardiovascular: Regular rate and rhythm, S1 and S2 audible. No murmurs, rubs, or gallops. GI: Soft, nondistended, normal bowel sounds. Extremities:No joint swelling, pedal edema, or tenderness noted. Right foot dressing clean, dry, and intact. Wound VAC noted with scant serous sanguinous drainage. No erythema or streaking up the leg. Back: Normal inspection. No vertebral tenderness noted. Neurological: Alert, oriented 3, no focal deficits. Psychiatric: normal affect, normal mood. Skin: Dry, intact, warm. Normal color. No rashes. - Assessment and Plan (1) Sepsis Current Visit: Yes Status: Acute The patient had 3 sepsis criteria on admission. Likely secondary to MSSA bacteremia and osteomyelitis of the right foot. Improved. WBC trending down. Tachycardia and fever resolved. Blood cultures drawn 12/03/18 are +2 out of 2 sets for MSSA. Repeat blood cultures drawn 12/04/18 were +2 out of 2 sets. Additional blood cultures drawn 12/05/18 are +1 out of 2 sets. Repeat blood cultures drawn 12/07/18 are pending 2 sets. Qualifiers: Qualified Code(s): A41.01 - Sepsis due to Methicillin susceptible Staphylococcus aureus SNOMED Code(s): 62897071 (2) MSSA bacteremia Current Visit: Yes Status: Acute Causative organism: MSSA. Source: Right foot osteomyelitis. Blood cultures drawn 12/03/18 are +2 out of 2 sets for MSSA. Repeat blood cultures drawn 12/04/18 were +2 out of 2 sets. Additional blood cultures drawn 12/05/18 are +1 out of 2 sets. Repeat blood cultures drawn 12/07/18 are pending 2 sets. Complicated due to osteomyelitis. The patient has no hardware or signs of septic emboli. No endocarditis stigmata noted on exam. Rheumatoid factor elevated. The patient has one major and two minor modified [place] criteria. TTE completed 12/02/18 is negative for valvular vegetation. Currently on IV cefazolin and Levaquin. SNOMED Code(s): 656898974 (3) Osteomyelitis of right foot Current Visit: Yes Status: Acute Location: Right foot. Causative organism: MSSA. MRI of the right foot 12/03/18 showed an ulceration along the plantar foot at the level of the cuboid with very mild marrow signal changes along the plantar-most aspect of the cuboid adjacent to the ulceration which are most suggestive of very early changes of osteomyelitis. Preop ESR greater than 130, CRP. Her than 300. Podiatry consulted. Status post incision and drainage below the fascia of the right foot and excision partial tarsal bone cuboid right foot with bone culture. Intraoperative cultures are positive for MSSA. It does not appear specimen was sent to pathology. Status post repeat I&D wound VAC application 12/07/18. Currently on cefazolin and Levaquin. Qualifiers: Qualified Code(s): M86.271 - Subacute osteomyelitis, right ankle and foot SNOMED Code(s): 3821147890073857 (4) Cellulitis Current Visit: Yes Status: Acute Location: Right foot. Causative organism: MSSA. Etiology: Diabetic foot ulcer. Improved. Podiatry consult and following. Currently on cefazolin and Levaquin. Qualifiers: Qualified Code(s): L03.116 - Cellulitis of left lower limb SNOMED Code(s): 282066365 (5) Acute on chronic kidney failure Current Visit: Yes Status: Acute Received intermittent hemodialysis 2 sessions. Renal function improves. Urine output adequate. Nephrology consult. Awaiting further recommendations regarding dialysis. Monitor renal function and dose adjust antibiotics. Avoid nephrotoxins as able. Qualifiers: Qualified Code(s): N17.9 - Acute kidney failure, unspecified; N18.3 - Chronic kidney disease, stage 3 (moderate) SNOMED Code(s): 199498717 (6) Sunburn Current Visit: Yes Status: Acute Location: Bilateral lower extremities. Supportive care per the primary team. 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 Podiatry consulted and following. SNOMED Code(s): 355815932 (8) Diabetes mellitus Current Visit: No Status: Acute Recommend aggressive glucose monitoring and control to promote wound healing and prevent reinfection. Qualifiers: Qualified Code(s): E11.22 - Type 2 diabetes mellitus with diabetic chronic kidney disease; N18.3 - Chronic kidney disease, stage 3 (moderate); Z79.4 - detention (current) use of insulin SNOMED Code(s): 79244751 (9) Anemia Current Visit: Yes Status: Acute Etiology: Unclear. Fecal occult blood test was negative. Status post EGD that was negative for acute bleeding. Further workup and management per the primary team. 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 There is a superimposed multiloculated complex fluid collection in the dorsolateral proximal forefoot with differential considerations to include complex synovial/ganglion cyst, but abscess could not be excluded. Degenerative changes in the midfoot as above along with mild fragmentation of the navicular with superimposed mild patchy bone marrow edema- like signal involving multiple bony structures as above. The appearance is most suggestive for Charcot arthropathy, but it would be difficult to exclude superimposed osteomyelitis involving one or more of the involved bony structures. Podiatry consulted. Does not feel the MRI findings are infectious. Management per the podiatry team. SNOMED Code(s): 478079329, 115934609 - Recommendations Recommendations: Await repeat blood cultures. Get ELHAM prior to discharge. Wound care per the Podiatry team. Discontinue Levaquin. Continue cefazolin 2 grams IV Q8H. Duration of treatment depends on the clinical picture, but likely 6 weeks. Monitor renal function and dose-adjust antibiotics. patient services coordinator to assist with discharge planning. Adequate glucose control per the primary team. Consult Discharge Plan - Plan Instructions: Heart Failure (DC), Atrial Fibrillation (DC), Acute Respiratory Distress Syndrome (DC), Acute Kidney Injury (DC), Cellulitis (DC), Diabetes Mellitus Type 2 in Adults (DC), Chronic Obstructive Pulmonary Disease (DC), Sepsis (DC), Chronic Hypertension (DC), Hypertensive Crisis (DC), Anemia (GEN) Referrals: Natalio Amaya MD [Primary Care Provider] - Prescriptions: ceFAZolin [Ancef] 2,000 mg IV Q8H 35 Days #210 vial - Attending Attestation I have personally performed a face to face evaluation on this patient. I have reviewed and agree with the care plan. History and Exam by me shows: Assessment and plan 1.Sepsis 2.MSSA bacteremia 3.Osteomyelitis of the right foot causative organism MSSA status post incision and drainage below the fascia of the right foot and excision partial tarsal bone Recommendations: Await repeat blood cultures. Get ELHAM prior to discharge. Wound care per the Podiatry team. Discontinue Levaquin. Continue cefazolin 2 grams IV Q8H. Duration of treatment depends on the clinical picture, but likely 6 weeks. Monitor renal function and dose-adjust antibiotics. patient services coordinator to assist with discharge planning. Adequate glucose control per the primary team.
[2018-12-08] MEDS ORDERED: D5% in Water 1,000 ML IVC PRN (16:17)
[2018-12-08] MEDS ORDERED: Dextrose Gel 15 GM/37.5 ML TUBE PO PRN ×2 (16:17)
[2018-12-08] MEDS ORDERED: Naloxone 0.4 MG/ML INJ IVP PRN (16:17)
[2018-12-08] MEDS ORDERED: traMADol 50 MG TABLET PO PRN (16:17)
[2018-12-08] MEDS ORDERED: Acetaminophen 325 MG TABLET PO PRN (16:17)
[2018-12-08] MEDS ORDERED: *HR* Dextrose 50 % in Water (Syg) 50 ML SYRINGE IVP PRN (16:17)
[2018-12-08] MEDS ORDERED: Insulin DETEMIR 100 UNIT/ML X5UNITS SQ SCH (17:00)
[2018-12-09] MEDS: MOMETASONE FUROATE 100 mcg Inhaler IH SCH ×2 (07:18→19:50)
[2018-12-09] MEDS: Aspirin Enteric Coated 81 MG Tablet PO SCH (08:20)
[2018-12-09] MEDS: Diltiazem CD (24hr) 240 MG CAPSULE PO SCH (08:20)
[2018-12-09] MEDS: Insulin DETEMIR 100 UNIT/ML X5UNITS SQ SCH ×2 (08:21→20:18)
[2018-12-09] MEDS: Insulin LISPRO 300 UNITS/3 ML VIAL SQ SCH ×3 (08:22→16:29)
[2018-12-09 08:31] LABS: Basophils # 0.1 K/mcL (0.0-0.2); Basophils % 0.6 %; Eosinophils # 0.5 K/mcL (0.0-0.6); Eosinophils % 6.1 %; Hematocrit 28.7 % (37.5-50.1); Hemoglobin 8.8 g/dL (12.9-16.9); Immature Granulocytes % 1.4 % (0-4); Lymphocytes # 1.5 K/mcL (0.6-4.6); Lymphocytes % 17.7 %; Mean Corpuscular HGB Conc 30.7 g/dL (31.6-35.5); Mean Corpuscular Hemoglobin 25.5 pg (28.0-33.3); Mean Corpuscular Volume 83.2 fL (83.0-100.0); Mean Platelet Volume 9.9 fL (9.4-12.4); Monocytes # 1.1 K/mcL (0.0-1.3); Monocytes % 12.6 %; Platelet Count 492 K/mcL (140-400); Red Blood Count 3.45 M/mcL (4.19-5.50); Red Cell Distribution Width 15.3 % (11.5-14.5); Segmented Neutrophils % 61.6 %; White Blood Count 8.5 K/mcL (4.3-11.1)
[2018-12-09 08:33] LABS: Neutrophils # 5.2 K/mcL (1.6-8.9)
[2018-12-09 08:53] LABS: Alpha 2 Globulin (PEP) 1.02 g/dL (0.48-1.05)
[2018-12-09 09:00] LABS: Calcium 8.7 mg/dL (8.6-10.3); Potassium 3.7 mEq/L (3.5-5.1)
[2018-12-09] MEDS ORDERED: Insulin DETEMIR 100 UNIT/ML X5UNITS SQ SCH (09:00)
[2018-12-09 10:11] LABS: ANA IgG by ELISA NONE DETECTED (None Detected)
[2018-12-09 10:16] LABS: IFE Reflexed NOT DONE
--- NOTE | 2018-12-09 10:41 | Infectious Disease Progress No ---
ID Progress Note Date of Encounter: 12/09/18 Time of Encounter: 09:50 - Subjective Subjective: Patient seen and examined. No acute events noted overnight. Postop day 2 from repeat I&D of the right foot with wound VAC application 12/07/[address] Bermudez. Patient states overall he feels okay. Denies fevers, chills, or rigors. Denies chest pain, shortness of breath, or cough. Denies nausea, vomiting, diarrhea, or constipation. Denies abdominal pain or urinary complaints. Denies oral thrush or skin lesions. States his appetite is getting better. Reports minimal pain at the surgical site. Denies oral thrush or skin rashes. Scheduled for ELHAM today, but ate breakfast. Discussed with nursing. - Objective CBC & Chem 7: 12/10/18 00:58 12/10/18 00:58 - Exam Vitals: Temp Pulse Resp BP Pulse Ox 98.7 F 79 16 140/86 95 12/09/18 07:45 12/09/18 07:45 12/09/18 07:45 12/09/18 07:45 12/09/18 07:45 Exam: Head: Atraumatic, normal inspection, normocephalic. Eye: EOMI, PERRLA, no scleral icterus noted. No subconjunctival hemorrhage noted. ENT: Mucous membranes moist. No odontogenic infection noted. Neck: Normal inspection, no meningismus. Respiratory: Clear to auscultation. No rales, respiratory distress, rhonchi, or wheezes noted. Cardiovascular: Regular rate and rhythm, S1 and S2 audible. No murmurs, rubs, or gallops. GI: Soft, obese, normal bowel sounds. Extremities:No joint swelling, pedal edema, or tenderness noted. Right foot dressing clean, dry, and intact. Wound VAC noted with moderate serous sanguinous drainage. No erythema or streaking up the leg. Neurological: Alert, oriented 3, no focal deficits. Psychiatric: normal affect, normal mood. Skin: Dry, intact, warm. Normal color. No rashes. No endocarditis stigmata noted. - Assessment and Plan (1) Sepsis Current Visit: Yes Status: Acute The patient had 3 sepsis criteria on admission. Likely secondary to MSSA bacteremia and osteomyelitis of the right foot. Improved. WBC normal. Tachycardia and fever resolved. Blood cultures drawn 12/03/18 are +2 out of 2 sets for MSSA. Repeat blood cultures drawn 12/04/18 were +2 out of 2 sets. Additional blood cultures drawn 12/05/18 are +1 out of 2 sets. Repeat blood cultures drawn 12/07/18 are NGTD 2 sets. Qualifiers: Sepsis type: methicillin susceptible Staphylococcus aureus Qualified Code (s): A41.01 - Sepsis due to Methicillin susceptible Staphylococcus aureus SNOMED Code(s): 39831684 (2) MSSA bacteremia Current Visit: Yes Status: Acute Causative organism: MSSA. Source: Right foot osteomyelitis. Blood cultures drawn 12/03/18 are +2 out of 2 sets for MSSA. Repeat blood cultures drawn 12/04/18 were +2 out of 2 sets. Additional blood cultures drawn 12/05/18 are +1 out of 2 sets. Repeat blood cultures drawn 12/07/18 are NGTD 2 sets. Complicated due to osteomyelitis. The patient has no hardware or signs of septic emboli. No endocarditis stigmata noted on exam. Rheumatoid factor elevated. The patient has one major and two minor modified [place] criteria. TTE completed 12/02/18 is negative for valvular vegetation. ELHAM scheduled for today, but patient ate breakfast. Currently on IV cefazolin. SNOMED Code(s): 647207012 (3) Osteomyelitis of right foot Current Visit: Yes Status: Acute Location: Right foot. Causative organism: MSSA. MRI of the right foot 12/03/18 showed an ulceration along the plantar foot at the level of the cuboid with very mild marrow signal changes along the plantar-most aspect of the cuboid adjacent to the ulceration which are most suggestive of mahad y early changes of osteomyelitis. Preop ESR greater than 130, CRP. Her than 300. Podiatry consulted. Status post incision and drainage below the fascia of the right foot and excision partial tarsal bone cuboid right foot with bone culture. Intraoperative cultures are positive for MSSA. It does not appear specimen was sent to pathology. Status post repeat I&D wound VAC application 12/07/18. Currently on cefazolin. Qualifiers: Osteomyelitis type: subacute Qualified Code(s): M86.271 - Subacute osteomyelitis, right ankle and foot SNOMED Code(s): 1210501227584307 (4) Cellulitis Current Visit: Yes Status: Acute Location: Right foot. Causative organism: MSSA. Etiology: Diabetic foot ulcer. Improved. Podiatry consult and following. Currently on cefazolin. Qualifiers: Site of cellulitis: extremity Site of cellulitis of extremity: lower extremity Laterality: left Qualified Code(s): L03.116 - Cellulitis of left lower limb SNOMED Code(s): 675106097 (5) Acute on chronic kidney failure Current Visit: Yes Status: Resolved Received intermittent hemodialysis 2 sessions. Renal function improved. Urine output adequate. Nephrology consulted. HD catheter removed 12/08/18. Monitor renal function and dose adjust antibiotics. Avoid nephrotoxins as able. Qualifiers: Acute renal failure type: unspecified Chronic kidney disease stage: stage 3 (moderate) Qualified Code(s): N17.9 - Acute kidney failure, unspecified; N18.3 - Chronic kidney disease, stage 3 (moderate) SNOMED Code(s): 586151574 (6) Sunburn Current Visit: Yes Status: Acute Location: Bilateral lower extremities. Supportive care per the primary team. 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 Podiatry consulted and following. SNOMED Code(s): 153551087 (8) Diabetes mellitus Current Visit: No Status: Acute Recommend aggressive glucose monitoring and control to promote wound healing and prevent reinfection. 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 Fecal occult blood test was negative. Status post EGD that was negative for acute bleeding. Further workup and management per the primary team. 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 There is a superimposed multiloculated complex fluid collection in the dorsolateral proximal forefoot with differential considerations to include complex synovial/ganglion cyst, but abscess could not be excluded. Degenerative changes in the midfoot as above along with mild fragmentation of the navicular with superimposed mild patchy bone marrow edema- like signal involving multiple bony structures as above. The appearance is most suggestive for Charcot arthropathy, but it would be difficult to exclude superimposed osteomyelitis involving one or more of the involved bony structures. Podiatry consulted. Does not feel the MRI findings are infectious. Management per the podiatry team. SNOMED Code(s): 573035252, 102837940 - Recommendations Recommendations: Await repeat blood cultures. Get ELHAM prior to discharge. Wound care per the Podiatry team. Continue cefazolin 2 grams IV Q8H. Duration of treatment depends on the clinical picture, but likely 6 weeks. Disc ussed with the patient that he will need to have family that is able to help him with the Q8H dosing of his IV antibiotics or he will need to learn himself. He states he has several family members that can assist him. I advised him that if something falls through, we can switch him to IV nafcillin via 24 hour continuous infusion which requires changing of the bag just once a day. He states he wants to do to the Q8H infusions for now. Monitor renal function and dose-adjust antibiotics. environmental services technician to assist with discharge planning. Adequate glucose control per the primary team. Consult Discharge Plan - Plan Instructions: Heart Failure (DC), Atrial Fibrillation (DC), Acute Respiratory Distress Syndrome (DC), Acute Kidney Injury (DC), Cellulitis (DC), Diabetes Mellitus Type 2 in Adults (DC), Chronic Obstructive Pulmonary Disease (DC), Sepsis (DC), Chronic Hypertension (DC), Hypertensive Crisis (DC), Anemia (GEN) Referrals: Natalio Amaya MD [Primary Care Provider] - Prescriptions: ceFAZolin [Ancef] 2,000 mg IV Q8H 35 Days #210 vial - Attending Attestation I have personally performed a face to face evaluation on this patient. I have reviewed and agree with the care plan. History and Exam by me shows: Assessment and plan 1.Sepsis 2.MSSA bacteremia 3.Osteomyelitis of the right foot causative organism MSSA status post incision and drainage below the fascia of the right foot and excision partial tarsal bone Recommendations: Await repeat blood cultures. Get ELHAM prior to discharge. Wound care per the Podiatry team. Discontinue Levaquin. Continue cefazolin 2 grams IV Q8H. Duration of treatment depends on the clinical picture, but likely 6 weeks. Monitor renal function and dose-adjust antibiotics. environmental services technician to assist with discharge planning. Adequate glucose control per the primary team.
--- NOTE | 2018-12-09 11:35 | Internal Med Progress Note ---
Hospitalist Progress Note - Encounter Date of Encounter: 12/09/18 Time of Encounter: 08:30 - Subjective Interval History: No acute overnight events. R foot pain is relatively controlled. No chest pain, palpitation, melena, hematochezia, BRBPR. Denies any nausea vomiting or diarrhea. - Exam Vitals: Temp Pulse Resp BP Pulse Ox 98.7 F 79 16 140/86 95 12/09/18 07:45 12/09/18 07:45 12/09/18 07:45 12/09/18 07:45 12/09/18 07:45 Exam: General: In no acute distress. morbidly obese Respiratory exam: minimal bibasilar crackles Cardiovascular exam: RRR, +S1, +S2. no murmur, gallop, rubs. GI/Abdominal exam: Non-tender, Non-distended, normal bowel sounds, soft, no peritoneal signs. Extremities exam: 1+ pedal edema, no calf tenderness Neurological exam: CN II-XII intact, AO X3, no focal deficits. Skin exam: Rt leg wound on wound vac. Lt foot with redness, warmth and swelling till ankle which is regressing. No fluctuance/localized swelling - Assessment and Plan (1) Sepsis Current Visit: Yes Status: Acute Assessment and Plan: secondary to R foot OM s/p I&D x 2 with wound VA placement on 12/07 blood cultures +ve for MSSA x 2 sets 12/03 and 12/04, 1/2 set positive on 12/05. NGTD on 12/07 wound culture from R foot also grew MSSA on 12/03 On IV Ancef D6, continue. Follow with ID discussed with Nephrology, as we anticipate that he will be on 6 weeks of IV A ncef, will place midline pt had breakfast this morning, discussed with cardiology, for ELHAM tomorrow morning. NPO after midnight (2) MSSA bacteremia Current Visit: Yes Status: Acute Assessment and Plan: IV Ancef as above, ID input appreciated (3) Osteomyelitis of right foot Current Visit: Yes Status: Acute Assessment and Plan: as above (4) Cellulitis Current Visit: Yes Status: Acute Assessment and Plan: In addition to R foot OM, pt also has L LE cellulitis MRI 12/07 reviewed by podiatry, changes consistent with cellulitis and Charcot arthropathy rather than abscess abx per Dx 1 (5) Acute on chronic kidney failure Current Visit: Yes Status: Acute Assessment and Plan: Required HD briefly, last session on 12/05 Cr back to baseline, temp HD catheter removed yesterday appreciate Nephrology input avoid nephrotoxins (6) Atrial fibrillation with RVR Current Visit: Yes Status: Resolved Assessment and Plan: Rate controlled on diltiazem Not on anticoagulation due to fluctuating hemoglobin while on heparin drip EGD showed multiple gastric polyps plan for outpatient colonoscopy prior to initiation of AC (7) IDDM (insulin dependent diabetes mellitus) Current Visit: Yes Status: Chronic Assessment and Plan: Hold Metformin continue basal-bolus insulin (8) Hypertension Current Visit: Yes Status: Chronic Assessment and Plan: Continue diltiazem BHARAT-i on hold for now, if Cr remains stable, will restart tomorrow Will d/c felodipine for HTN to avoid the usage of 2nd CCB (9) DVT prophylaxis Current Visit: Yes Status: Acute Assessment and Plan: EPCD - Time Spent with Patient Total time spent is greater than 50% in coordination of care (as documented) at patient's floor/unit and/or counseling patient: Greater than 35 minutes Plan of Care Discussed with: patient (discussed with pt's brother in great detail regarding the discharge plan within the next 24-48 hours after ELHAM) Internal Medicine: Result - Labs CBC & Chem 7: 12/09/18 08:18 12/09/18 08:18 Labs: Short CBC 12/08/18 12/09/18 Range/Units 11:31 08:18 WBC 12.7 H 8.5 (4.3-11.1) K/mcL Hgb 9.5 L 8.8 L (12.9-16.9) g/dL Hct 31.3 L 28.7 L (37.5-50.1) % Plt Count 526 H 492 H (140-400) K/mcL Neutrophils # 9.5 H 5.2 (1.6-8.9) K/mcL BMP 12/08/18 12/09/18 11:31 08:18 Sodium 134 L 138 Potassium 3.8 3.7 Chloride 98 101 Carbon Dioxide 27 28 BUN 34 H 27 H Creatinine 1.79 H 1.56 H Glucose 270 H 197 H Calcium 8.8 8.7 - ABG Interpretation ABG results: PT/INR, D-dimer PT 16.5 Seconds (9.4-12.1) H 12/02/18 18:19 Consult Discharge Plan - Plan Referrals: Natalio Amaya MD [Primary Care Provider] - Prescriptions: ceFAZolin [Ancef] 2,000 mg IV Q8H 35 Days #210 vial (1) Sepsis Qualifiers: Sepsis type: methicillin susceptible Staphylococcus aureus Qualified Code(s): A41.01 - Sepsis due to Methicillin susceptible Staphylococcus aureus (3) Osteomyelitis of right foot Qualifiers: Osteomyelitis type: subacute Qualified Code(s): M86.271 - Subacute osteomyelitis, right ankle and foot (4) Cellulitis Qualifiers: Site of cellulitis: extremity Site of cellulitis of extremity: lower extremity Laterality: left Qualified Code(s): L03.116 - Cellulitis of left lower limb (5) Acute on chronic kidney failure Qualifiers: Acute renal failure type: unspecified Chronic kidney disease stage: stage 3 (moderate) Qualified Code(s): N17.9 - Acute kidney failure, unspecified; N18.3 - Chronic kidney disease, stage 3 (moderate) (8) Hypertension Qualifiers: Hypertension type: essential hypertension Qualified Code(s): I10 - Essential (primary) hypertension
--- NOTE | 2018-12-09 11:52 | Podiatry Progress Note ---
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 Ceron 12/07/18 Cap refill <3 second WBC 8.5 Blood cultures pending from 12/07, 12/05 returned staph aureus x 1 ID following for ATB management Wound vac in place with suction at 125 mmHG with serosangionus drainage Plan: Removed vac, wound bed beefy red, cleansed with 0.9 NS Painted periwound with Allkare, draped tegaderm in window pane fashion, placed white granulafoam and black granulafoam to wound bed, tracked black foam to lateral aspect of RLE Good seal noted with suction at 125 mmHG Change MWF Will need 24 hours of negative blood cultures prior to d/c Will need follow up appointment in wound care center with Dr. Ceron. Please make appointment prior to d/c (2) Cellulitis Current Visit: Yes Status: Acute Assessment: Cellulitis vs Charcot arthropathy vs gout Left foot rubor, tumor, and calor noted Edema 2/4 noted to left foot, 1/4 edema LLE CFT <3 seconds No open wound noted WBC 8.5, improving, no left shift noted Uric acid 6.7 Plan: CAM walker boot ordered, patient to use when ambulating Covered with BHARAT bandage No obvious source of left foot edema and cellulitis, evidence of cyst but no obvious abscess, continue IV ATB at this time Imaging: MR/MR foot LT wo con IMPRESSION: Studies of the left ankle and left foot demonstrate diffuse subcutaneous edema about the ankle and foot, nonspecific but potentially relating to cellulitis. There is a superimposed multiloculated complex fluid collection in the dorsolateral proximal forefoot with differential considerations to include complex synovial/ganglion cyst. Abscess cannot be excluded in the current clinical setting. Degenerative changes to the midfoot as above along with mild fragmentation of the navicular. Superimposed mild patchy bone marrow edema like signal involving multiple bony structures as above. The appearance is most suggestive for Charcot arthropathy. It would be difficult to exclude superimposed osteomyelitis involving one or more of the involved bony structures. Mild tenosynovitis to multiple tendons about the foot/ankle as above. Prior remote injury to the deltoid ligament complex. Chronic plantar fasciitis. Mild tendinosis to the Achilles tendon. Likely denervation changes to intrinsic musculature of the foot and to visualized distal flexor hallucis longus and flexor digitorum longus muscles. D/ / 12/07/2018 09:44:42 Natalio Acharya MD / jenna Qualifiers: Qualified Code(s): L03.116 - Cellulitis of left lower limb Subjective Principal diagnosis: Atrial fibrillation with RVR Interval history: Patient awake in bed. Alert and oriented x 3. S/P Incision and drainage below fascia right foot and Application negative pressure wound therapy with Dr. Ceron 12/07/18. Denies any pain. Denies any fevers, chills, nausea, vomiting, or diarrhea. Denies and chest pain, calf pain, or shortness of breath. States the plan is to discharge tomorrow. No other questions or concerns at this time. Objective - Vital Signs Vital Signs: Vital Signs Temp Pulse Resp BP Pulse Ox 12/09/18 07:45 98.7 F 79 16 140/86 95 12/09/18 07:18 16 97 12/09/18 04:28 98.7 F 85 16 143/81 95 12/08/18 20:09 98.8 F 87 16 160/91 96 12/08/18 19:54 16 98 12/08/18 17:18 97.9 F 93 14 149/86 97 Intake and Output 12/08/18 12/09/18 12/09/18 23:59 07:59 15:59 Intake Total 120 / 460 100 / 100 Output Total 975 / 975 Balance 120 / 160 -875 / -875 Intake: IV Fluids 100 / 100 Ancef 2,000 MG In 0.9 % Sodium 100 / 100 Chloride 100 ML @ 200 mls/hr IVPB Q8HR [facility] Rx#:[id number] Oral 120 / 360 Output: Urine 975 / 975 Other: Meal Dinner Percent of Meal Consumed 90% Blood Glucose* 189 183 - Exam Exam: Constitiutional: Alert and oriented x 3. Well nourished. No acute distress noted. Tearful Vascular: 1/4 DP/PT bilaterally, CFT <3 sec to all digits bilaterally, warm to warm from tibia to toes bilaterally, no calf pain with squeeze bilaterally, edema noted BLE Neurologic: absent sensation to touch, normal plantar response Dermatologic: right foot ly stage 4 ulceration noted, 50% granulation tissue noted, no slough noted, no erythema, no cellulitis, no lymphangitis noted to periwound. left foot hot to touch, edema 2/4 noted left foot 1/4 LLE, 1/4 RLE edema. Musculoskeletal: 4/5 muscle strength and normal tone bilaterally. - Lab Result Diagrams: 12/09/18 08:18 12/09/18 08:18 Labs: Abnormal lab results WBC 12.7 K/mcL (4.3-11.1) H 12/08/18 11:31 RBC 3.45 M/mcL (4.19-5.50) L 12/09/18 08:18 Hgb 8.8 g/dL (12.9-16.9) L 12/09/18 08:18 Hct 28.7 % (37.5-50.1) L 12/09/18 08:18 MCV 81.9 fL (83.0-100.0) L 12/06/18 08:36 MCH 25.5 pg (28.0-33.3) L 12/09/18 08:18 MCHC 30.7 g/dL (31.6-35.5) L 12/09/18 08:18 RDW 15.3 % (11.5-14.5) H 12/09/18 08:18 Plt Count 492 K/mcL (140-400) H 12/09/18 08:18 9.5 K/mcL (1.6-8.9) H 12/08/18 11:31 1.5 K/mcL (0.0-1.3) H 12/06/18 08:36 Nucleated RBCs/100 WBC 0.1 /100 WBC (0) H 12/04/18 03:07 ESR >= 130 mm/hr (0-10) H 12/04/18 07:11 PT 16.5 Seconds (9.4-12.1) H 12/02/18 18:19 Plt Neutralization POSITIVE (Negative) A 12/05/18 13:56 Lupus Anticoag INR 16.3 sec (12.0-15.5) H 12/05/18 13:56 Lupus Anticoag aPTT 50 sec (32-48) H 12/05/18 13:56 LA PTT Mix Pt/Norm 1:1 49 sec (32-48) H 12/05/18 13:56 Heparin Anti-Xa, Unfract 0.01 IU/mL (0.30-0.70) L 12/02/18 18:19 Sodium 134 mEq/L (136-145) L 12/08/18 11:31 Potassium 5.2 mEq/L (3.5-5.1) H 12/04/18 03:07 Chloride 96 mEq/L (98-107) L 12/07/18 05:21 Carbon Dioxide 20 mEq/L (23-29) L 12/04/18 03:07 BUN 27 mg/dL (8-23) H 12/09/18 08:18 1.56 mg/dL (0.70-1.30) H 12/09/18 08:18 Est GFR ( Amer) 55 (> 60) L 12/09/18 08:18 Est GFR (Non-Af Amer) 45 (> 60) L 12/09/18 08:18 Glucose 197 mg/dL (70-105) H 12/09/18 08:18 POC Glucose 182 mg/dL (70-99) H 12/08/18 20:09 Calcium 8.1 mg/dL (8.6-10.3) L 12/06/18 08:36 Phosphorus 4.9 mg/dL (2.7-4.5) H 12/05/18 04:30 Magnesium 1.2 mg/dL (1.6-2.6) L 12/03/18 04:39 1.1 mg/dL (0.3-1.0) H 12/03/18 04:39 0.5 mg/dL (0.0-0.2) H 12/02/18 18:19 0.04 ng/mL (< 0.04) H* 12/03/18 07:53 > 300 mg/L (Less than 10) H 12/04/18 03:07 5.50 g/dL (6.00-8.30) L 12/06/18 08:36 2.8 g/dL (3.5-5.7) L 12/05/18 04:30 2.17 g/dL (3.75-5.01) L 12/06/18 08:36 1.0 (1.1-2.2) L 12/03/18 04:39 0.65 g/dL (0.19-0.46) H 12/06/18 08:36 25 mg/dL (40-59) L 12/03/18 04:39 3.61 ng/mL (0.00-0.15) H 12/03/18 09:02 Cloudy (Clear) A 12/02/18 19:42 >=300 mg/dL (Neg-Trace) H 12/02/18 19:42 Trace mg/dL (Negative) H 12/02/18 19:42 3-5 per hpf (0-3) H 12/02/18 19:42 Ur Squamous Epith Cells Many per lpf (None-Few) H 12/02/18 19:42 15 IU/mL (Less than 14) H 12/06/18 08:36 Hep Bs Antibody < 3.10 mIU/mL (10.00-) L 12/04/18 13:32 Staphylococcus sp PCR DETECTED (Not Detect) A 12/05/18 16:26 Staph aureus (PCR) DETECTED (Not Detect) A 12/05/18 16:26 Crossmatch See Detail 12/04/18 07:11 Microbiology, Last 48 Hours 12/05/18 16:26 Blood Culture - Final Peripheral Venipuncture Staphylococcus aureus 12/04/18 19:28 Wound Culture - Final Right Foot Staphylococcus aureus 12/04/18 19:28 Anaerobic Culture - Preliminary Right Foot At this time, no anaerobic growth is present. The culture will be finalized after 5 days of incubation. Consult Discharge Plan - Plan Referrals: Natalio Amaya MD [Primary Care Provider] - Prescriptions: ceFAZolin [Ancef] 2,000 mg IV Q8H 35 Days #210 vial
[2018-12-09 12:32] LABS: Kappa Qnt Free Light Chains 7.99 mg/dL (0.33-1.94); Lambda Qnt Free Light Chains 5.4 mg/dL (0.57-2.63)
--- NOTE | 2018-12-09 12:36 | Nephrology Progress Note ---
Date of Encounter: 12/09/18 Time of Encounter: 00:28 - Assessment and Plan (1) Acute on chronic kidney failure Current Visit: Yes Status: Acute Serum creatinine continues to improve. The YAEL has resolved, however he still has chronic kidney disease stage III and so I recommend outpatient nephrology follow-up. I have seen him before in the clinic, and he requested to be seen in [place], [place]. I counseled him and his brother who was present at bedside, on steps to follow to help delay chronic kidney disease progression as well as to protect his renal function. I will politely sign-off at this time. Please feel free to call or page me with any Renal questions. Thank you. Qualifiers: Acute renal failure type: unspecified Chronic kidney disease stage: stage 3 (moderate) Qualified Code(s): N17.9 - Acute kidney failure, unspecified; N18.3 - Chronic kidney disease, stage 3 (moderate) (2) CKD (chronic kidney disease), stage III Current Visit: No Status: Chronic Baseline CKD stage III, according to the GFR is noted in [employer] (3) Hyponatremia Current Visit: Yes Status: Acute Improving (4) Anemia Current Visit: Yes Status: Acute Goal hemoglobin is 10-11. Likely multifactorial. Transfusions as per primary Qualifiers: Anemia type: unspecified type Qualified Code(s): D64.9 - Anemia, unspeci fied (5) Proteinuria Current Visit: No Status: Chronic Qualifiers: Proteinuria type: persistent Qualified Code(s): R80.1 - Persistent proteinuria, unspecified (6) Hyperkalemia Current Visit: Yes Status: Acute Improved s/p HD (7) Atrial fibrillation with RVR Current Visit: Yes Status: Resolved As per primary/Cardio (8) Osteomyelitis of right foot Current Visit: Yes Status: Acute Foot infection(s) as per primary/Podiatry Qualifiers: Osteomyelitis type: subacute Qualified Code(s): M86.271 - Subacute os teomyelitis, right ankle and foot Subjective Principal diagnosis: Atrial fibrillation with RVR Interval history: The patient was seen and examined in his room earlier today. His brother was present. The patient did not affirm having nausea, vomiting, or neck problems since having the dialysis catheter removed. He said that he is expecting to be discharged soon. Objective - Vital Signs Vital signs: Vital Signs Temp Pulse Resp BP Pulse Ox 12/09/18 11:59 90 18 142/66 93 12/09/18 07:45 98.7 F 79 16 140/86 95 12/09/18 07:18 16 97 12/09/18 04:28 98.7 F 85 16 143/81 95 12/08/18 20:09 98.8 F 87 16 160/91 96 12/08/18 19:54 16 98 12/08/18 17:18 97.9 F 93 14 149/86 97 Intake and Output 12/08/18 12/09/18 12/09/18 23:59 07:59 15:59 Intake Total 120 / 460 100 / 100 Output Total 975 / 975 Balance 120 / 160 -875 / -875 Intake: IV Fluids 100 / 100 Ancef 2,000 MG In 0.9 % Sodium 100 / 100 Chloride 100 ML @ 200 mls/hr IVPB Q8HR [facility] Rx#:[id number] Oral 120 / 360 Output: Urine 975 / 975 Other: Meal Dinner Percent of Meal Consumed 90% Blood Glucose* 189 183 238 - General Appearance Exam: General appearance: Present: well-developed, well-nourished, obese, fatigue EENT: Present: ATNC, PERRL, mucous membranes moist Neck: Present: no JVD, supple Respiratory: Present: clear anterior on exam Cardiology: Present: edema, irregular rhythm, normal S1, normal S2 Dialysis Vascular Access: Venous Catheter (RIJ temporary HD catheter, and his hernandez was affecting the Tegaderm adhesion) Gastrointestinal: Present: normoactive bowel sounds, no tenderness, no guarding, obese Integumentary: Present: warm and dry with sun burn of the shins the feet were wrapped and appeared C/D/I Neurologic: Present: no focal deficit, no asterixis, alert and oriented x3 Musculoskeletal: Present: no erythema, no cyanosis Psychiatric: Present: mood/affect appropriate, cooperative - Lab 12/09/18 08:18 12/09/18 08:18 Most recent lab results 12/09/18 08:18 Calcium 8.7 Consult Discharge Plan - Plan Referrals: Natalio Amaya MD [Primary Care Provider] - Prescriptions: ceFAZolin [Ancef] 2,000 mg IV Q8H 35 Days #210 vial
[2018-12-09] MEDS: Chloraseptic Spray 177 ML BOTTLE MM PRN ×2 (12:50→20:18)
[2018-12-10] MEDS: Insulin LISPRO 300 UNITS/3 ML VIAL SQ SCH ×5 (00:01→21:25)
[2018-12-10 01:25] LABS: Basophils # 0.1 K/mcL (0.0-0.2); Basophils % 0.6 %; Eosinophils # 0.5 K/mcL (0.0-0.6); Eosinophils % 6.6 %; Hematocrit 27.9 % (37.5-50.1); Hemoglobin 8.5 g/dL (12.9-16.9); Immature Granulocytes % 1.4 % (0-4); Lymphocytes # 1.8 K/mcL (0.6-4.6); Lymphocytes % 23.1 %; Mean Corpuscular HGB Conc 30.5 g/dL (31.6-35.5); Mean Corpuscular Hemoglobin 25.8 pg (28.0-33.3); Mean Corpuscular Volume 84.5 fL (83.0-100.0); Mean Platelet Volume 9.8 fL (9.4-12.4); Monocytes % 12.5 %; Neutrophils # 4.4 K/mcL (1.6-8.9); Platelet Count 478 K/mcL (140-400); Red Cell Distribution Width 15.1 % (11.5-14.5); Segmented Neutrophils % 55.8 %; White Blood Count 7.9 K/mcL (4.3-11.1)
[2018-12-10 01:46] LABS: BUN/Creatinine Ratio 16 (6-26); Blood Urea Nitrogen 23 mg/dL (8-23); Calcium 8.5 mg/dL (8.6-10.3); Carbon Dioxide 28 mEq/L (23-29); Chloride 103 mEq/L (98-107); Glucose 160 mg/dL (70-105); Osmolality,Calculated 293 (280-300); Potassium 3.7 mEq/L (3.5-5.1); Sodium 138 mEq/L (136-145); eGFR For African Americans > 60 (> 60); eGFR For Non-African Americans 50 (> 60)
[2018-12-10] MEDS: MOMETASONE FUROATE 100 mcg Inhaler IH SCH ×2 (07:35→19:53)
[2018-12-10] MEDS ORDERED: *HR* Midazolam HCl 5 MG/5 ML VIAL IVP PRN (08:28)
[2018-12-10] MEDS ORDERED: Lidocaine Viscous Oral Soln 15 ML SOLUTION MM PRN (08:28)
[2018-12-10] MEDS ORDERED: 0.9 % Sodium Chloride 500 ML IVC ONE (08:28)
[2018-12-10] MEDS ORDERED: *HR* FentaNYL (PF) 100 MCG/2 ML VIAL IVP PRN (08:28)
[2018-12-10] MEDS: Lisinopril 20 MG TABLET PO SCH (10:15)
[2018-12-10] MEDS: Aspirin Enteric Coated 81 MG Tablet PO SCH (10:15)
[2018-12-10] MEDS: Diltiazem CD (24hr) 240 MG CAPSULE PO SCH (10:15)
[2018-12-10] MEDS: Insulin DETEMIR 100 UNIT/ML X5UNITS SQ SCH ×2 (10:16→21:18)
[2018-12-10] MEDS ORDERED: *HR* Metoprolol 5 MG/5 ML VIAL IVP PRN (10:27)
--- NOTE | 2018-12-10 10:30 | Internal Med Progress Note ---
Hospitalist Progress Note - Encounter Date of Encounter: 12/10/18 Time of Encounter: 08:30 - Subjective Interval History: No acute events overnight. Underwent ELHAM uneventfully this morning. Denies any chest pain, palpitation, worsening right foot pain. No fever overnight - Exam Vitals: Temp Pulse Resp BP Pulse Ox 97.9 F 84 18 151/97 97 12/10/18 08:29 12/10/18 08:29 12/10/18 08:29 12/10/18 08:29 12/10/18 08:29 Exam: General: In no acute distress. morbidly obese Respiratory exam: minimal, scattered bibasilar crackles Cardiovascular exam: RRR, +S1, +S2. no murmur, gallop, rubs. GI/Abdominal exam: Non-tender, Non-distended, normal bowel sounds, soft, no peritoneal signs. Extremities exam: 1+ pedal edema, no calf tenderness Neurological exam: CN II-XII intact, AO X3, no focal deficits. Skin exam: Rt leg wound on wound vac. Lt foot with redness, warmth and swelling till ankle which is regressing. No fluctuance/localized swelling - Assessment and Plan (1) Sepsis Current Visit: Yes Status: Acute Assessment and Plan: secondary to R foot OM s/p I&D x 2 with wound VAC placement on 12/07 blood cultures +ve for MSSA x 2 sets 12/03 and 12/04; 1 out of 2 sets positive on 12/05; NGTD on 12/07 wound culture from R foot also grew MSSA on 12/03 On IV Ancef D7, continue. WBC normal x 2 days. Follow with ID midline placed yesterday underwent ELHAM this morning, will follow up on report will discuss with SW to plan for outpatient IV abx plan, possible d/c tomorrow (2) MSSA bacteremia Current Visit: Yes Status: Acute Assessment and Plan: IV Ancef as above, ID input appreciated (3) Osteomyelitis of right foot Current Visit: Yes Status: Acute Assessment and Plan: as above, wound VAC change tomorrow (4) Atrial fibrillation with RVR Current Visit: Yes Status: Resolved Assessment and Plan: Rate controlled on diltiazem PRN Lopressor for tachyarrhythmia Not on anticoagulation due to fluctuating hemoglobin while on heparin drip EGD showed multiple gastric polyps plan for outpatient colonoscopy prior to initiation of AC (5) Cellulitis Current Visit: Yes Status: Acute Assessment and Plan: In addition to R foot OM, pt also has L LE cellulitis MRI 12/07 reviewed by podiatry, changes consistent with cellulitis and Charcot arthropathy rather than abscess abx per Dx 1 (6) Acute on chronic kidney failure Current Visit: Yes Status: Resolved Assessment and Plan: Required HD briefly, last session on 12/05 Cr back to baseline, temp HD catheter removed 12/08 appreciate Nephrology input avoid nephrotoxins (7) IDDM (insulin dependent diabetes mellitus) Current Visit: Yes Status: Chronic Assessment and Plan: Hold Metformin continue basal-bolus insulin (8) Hypertension Current Visit: Yes Status: Chronic Assessment and Plan: Continue diltiazem given his stable Cr, will resume BHARAT-i today d/c felodipine for HTN to avoid the usage of 2nd CCB (9) DVT prophylaxis Current Visit: Yes Status: Acute Assessment and Plan: EPCD - Time Spent with Patient Total time spent is greater than 50% in coordination of care (as documented) at patient's floor/unit and/or counseling patient: 25 - 35 minutes Plan of Care Discussed with: patient Internal Medicine: Result - Labs CBC & Chem 7: 12/10/18 00:58 12/10/18 00:58 Labs: Short CBC 12/10/18 Range/Units 00:58 WBC 7.9 (4.3-11.1) K/mcL Hgb 8.5 L (12.9-16.9) g/dL Hct 27.9 L (37.5-50.1) % Plt Count 478 H (140-400) K/mcL Neutrophils # 4.4 (1.6-8.9) K/mcL BMP 12/10/18 00:58 Sodium 138 Potassium 3.7 Chloride 103 Carbon Dioxide 28 BUN 23 Creatinine 1.44 H Glucose 160 H Calcium 8.5 L - ABG Interpretation ABG results: PT/INR, D-dimer PT 16.5 Seconds (9.4-12.1) H 12/02/18 18:19 Consult Discharge Plan - Plan Instructions: Heart Failure (DC), Atrial Fibrillation (DC), Acute Respiratory D istress Syndrome (DC), Acute Kidney Injury (DC), Cellulitis (DC), Diabetes Mellitus Type 2 in Adults (DC), Chronic Obstructive Pulmonary Disease (DC), Sepsis (DC), Chronic Hypertension (DC), Hypertensive Crisis (DC), Anemia (GEN) Referrals: Natalio Amaya MD [Primary Care Provider] - Prescriptions: ceFAZolin [Ancef] 2,000 mg IV Q8H 35 Days #210 vial (1) Sepsis Qualifiers: Sepsis type: methicillin susceptible Staphylococcus aureus Qualified Code(s): A41.01 - Sepsis due to Methicillin susceptible Staphylococcus aureus (3) Osteomyelitis of right foot Qualifiers: Osteomyelitis type: subacute Qualified Code(s): M86.271 - Subacute osteomyelitis, right ankle and foot (5) Cellulitis Qualifiers: Site of cellulitis: extremity Site of cellulitis of extremity: lower extremity Laterality: left Qualified Code(s): L03.116 - Cellulitis of left lower limb (6) Acute on chronic kidney failure Qualifiers: Acute renal failure type: unspecified Chronic kidney disease stage: stage 3 (moderate) Qualified Code(s): N17.9 - Acute kidney failure, unspecified; N18.3 - Chronic kidney disease, stage 3 (moderate) (8) Hypertension Qualifiers: Hypertension type: essential hypertension Qualified Code(s): I10 - Essential (primary) hypertension
--- NOTE | 2018-12-10 14:37 | Infectious Disease Progress No ---
ID Progress Note Date of Encounter: 12/10/18 Time of Encounter: 14:00 - Subjective Subjective: Patient seen and examined. No acute events noted overnight. Postop day 2 from repeat I&D of the right foot with wound VAC application 12/07/[address] Bermudez. Patient states overall he feels okay. Denies fevers, chills, or rigors. Denies chest pain, shortness of breath, or cough. Denies nausea, vomiting, diarrhea, or constipation. Denies abdominal pain or urinary complaints. Denies oral thrush or skin lesions. States his appetite is getting better. Reports minimal pain at the surgical site. Denies oral thrush or skin rashes. Status post ELHAM this morning. - Objective CBC & Chem 7: 12/11/18 04:40 12/11/18 04:40 - Exam Vitals: Temp Pulse Resp BP Pulse Ox 98.3 F 103 16 146/95 99 12/10/18 11:31 12/10/18 11:31 12/10/18 11:31 12/10/18 11:31 12/10/18 11:31 Exam: Head: Atraumatic, normal inspection, normocephalic. Eye: EOMI, PERRLA, no scleral icterus noted. No subconjunctival hemorrhage noted. ENT: Mucous membranes moist. No odontogenic infection noted. Neck: Normal inspection, no meningismus. Respiratory: Clear to auscultation. No rales, respiratory distress, rhonchi, or wheezes noted. Cardiovascular: Regular rate and rhythm, S1 and S2 audible. No murmurs, rubs, or gallops. GI: Soft, obese, normal bowel sounds. Extremities:No joint swelling, pedal edema, or tenderness noted. Right foot dressing clean, dry, and intact. Wound VAC noted with moderate serous sanguinous drainage. No erythema or streaking up the leg. Neurological: Alert, oriented 3, no focal deficits. Psychiatric: normal affect, normal mood. Skin: Dry, intact, warm. Normal color. No rashes. No endocarditis stigmata noted. - Assessment and Plan (1) Sepsis Status: Acute The patient had 3 sepsis criteria on admission. Likely secondary to MSSA bacteremia and osteomyelitis of the right foot. Improved. WBC normal. Tachycardia and fever resolved. Blood cultures drawn 12/03/18 are +2 out of 2 sets for MSSA. Repeat blood cultures drawn 12/04/18 were +2 out of 2 sets. Additional blood cultures drawn 12/05/18 are +1 out of 2 sets. Repeat blood cultures drawn 12/07/18 are NGTD 2 sets. Qualifiers: Sepsis type: methicillin susceptible Staphylococcus aureus Qualified Code(s): A41.01 - Sepsis due to Methicillin susceptible Staphylococcus aureus SNOMED Code(s): 84089788 (2) MSSA bacteremia Status: Acute Causative organism: MSSA. Source: Right foot osteomyelitis. Blood cultures drawn 12/03/18 are +2 out of 2 sets for MSSA. Repeat blood cultures drawn 12/04/18 were +2 out of 2 sets. Additional blood cultures drawn 12/05/18 are +1 out of 2 sets. Repeat blood cultures drawn 12/07/18 are NGTD 2 sets. Complicated due to osteomyelitis. The patient has no hardware or signs of septic emboli. No endocarditis stigmata noted on exam. Rheumatoid factor elevated. The patient has one major and two minor modified [place] criteria. TTE completed 12/02/18 is negative for valvular vegetation. ELHAM negative. Currently on IV cefazolin. SNOMED Code(s): 007368610 (3) Osteomyelitis of right foot Status: Acute Location: Right foot. Causative organism: MSSA. MRI of the right foot 12/03/18 showed an ulceration along the plantar foot at the level of the cuboid with very mild marrow signal changes along the plantar-most aspect of the cuboid adjacent to the ulceration which are most suggestive of very early changes of osteomyelitis. Preop ESR greater than 130, CRP. Her than 300. Podiatry consulted. Status post incision and drainage below the fascia of the right foot and excision partial tarsal bone cuboid right foot with bone culture. Intraoperative cultures are positive for MSSA. It does not appear specimen was sent to pathology. Status post repeat I&D wound VAC application 12/07/18. Currently on cefazolin. Qualifiers: Osteomyelitis type: subacute Qualified Code(s): M86.271 - Subacute osteomyelitis, right ankle and foot SNOMED Code(s): 3097561280582229 (4) Cellulitis Status: Acute Location: Right foot. Causative organism: MSSA. Etiology: Diabetic foot ulcer. Improved. Podiatry consult and following. Currently on cefazolin. Qualifiers: Site of cellulitis: extremity Site of cellulitis of extremity: lower extre mity Laterality: left Qualified Code(s): L03.116 - Cellulitis of left lower limb SNOMED Code(s): 361220744 (5) Acute on chronic kidney failure Status: Resolved Received intermittent hemodialysis 2 sessions. Renal function improved. Urine output adequate. Nephrology consulted. HD catheter removed 12/08/18. Monitor renal function and dose adjust antibiotics. Avoid nephrotoxins as able. Qualifiers: Acute renal failure type: unspecified Chronic kidney disease stage: stage 3 (moderate) Qualified Code(s): N17.9 - Acute kidney failure, unspecified; N18.3 - Chronic kidney disease, stage 3 (moderate) SNOMED Code(s): 526814246 (6) Sunburn Status: Acute Location: Bilateral lower extremities. Supportive care per the primary team. 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 Podiatry consulted and following. SNOMED Code(s): 227893299 (8) Diabetes mellitus Status: Acute Recommend aggressive glucose monitoring and control to promote wound healing and prevent reinfection. 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 Fecal occult blood test was negative. Status post EGD that was negative for acute bleeding. Further workup and management per the primary team. 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 There is a superimposed multiloculated complex fluid collection in the dorsolateral proximal forefoot with differential considerations to include complex synovial/ganglion cyst, but abscess could not be excluded. Degenerative changes in the midfoot as above along with mild fragmentation of the navicular with superimposed mild patchy bone marrow edema- like signal involving multiple bony structures as above. The appearance is most suggestive for Charcot arthropathy, but it would be difficult to exclude superimposed osteomyelitis involving one or more of the involved bony structures. Podiatry consulted. Does not feel the MRI findings are infectious. Management per the podiatry team. SNOMED Code(s): 872838930, 742901019 - Recommendations Recommendations: Await repeat blood cultures to finalize. Wound care per the Podiatry team. Continue cefazolin 2 grams IV Q8H. Duration of treatment depends on the clinical picture, but likely 6 weeks. Discussed with the patient that he will need to have family that is able to help him with the Q8H dosing of his IV antibiotics or he will need to learn himself. He states he has several family members that can assist him. I advised him that if something falls through, we can switch him to IV nafcillin via 24 hour continuous infusion which requires changing of the bag just once a day. He states he wants to do to the Q8H infusions for now. Monitor renal function and dose-adjust antibiotics. student services coordinator to assist with discharge planning. Adequate glucose control per the primary team. Will need weekly CBC, BUN/Cr, ESR, CRP. Will need weekly IV care per protocol. Follow up with ID 12/24/18 at 1500. Consult Discharge Plan - Plan Instructions: Atrial Fibrillation (DC), Cellulitis (DC), Sepsis (DC), Negative Pressure Wound Therapy (DC) Referrals: Natalio Amaya MD [Primary Care Provider] - 12/21/18 8:30 am Dany Ceron DPM [Partnered Physician] - (Please call wound care center for appointment. [phone]) Shayna Dean CNP [Advanced Practice Nurse] - 12/24/18 3:00 pm Lester Prado DO [Partnered Physician] - Prescriptions: ceFAZolin [Ancef] 2,000 mg IV Q8H 35 Days #210 vial - Attending Attestation I have personally performed a face to face evaluation on this patient. I have reviewed and agree with the care plan. History and Exam by me shows: Assessment and plan 1.Sepsis 2.MSSA bacteremia 3.Osteomyelitis of the right foot causative organism MSSA status post incision and drainage below the fascia of the right foot and excision partial tarsal bone ELHAM negative Treat with cefazolin for 6 weeks for osteomyelitis Follow-up with us in clinic in 2 weeks Weekly CBC, BMP, ESR and CRP
[2018-12-11 05:17] LABS: BUN/Creatinine Ratio 22 (6-26); Blood Urea Nitrogen 29 mg/dL (8-23); Calcium 8.5 mg/dL (8.6-10.3); Carbon Dioxide 26 mEq/L (23-29); Chloride 102 mEq/L (98-107); Glucose 224 mg/dL (70-105); Osmolality,Calculated 295 (280-300); Potassium 3.7 mEq/L (3.5-5.1); Sodium 136 mEq/L (136-145); eGFR For African Americans > 60 (> 60); eGFR For Non-African Americans 55 (> 60)
[2018-12-11 05:19] LABS: Basophils # 0.1 K/mcL (0.0-0.2); Basophils % 0.7 %; Eosinophils # 0.5 K/mcL (0.0-0.6); Eosinophils % 6.8 %; Hematocrit 27.7 % (37.5-50.1); Hemoglobin 8.4 g/dL (12.9-16.9); Immature Granulocytes % 1.9 % (0-4); Lymphocytes # 1.6 K/mcL (0.6-4.6); Lymphocytes % 21.1 %; Mean Corpuscular HGB Conc 30.3 g/dL (31.6-35.5); Mean Corpuscular Hemoglobin 25.6 pg (28.0-33.3); Mean Corpuscular Volume 84.5 fL (83.0-100.0); Mean Platelet Volume 9.8 fL (9.4-12.4); Monocytes # 0.9 K/mcL (0.0-1.3); Monocytes % 11.9 %; Neutrophils # 4.3 K/mcL (1.6-8.9); Platelet Count 461 K/mcL (140-400); Red Blood Count 3.28 M/mcL (4.19-5.50); Red Cell Distribution Width 15.2 % (11.5-14.5); Segmented Neutrophils % 57.6 %; White Blood Count 7.5 K/mcL (4.3-11.1)
[2018-12-11 07:24] VITALS: BP 136/81
[2018-12-11] MEDS: MOMETASONE FUROATE 100 mcg Inhaler IH SCH (07:35)
[2018-12-11] MEDS: Aspirin Enteric Coated 81 MG Tablet PO SCH (08:01)
[2018-12-11] MEDS: Diltiazem CD (24hr) 240 MG CAPSULE PO SCH (08:01)
[2018-12-11] MEDS: Lisinopril 20 MG TABLET PO SCH (08:01)
[2018-12-11] MEDS: Insulin LISPRO 300 UNITS/3 ML VIAL SQ SCH (08:02)
[2018-12-11] MEDS: Insulin DETEMIR 100 UNIT/ML X5UNITS SQ SCH (08:02)
--- NOTE | 2018-12-11 10:11 | Discharge Summary ---
- NOTES TO OUTPATIENT PROVIDER Notes to Outpatient Provider: Follow-up with podiatry, ID, and nephrology as outpatient. Bloodwork weekly while on IV Abx Orders not resulted at time of discharge: Pending orders 12/04/18 19:28 AFB Culture, Tissue [TB] Routine AFB Smear [TB] Routine Fungal Culture [MYC] Routine 12/07/18 05:15 Culture,Blood [BC] AM 0400 Date of Encounter: 12/11/18 Time of Encounter: 08:00 - Discharge Diagnosis (1) Sepsis Priority: Primary Status: Acute Qualifiers: Sepsis type: methicillin susceptible Staphylococcus aureus Qualified Code(s): A41.01 - Sepsis due to Methicillin susceptible Staphylococcus aureus (2) MSSA bacteremia Priority: Secondary Status: Acute (3) Osteomyelitis of right foot Priority: Secondary Status: Acute Qualifiers: Osteomyelitis type: subacute Qualified Code(s): M86.271 - Subacute osteomyelitis, right ankle and foot (4) Atrial fibrillation with RVR Priority: Secondary Status: Resolved (5) Cellulitis Priority: Secondary Status: Acute Qualifiers: Site of cellulitis: extremity Site of cellulitis of extremity: lower extremity Laterality: left Qualified Code(s): L03.116 - Cellulitis of left lower limb (6) Acute on chronic kidney failure Priority: Secondary Status: Resolved Qualifiers: Acute renal failure type: unspecified Chronic kidney disease stage: stage 3 (moderate) Qualified Code(s): N17.9 - Acute kidney failure, unspecified; N18.3 - Chronic kidney disease, stage 3 (moderate) (7) IDDM (insulin dependent diabetes mellitus) Priority: Secondary Status: Chronic (8) Hypertension Priority: Secondary Status: Chronic Qualifiers: Hypertension type: essential hypertension Qualified Code(s): I10 - Essential (primary) hypertension (9) DVT prophylaxis Priority: Secondary Status: Acute Hospital course: Mr. Osborne is a 63 year old male with history of hypertension, atrial fibrillation not on AC, CKD, DM, who was admitted for sepsis and afib with RVR secondary to right foot osteomyelitis and MSSA bacteremia as well as acute on chronic kidney failure. Wound culture from R foot also +ve for MSSA. Underwent I&D x 2 with wound VAC application on 12/07. Blood cultures were persistently positive on 12/03, 12/04, and 1 set in 12/05 therefore also had ELHAM done. No evidence of vegetation. Clinically improved with IV Ancef and will be discharged home with IV ancef for a total of 6 weeks. He briefly required diltiazem gtt for afib with RVR which was later d/jude and HR well controlled on home meds. Given his fluctuating Hb on hep gtt, he also had EGD on 12/04 which only showed multiple gastric polyps. He was advised to discuss anticoagulation with PCP or cardiology as outpatient after completing colonoscopy to ensure no GI bleed. His wound VAC was changed on the day of discharge and he is to follow up with podiatry and ID. Given the fact that he is on diltiazem, felodipine was discontinued to avoid 2nd CCB use and lasix remain on hold until outpatient nephrology follow up. Weekly CBC, BMP, ESR, CRP while on IV Ancef. Discharge discussed with: patient, nurse, social work, case management, building consultant - Time Spent with Patient Total time spent providing and/or coordinating discharge services: 37 mins - Discharge Medications Prescriptions: New ceFAZolin [Ancef] 2,000 mg IV Q8H 35 Days #210 vial Continued Montelukast [Singulair] 10 mg PO HS PRN PRN Reason: Allergy Symptoms Atorvastatin [Lipitor] 40 mg PO HS Carvedilol [Coreg] 25 mg PO BID Aspirin Enteric Coated [Aspirin EC] 81 mg PO DAILY Allopurinol [Zyloprim 100 MG] 100 mg PO DAILY Albuterol Sulfate [Ventolin Hfa] 2 puff IH Q4H PRN PRN Reason: Shortness Of Breath Docusate [Colace] 100 mg PO DAILY PRN PRN Reason: Constipation Insulin Glargine,Hum.rec.anlog [Basaglar Kwikpen U-100] 10 unit SQ DAILY Beclomethasone Dipropionate [QVAR 80 mcg REDIHALER] 1 puff IH BID Cetirizine HCl [24Hour Allergy] 10 mg PO DAILY Diltiazem HCl [Diltiazem ER] 180 mg PO DAILY Liraglutide [Victoza 2-Jerson] 1.2 mg SQ DAILY Lisinopril [Zestril] 20 mg PO DAILY Metformin HCl 850 mg PO BID Discontinued Felodipine [Felodipine ER] 5 mg PO DAILY Furosemide [Lasix] 40 mg PO DAILY PRN PRN Reason: SWELLING Home Medications: Albuterol Sulfate [Ventolin Hfa] 2 puff IH Q4H PRN 09/18/16 [History] Allopurinol [Zyloprim 100 MG] 100 mg PO DAILY 09/18/16 [History] Aspirin Enteric Coated [Aspirin EC] 81 mg PO DAILY 09/18/16 [History] Atorvastatin [Lipitor] 40 mg PO HS 09/18/16 [History] Carvedilol [Coreg] 25 mg PO BID 09/18/16 [History] Montelukast [Singulair] 10 mg PO HS PRN 09/18/16 [History] Beclomethasone Dipropionate [QVAR 80 mcg REDIHALER] 1 puff IH BID 12/02/18 [His tory] Docusate [Colace] 100 mg PO DAILY PRN 12/02/18 [History] Insulin Glargine,Hum.rec.anlog [Basaglar Kwikpen U-100] 10 unit SQ DAILY 12/02/18 [History] Cetirizine HCl [24Hour Allergy] 10 mg PO DAILY 12/03/18 [History] Diltiazem HCl [Diltiazem ER] 180 mg PO DAILY 12/03/18 [History] Liraglutide [Victoza 2-Jerson] 1.2 mg SQ DAILY 12/03/18 [History] Lisinopril [Zestril] 20 mg PO DAILY 12/03/18 [History] Metformin HCl 850 mg PO BID 12/03/18 [History] ceFAZolin [Ancef] 2,000 mg IV Q8H 35 Days #210 vial 12/09/18 [Rx] Allergies/Adverse Reactions: Allergy/AdvReac Type Severity Reaction Status Date / Time No Known Allergies Allergy Verified 12/03/18 23:20 Date of admission: 12/04/18 13:49 Primary care physician: Natalio Amaya MD Consults: 12/02/18 21:28 Consult to Cardiology [CONS] Routine Comment: Consulting Provider: Cardiology [place] Reason for Consult: atrial fib/RVR; h/o PAF; not on chronic anti-coagulation; + troponin Call Completed: No Consult to Nephrology [CONS] Routine Consulting Provider: [facility]BEL/RAKESH/KEI Reason for Consult: YAEL on CKD Call Completed: No 12/03/18 13:28 Consult to Wound Care [CONS] Routine Reason for Consult: Rt leg wound Call Completed: No 12/04/18 07:08 Consult to Infectious Diseases [CONS] Routine Consulting Provider: Infectious Disease [place] Reason for Consult: osteomyelitis, GPC bacteremia Call Completed: No 12/04/18 07:09 Consult to Podiatry [CONS] Routine Consulting Provider: [facility] Reason for Consult: osteomyelitis Call Completed: No 12/04/18 11:45 Consult to Interventional Radiology [CONS] Routine Consulting Provider: Radiology Interventional [facility] Reason for Consult: Please evaluate for placement of a temporary HD catheter Call Completed: Yes 12/04/18 12:00 Consult to Dialysis [CONS] ONCE 12/05/18 07:30 Consult to Dialysis [CONS] ONCE - Constitutional Vitals: Temp Pulse Resp BP Pulse Ox 98.8 F 84 20 136/81 96 12/11/18 07:19 12/11/18 07:19 12/11/18 07:36 12/11/18 07:19 12/11/18 07:36 General appearance: Present: cooperative, A&O X 3, pleasant, no acute distress, answers questions appropriately Exam: General: In no acute distress. morbidly obese Respiratory exam: minimal, scattered bibasilar crackles Cardiovascular exam: RRR, +S1, +S2. no murmur, gallop, rubs. GI/Abdominal exam: Non-tender, Non-distended, normal bowel sounds, soft, no peritoneal signs. Extremities exam: 1+ pedal edema, no calf tenderness Neurological exam: CN II-XII intact, AO X3, no focal deficits. Skin exam: Rt leg wound on wound vac. Lt foot with redness, warmth and swelling till ankle which is regressing. No fluctuance/localized swelling - Patient Status Disposition: Home Health Service Condition: Serious Overall status at discharge: patient is progressing back to baseline - Discharge Instructions Instructions: Atrial Fibrillation (DC), Acute Kidney Injury (DC), Cellulitis (DC), Diabetes Mellitus Type 2 in Adults (DC), Sepsis (DC), Anemia (GEN) Follow Up With: Natalio Amaya MD [Primary Care Provider] - Shayna Dean [facility] [Advanced Practice Nurse] - 12/24/18 3:00 pm Lester Prado DO [Partnered Physician] - McFerren,Dany P, DPM [Partnered Physician] - - Diet and Activity Activity: as per physical therapy Diet: diabetic diet
--- NOTE | 2018-12-11 10:20 | Physician Discharge Referral ---
Home Health/Hosp Referral Info Transfer to: Home Health Provider in Charge Post Discharge: PCP - Diagnosis (1) Sepsis Priority: Primary Status: Acute (2) MSSA bacteremia Priority: Secondary Status: Acute (3) Osteomyelitis of right foot Priority: Secondary Status: Acute (4) Atrial fibrillation with RVR Priority: Secondary Status: Resolved (5) Cellulitis Priority: Secondary Status: Acute (6) Acute on chronic kidney failure Priority: Secondary Status: Resolved (7) IDDM (insulin dependent diabetes mellitus) Priority: Secondary Status: Chronic (8) Hypertension Priority: Secondary Status: Chronic (9) DVT prophylaxis Priority: Secondary Status: Acute - Respiratory Orders Smoking Cessation: Smoking cessation has been advised. For more information, call the [employer] Tobacco Quit Line at 6-480-KEGP-NOW. - Diet/Nutrition Diet/Nutrition Orders: No Concentrated Sweets - Services Needed Following services are medically necessary services: Nursing, Home Health Aide, Physical Therapy, Occupational Therapy, Home Infusion - Transfer Medications Prescriptions: ceFAZolin [Ancef] 2,000 mg IV Q8H 35 Days #210 vial Home Medications: Albuterol Sulfate [Ventolin Hfa] 2 puff IH Q4H PRN 09/18/16 [History] Allopurinol [Zyloprim 100 MG] 100 mg PO DAILY 09/18/16 [History] Aspirin Enteric Coated [Aspirin EC] 81 mg PO DAILY 09/18/16 [History] Atorvastatin [Lipitor] 40 mg PO HS 09/18/16 [History] Carvedilol [Coreg] 25 mg PO BID 09/18/16 [History] Montelukast [Singulair] 10 mg PO HS PRN 09/18/16 [History] Beclomethasone Dipropionate [QVAR 80 mcg REDIHALER] 1 puff IH BID 12/02/18 [History] Docusate [Colace] 100 mg PO DAILY PRN 12/02/18 [History] Insulin Glargine,Hum.rec.anlog [Basaglar Kwikpen U-100] 10 unit SQ DAILY 12/02/18 [History] Cetirizine HCl [24Hour Allergy] 10 mg PO DAILY 12/03/18 [History] Diltiazem HCl [Diltiazem ER] 180 mg PO DAILY 12/03/18 [History] Liraglutide [Victoza 2-Jerson] 1.2 mg SQ DAILY 12/03/18 [History] Lisinopril [Zestril] 20 mg PO DAILY 12/03/18 [History] Metformin HCl 850 mg PO BID 12/03/18 [History] ceFAZolin [Ancef] 2,000 mg IV Q8H 35 Days #210 vial 12/09/18 [Rx] Allergies/Adverse Reactions: Allergy/AdvReac Type Severity Reaction Status Date / Time No Known Allergies Allergy Verified 12/03/18 23:20 Certification: Further, I certify that my clinical findings support that this patient is homebound (i.e. absences from home require considerable and taxing effort and are for medical reasons or buddhism services or infrequently or short duration when for other reasons) because: Homebound Reason: Patient requires assistance of a person or device to safely leave home Attestation: My signature below is to certify that this patient is under my care and that I, or nurse practitioner, or a physician's retail store assistant working with me, has a [id number] encounter with this patient.
--- NOTE | 2018-12-11 11:44 | Podiatry Progress Note ---
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 Ceron 12/07/18 Cap refill <3 second WBC 7.5 Blood cultures pending from 12/07, presumptively negative at this time, 12/05 returned staph aureus x 1 ID following for ATB management Wound vac in place with suction at 125 mmHG with serosangionus drainage Plan: Removed vac, wound bed beefy red, cleansed with 0.9 NS Painted periwound with Allkare, maceration noted to wound edges, painted with betadine, draped tegaderm in window pane fashion, placed white foam and black granulafoam to wound bed, tracked black foam to lateral aspect of RLE Good seal noted with suction at 125 mmHG with home wound vac Change MWF Will need follow up appointment in wound care center with Dr. Ceron. Please make appointment prior to d/c (2) Cellulitis Current Visit: Yes Status: Acute Assessment: Cellulitis vs Charcot arthropathy vs gout Left foot rubor, tumor, and calor noted, markedly improved from previous asessments Edema 1/4 noted to LLE CFT <3 seconds No open wound noted WBC 7.5, improving, no left shift noted Uric acid 6.7 Plan: CAM walker boot ordered, patient to use when ambulating, currently boot at bedside, patient states he has not been wearing it but reports wearing diabetic shoe Compression stockings to LLE daily ATB per ID recommendations Imaging: MR/MR foot LT wo con IMPRESSION: Studies of the left ankle and left foot demonstrate diffuse subcutaneous edema about the ankle and foot, nonspecific but potentially relating to cellulitis. There is a superimposed multiloculated complex fluid collection in the dorsolateral proximal forefoot with differential considerations to include complex synovial/ganglion cyst. Abscess cannot be excluded in the current clinical setting. Degenerative changes to the midfoot as above along with mild fragmentation of the navicular. Superimposed mild patchy bone marrow edema like signal involving multiple bony structures as above. The appearance is most suggestive for Charcot arthropathy. It would be difficult to exclude superimposed osteomyelitis involving one or more of the involved bony structures. Mild tenosynovitis to multiple tendons about the foot/ankle as above. Prior remote injury to the deltoid ligament complex. Chronic plantar fasciitis. Mild tendinosis to the Achilles tendon. Likely denervation changes to intrinsic musculature of the foot and to visualized distal flexor hallucis longus and flexor digitorum longus muscles. D/ / 12/07/2018 09:44:42 Natalio Acharya MD / jenna Qualifiers: Site of cellulitis: extremity Site of cellulitis of extremity: lower extremity Laterality: left Qualified Code(s): L03.116 - Cellulitis of left lower limb Subjective Principal diagnosis: Bactermia/diabetic foot ulcer Interval history: Patient awake in bed. Alert and oriented x 3. S/P Incision and drainage below fascia right foot and Application negative pressure wound therapy with Dr. Ceron 12/07/18. Denies any pain. Denies any fevers, chills, nausea, vomiting, or diarrhea. Denies and chest pain, calf pain, or shortness of breath. States is getting discharged after home wound vac placement. No other questions or concerns at this time. Objective - Vital Signs Vital Signs: Vital Signs Temp Pulse Resp BP Pulse Ox 12/11/18 07:36 20 96 12/11/18 07:19 98.8 F 84 16 136/81 12/11/18 04:46 98.2 F 87 14 146/98 97 12/10/18 21:26 98.2 F 98 14 147/90 89 12/10/18 19:54 14 90 12/10/18 17:01 98.6 F 94 16 156/95 90 Intake and Output 12/10/18 12/11/18 12/11/18 23:59 07:59 15:59 Intake Total 340 / 905 340 / 440 100 / 440 Output Total 325 / 625 775 / 775 Balance 15 / 280 -435 / -335 100 / -335 Intake: IV Fluids 100 / 425 100 / 200 100 / 200 Ancef 2,000 MG In 0.9 % Sodium 100 / 300 100 / 200 100 / 200 Chloride 100 ML @ 200 mls/hr IVPB Q8HR [facility] Rx#:[id number] Oral 240 / 480 240 / 240 Output: Urine 325 / 625 725 / 725 Wound Drainage 50 / 50 Right Foot 50 / 50 Other: Meal Dinner Percent of Meal Consumed 40% Stool Size Large Stool Consistency soft Stool Color Brown # Voids 2 # Bowel Movements 2 Weight 142.8 kg Blood Glucose* 232 185 Patient Weight 12/11/18 23:59 Weight 142.8 kg - Exam Exam: Constitiutional: Alert and oriented x 3. Well nourished. No acute distress noted. Vascular: 1/4 DP/PT LLE, CFT <3 sec to all digits bilaterally, warm to warm from tibia to toes bilaterally, no calf pain with squeeze bilaterally, edema noted BLE Neurologic: absent sensation to touch, normal plantar response Dermatologic: right foot ulcer, ly grade 3, granulation tissue noted, tendon exposed, no slough noted, no erythema, no edema, no cellulitis, no lymphangitis noted, LLE erythema and edema noted, warm to touch Musculoskeletal: 4/5 muscle strength and normal tone bilaterally. - Lab Result Diagrams: 12/11/18 04:40 12/11/18 04:40 Labs: Abnormal lab results WBC 12.7 K/mcL (4.3-11.1) H 12/08/18 11:31 RBC 3.28 M/mcL (4.19-5.50) L 12/11/18 04:40 Hgb 8.4 g/dL (12.9-16.9) L 12/11/18 04:40 Hct 27.7 % (37.5-50.1) L 12/11/18 04:40 MCV 81.9 fL (83.0-100.0) L 12/06/18 08:36 MCH 25.6 pg (28.0-33.3) L 12/11/18 04:40 MCHC 30.3 g/dL (31.6-35.5) L 12/11/18 04:40 RDW 15.2 % (11.5-14.5) H 12/11/18 04:40 Plt Count 461 K/mcL (140-400) H 12/11/18 04:40 9.5 K/mcL (1.6-8.9) H 12/08/18 11:31 1.5 K/mcL (0.0-1.3) H 12/06/18 08:36 Nucleated RBCs/100 WBC 0.1 /100 WBC (0) H 12/04/18 03:07 ESR >= 130 mm/hr (0-10) H 12/04/18 07:11 PT 16.5 Seconds (9.4-12.1) H 12/02/18 18:19 Plt Neutralization POSITIVE (Negative) A 12/05/18 13:56 Lupus Anticoag INR 16.3 sec (12.0-15.5) H 12/05/18 13:56 Lupus Anticoag aPTT 50 sec (32-48) H 12/05/18 13:56 LA PTT Mix Pt/Norm 1:1 49 sec (32-48) H 12/05/18 13:56 Heparin Anti-Xa, Unfract 0.01 IU/mL (0.30-0.70) L 12/02/18 18:19 Sodium 134 mEq/L (136-145) L 12/08/18 11:31 Potassium 5.2 mEq/L (3.5-5.1) H 12/04/18 03:07 Chloride 96 mEq/L (98-107) L 12/07/18 05:21 Carbon Dioxide 20 mEq/L (23-29) L 12/04/18 03:07 BUN 29 mg/dL (8-23) H 12/11/18 04:40 1.31 mg/dL (0.70-1.30) H 12/11/18 04:40 Est GFR ( Amer) 55 (> 60) L 12/09/18 08:18 Est GFR (Non-Af Amer) 55 (> 60) L 12/11/18 04:40 Glucose 224 mg/dL (70-105) H 12/11/18 04:40 POC Glucose 232 mg/dL (70-99) H 12/10/18 21:24 Calcium 8.5 mg/dL (8.6-10.3) L 12/11/18 04:40 Phosphorus 4.9 mg/dL (2.7-4.5) H 12/05/18 04:30 Magnesium 1.2 mg/dL (1.6-2.6) L 12/03/18 04:39 1.1 mg/dL (0.3-1.0) H 12/03/18 04:39 0.5 mg/dL (0.0-0.2) H 12/02/18 18:19 0.04 ng/mL (< 0.04) H* 12/03/18 07:53 > 300 mg/L (Less than 10) H 12/04/18 03:07 5.50 g/dL (6.00-8.30) L 12/06/18 08:36 2.8 g/dL (3.5-5.7) L 12/05/18 04:30 2.17 g/dL (3.75-5.01) L 12/06/18 08:36 1.0 (1.1-2.2) L 12/03/18 04:39 0.65 g/dL (0.19-0.46) H 12/06/18 08:36 25 mg/dL (40-59) L 12/03/18 04:39 3.61 ng/mL (0.00-0.15) H 12/03/18 09:02 Cloudy (Clear) A 12/02/18 19:42 >=300 mg/dL (Neg-Trace) H 12/02/18 19:42 Trace mg/dL (Negative) H 12/02/18 19:42 3-5 per hpf (0-3) H 12/02/18 19:42 Ur Squamous Epith Cells Many per lpf (None-Few) H 12/02/18 19:42 15 IU/mL (Less than 14) H 12/06/18 08:36 Free [place] LC, Quant 7.99 mg/dL (0.33-1.94) H 12/06/18 08:36 Free [place] LC, Quant 5.40 mg/dL (0.57-2.63) H 12/06/18 08:36 Hep Bs Antibody < 3.10 mIU/mL (10.00-) L 12/04/18 13:32 Staphylococcus sp PCR DETECTED (Not Detect) A 12/05/18 16:26 Staph aureus (PCR) DETECTED (Not Detect) A 12/05/18 16:26 Crossmatch See Detail 12/04/18 07:11 Microbiology, Last 48 Hours 12/05/18 16:26 Blood Culture - Final Peripheral Venipuncture No growth. Final report. 12/04/18 19:28 Anaerobic Culture - Final Right Foot No anaerobes were recovered. Consult Discharge Plan - Plan Instructions: Atrial Fibrillation (DC), Cellulitis (DC), Sepsis (DC), Negative Pressure Wound Therapy (DC) Referrals: Natalio Amaya MD [Primary Care Provider] - 12/21/18 8:30 am Shayna Dean CNP [Advanced Practice Nurse] - 12/24/18 3:00 pm Lester Prado DO [Partnered Physician] - Dany Ceron, YURIYM [Partnered Physician] - (Please call wound care center for appointment. [phone]) Prescriptions: ceFAZolin [Ancef] 2,000 mg IV Q8H 35 Days #210 vial
--- NOTE | 2018-12-11 13:33 | Infectious Disease Progress No ---
ID Progress Note Date of Encounter: 12/11/18 Time of Encounter: 09:40 - Subjective Subjective: Patient seen and examined. No acute events noted overnight. Postop day 3 from repeat I&D of the right foot with wound VAC application 12/07/[address] Bermudez. Patient states overall he feels okay. Denies fevers, chills, or rigors. Denies chest pain, shortness of breath, or cough. Denies nausea, vomiting, diarrhea, or constipation. Denies abdominal pain or urinary complaints. Denies oral thrush or skin lesions. States his appetite is getting better. Reports minimal pain at the surgical site. Denies oral thrush or skin rashes. Pending discharge later today. - Objective CBC & Chem 7: 12/11/18 04:40 12/11/18 04:40 - Exam Vitals: Temp Pulse Resp BP Pulse Ox 98.8 F 84 20 136/81 96 12/11/18 07:19 12/11/18 07:19 12/11/18 07:36 12/11/18 07:19 12/11/18 07:36 Exam: Head: Atraumatic, normal inspection, normocephalic. Eye: EOMI, PERRLA, no scleral icterus noted. No subconjunctival hemorrhage noted. ENT: Mucous membranes moist. No odontogenic infection noted. Neck: Normal inspection, no meningismus. Respiratory: Clear to auscultation. No rales, respiratory distress, rhonchi, or wheezes noted. Cardiovascular: Regular rate and rhythm, S1 and S2 audible. No murmurs, rubs, or gallops. GI: Soft, obese, normal bowel sounds. Extremities:No joint swelling, pedal edema, or tenderness noted. Right foot dressing clean, dry, and intact. Wound VAC noted with moderate serous sanguinous drainage. No erythema or streaking up the leg. Left lateral foot erythema noted, improved. No open lesion noted. Charcot deformity noted. Neurological: Alert, oriented 3, no focal deficits. Psychiatric: normal affect, normal mood. Skin: Dry, intact, warm. Normal color. No rashes. No endocarditis stigmata noted. - Assessment and Plan (1) Sepsis Status: Acute The patient had 3 sepsis criteria on admission. Likely secondary to MSSA bacteremia and osteomyelitis of the right foot. Improved. WBC normal. Tachycardia and fever resolved. Blood cultures drawn 12/03/18 are +2 out of 2 sets for MSSA. Repeat blood cultures drawn 12/04/18 were +2 out of 2 sets. Additional blood cultures drawn 12/05/18 are +1 out of 2 sets. Repeat blood cultures drawn 12/07/18 are NGTD 2 sets. Qualifiers: Sepsis type: methicillin susceptible Staphylococcus aureus Qualified Code(s): A41.01 - Sepsis due to Methicillin susceptible Staphylococcus aureus SNOMED Code(s): 53004072 (2) MSSA bacteremia Status: Acute Causative organism: MSSA. Source: Right foot osteomyelitis. Blood cultures drawn 12/03/18 are +2 out of 2 sets for MSSA. Repeat blood cultures drawn 12/04/18 were +2 out of 2 sets. Additional blood cultures drawn 12/05/18 are +1 out of 2 sets. Repeat blood cultures drawn 12/07/18 are NGTD 2 sets. Complicated due to osteomyelitis. The patient has no hardware or signs of se ptic emboli. No endocarditis stigmata noted on exam. Rheumatoid factor elevated. The patient has one major and two minor modified Franklin criteria. TTE completed 12/02/18 is negative for valvular vegetation. ELHAM negative. Currently on IV cefazolin. SNOMED Code(s): 591251514 (3) Osteomyelitis of right foot Status: Acute Location: Right foot. Causative organism: MSSA. MRI of the right foot 12/03/18 showed an ulceration along the plantar foot at the level of the cuboid with very mild marrow signal changes along the plantar-most aspect of the cuboid adjacent to the ulceration which are most suggestive of very early changes of osteomyelitis. Preop ESR greater than 130, CRP. Her than 300. Podiatry consulted. Status post incision and drainage below the fascia of the right foot and excision partial tarsal bone cuboid right foot with bone culture. Intraoperative cultures are positive for MSSA. It does not appear specimen was sent to pathology. Status post repeat I&D wound VAC application 12/07/18. Currently on cefazolin. Qualifiers: Osteomyelitis type: subacute Qualified Code(s): M86.271 - Subacute osteomyelitis, right ankle and foot SNOMED Code(s): 2163861963408576 (4) Cellulitis Status: Acute Location: Right foot. Causative organism: MSSA. Etiology: Diabetic foot ulcer. Improved. Podiatry consult and following. Currently on cefazolin. Qualifiers: Site of cellulitis: extremity Site of cellulitis of extremity: lower extremity Laterality: left Qualified Code(s): L03.116 - Cellulitis of left lower limb SNOMED Code(s): 038640824 (5) Acute on chronic kidney failure Status: Resolved Received intermittent hemodialysis 2 sessions. Renal function improved. Urine output adequate. Nephrology consulted. HD catheter removed 12/08/18. Monitor renal function and dose adjust antibiotics. Avoid nephrotoxins as able. Qualifiers: Acute renal failure type: unspecified Chronic kidney disease stage: stage 3 (moderate) Qualified Code(s): N17.9 - Acute kidney failure, unspecified; N18.3 - Chronic kidney disease, stage 3 (moderate) SNOMED Code(s): 377562345 (6) Sunburn Status: Acute Location: Bilateral lower extremities. Supportive care per the primary team. 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 Podiatry consulted and following. SNOMED Code(s): 040402208 (8) Diabetes mellitus Status: Acute Recommend aggressive glucose monitoring and control to promote wound healing and prevent reinfection. 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 Fecal occult blood test was negative. Status post EGD that was negative for acute bleeding. Further workup and management per the primary team. 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 There is a superimposed multiloculated complex fluid collection in the dorsolateral proximal forefoot with differential considerations to include complex synovial/ganglion cyst, but abscess could not be excluded. Degenerative changes in the midfoot as above along with mild fra gmentation of the navicular with superimposed mild patchy bone marrow edema-like signal involving multiple bony structures as above. The appearance is most suggestive for Charcot arthropathy, but it would be difficult to exclude superimposed osteomyelitis involving one or more of the involved bony structures. Podiatry consulted. Does not feel the MRI findings are infectious. Management per the podiatry team. SNOMED Code(s): 179422028, 949709002 - Recommendations Recommendations: Await repeat blood cultures to finalize. Wound care per the Podiatry team. Continue cefazolin 2 grams IV Q8H. Duration of treatment depends on the clinical picture, but likely 6 weeks. Monitor renal function and dose-adjust antibiotics. 911 emergency services dispatcher to assist with discharge planning. Adequate glucose control per the primary team. Will need weekly CBC, BUN/Cr, ESR, CRP. Will need weekly IV care per protocol. Follow up with ID 12/24/18 at 1500. Consult Discharge Plan - Plan Instructions: Atrial Fibrillation (DC), Cellulitis (DC), Sepsis (DC), Negative Pressure Wound Therapy (DC) Referrals: Natalio Amaya MD [Primary Care Provider] - 12/21/18 8:30 am Dany Ceron DPM [Partnered Physician] - (Please call wound care center for appointment. [phone]) Shayna Dean [employer]AM [employer] WORK[employer] [Advanced Practice Nurse] - 12/24/18 3:00 pm Lester Prado DO [Partnered Physician] - Prescriptions: ceFAZolin [Ancef] 2,000 mg IV Q8H 35 Days #210 vial
== END 2018-12-11 13:21 | disposition home health service (06) | DRG 710 ==
LOC: EMEROOARM 17:45 → 2NENU 17:45 → SUATTDRO 20:08 → 2NENU 21:13 → SUATTDRO 12-04 13:49
PROVIDERS: ADMIT Family Medicine; ATTEND Internal Medicine

== ENCOUNTER 2020-03-04 10:21 | Inpatient (IN) ==
[2020-03-04 11:18] LABS: Basophils # 0.1 K/mcL (0.0-0.2); Basophils % 0.8 %; Eosinophils # 0.3 K/mcL (0.0-0.6); Eosinophils % 3.9 %; Hematocrit 28.8 % (37.5-50.1); Hemoglobin 8.7 g/dL (12.9-16.9); Immature Granulocytes % 0.3 % (0-4); Lymphocytes # 1.3 K/mcL (0.6-4.6); Lymphocytes % 14.4 %; Mean Corpuscular HGB Conc 30.2 g/dL (31.6-35.5); Mean Corpuscular Hemoglobin 25.2 pg (28.0-33.3); Mean Corpuscular Volume 83.5 fL (83.0-100.0); Mean Platelet Volume 11.1 fL (9.4-12.4); Monocytes # 0.8 K/mcL (0.0-1.3); Monocytes % 8.6 %; Neutrophils # 6.3 K/mcL (1.6-8.9); Platelet Count 301 K/mcL (140-400); Red Blood Count 3.45 M/mcL (4.19-5.50); Red Cell Distribution Width 16.2 % (11.5-14.5); White Blood Count 8.8 K/mcL (4.3-11.1)
[2020-03-04 11:23] LABS: INR 2.8
[2020-03-04 11:26] LABS: Activated Partial Thrombo Time 47.8 Seconds (26.0-36.0)
[2020-03-04 11:30] LABS: Calcium 9.2 mg/dL (8.6-10.3); Potassium 4.2 mEq/L (3.5-5.1)
[2020-03-04 11:33] LABS: Troponin I 0.27 ng/mL (< 0.04)
[2020-03-04] MEDS ORDERED: Aspirin Enteric Coated 81 MG Tablet PO ONE (11:40)
[2020-03-04] MEDS ORDERED: Naloxone 0.4 MG/ML INJ IVP PRN (12:12)
[2020-03-04] MEDS ORDERED: Perflutren Lipid Microsphere 1.3 ML in 0.9 % Sodium Chloride 8.7 ML IVP PRN (12:12)
[2020-03-04] MEDS: Insulin LISPRO 300 UNITS/3 ML VIAL SQ SCH (16:33)
[2020-03-04] MEDS: hydrALAZINE 25 MG TABLET PO SCH (17:38)
[2020-03-04] MEDS ORDERED: hydrALAZINE 25 MG TABLET PO ONE (17:38)
[2020-03-04] MEDS: carvediloL 25 MG TABLET PO SCH (17:46)
[2020-03-04] MEDS: cloNIDine HCL 0.1 MG TABLET PO SCH (21:14)
[2020-03-05 00:48] LABS: Hematocrit 30.1 % (37.5-50.1); Hemoglobin 8.8 g/dL (12.9-16.9); Mean Corpuscular HGB Conc 29.2 g/dL (31.6-35.5); Mean Corpuscular Hemoglobin 24.6 pg (28.0-33.3); Mean Corpuscular Volume 84.3 fL (83.0-100.0); Platelet Count 311 K/mcL (140-400); Red Blood Count 3.57 M/mcL (4.19-5.50); Red Cell Distribution Width 16.1 % (11.5-14.5); White Blood Count 8.9 K/mcL (4.3-11.1)
[2020-03-05 01:05] LABS: Magnesium 1.7 mg/dL (1.6-2.6); Potassium 4.3 mEq/L (3.5-5.1)
[2020-03-05] MEDS: Liraglutide [Victoza 2-Pak] 1.2 MG SQ SCH (07:20)
[2020-03-05] MEDS: carvediloL 25 MG TABLET PO SCH (07:32)
[2020-03-05] MEDS: hydrALAZINE 25 MG TABLET PO SCH ×3 (07:32→19:47)
[2020-03-05] MEDS: Insulin LISPRO 300 UNITS/3 ML VIAL SQ SCH ×3 (07:32→16:18)
[2020-03-05] MEDS: cloNIDine HCL 0.1 MG TABLET PO SCH ×3 (07:33→19:46)
[2020-03-05] MEDS: Aspirin Enteric Coated 81 MG Tablet PO SCH (07:33)
[2020-03-05] MEDS: DilTIAZem CD (24hr) 180 MG CAP.ER.24H PO SCH (07:41)
[2020-03-05 20:25] LABS: Bilirubin,Urine Negative (Negative); Blood,Urine Negative (Negative); Clarity,Urine Clear (Clear); Color,Urine Light-Yellow (Yellow); Glucose,Urine (UA) 50 mg/dL (Normal); Hyaline Casts,Urine Few per lpf (None Seen); Ketones,Urine Negative (Negative); Leukocyte Esterase,Urine Large (Negative); Nitrite,Urine Negative (Negative); PH,Urine 6.5 pH Units (5.0-8.0); Protein,Urine 200 mg/dL (Neg-Trace); RBC,Urine 0-3 per hpf (0-3); Specific Gravity,Urine 1.015 (1.010-1.025); Squamous Epithelial Cell,Urine Few per hpf (None-Few); Urobilinogen,Urine Normal (Normal); WBC,Urine 15-30 per hpf (0-3)
[2020-03-05 20:27] LABS: Bacteria,Urine Few per hpf (None-Few)
[2020-03-06] MEDS ORDERED: Regadenoson 0.4 MG/5 ML SYRINGE IVP ONE (06:09)
[2020-03-06 07:11] LABS: Basophils % 0.7 %; Hemoglobin 8.4 g/dL (12.9-16.9); Immature Granulocytes % 0.3 % (0-4)
[2020-03-06 07:13] LABS: Basophils # 0.1 K/mcL (0.0-0.2); Eosinophils # 0.3 K/mcL (0.0-0.6); Eosinophils % 3.9 %; Hematocrit 28.4 % (37.5-50.1); Lymphocytes # 1.1 K/mcL (0.6-4.6); Lymphocytes % 14.9 %; Mean Corpuscular HGB Conc 29.6 g/dL (31.6-35.5); Mean Corpuscular Hemoglobin 25.1 pg (28.0-33.3); Mean Corpuscular Volume 84.8 fL (83.0-100.0); Mean Platelet Volume 10.9 fL (9.4-12.4); Monocytes # 0.9 K/mcL (0.0-1.3); Neutrophils # 5.1 K/mcL (1.6-8.9); Platelet Count 269 K/mcL (140-400); Red Blood Count 3.35 M/mcL (4.19-5.50); Red Cell Distribution Width 16.1 % (11.5-14.5); Segmented Neutrophils % 68.2 %; White Blood Count 7.5 K/mcL (4.3-11.1)
[2020-03-06 07:33] LABS: Calcium 9.3 mg/dL (8.6-10.3); Magnesium 1.7 mg/dL (1.6-2.6); Potassium 5.2 mEq/L (3.5-5.1)
[2020-03-06 07:38] LABS: % Iron Saturation 6 % (20-55); Iron 21 mcg/dL (65-175); Transferrin 246 mg/dL (203-362)
[2020-03-06] MEDS: DilTIAZem CD (24hr) 180 MG CAP.ER.24H PO SCH (07:51)
[2020-03-06] MEDS: Loratadine 10 MG TABLET PO SCH (07:51)
[2020-03-06] MEDS: hydrALAZINE 25 MG TABLET PO SCH ×3 (07:51→21:05)
[2020-03-06] MEDS: allopurinoL 100 MG TABLET PO SCH (07:51)
[2020-03-06 07:52] LABS: Ferritin 8 ng/mL (20-250)
[2020-03-06] MEDS: cloNIDine HCL 0.1 MG TABLET PO SCH (07:52)
[2020-03-06] MEDS: Aspirin Enteric Coated 81 MG Tablet PO SCH (07:52)
[2020-03-06] MEDS: Insulin LISPRO 300 UNITS/3 ML VIAL SQ SCH ×3 (07:53→17:12)
[2020-03-06] MEDS: Liraglutide [Victoza 2-Pak] 1.2 MG SQ SCH (07:53)
[2020-03-06 08:12] LABS: Platelet Estimate Normal (Normal)
[2020-03-06 08:13] LABS: Hypochromasia Present (Not Present)
[2020-03-06 08:33] LABS: Folate > 22.3 ng/mL (3.0-16.0); Vitamin B12 301 pg/mL (250-1100)
[2020-03-06] MEDS ORDERED: *HR* Rivaroxaban 10 MG TABLET PO SCH (09:00)
[2020-03-06] MEDS ORDERED: *HR* Rivaroxaban 15 MG TABLET PO SCH (09:00)
[2020-03-06 11:03] LABS: Estimated Average Glucose 180 mg/dl
[2020-03-06] MEDS: Insulin DETEMIR 100 UNIT/ML X5UNITS SQ SCH (13:17)
[2020-03-06] MEDS ORDERED: Heparin 25,000UNIT/250ML 1/2NS 25,000 UNIT/250 ML IV.SOLN IVC SCH (13:30)
[2020-03-06] MEDS ORDERED: *HR* Heparin 5,000 UNIT/ML VIAL IVP ONE (13:30)
[2020-03-06 14:47] LABS: INR 2.2; Prothrombin Time 24.7 Seconds (9.4-12.1)
[2020-03-06 14:52] LABS: Hematocrit 29.2 % (37.5-50.1); Hemoglobin 8.7 g/dL (12.9-16.9); Mean Corpuscular HGB Conc 29.8 g/dL (31.6-35.5); Mean Corpuscular Hemoglobin 25.3 pg (28.0-33.3); Mean Corpuscular Volume 84.9 fL (83.0-100.0); Mean Platelet Volume 11.4 fL (9.4-12.4); Platelet Count 296 K/mcL (140-400); Red Blood Count 3.44 M/mcL (4.19-5.50); Red Cell Distribution Width 16.1 % (11.5-14.5); White Blood Count 6.7 K/mcL (4.3-11.1)
[2020-03-06 14:56] LABS: Heparin anti-factor XA UFH > 2.00 IU/mL (0.30-0.70)
[2020-03-06] MEDS: Isosorbide MONOnitrate (24 HR) 60 MG TAB.ER.24H PO SCH (15:34)
[2020-03-06] MEDS ORDERED: SODIUM CHLORIDE/NAHCO3/KCL/PEG 4,000 ML SOLN.RECON PO ONE (17:00)
[2020-03-06] MEDS ORDERED: carvediloL 25 MG TABLET PO SCH (17:00)
[2020-03-06] MEDS: 0.9 % Sodium Chloride 1,000 ML IVC SCH (18:22)
[2020-03-07 02:12] LABS: Basophils # 0.1 K/mcL (0.0-0.2); Basophils % 0.5 %; Eosinophils # 0.3 K/mcL (0.0-0.6); Eosinophils % 3.4 %; Hematocrit 26.5 % (37.5-50.1); Hemoglobin 7.7 g/dL (12.9-16.9); Immature Granulocytes % 0.3 % (0-4); Lymphocytes # 1.5 K/mcL (0.6-4.6); Mean Corpuscular HGB Conc 29.1 g/dL (31.6-35.5); Mean Corpuscular Hemoglobin 24.4 pg (28.0-33.3); Mean Corpuscular Volume 83.9 fL (83.0-100.0); Mean Platelet Volume 10.9 fL (9.4-12.4); Monocytes # 1.3 K/mcL (0.0-1.3); Monocytes % 13.1 %; Neutrophils # 6.6 K/mcL (1.6-8.9); Platelet Count 265 K/mcL (140-400); Red Blood Count 3.16 M/mcL (4.19-5.50); Red Cell Distribution Width 16.3 % (11.5-14.5); Segmented Neutrophils % 67.7 %; White Blood Count 9.8 K/mcL (4.3-11.1)
[2020-03-07 02:30] LABS: Calcium 8.5 mg/dL (8.6-10.3); Magnesium 1.6 mg/dL (1.6-2.6); Potassium 4.1 mEq/L (3.5-5.1)
[2020-03-07] MEDS ORDERED: *HR* Heparin 5,000 UNIT/ML VIAL IVP PRN ×2 (09:00)
[2020-03-07] MEDS: 0.9 % Sodium Chloride 1,000 ML IVC SCH ×2 (09:01→23:28)
[2020-03-07] MEDS: allopurinoL 100 MG TABLET PO SCH (09:06)
[2020-03-07] MEDS: Isosorbide MONOnitrate (24 HR) 60 MG TAB.ER.24H PO SCH (09:06)
[2020-03-07] MEDS: hydrALAZINE 25 MG TABLET PO SCH ×3 (09:07→20:47)
[2020-03-07] MEDS: Loratadine 10 MG TABLET PO SCH (09:08)
[2020-03-07] MEDS: Aspirin Enteric Coated 81 MG Tablet PO SCH (09:08)
[2020-03-07] MEDS: DilTIAZem CD (24hr) 180 MG CAP.ER.24H PO SCH (09:08)
[2020-03-07] MEDS: Iron Sucrose Complex 250 MG in 0.9 % Sodium Chloride 250 ML IVPB SCH (09:26)
[2020-03-07] MEDS: Insulin DETEMIR 100 UNIT/ML X5UNITS SQ SCH ×2 (09:38→17:24)
[2020-03-07] MEDS: Insulin LISPRO 300 UNITS/3 ML VIAL SQ SCH ×3 (09:38→17:25)
[2020-03-07] MEDS: Liraglutide [Victoza 2-Pak] 1.2 MG SQ SCH (10:39)
[2020-03-07] MEDS: carvediloL 25 MG TABLET PO SCH ×2 (12:08→17:59)
[2020-03-07] MEDS ORDERED: *HR* PHENYLEPHRINE 1,000 MCG/10 ML SYRINGE IVP ONE (13:30)
[2020-03-07] MEDS: *HR* Acetylcysteine 20% 600 MG/3 ML ORAL SYRINGE PO SCH ×2 (14:29→20:47)
[2020-03-07] MEDS: Heparin 25,000UNIT/250ML 1/2NS 25,000 UNIT/250 ML IV.SOLN IVC SCH ×2 (15:39→16:52)
[2020-03-07 22:22] LABS: Hemoglobin 7.4 g/dL (12.9-16.9)
[2020-03-08 06:20] LABS: Basophils % 0.6 %; Eosinophils # 0.2 K/mcL (0.0-0.6); Eosinophils % 3.3 %; Hematocrit 24.8 % (37.5-50.1); Hemoglobin 7.4 g/dL (12.9-16.9); Immature Granulocytes % 0.1 % (0-4); Lymphocytes # 1.3 K/mcL (0.6-4.6); Lymphocytes % 18.7 %; Mean Corpuscular HGB Conc 29.8 g/dL (31.6-35.5); Mean Corpuscular Hemoglobin 24.7 pg (28.0-33.3); Mean Corpuscular Volume 82.9 fL (83.0-100.0); Mean Platelet Volume 10.8 fL (9.4-12.4); Monocytes # 0.9 K/mcL (0.0-1.3); Monocytes % 13.2 %; Neutrophils # 4.4 K/mcL (1.6-8.9); Platelet Count 244 K/mcL (140-400); Red Blood Count 2.99 M/mcL (4.19-5.50); Red Cell Distribution Width 16.2 % (11.5-14.5); Segmented Neutrophils % 64.1 %; White Blood Count 6.9 K/mcL (4.3-11.1)
[2020-03-08 06:37] LABS: Calcium 8.4 mg/dL (8.6-10.3); Magnesium 1.7 mg/dL (1.6-2.6); Potassium 4.2 mEq/L (3.5-5.1)
[2020-03-08] MEDS: *HR* Acetylcysteine 20% 600 MG/3 ML ORAL SYRINGE PO SCH ×2 (07:43→19:46)
[2020-03-08] MEDS: hydrALAZINE 25 MG TABLET PO SCH ×3 (07:44→19:45)
[2020-03-08] MEDS: carvediloL 25 MG TABLET PO SCH ×2 (07:44→17:54)
[2020-03-08] MEDS: Loratadine 10 MG TABLET PO SCH (07:44)
[2020-03-08] MEDS: Isosorbide MONOnitrate (24 HR) 60 MG TAB.ER.24H PO SCH (07:44)
[2020-03-08] MEDS: Aspirin Enteric Coated 81 MG Tablet PO SCH (07:44)
[2020-03-08] MEDS: DilTIAZem CD (24hr) 180 MG CAP.ER.24H PO SCH (07:44)
[2020-03-08] MEDS: allopurinoL 100 MG TABLET PO SCH (07:44)
[2020-03-08] MEDS: Insulin LISPRO 300 UNITS/3 ML VIAL SQ SCH ×3 (07:46→17:04)
[2020-03-08] MEDS: Liraglutide [Victoza 2-Pak] 1.2 MG SQ SCH (09:37)
[2020-03-08] MEDS: 0.9 % Sodium Chloride 1,000 ML IVC SCH ×2 (09:54→19:53)
[2020-03-08] MEDS: Iron Sucrose Complex 250 MG in 0.9 % Sodium Chloride 250 ML IVPB SCH (09:55)
[2020-03-08] MEDS: Heparin 25,000UNIT/250ML 1/2NS 25,000 UNIT/250 ML IV.SOLN IVC SCH (12:14)
[2020-03-09] MEDS: 0.9 % Sodium Chloride 1,000 ML IVC SCH (05:16)
[2020-03-09 05:32] LABS: Basophils % 0.6 %; Eosinophils # 0.2 K/mcL (0.0-0.6); Eosinophils % 3.7 %; Hematocrit 24.9 % (37.5-50.1); Hemoglobin 7.3 g/dL (12.9-16.9); Immature Granulocytes % 0.3 % (0-4); Lymphocytes # 1.3 K/mcL (0.6-4.6); Lymphocytes % 21.2 %; Mean Corpuscular HGB Conc 29.3 g/dL (31.6-35.5); Mean Corpuscular Hemoglobin 24.6 pg (28.0-33.3); Mean Corpuscular Volume 83.8 fL (83.0-100.0); Mean Platelet Volume 11.2 fL (9.4-12.4); Monocytes # 0.9 K/mcL (0.0-1.3); Monocytes % 14.1 %; Neutrophils # 3.7 K/mcL (1.6-8.9); Platelet Count 225 K/mcL (140-400); Red Blood Count 2.97 M/mcL (4.19-5.50); Red Cell Distribution Width 16.4 % (11.5-14.5); Segmented Neutrophils % 60.1 %; White Blood Count 6.2 K/mcL (4.3-11.1)
[2020-03-09 05:50] LABS: Calcium 8.5 mg/dL (8.6-10.3); Magnesium 1.7 mg/dL (1.6-2.6); Potassium 4.5 mEq/L (3.5-5.1)
[2020-03-09] MEDS ORDERED: Pantoprazole 40 MG VIAL IVP SCH (06:00)
[2020-03-09] MEDS: Insulin LISPRO 300 UNITS/3 ML VIAL SQ SCH ×2 (07:57→12:13)
[2020-03-09] MEDS: Insulin DETEMIR 100 UNIT/ML X5UNITS SQ SCH (07:57)
[2020-03-09] MEDS: allopurinoL 100 MG TABLET PO SCH (07:58)
[2020-03-09] MEDS: Isosorbide MONOnitrate (24 HR) 60 MG TAB.ER.24H PO SCH (07:58)
[2020-03-09] MEDS: carvediloL 25 MG TABLET PO SCH (07:58)
[2020-03-09] MEDS: Loratadine 10 MG TABLET PO SCH (07:58)
[2020-03-09] MEDS: DilTIAZem CD (24hr) 180 MG CAP.ER.24H PO SCH (07:58)
[2020-03-09] MEDS: hydrALAZINE 25 MG TABLET PO SCH (07:58)
[2020-03-09] MEDS: Aspirin Enteric Coated 81 MG Tablet PO SCH (07:58)
[2020-03-09] MEDS: Liraglutide [Victoza 2-Pak] 1.2 MG SQ SCH (07:59)
[2020-03-09] MEDS: *HR* Acetylcysteine 20% 600 MG/3 ML ORAL SYRINGE PO SCH (07:59)
[2020-03-09] MEDS: Iron Sucrose Complex 250 MG in 0.9 % Sodium Chloride 250 ML IVPB SCH (08:00)
[2020-03-09 11:32] VITALS: BP 182/87
== END 2020-03-09 13:37 | disposition home or self-care (01) | DRG 190 ==
LOC: EMEROOARM 10:21 → 2ANU 10:21 → SUATTDRO 13:55 → 2ANU 14:54 → SUATTDRO 03-06 16:11
PROVIDERS: ADMIT Family Medicine; ATTEND Internal Medicine
PROC: ENDOEBX (2020-03-07 13:50)